=== PATIENT | male | born 1960 | race Caucasian/White ===

== ENCOUNTER 2020-06-11 14:37 | Outpatient (CLI) | payer OTHER, SELFPAY ==
--- NOTE | ~2020-06-11 | XR_ITS ---
EXAMINATION: XR chest 2V 06/11/2020 15:06 INDICATION: Chest pain PROCEDURE: 2 view chest COMPARISON: No prior studies for comparison. FINDINGS: The lungs are clear. The cardiomediastinal silhouette is within normal limits. There are no pleural effusions. There is no pneumothorax suspected. The lungs are hyperinflated which is cons istent with, but not diagnostic of chronic obstructive pulmonary disease. IMPRESSION: 1: NO ACUTE CARDIOPULMONARY DISEASE. Reviewed, dictated and finalized at location B.
[2020-06-11 14:59] LABS: Basophils Absolute Auto 0.06 K/mm3 (0.00-0.10); Basophils Percent Auto 0.9 % (0.0-1.0); Eosinophils Absolute Auto 0.42 K/mm3 (0.02-0.50); Eosinophils Percent Auto 6.2 % (1.0-6.0); Hematocrit 50.4 % (40.0-54.0); Hemoglobin 16.5 g/dL (14.0-18.0); Immature Granulocyte Absolute 0.01 K/mm3 (0.00-0.00); Immature Granulocyte Percent A 0.1 % (0.0-0.0); Lymphocytes Absolute Auto 1.76 K/mm3 (1.10-4.50); Lymphocytes Percent Auto 25.9 % (18.0-42.0); Mean Corpuscular HGB Conc 32.7 g/dL (32.0-36.0); Mean Corpuscular Hemoglobin 31.5 pg (27.0-31.0); Mean Corpuscular Volume 96.2 fL (78.0-102.0); Mean Platelet Volume 10.6 fl (8.7-11.0); Monocytes Absolute Auto 0.59 K/mm3 (0.10-0.90); Monocytes Percent Auto 8.7 % (2.0-11.0); Neutrophils Percent Auto 58.2 % (50.0-70.0); Platelet Count Result 200 K/mm3 (150-420); Red Blood Count 5.24 M/mm3 (4.70-6.10); Red Cell Distribution Width 13.7 % (11.6-14.4); White Blood Count 6.8 K/mm3 (4.8-10.8)
[2020-06-11 15:42] LABS: Alanine Aminotransferase 33 U/L (16-63); Albumin Level 4.4 g/dL (3.4-5.0); Alkaline Phosphatase 83 U/L (46-116); Anion Gap 8.6 mmol/L (7-16); Aspartate Amino Transferase 22 U/L (15-37); Bilirubin,Total 0.8 mg/dL (0.00-1.00); Blood Urea Nitrogen 20 mg/dL (7-18); Carbon Dioxide 33 mmol/L (21-32); Chloride 104 mmol/L (98-108); Estimated Glomerular Filt Rate 60; Glucose 108 mg/dL (70-99); Osmolality Calculated 295 mOsm/kg (285-295); Phosphorus 3.8 mg/dL (2.6-4.7); Potassium 4.6 mmol/L (3.5-5.1); Sodium 141 mmol/L (136-145); Total Protein 7.6 g/dL (6.4-8.2)
[2020-06-15 19:40] LABS: Amphetamines NEGATIVE ng/mL (<500); Barbiturates NEGATIVE ng/mL (<300); Benzodiazepines NEGATIVE ng/mL (<100); Cocaine Metabolite NEGATIVE ng/mL (<150); Marijuana Metabolite NEGATIVE ng/mL (<20); Methadone Metabolite NEGATIVE ng/mL (<100); Opiates NEGATIVE ng/mL (<100); Oxidant NEGATIVE mcg/mL (<200); pH 6.9 (4.5-9.0)
[2020-06-15 21:01] LABS: LH 2.5 mIU/mL (1.6-15.2)
[2020-06-18 14:47] LABS: Parathyroid Intact 55 pg/mL (14-64); Testosterone Free 38.4 pg/mL (35.0-155.0); Testosterone Total 310 ng/dL (250-1100)
== END 2020-06-11 14:38 | disposition home or self-care (01) ==
LOC: CHSLAB 14:47
PROVIDERS: PCP Internal Medicine; Visit Provider Internal Medicine
DX: E29.1 Testicular hypofunction (principal); G89.29 Other chronic pain
CPT/HCPCS: 36415; 71046; 80053; 80299; 83002; 83970; 84100; 84402; 84403; 85025

== ENCOUNTER 2020-07-18 03:06 | Emergency (ER) | payer OTHER, SELFPAY ==
--- NOTE | ~2020-07-18 | CT_ITS ---
EXAMINATION: CT brain wo con INDICATION: Headache COMPARISON: None TECHNIQUE: Standard unenhanced head CT. The dose-length product (DLP) was 908.00 mGy-cm. The mA was a djusted according to patient size. Iterative reconstruction technique was employed. FINDINGS: There is no intracranial hemorrhage, acute infarction, or abnormal mass lesion. 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 Parasellar embolization coils are noted. The ventricles are n ormal. There is no abnormal mass effect or midline shift. The coe-white matter differentiation is no rmal. The basal cisterns are patent. The orbits are normal. There is a left mastoid effusion. IMPRESSION: 1. No acute intracranial abnormality. 2. Left mastoiditis. Reviewed, dictated and finalized at location A.
--- NOTE | ~2020-07-18 | CT_ITS ---
EXAMINATION: CT cervical spine wo con DATE: 07/18/2020 04:11 INDICATION: Neck pain TECHNIQUE: Computed tomography (CT) of the cervical spine was performed without intravenous contrast. The dose-length product (DLP) was 136.08 mGy-cm. Automated exposure control and iterative reconstruc tion technique were employed. COMPARISON: None FINDINGS: There are 3 mm of retrolisthesis of C5 on C6. Vertebral body alignment is otherwise maintai sukhdev. There is severe loss of intervertebral disc space height at C5-6. Moderate loss of intervertebra l disc space height is present at C2-3, C3-4, and C6-7. Vertebral body heights are maintained. The od ontoid is intact. Small degenerative osteophytes project from the anterior endplates of multiple vert ebral bodies. The prevertebral soft tissues are normal. There is severe uncovertebral joint osteoarth ritis at C5-6. Moderate uncovertebral joint osteoarthritis and facet osteoarthritis are present there is a left mastoid effusion. There is severe central canal stenosis at C5-6. IMPRESSION: 1. Severe cervical spondylosis without acute findings. Reviewed, dictated and finalized at location A.
--- NOTE | ~2020-07-18 | XR_ITS ---
EXAMINATION: XR chest 1V portable INDICATION: Altered mental status TECHNIQUE: Portable AP chest at 0351 hours COMPARISON: 06/11/2020 FINDINGS: The lungs are hyperinflated but free of acute opacities. There is no pleural effusion or pn eumothorax. The heart size is normal. Calcified atherosclerosis is noted. IMPRESSION: 1. No acute cardiopulmonary abnormality. Reviewed, dictated and finalized at location A.
[2020-07-18 03:06] VITALS: BP 149/86; PULSE 82; RESP 20; TEMP 37.8; O2SAT 98
--- NOTE | 2020-07-18 03:17 | ECG_ITS ---
Measurements Intervals [place] Rate: 77 P: 81 RI: 132 QRS: 95 QRSD: 110 T: 89 QT: 369 QTc: 418 Interpretive Statements SINUS RHYTHM LEFT ATRIAL ENLARGEMENTRIGHT AXIS DEVIATION INTRAVENTRICULAR CONDUCTION DELAY POSSIBLE LEFT VENTRICULAR HYPERTROPHY CANNOT RULE OUT SEPTAL INFARCT, AGE INDETERMINATE PEAKED T WAVES- CONSIDER HYPERKALEMIA OR ISCHEMIA ST ABNORMALITY IN INFERIOR LEADS- CONSIDER ISCHEMIA BASELINE ARTIFACT- I, II, V6 ABNORMAL ECG Electronically Signed On 07-19-2020 7:12:12 CDT by José Kerr D.O.
--- NOTE | 2020-07-18 03:25 | ED.AMS ---
HPI - Altered Mental Status General Chief Complaint: Altered Mental Status Stated Complaint: CONFUSED Source: EMS Mode of arrival: EMS Limitations: altered mental status History of Present Illness HPI narrative: Alex is a 60M that was brought in by EMS for altered mental status. He was found at a house in [facility] with clutter everywhere, urine jugs laying around, bed bugs etc. A bystander called EMS and said he was not responding correctly. She could not provide any other information. He did not make any intelligible comments to EMS. He was thought to of said his head hurts or his whole body hurts. Then he reportedly asked EMS to hurt him, then help him. He tried to refuse EMS transport but was to altered to do so. Will not answer any questions regarding what happened or medical history. If even touch with the slightest touch he screams out in pain. complaint: altered mental status Related Data Home Medications Medication Instructions Recorded Confirmed Unable to Obtain Home Medications 07/18/20 07/18/20 Allergies Allergy/AdvReac Type Severity Reaction Status Date / Time Unable to Assess Allergy Verified 07/18/20 03:14 Review of Systems Review of Systems: ROS unobtainable: Yes unobtainable due to mental status Exam Const: Other: He was lying in bed curled up in the position. He occasionally moaned but spoke mostly in gibberish. Cachectic appearing. HENMT: Other: normocepalic, atraumatic Eyes: General: appearance normal, both eyes and all related structures Neck: Other: Normal to inspection Chest: Chest palpation & inspection: normal inspection of the chest Resp: Effort & Inspection: normal respiratory effort Auscultation: clear to auscultation bilaterally Other: No cough noted Cardio: Rate: regular rate Rhythm: regular rhythm Heart sounds: no murmurs GI: Inspection: normal to inspection Auscultation: normal bowel sounds Other: Reports TTP everywhere including the abdomen. Old vertical midline abdominal scar. Back/Spine/Pelvis: Other: TTP everywhere Skin: General skin exam: normal color and no rashes or lesions noted Neuro: Other: Not alert or oriented to person, place or time. Does not answer any questions. Occasionally will voice non-specific pain Extrem: General: normal to inspection Psych: Appearance: disheveled Speech and movement: Restless speech present Affect: Irritable affect present Attitude: Refuses to answer (attititude/behavior) Insight: Poor insight present (Psych) Judgement: Poor judgement present (Psych) Course Course Emergency Course: Alex was seen and evaluated. Ordered labs as below, CT head and cervical spine, EKG, UDS and UA. During collection of the urine by catheter placment he kept calling the nurse Hector his mother and was screaming. Repeat temp was 98.9. Repeat temp was 98.9, CXR was read as no acute cardiopulmonary process. 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 CT cervical spine showed no acute fracture or subluxation. Severe C5-6 degenerative changes with severe spinal canal stensosis. No prevertebral soft tissue swelling. Mild COPD. He was given 2gm of ceftriaxone, 1 gram of vanc and 1L of NS. [facility] was contacted at 0455. they called back at 0500 and I spoke with Dr. Owen who recommended we culture the ear fluid and accepted the transfer. Per their records he has a history of a AAA. Care transferred to Dr. Buchanan at 0700 Vital Signs Vital signs: Vital Signs Temperature 100.0 F H 07/18/20 03:06 Pulse Rate 82 07/18/20 03:06 Respiratory Rate 20 07/18/20 03:06 Blood Pressure 149/86 H 07/18/20 03:06 Pulse Oximetry 98 07/18/20 03:06 Temperature 98.9 F 07/18/20 07:00 Pulse Rate 86 07/18/20 07:00 Respiratory Rate 18 07/18/20 07:00 Blood Pressure 163/92 H
[2020-07-18 03:42] LABS: Basophils Absolute Auto 0.01 K/mm3 (0.00-0.10); Basophils Percent Auto 0.1 % (0.0-1.0); Hematocrit 44.5 % (40.0-54.0); Hemoglobin 14.3 g/dL (14.0-18.0); Immature Granulocyte Absolute 0.05 K/mm3 (0.00-0.00); Immature Granulocyte Percent A 0.4 % (0.0-0.0); Lymphocytes Absolute Auto 0.55 K/mm3 (1.10-4.50); Lymphocytes Percent Auto 4.1 % (18.0-42.0); Mean Corpuscular HGB Conc 32.1 g/dL (32.0-36.0); Mean Corpuscular Hemoglobin 30.6 pg (27.0-31.0); Mean Corpuscular Volume 95.1 fL (78.0-102.0); Mean Platelet Volume 10.9 fl (8.7-11.0); Monocytes Absolute Auto 0.84 K/mm3 (0.10-0.90); Monocytes Percent Auto 6.3 % (2.0-11.0); Neutrophils Percent Auto 89.1 % (50.0-70.0); Platelet Count Result 193 K/mm3 (150-420); Red Blood Count 4.68 M/mm3 (4.70-6.10); Red Cell Distribution Width 13.1 % (11.6-14.4); White Blood Count 13.4 K/mm3 (4.8-10.8)
[2020-07-18 03:58] LABS: INR 1.1; Prothrombin Time 11.5 Seconds (9.64-11.0)
--- NOTE | 2020-07-18 03:59 | PC.NURSE ---
0306 per ems, house infested with bed bugs. pt was disrobed at home prior to coming to er. surgical hair cover and surgical slippers applied upon arrival to er. 1 bug noted in pt hair. 0330 attempted to bath patient as needed, pt uncooperative with care . swinging at this ad writer. thrashing around in the cot. siderails up x2 for patient safety. 0345 pt to xray for head ct with xray staff and security staff. 0415 pt returned to room
[2020-07-18 04:02] LABS: Lactic Acid Reflex 1.9 mmol/L (0.4-2.0)
[2020-07-18 04:07] LABS: Alanine Aminotransferase 11 U/L (16-63); Albumin Level 3.4 g/dL (3.4-5.0); Alkaline Phosphatase 87 U/L (46-116); Anion Gap 10 mmol/L (8-16); Aspartate Amino Transferase 16 U/L (15-37); Bilirubin,Total 0.6 mg/dL (0.00-1.00); Blood Urea Nitrogen 18 mg/dL (7-18); Calcium 9.5 mg/dL (8.5-10.1); Carbon Dioxide 27 mmol/L (21-32); Chloride 96 mmol/L (98-108); Creatine Kinase 173 U/L (39-308); Estimated Glomerular Filt Rate > 60; Glucose 164 mg/dL (70-99); Osmolality Calculated 281 mOsm/kg (285-295); Potassium 4.3 mmol/L (3.5-5.1); Salicylate 3.4 mg/dL (2.8-20.0); Sodium 133 mmol/L (136-145); Thyroid Stimulating Hormone 0.06 uIU/mL (0.36-3.74); Total Protein 8.3 g/dL (6.4-8.2)
[2020-07-18 04:08] LABS: Acetaminophen 0 ug/mL (10-30); Ammonia < 10 umol/L (11-32); Ethanol < 3 mg/dL (0-6); Troponin I < 0.02 ng/mL (0.00-0.056)
[2020-07-18 04:23] LABS: Add Urine Microscopic? YES; Appearance Urine Clear (Clear); Bilirubin Urine Negative (Negative); Blood Urine 2+ (Negative); Color Urine Yellow (Yellow); Glucose Urine UA Negative (Negative); Ketones Urine Trace (Negative); Leukocyte Esterase Ur Negative LEU/UL (Negative); Nitrate Urine Negative (Negative); Protein Urine Negative (Negative); Specific Grav Ur 1.025 (1.010-1.020)
[2020-07-18 04:28] LABS: Bacteria Urine None seen /hpf; Squamous Epithelial Cell Urine None seen /hpf (Few); WBC Urine None seen /hpf (0-3)
[2020-07-18 04:29] LABS: Amphetamine Screen Urine Negative (Negative); Barbiturate Screen Urine Negative (Negative); Benzodiazepines Screen Urine Negative (Negative); Cannabinoid Screen Urine Positive (Negative); Cocaine Screen Urine Negative (Negative); Methadone Screen Urine Negative (Negative); Mucus Urine None seen /lpf; Opiate Screen Urine Positive (Negative); Phencyclidine Screen Urine Negative (Negative)
[2020-07-18 04:34] VITALS: BP 145/90; PULSE 108; RESP 18; TEMP 37.2; O2SAT 98
[2020-07-18] MEDS: SODIUM CHLORIDE 0.9% IV 1,000 ML 999 ML IV CONT (04:55)
--- NOTE | 2020-07-18 05:06 | PC.NURSE ---
pt sleeping. erp talking with hospitalist at [facility]
--- NOTE | 2020-07-18 05:07 | PC.NURSE ---
noted cloth in left ear. removed per dr padilla, green drainage noted. no foul odor. unknown how long had been in ear. pt keeps repeating. help me mom when nurse giving care.
[2020-07-18 05:21] VITALS: BP 137/79; PULSE 79; RESP 20; TEMP 37.2; O2SAT 98
--- NOTE | 2020-07-18 05:55 | PC.NURSE ---
call to [facility] arranging transfer per eric.
--- NOTE | 2020-07-18 06:06 | PC.NURSE ---
pt awake, continues to call this specifications writer, mom . unable to orient pt. continues with confusion. awaiting call for placement with [facility].
[2020-07-18 06:35] VITALS: BP 128/64; PULSE 75; RESP 18; TEMP 37.2; O2SAT 98
[2020-07-18 07:00] VITALS: BP 163/92; PULSE 86; RESP 18; TEMP 37.2; O2SAT 98
--- NOTE | 2020-07-18 07:10 | PC.NURSE ---
call for [facility] for transfer. awaiting arrival
--- NOTE | 2020-07-18 07:48 | PC.NURSE ---
[facility] here, report to leslie blancas loaded to cot. remains with altered mental status
[2020-07-19 11:46] LABS: Glucose Point of Care 159 (65-105)
== END 2020-07-18 07:49 | disposition short-term general hospital (02) ==
PROVIDERS: Emergency Provider Family Medicine
DX: H70.009 Acute mastoiditis without complications, unspecified ear (principal); G93.40 Encephalopathy, unspecified; E05.90 Thyrotoxicosis, unspecified without thyrotoxic crisis or storm
CPT/HCPCS: 36415; 70450; 71045; 72125; 80053; 80307; 81001; 82140; 82550; 82948; 83605; 84443; 84484; 85025; 85610; 87040; 87070; 87075; 87077; 87186; 87205; 93005; 96361; 96365; 96367; 99283; 99285; J0696; J3370; J7030

== ENCOUNTER 2021-09-30 13:30 | Outpatient (CLI) | payer OTHER, SELFPAY ==
--- NOTE | ~2021-09-30 | US_ITS ---
EXAMINATION: US aorta DATE: 09/30/2021 15:00 INDICATION: Abdominal aortic aneurysm TECHNIQUE: Grayscale, color Doppler, and pulsed Doppler images of the aorta and common iliac arteries were obtained. COMPARISON: 11/01/2018 FINDINGS: The proximal aorta measures 2.7 cm maximal AP dimension. There is a stent in the mid to distal aorta with intraluminal diameter of 1.7 cm. This spans fusiform infrarenal abdominal aortic aneurysm better appreciated on CT dated 01/22/2019. The aneurysm sac in the mid aorta measures 2.5 cm AP. The aneurys m sac at the distal aorta measures up to 3.0 cm tapering to 2.2 cm in the distalmost aorta. The right common iliac artery measures 7 mm. The left common iliac artery measures 7 mm. IMPRESSION: 1. Stented infrarenal abdominal aortic aneurysm measuring up to 3.0 cm. Reviewed, dictated and finalized at location A.
== END 2021-09-30 13:31 | disposition home or self-care (01) ==
LOC: CHSIMG 13:32
PROVIDERS: PCP Internal Medicine; Visit Provider Internal Medicine
DX: I71.4 Abdominal aortic aneurysm, without rupture (principal)
CPT/HCPCS: 76775

== ENCOUNTER 2023-03-27 16:36 | Outpatient (CLI) | payer OTHER, SELFPAY ==
[2023-03-27 17:00] LABS: Basophils Absolute Auto 0.05 K/mm3 (0.00-0.10); Basophils Percent Auto 0.7 % (0.0-1.0); Eosinophils Absolute Auto 0.16 K/mm3 (0.02-0.50); Eosinophils Percent Auto 2.3 % (1.0-6.0); Hematocrit 45.7 % (40.0-54.0); Hemoglobin 15.3 g/dL (14.0-18.0); Immature Granulocyte Absolute 0.02 K/mm3 (0.00-0.00); Immature Granulocyte Percent A 0.3 % (0.0-0.0); Lymphocytes Absolute Auto 2.05 K/mm3 (1.10-4.50); Lymphocytes Percent Auto 29.9 % (18.0-42.0); Mean Corpuscular HGB Conc 33.5 g/dL (32.0-36.0); Mean Corpuscular Hemoglobin 32.3 pg (27.0-31.0); Mean Corpuscular Volume 96.6 fL (78.0-102.0); Mean Platelet Volume 11.7 fl (8.7-11.0); Monocytes Absolute Auto 0.55 K/mm3 (0.10-0.90); Neutrophils Percent Auto 58.8 % (50.0-70.0); Platelet Count Result 150 K/mm3 (150-420); Red Blood Count 4.73 M/mm3 (4.70-6.10); Red Cell Distribution Width 12.5 % (11.6-14.4); White Blood Count 6.9 K/mm3 (4.8-10.8)
[2023-03-27 17:24] LABS: Alanine Aminotransferase 12 U/L (16-63); Albumin Level 4.1 g/dL (3.4-5.0); Alkaline Phosphatase 65 U/L (46-116); Anion Gap 6 mmol/L (8-16); Aspartate Amino Transferase 18 U/L (15-37); Bilirubin,Total 0.5 mg/dL (0.00-1.00); Blood Urea Nitrogen 14 mg/dL (7-18); Calcium 9.8 mg/dL (8.5-10.1); Carbon Dioxide 31 mmol/L (21-32); Chloride 105 mmol/L (98-108); Cholesterol 122 mg/dL (0-200); Estimated Glomerular Filt Rate > 60; Glucose 110 mg/dL (70-99); HDL Direct 43 mg/dL (40-60); LDL Cholesterol Calculated 55 mg/dL (<130); Osmolality Calculated 295 mOsm/kg (285-295); Phosphorus 3.9 mg/dL (2.6-4.7); Potassium 3.6 mmol/L (3.5-5.1); Sodium 142 mmol/L (136-145); Total Protein 7.3 g/dL (6.4-8.2); Triglycerides 119 mg/dL (0-150)
[2023-04-03 06:55] LABS: Amphetamines NEGATIVE ng/mL (<500); Barbiturates NEGATIVE ng/mL (<300); Benzodiazepines NEGATIVE ng/mL (<100); Cocaine Metabolite NEGATIVE ng/mL (<100); Marijuana Metabolite 2100 ng/mL (<5); Methadone Metabolite NEGATIVE ng/mL (<100); Opiates NEGATIVE ng/mL (<100); Oxidant NEGATIVE mcg/mL (<200); pH 5.4 (4.5-9.0)
== END 2023-03-27 16:37 | disposition home or self-care (01) ==
LOC: CHSLAB 16:39
PROVIDERS: PCP Internal Medicine; Visit Provider Internal Medicine
DX: I73.9 Peripheral vascular disease, unspecified (principal); D69.6 Thrombocytopenia, unspecified; G89.29 Other chronic pain
CPT/HCPCS: 36415; 80053; 80061; 80299; 80349; 83735; 84100; 85025; 85362; G0480

== ENCOUNTER 2025-06-29 10:15 | Emergency (ER) | payer SELFPAY ==
[2025-06-29] VITALS (8 sets, daily range): BP systolic 121–145; BP diastolic 96–115; PULSE 99–104; RESP 12–22; TEMP 36.2; O2SAT 97–99
--- NOTE | ~2025-06-29 | CT_ITS ---
EXAMINATION: CT brain wo con DATE: 06/29/2025 11:23 INDICATION: Altered mental status TECHNIQUE: Computed tomography (CT) of the head was performed without intravenous contrast. Sagittal and coronal reconstructions were performed. The mA was adjusted according to patient size. Iterative reconstruction technique was employed. The dose-length product was 605.33 mGy-cm. COMPARISON: head CT dated 07/18/2020 FINDINGS: Metallic streak artifact corresponding to embolization coils at the anterior suprasellar region in th e region of the anterior cerebral and anterior communicating arteries. Unchanged small region of ence phalomalacia in the anterior right frontal lobe which could represent an old infarct but could also b e related to placement of a prior ventricular drainage catheter with suggestion of a possible small o ld alexis hole in the overlying calvarium. Small old lacunar infarct involving the head of the left cau date nucleus and anterior limb of the internal capsule. No acute intracranial hemorrhage, acute infar ction or abnormal extra axial fluid collection. There is moderate scattered white matter hypoattenuation consistent with chronic small vessel ischemi c disease. Ventricles are normal and symmetric. No mass/mass effect. Small left mastoid effusion wit h change of interval left mastoidectomy. The orbits, paranasal sinuses and right mastoid air cells ar e normal. IMPRESSION: 1. No acute intracranial process. 2. 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 3. Unchanged tract of encephalomalacia in the anterior right frontal lobe extending between what appe ars to be a small old right frontal alexis hole and the anterior horn of the lateral ventricle which co uld be related to prior ventricular drainage catheter placement or sequela of old infarct. Correlate with surgical history. 4. Anterior suprasellar embolization coils. Again correlate with surgical history. 5. Moderate scattered white matter hypoattenuation consistent with chronic small vessel ischemic dise ase. Reviewed, dictated and finalized at location A. IMPRESSION: 1. No acute intracranial process. 2. 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 3. Unchanged tract of encephalomalacia in the anterior right frontal lobe exten ding between what appears to be a small old right frontal alexis hole and the ant erior horn of the lateral ventricle which could be related to prior ventricular drainage catheter placement or sequela of old infarct. Correlate with surgical history. 4. Anterior suprasellar embolization coils. Again correlate with surgical histo ry. 5. Moderate scattered white matter hypoattenuation consistent with chronic smal l vessel ischemic disease.
--- NOTE | ~2025-06-29 | XR_ITS ---
EXAMINATION: XR chest 1V portable 06/29/2025 11:24 INDICATION: Altered mental status PROCEDURE: AP portable chest COMPARISON: 07/18/2020 FINDINGS: The lungs are clear. The lungs are hyperinflated which is consistent with, but not diagnost ic of chronic obstructive pulmonary disease. The cardiomediastinal silhouette is within normal limits . There are no pleural effusions. There is no pneumothorax suspected. There is atherosclerosis of the aorta. IMPRESSION: 1: NO ACUTE CARDIOPULMONARY DISEASE. Reviewed, dictated and finalized at location A.
--- NOTE | 2025-06-29 10:30 | ECG_ITS ---
Test Date: 2025-06-29 10:45:01 Measurements Intervals [place] Rate: 101 P: 78 NE: 129 QRS: 94 QRSD: 102 T: 91 QT: 353 QTc: 459 Interpretive Statements SINUS TACHYCARDIA RIGHT AXIS DEVIATION RIGHT ATRIAL ENLARGEMENT LEFT ATRIAL ENLARGEMENT INCOMPLETE RIGHT BUNDLE BRANCH BLOCK ANTEROSEPTAL INFARCT, AGE INDETERMINATE ST-T WAVE ABNORMALITY IN INFERIOR LEADS- CONSIDER ISCHEMIA ABNORMAL ECG No previous ECG available for comparison Electronically Signed On 06-29-2025 10:59:15 CDT by José Kerr D.O.
--- NOTE | 2025-06-29 10:34 | ED_ITS ---
HPI - Altered Mental Status General Chief Complaint: Altered Mental Status Stated Complaint: possible seizure Time Seen by Provider: 06/29/25 10:30 History of Present Illness HPI narrative: Pt presents with altered mental status and confusion. niece called 911 because patient was confused and not acting right. Pt denies HARRIS or fever. Pt denies CP. Pt answers some questions but most not appropriately and rambles on about unrelated topics. Pt admits to not seeing doctor in awhile and not taking any meds. Pt does admit to smoking tobacco and using meth and cannabis. Related Data Home Medications ?Medication ?Instructions ?Recorded ?Confirmed ?Last Taken ?Type No Home Medications 06/29/25 06/29/25 Unknown History Allergies Allergy/AdvReac Type Severity Reaction Status Date / Time diphenhydramine (From Allergy Rash Verified 06/29/25 11:01 Benadryl) milk] Allergy Mild vomiting Uncoded 06/29/25 11:01 Review of Systems 2 Review of Systems: ROS unobtainable: Yes unobtainable due to mental status Exam 2 Const: General: no acute distress Nutritional Appearance: thin L imitations: altered mental status HENMT: Head: normal to inspection Ears: external ears normal F alonso/Nose/Sinus: Normal external nose present Mouth: Yes dry mucous membranes Throat: posterior oropharynx normal Eyes: EOM: EOMs intact bilaterally Neck: Neck: no lymphadenopathy and no meningeal signs Chest: Chest palpation & inspection: normal inspection of the chest Resp: Effort & Inspection: normal respiratory effort Auscultation: clear to auscultation bilaterally Cardio: Rate: tachycardic Rhythm: regular rhythm GI: GI Palp: Yes Soft to palpation and No Tenderness to palpation present (GI) Auscultation: normal bowel sounds Skin: General skin exam: normal color Rashes: no rashes Wounds: no wounds Neuro: General: moves all extremities, no meningeal signs and no focal motor deficits Speech: normal speech Extrem: General: normal to inspection and no clubbing, cyanosis or edema Psych: Mental Status: mental status grossly normal Affect: normal affect Attitude: cooperative Course Vital Signs Vital signs: Vital Signs Temperature 97.2 F L 06/29/25 10:15 Pulse Rate 102 H 06/29/25 10:15 Respiratory Rate 18 06/29/25 10:15 Blood Pressure 145/115 H 06/29/25 10:15 Pulse Oximetry 97 06/29/25 10:15 Oxygen Delivery Room Air 06/29/25 10:15 Temperature 97.2 F L 06/29/25 10:15 Pulse Rate 103 H 06/29/25 11:01 Respiratory Rate 20 06/29/25 11:01 Blood Pressure 121/96 H 06/29/25 11:01 Pulse Oximetry 98 06/29/25 11:01 Oxygen Delivery Room Air 06/29/25 10:45 MDM - Altered Mental Status MDM Narrative Medical decision making narrative: Pt presents from home with altered mental status. Pt is confused and rambling. Pt has only one visit here in 2019 and had mastoiditis. Pt does admit to drug usage including meth and cannabis. Pt incontinent of stool and urine per EMS. Niece contacted and says he has history of paranoid schizophrenia but does not take any meds. confusion started last week including having hallucinations and pacing about and being very paranoid and thinking hit is out on him. EKG appears like anteroseptal stemi. Pt denies CP but is confused. will contact [facility]. contacted but not cardiology and no call back. contacted [place] [facility] discussed with [facility] charge who said to follow the STEMI protocol and transfer. discussed with Dr Sarabia, cardiology who asked to send EKG and will accept. will give asa but will hold on heparin until i get a look at CT given pt's altered mental status. Pt departed to [place] before Ct read. Pt got asa only no heparin or brelinta. Lab Data 06/29/25 10:45 06/29/25 10:45 Labs: Lab Results 06/29/25 Range/Units 10:45 WBC 6.3 (4.8-10.8) K/mm3 RBC 4.91 (4.70-6.10) M/mm3 Hgb 15.2 (12.4-15.3) g/dL Hct 46.7 H (37.0-46.0) % MCV 95.1 (78.0-102.0) fL MCH 31.0 (27.0-31.0) pg MCHC 32.5 (32-36) g/dL RDW 13.1 (11.6-14.4) % Plt Count 165 (150-420) K/mm3 MPV 11.1 H (8.7-11.0) fl Immature Gran % (Auto) 0.3 H (0.0-0.0) % Neut % (Auto) 77.0 H (50.0-70.0) % Lymph % (Auto) 15.9 L (18.0-42.0) % Garrett % (Auto) 5.7 (2.0-11.0) % Eos % (Auto) 0.5 L (1.0-6.0) % Baso % (Auto) 0.6 (0.0-1.0) % Lymph # (Auto) 1.00 L (1.10-4.50) K/mm3 Garrett # (Auto) 0.36 (0.10-0.90) K/mm3 Eos # (Auto) 0.03 (0.02-0.50) K/mm3 Baso # (Auto) 0.04 (0.00-0.10) K/mm3 Abs Immat Gran (auto) 0.02 H (0.00-0.00) K/mm3 Absolute Neuts (auto) 4.85 (1.70-7.20) K/mm3 Absolute Nucleated RBC 0.00 (0.00-0.00) K/mm3 Nucleated RBC % 0.0 (0-0.0) % PT 11.7 (9.50-12.1) Seconds INR 1.1 APTT 26.7 (23.9-30.70) Sec Sodium Pending Potassium Pending Chloride Pending Carbon Dioxide 25 (22-30) mmol/L Anion Gap Pending BUN 15 (9-20) mg/dL Creatinine 1.10 (0.7-1.3) mg/dL Estim Creat Clear Calc 41 ml/min Estimated GFR > 60 (59 - ) Glucose 157 H (65-110) mg/dL Calculated Osmolality Pending Lactic Acid 4.2 H (0.4-2.0) mmol/L Calcium 10.1 (8.4-10.2) mg/dL Total Bilirubin 0.7 (0.2-1.3) mg/dL AST 33 (17-59) U/L ALT 21 (6-50) U/L Alkaline Phosphatase 68 (38-126) U/L Ammonia < 9 L (9-30) umol/L Total Creatine Kinase 83 (55-170) U/L Troponin I 0.016 (0.000-0.034) ng/mL Total Protein 7.0 (6.3-8.2) g/dL Albumin 4.6 (3.5-5.1) g/dL TSH 0.774 (0.465-4.680) uIU/mL Salicylates < 1.0 L (2-20) mg/dL Acetaminophen < 10 L (10-30) ug/mL Ethyl Alcohol < 10 (<10) mg/dL ECG Data EKG #1: Interpretation: sinus tach rate 101lae incomplete rbbb st elevation in avr avl v1-v3 with receprocal changes in 2,3 avf and v5, v6 looks like a stemi no prior ekg available for compariosn Critical Care Time Critical Care Time Critical Care Time: Yes Total Critical Care Time: 40 Discharge Plan Discharge Clinical Impression: ST elevation (STEMI) myocardial infarction, Altered mental status Patient Disposition: Acute Care Hospital Condition: Serious Patient Language: Setswana Prescriptions: No Action No Home Medications Follow-up/Referrals: Nolan Woodard MD [Primary Care Provider] -
[2025-06-29 10:51] LABS: Hematocrit 46.7 % (37.0-46.0); Hemoglobin 15.2 g/dL (12.4-15.3); Immature Granulocyte Percent A 0.3 % (0.0-0.0); Lymphocytes Absolute Auto 1.00 K/mm3 (1.10-4.50); Mean Corpuscular HGB Conc 32.5 g/dL (32-36); Mean Corpuscular Hemoglobin 31.0 pg (27.0-31.0); Mean Corpuscular Volume 95.1 fL (78.0-102.0); Nucleated Red Blood Cells Absolute Auto 0.00 K/mm3 (0.00-0.00); Nucleated Red Blood Cells Perc 0.0 % (0-0.0); Platelet Count Result 165 K/mm3 (150-420); Red Blood Count 4.91 M/mm3 (4.70-6.10); White Blood Count 6.3 K/mm3 (4.8-10.8)
--- NOTE | 2025-06-29 10:54 | PC.NURSE ---
COMPLEX MEDICAL HISTORY, PER DR OSORIO , [facility] CALLED FOR CARDIOLOGY. PT HAS SEEN DR AWAD IN THE PAST.
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
[2025-06-29] MEDS: SODIUM CHLORIDE 0.9% IV 1,000 ML 999 ML IV CONT (11:00)
--- NOTE | 2025-06-29 11:04 | PC.NURSE ---
no response from [facility], per ian landrum .
[2025-06-29 11:06] LABS: Acetaminophen < 10 ug/mL (10-30); Ammonia < 9 umol/L (9-30); INR 1.1; Partial Thromboplastin Time 26.7 Sec (23.9-30.70); Prothrombin Time 11.7 Seconds (9.50-12.1); Salicylate < 1.0 mg/dL (2-20)
--- OUTSIDE RECORDS SUMMARY | 2025-06-29 11:20 | XMS_ITS | Clinical Summary ---
Author Organization [facility] Address [address] [place] [address] Care Team Providers Care Systems Programmer Analyst Name Role Phone Nolan Woodard MD Primary Care Provider [phone] Js Salazar MD Unavailable [phone] Allergies Active Allergy Reactions Criticality Noted Date Comments Diphenhydramine Other (see comment) 12/09/2018 Muscle cramps/lock jaw Medications simvastatin 10 MG tablet Take 10 mg by mouth nightly at bedtime. 11/21/2018 Active metoprolol tartrate 100 MG tablet Take 100 mg by mouth 2 (two) times daily. Active HYDROcodone-alonso taminophen 7.5-325 MG tablet Take 1 tablet by mouth every 12 (twelve) hours as needed for Pain. Active Active Problems Problem Noted Date Diagnosed Date Mastoiditis 07/26/2020 Acute encephalopathy 07/18/2020 Aneurysm of infrarenal abdominal aorta Resolved Problems Problem Noted Date Diagnosed Date Resolved Date Dissection of abdominal aort a ([facility]) 02/14/2019 03/08/2021 Social History Tobacco Use Types Packs/Day Years Used Date Smoking Tobacco: Every Day Cigarettes Smokeless Tobacco: Never Alcohol Use Standard Drinks/Week Comments No 0 (1 standard drink = 0.6 oz pur e alcohol) AUDIT-C Answer Date Recorded Frequency of Alcohol Consumption Never 12/09/2018 Average Number of Drinks Not on file 019 Frequency of Binge Drinking Not on file 11/26 Sex and Gender Information Value Date Recorded Sex Assigned at Not on file 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 Gender Identity Not on file Sexual Orientation Not on file Last Filed Vital Signs Vital Sign Reading Time Taken Comments Blood Pressure 128/74 03/14/2021 1:34 PM CDT Pulse 64 03/14/2021 1:34 PM CDT Temperature 36.7 C (98.1 F) 08/02/2020 9:12 AM CDT Respiratory Rate 16 03/14/2021 1:34 PM CDT Oxygen Saturation 98% 03/14/2021 1:34 PM CDT Inhaled Oxygen Concentration - - Weight 61.1 kg (134 lb 12.8 oz) 03/14/2021 1:34 PM CDT Height 174.8 cm (5' 8.8) 03/14/2021 1:34 PM CDT Body Mass Index 20.02 03/14/2021 1:34 PM CDT Plan of Treatment Health Maintenance Due Date Last Done Comments Colorectal Cancer Screening Colonoscopy (10 Years) 1959 Hepatitis C 1977 DTaP, Tdap and Td Vaccines ( 1 - Tdap) 1978 Pneumococcal Vaccine: 50+ Ye ars (1 of 2 - PCV) 1978 Zoster Vaccines (1 of 2) 2009 COVID-19 Vaccine ( - 2023-2 5 season) 2024 RSV Immunization or 60+ Years (1 - 1-dose 75+ series) 2034 Meningococcal B Vaccine Aged Out No l onger eligible based on patient's age to complete this topic Meningococcal Vaccine Aged Out No harika myranda eligible based on patient's age to complete this topic RSV Immunizations Under 20 Months Aged Out No longer eligible based on patient's age to complete this topic Medical Devices Implanted Type Area Child Care Supervisor Device Identifier Shelf Expiration Date Model / Serial / Lot Graft Intergard Knitted Bifurcated 16 X 8mm X 50cm - [id number] Implanted:Qty: 1 on 01/22/2019 by Bertin Alvarez MD at [facility] N/A: Abdomen Dabble CARDIOVASCULAR [employer] 08/25/2023 [id number] / [id number] Description:Don from invento ry notified to Reorder Paulino Beveled Grommet Type Vent Tube With Tab 1.14mm Id Silicone Implanted:Qty: 1 on 07/27/2020 by Dougie Marshall MD at [facility] Left: Ear 10/09/2029 [id number] / / [id number] Insurance [employer] Advance Directives * Full Code (Latest Code Status on File) Date Activated Date Inactivated Comments 07/26/2020 5:22 PM 08/02/2020 6:55 PM * Full Code Date Activated Date Inactivated Comments 07/19/2020 6:29 AM 07/24/2020 7:36 AM * Full Code Date Activated Date Inactivated Comments 01/22/2019 1:37 PM 01/28/2019 3:53 PM Care Teams Systems Programmer Analyst Relationship Specialty Start Date End Date Nolan Woodard MD [address] [place] [id number] PCP - General INTERNAL MEDICINE 11/20/18 Js Salazar MD [address] [place] [address] INTERVENTIONAL CARDIOLOGY 11/20/18
[2025-06-29] MEDS: ASPIRIN 81 MG CHEWABLE TABLET 324 MG PO (11:22)
[2025-06-29 11:24] LABS: Alanine Aminotransferase 21 U/L (6-50); Aspartate Amino Transferase 33 U/L (17-59); Bilirubin,Total 0.7 mg/dL (0.2-1.3); Blood Urea Nitrogen 15 mg/dL (9-20); Calcium 10.1 mg/dL (8.4-10.2); Carbon Dioxide 25 mmol/L (22-30); Estimated CRCL calculation 41 ml/min; Estimated Glomerular Filt Rate > 60; Glucose 157 mg/dL (65-110)
[2025-06-29 11:25] LABS: Albumin Level 4.6 g/dL (3.5-5.1); Alkaline Phosphatase 68 U/L (38-126); Creatine Kinase 83 U/L (55-170); Total Protein 7.0 g/dL (6.3-8.2); Troponin I 0.016 ng/mL (0.000-0.034)
[2025-06-29 11:37] LABS: Thyroid Stimulating Hormone 0.774 uIU/mL (0.465-4.680)
[2025-06-29 12:03] LABS: Anion Gap 12 mmol/L (4-12); Chloride 103 mmol/L (98-107); Osmolality Calculated 293 mOsm/kg (285-295); Potassium 3.5 mmol/L (3.4-5.0); Sodium 140 mmol/L (137-145)
--- NOTE | 2025-07-02 12:40 | PC.NURSE ---
PRELIMINARY BLOOD CULTURE REPORT; NO GROWTH IN 24 HOURS.
--- NOTE | 2025-07-03 13:21 | PC.NURSE ---
Preliminary blood culture report; no growth in 48 hours.
--- NOTE | 2025-07-06 13:54 | PC.NURSE ---
FINAL BLOOD CULTURE NO GROWTH IN 5 DAYS
== END 2025-06-29 11:37 | disposition short-term general hospital (02) ==
PROVIDERS: Emergency Provider Emergency Medicine; PCP Internal Medicine
DX: I21.3 ST elevation (STEMI) myocardial infarction of unspecified site (principal); R41.82 Altered mental status, unspecified
CPT/HCPCS: 36415; 70450; 71045; 80053; 80143; 80179; 82077; 82140; 82550; 83605; 84443; 84484; 85025; 85610; 85730; 87040; 93005; 96360; 99291; A9270; J7030

== ENCOUNTER 2025-06-29 12:09 | Inpatient (IN) | payer MEDICAID, SELFPAY ==
[2025-06-29] VITALS (37 sets, daily range): BP systolic 118–164; BP diastolic 58–108; PULSE 57–93; RESP 16–27; TEMP 36.8–38.4; O2SAT 10–100; BMI 22.1
--- NOTE | ~2025-06-29 | CT_ITS ---
EXAMINATION: CTA chest PE abdomen pel DATE: 07/01/2025 12:29 CDT INDICATION: Respiratory failure TECHNIQUE: Computed tomographic angiography (CTA) of the chest, abdomen, and pelvis was performed wit hout and with 100 mL Omnipaque-350 intravenous contrast. The dose-length product was 573.09 mGy-cm. M aximum intensity projection 3D-reconstructions of the aorta and other arteries were constructed by th e technologist on a separate workstation. COMPARISON: CT dated 01/22/2019. FINDINGS: CHEST CTA: Study is technically adequate without evidence for pulmonary embolism. There is atherosclerosis and e ctasia of the thoracic aorta. There is coronary atherosclerosis. No significant pleural or pericardia l effusion. There is an endotracheal tube present. There is bilateral lower lobe dependent consolidat ion right greater than left. ABDOMEN AND PELVIS CTA: Markedly distended gallbladder containing high density material dependently which likely represents v icarious excretion of contrast. There is hepatomegaly. The spleen, pancreas, adrenal glands are unrem arkable. There are nonobstructing bilateral renal stones. No hydronephrosis. Colonic diverticulosis w ithout evidence for diverticulitis. [place] catheter present in the bladder. No definite free intraperi toneal air. No evidence for aortic aneurysm on the current study. There is atherosclerosis of the aor ta. There is severe lumbar spondylosis with levoscoliosis. IMPRESSION: 1. No evidence for pulmonary embolism. 2: Bilateral airspace consolidation, right greater than left. Differential diagnosis includes atelec tasis and/or pneumonia. 3: Marked gallbladder distention, nonspecific. 4: Hepatomegaly. 5: Nonobstructing bilateral nephrolithiasis. Reviewed, dictated and finalized at location A. IMPRESSION: 1. No evidence for pulmonary embolism. 2: Bilateral airspace consolidation, right greater than left. Differential john gnosis includes atelectasis and/or pneumonia. 3: Marked gallbladder distention, nonspecific. 4: Hepatomegaly. 5: Nonobstructing bilateral nephrolithiasis.
--- NOTE | ~2025-06-29 | XR_ITS ---
Portable chest x-ray Comparison: 06/29/2025 Clinical History: Intubated Findings: Endotracheal tube and NG tube are in satisfactory positions. There is mild haziness at the medial right lung base. Left lung clear. Possible COPD. Cardiomediastinal silhouette is stable. Bon es and soft tissues are unremarkable. Impression: Haziness in the medial right lung base. Correlate for pneumonia versus mild asymmetric pulmonary madi a. Possible underlying COPD. Support tubes, as above. Reviewed, dictated and finalized at location M. Impression: Haziness in the medial right lung base. Correlate for pneumonia versus mild asy mmetric pulmonary edema. Possible underlying COPD. Support tubes, as above.
--- NOTE | ~2025-06-29 | XR_ITS ---
Portable chest x-ray Comparison: 06/30/2025 Clinical History: Pneumonia Findings: Endotracheal tube, NG tube, and right-sided PICC line are in place. There is hazy airspace disease in the medial right lung base. Left lung clear. Cardiomediastinal silhouette is stable. Bon es and soft tissues are unremarkable. Impression: Stable hazy airspace disease medial right lung base. Correlate for pneumonia versus pulmonary edema/a telectasis. Support tubes, as above. Reviewed, dictated and finalized at location . Impression: Stable hazy airspace disease medial right lung base. Correlate for pneumonia ve rsus pulmonary edema/atelectasis. Support tubes, as above.
--- NOTE | ~2025-06-29 | XR_ITS ---
Portable chest x-ray Comparison: 07/01/2025 Clinical History: Pneumonia Findings: Endotracheal tube, NG tube, and right-sided central venous line are in place. Significant interval improvement in hazy right basilar airspace disease as compared to prior exam. Left lung jihan ins clear. Cardiomediastinal silhouette is stable. Bones and soft tissues are unremarkable. Impression: Significant interval improvement in right basilar airspace disease. Stable support tubes. Reviewed, dictated and finalized at location . Impression: Significant interval improvement in right basilar airspace disease. Stable support tubes.
--- NOTE | ~2025-06-29 | CT_ITS ---
EXAMINATION: CT brain wo con DATE: 07/01/2025 12:18 INDICATION: Seizures TECHNIQUE: Computed tomography (CT) of the head was performed without intravenous contrast. Sagittal and coronal reconstructions were performed. The mA was adjusted according to patient size. Iterative reconstruction technique was employed. The dose-length product was 681.00 mGy-cm. COMPARISON: head CT dated 06/29/25 FINDINGS: Metallic streak artifact corresponding to embolization coils at the anterior suprasellar region in th e region of the anterior cerebral and anterior communicating arteries. Unchanged small region of ence phalomalacia in the anterior right frontal lobe which could represent an old infarct but could also b e related to placement of a prior ventricular drainage catheter with suggestion of a possible small o ld alexis hole in the overlying calvarium. Small old lacunar infarct involving the head of the left cau date nucleus and anterior limb of the internal capsule. No acute intracranial hemorrhage, acute infar ction or abnormal extra axial fluid collection. There is moderate scattered white matter hypoattenuat ion consistent with chronic small vessel ischemic disease. Ventricles are normal and symmetric. No m ass/mass effect. Small left mastoid effusion with change of interval left mastoidectomy. The orbits, paranasal sinuses and right mastoid air cells are normal. IMPRESSION: 1. No acute intracranial process. 2. 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 3. Unchanged tract of encephalomalacia in the anterior right frontal lobe extending between what appe ars to be a small old right frontal alexis hole and the anterior horn of the lateral ventricle which co uld be related to prior ventricular drainage catheter placement or sequela of old infarct. Correlate with surgical history. 4. Anterior suprasellar embolization coils. Correlate with surgical history. 5. Moderate scattered white matter hypoattenuation consistent with chronic small vessel ischemic dise ase. Reviewed, dictated and finalized at location A. IMPRESSION: 1. No acute intracranial process. 2. 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 3. Unchanged tract of encephalomalacia in the anterior right frontal lobe exten ding between what appears to be a small old right frontal alexis hole and the ant erior horn of the lateral ventricle which could be related to prior ventricular drainage catheter placement or sequela of old infarct. Correlate with surgical history. 4. Anterior suprasellar embolization coils. Correlate with surgical history. 5. Moderate scattered white matter hypoattenuation consistent with chronic smal l vessel ischemic disease.
--- NOTE | ~2025-06-29 | XR_ITS ---
XR chest ET placement 06/29/2025 14:09 Indication: Endotracheal tube placement Procedure: AP portable chest Comparison: Comparison to multiple prior studies sequentially, with oldest reviewed study dated 01/22. Findings: Endotracheal tube tip approximately 2.5 cm above the antonella. NG tube in the stomach. No foc al air space disease, pulmonary edema, pleural effusion or suspected pneumothorax. There is residual contrast in nondilated renal collecting systems bilaterally. Impression: 1: No acute cardiopulmonary disease. Reviewed, dictated and finalized at location A. Impression: 1: No acute cardiopulmonary disease.
--- NOTE | ~2025-06-29 | US_ITS ---
EXAMINATION:US venous doppler LE BI INDICATION:Fever TECHNIQUE: Multiple grayscale, color flow and Doppler images of the right and left lower extremity de ep venous systems were obtained and reviewed. COMPARISON:No prior studies for comparison. FINDINGS: The common femoral, superficial femoral and popliteal veins demonstrate normal respiratory variation, augmentation and compressibility. Color flow is also seen within the posterior tibial, pe roneal, greater saphenous and profunda veins. IMPRESSION: 1: No lower extremity deep venous thrombosis. Reviewed, dictated and finalized at location A.
--- NOTE | 2025-06-29 12:13 | ECG_ITS ---
Test Date: 2025-06-29 12:13:20 Measurements Intervals [place] Rate: 96 P: 79 NM: 132 QRS: 87 QRSD: 104 T: 118 QT: 365 QTc: 462 Interpretive Statements SINUS RHYTHM POSSIBLE LEFT ATRIAL ENLARGEMENT INCOMPLETE RIGHT BUNDLE BRANCH BLOCK ANTEROSEPTAL INFARCT, AGE INDETERMINATE ST-T WAVE ABNORMALITY IN ANTEROLAT/INF LEADS- CONSIDER ISCHEMIA BASELINE ARTIFACT- I, II, AVR, AVL, AVF, V1-V6 ABNORMAL ECG Compared to ECG 06/29/2025 10:45:01 HEART RATE HAS DECREASED Electronically Signed On 06-30-2025 09:03:44 CDT by José Kerr D.O.
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
--- OUTSIDE RECORDS SUMMARY | 2025-06-29 12:22 | XMS_ITS | Clinical Summary ---
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 Gender Identity Not on file Sexual Orientation [...] this topic Medical Devices Implanted Type Area Softball Coach Device Identifier Shelf Expiration Date Model / Serial / Lot Graft Intergard Knitted Bifurcated 16 X 8mm X 50cm - [id number] Implanted:Qty: 1 on 01/22/2019 by Bertin Alvarez MD at [facility] N/A: Abdomen [employer] CARDIOVASCULAR RFIDeas 08/25/2023 [id number] / [id number] Description:Don from invento ry notified to Reorder Paulino Beveled Grommet Type Vent Tube With Tab 1.14mm Id Silicone Implanted:Qty: 1 on 07/27/2020 by Dougie Marshall MD at [facility] Left: Ear 10/09/2029 [id number] / / [id number] Insurance [employer] Advance Directives * Full Code (Latest Code Status on File) Date Activated Date Inactivated Comments 07/26/2020 5:22 PM 08/02/2020 6:55 PM * Full Code Date Activated Date Inactivated Comments 07/19/2020 6:29 AM 07/24/2020 7:36 AM * Full Code Date Activated Date Inactivated Comments 01/22/2019 1:37 PM 01/28/2019 3:53 PM Care Teams Prosthodontist/Owner Relationship Specialty Start Date End Date Nolan Woodard MD [address] [place] [id number] PCP - General INTERNAL MEDICINE 11/20/18 Js Salazar MD [address] [place] [address] INTERVENTIONAL CARDIOLOGY 11/20/18
--- NOTE | 2025-06-29 12:41 | PM.CNCAR ---
Assessment and Plan Assessment and plan (1) ST elevation (STEMI) myocardial infarction: Code(s): I21.3 - ST elevation (STEMI) myocardial infarction of unspecified site Status: Acute (2) Seizure: Code(s): R56.9 - Unspecified convulsions Status: Acute (3) Altered mental status: Code(s): R41.82 - Altered mental status, unspecified Status: Acute Plan -regards to possible STEMI, we rushed the patient to the labor and delivery registered nurse for catheterization. On the labor and delivery registered nurse table he developed seizure. Given 2 mg of Versed and seizure broke. ICU physician intubated patient. We will proceed with a cardiac catheterization. -in regards to history of brain overlies a kurtz encephalomalacia. We need to clarify his baseline history. History of Present Illness History of Present Illness Consult date/time: Date of hpulahc49/04/25 12:41 Requesting physician: Demario Berman III, DO Consult reason: Other (Possible STEMI) Reason For Visit: STEMI Narrative: This 65-year-old patient with history of drug abuse, previous embolization coil the brain who was brought in to the ER because of confusion. EKG showed ST elevation V1 and V2 AVR elevation and significant ST depression inferolateral leads concerning for STEMI. Again patient is confused and does not know where he is and it seems his comprehension is impaired. Review of Systems Review of Systems: ROS unobtainable: Yes unobtainable due to mental status [facility] Social History Social History (Updated 06/29/25 @ 12:49 by Debi Andrade MD) Social History: marijuana abuse, history of meth abuse Meds Home Medications and Allergies Home Medications ?Medication ?Instructions ?Recorded ?Confirmed ?Type No Home Medications 06/29/25 06/29/25 History Allergies Allergy/AdvReac Type Severity Reaction Status Date / Time diphenhydramine (From Allergy Rash Verified 06/29/25 11:01 Benadryl) milk] Allergy Mild vomiting Uncoded 06/29/25 11:01 Exam Const: Orientation/consciousness: No oriented to person, No oriented to place, No oriented to time and confusion HENMT: Head: normal to inspection Eyes: Sclera: sclerae normal Neck: Thyroid: thyroid normal Chest: Chest palpation & inspection: normal inspection of the chest Resp: Auscultation: clear to auscultation bilaterally Cardio: Heart sounds: S1 normal heart sound present, S2 normal heart sound present and no murmurs GI: GI Palp: No abdominal tenderness Back/Spine/Pelvis: Back: no CVA tenderness Skin: General skin exam: normal color Neuro: General: confusion Extrem: Other: No edema Psych: Other: Confused
--- NOTE | 2025-06-29 13:01 | WPDPROCEDUR ---
Procedures Intubation Intubation Date: 06/29/25 Intubation Time: 12:45 Consent: Emergent intubation done in the blood bank laboratory technologist following his seizure, agonal breathing and unresponsiveness A pre-procedural Time-Out was completed immediately before starting the procedure and confirmed: Patient Identification, Site, Procedure, Patient Position and the Availability of Requisite Equipment: Yes Sedative: etomidate Paralytic: rocuronium Laryngoscope: fiber optic video scope Assist device used: fiber optic device ET tube size: 8 Tube secured depth (cm): 25 Tube secured location: lips Tube placement confirmation: visualized tube passing through cords, equal breath sounds bilaterally, no breath sounds over epigastrium and confirmation by capnometry Patient tolerated procedure: well Intubation complications: none Additional comments: Chest x-ray shows ET tube in appropriate position. NG/OG tube in the stomach
--- NOTE | 2025-06-29 13:02 | P.CONIN_ITS ---
Assessment and Plan Assessment and plan (1) Altered mental status: Code(s): R41.82 - Altered mental status, unspecified Status: Acute Assessment and Plan: Patient presented to [facility] in [facility] with altered mental status, confusion and not being himself along with hallucinations and paranoia according to ER notes. -patient was incontinent of stool and urine per EMS -he had a seizure activity on the cardiac catheterization table, -altered mental status could be related to seizure activity and postictal state, and/or paranoid schizophrenia which he has a history of. 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 Anterior suprasellar embolization coils. Moderate scattered white matter hypoattenuation consistent with chronic small- vessel ischemic disease. (2) Seizure: Code(s): R56.9 - Unspecified convulsions Status: Acute Assessment and Plan: 06/29: Patient had a seizure activity on the cardiac catheterization stable -according the EMS he was also incontinent of stool and urine when they got to his house -this could also be related to seizures and he may be postictal. -patient does have a history of paranoid schizophrenia, not on any medications per patient's niece, according to the records. -will load with Keppra 1 g IV x1 and then Keppra 500 mg IV q.12 hours -continue propofol infusion for now which has anti seizure activity -will consult neurology (3) ST elevation (STEMI) myocardial infarction: Code(s): I21.3 - ST elevation (STEMI) myocardial infarction of unspecified site Status: Acute Assessment and Plan: EKG at the outside hospital ER showed ST elevations in the anteroseptal leads, with significant ST depression in inferior lateral leads concerning was STEMI -patient taken to cardiac laborer tin can for coronary angiography -non-obstructive coronary artery disease, right femoral artery angiogram shows there is 80-90% right external iliac lesion. The catheter seems to be semi occlusive at that side. The right common femoral artery could not be well visualized but the catheter entrance site is adequate. -LV EF was 65%, LVEDP was 8 mmHg (4) On mechanically assisted ventilation: Code(s): Z99.11 - Dependence on respirator [ventilator] status Status: Acute Assessment and Plan: 06/29: intubated in the cardiac laborer tin can after patient had a seizure, altered mental status, agonal breathing and not protecting his airway. -continue CMV mode of ventilation -chest x-ray shows ET tube and OG tube in appropriate position -ABGs reviewed, ventilator adjusted, maintain O2 sats > 90-92% given patient seems to have COPD with hypercapnia -patient does have a history of COPD -start bronchodilators and budesonide nebs -sedated with fentanyl and Versed infusion, maintain RASS of 0 to -1, daily SAT and SBT -patient was initially started on propofol dropped his blood pressures sedation was switched to fentanyl and Versed (5) Illicit drug use: Code(s): F19.90 - Other psychoactive substance use, unspecified, uncomplicated Status: Acute Assessment and Plan: Patient has a history of illicit drug use according to the niece patient takes methamphetamine and cannabis. Patient also has a history of schizoaffective paranoia on no medications -check urine drug screen -acetaminophen, alcohol and salicylic acid levels were all within normal limit Plan DVT prophylaxis: SCDs, no chemoprophylaxis since patient has coffee-groun d/maroon drainage from his OG tube Stress ulcer prophylaxis: Protonix IV q.12 hours Nutrition: NPO for now Code Status: Full code Critical Care Time Spent: 54 minutes Due to a high probability of clinically significant, life threatening deterioration, the patient required my highest level of preparedness to intervene emergently and I personally spent this critical care time directly and personally managing the patient. This critical care time included obtaining a history; examining the patient; pulse oximetry; ordering and review of studies; arranging urgent treatment with development of a management plan; evaluation of patient's response to treatment; frequent reassessment; and discussions with other providers. It was exclusive of separately billable procedures and treating other patients and teaching time. Please see Assessment and Plan section and the rest of the note for further information on patient assessment and treatment This dictation may have been done utilizing a voice recognition system. Attempts have been made to correct errors. However, there may be uncorrected grammatical, spelling, and recognitions errors present. 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 after his niece called 911 with complains of altered mental status, confusion that started last week along with hallucinations and pacing about and being very paranoid and thinking somebody is out to hit him, not acting right.. According the records EMS noted that patient was incontinent of stool and urine. EKG appeared to show anteroseptal ST-elevation myocardial injury. Patient denies any chest pain want with altered mental status/confusion PE patient was transferred to [facility] for STEMI. Cardiology I accepted the patient is the EKG showed ST-elevation in V1 V2 and AVR. And ST depression in the inferior lateral leads. Labs at the outside hospital: WBC 6.3, hemoglobin 15.2, platelets 165, INR 1.1. Sodium 140, potassium 3.5, CO2 25, BUN 15, creatinine 1.10, glucose 157, lactic acid 4.2, ammonia <9, LFTs within normal limits, troponin 0.016, TSH 0.774. Salicylate, alcohol, acetaminophen levels within normal limits. 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 Anterior suprasellar embolization coils. Moderate scattered white matter hypoattenuation consistent with chronic small- vessel ischemic disease. 06/29: Chest x-ray showed no acute cardiopulmonary disease Patient was taken the laborer tin can by cardiology, on the table patient he had a seizure, was given Versed 2 mg IV x1, patient with altered mental status, not protecting his airway, I was called to evaluate the patient. Given his seizure activity, inability to protect airway I decided to intubate the patient in the laborer tin can. Intubation was uneventful, patient placed on mechanical ventilation cough, placed on propofol infusion for sedation since systolic blood pressures were in the 190s. Review of Systems Review of Systems: ROS unobtainable: Yes unobtainable due to endotracheal tube, unobtainable due to medical condition and unobtainable due to mental status PMF Social History Social History Social History: marijuana abuse, history of meth abuse Meds Home Medications and Allergies Home Medications ?Medication ?Instructions ?Recorded ?Confirmed ?Type No Home Medications 06/29/25 06/29/25 History Allergies Allergy/AdvReac Type Severity Reaction Status Date / Time diphenhydramine (From Allergy Rash Verified 06/29/25 11:01 Benadryl) milk] Allergy Mild vomiting Uncoded 06/29/25 11:01 Exam Narrative: General: Intubated and sedated HEENT:? Pupils equal and reactive, sclera is clear, ETT in place Neck:? Supple Respiratory:? Decreased air entry diffusely, distant breath sounds, no wheezing, no rales Cardiac:? S1-S2 is normal, regular rate and rhythm, no murmur Abdomen:? Soft, nontender, nondistended, hypoactive bowel sound Extremities:? No edema, palpable pedal pulses Neuro:? Patient is intubated, sedated, does not open his eyes or follow simple commands Skin:? Warm and dry Psych:? Unable to assess Quality VTE Prophylaxis VTE prophylaxis: mechanical ordered Hospitalist [facility] Advance Care Plan I have confirmed that the patient's Advanced Care Plan is present, code status is documented, or surrogate decision maker is listed in patient medical record.: Yes Medication Reconciliation I have utilized all available resources to obtain, update and review the patients current medications (includes all prescriptions, OTC, herbals, canna bis, and nutritional supplements).: Yes
--- NOTE | 2025-06-29 13:29 | WPDCARDPROC ---
Cardiac Cath Procedure Note Date of procedure:: 06/29/25 Performing physician:: Debi Andrade MD Date of service 06/29/2025 Indication:: Possible STEMI Brief clinical history:: This 65-year-old patient with history of drug abuse, previous embolization coil the brain who was brought in to the ER because of confusion. EKG showed ST elevation V1 and V2 AVR elevation and significant ST depression inferolateral leads concerning for STEMI. Again patient is confused and does not know where he is and it seems his comprehension is impaired. He developed seizure prior to cardiac catheterization and we administered 2 mg of Versed to help terminate the seizure. ICU physician dr nagy intubated the patient. Procedure Procedure performed:: 1-Moderate sedation that started at 12:58 9.m. and ended at 1:24 p.m. using 4mg of Versed . The registered nurse was bailey de jesus 2-Selective left and right coronary angiogram. 3-Left heart catheterization with measurement of LVEDP and measurement of gradient across aortic valve. 4-Right common femoral arterial angiogram. Sedation/Medication given:: Moderate sedation. Access site:: Right common femoral artery. Estimated blood loss:: 10cc Procedure note:: After informed consent patient was brought in to cardiac cath rn with the was draped and prepped in usual manner. Moderate sedation was given and the right groin was infiltrated using 1% lidocaine. six [place] sheath was obtained using micropuncture needle and the modified Seldinger technique. Selective left coronary angiogram was done using JL4 catheter with the tip of the catheter placed in the left main coronary artery. Selective right coronary angiogram was done using JR4 catheter with the tip of the catheter placed to the right coronary artery. After that 5 [place] pigtail catheter was advanced across the aortic valve into the left ventricle with measurement of LVEDP and measurement of gradient across aortic valve. VV angiogram was done. The Right common femoral arterial angiogram was done. Findings:: 1- left coronary artery is a large artery that divides into large LAD, large circumflex artery. Left main has minimal irregularities. 2- left anterior descending artery is a large artery that runs and wraps around the apex. Has calcification and 20 30% disease. The 3- leftcircumflex artery is a large artery and dominant. Minimal irregularities. Large OM1. There is the branch of medium OM1 that has ostial 60%. 4-ramus intermedius is moderate in size with diffuse calcification and diffuse 40-50%. 4- right coronary artery is non dominant without significant obstruction. The 5- LVEDP was 8 mm Hg and no gradient across aortic valve. 6-LV angiogram shows normal LV ejection fraction 65%. 6- opening arterial pressure was 167/101 and closing pressure was 150/118 7- right femoral artery angiogram shows there is 80-90% right external iliac lesion. The catheter seems to be semi occlusive at that side. The right common femoral artery could not be well visualized but the catheter entrance site is adequate. Conclusion:: -nonobstructive CAD Assessment and Plan Assessment and plan (1) ST elevation (STEMI) myocardial infarction: Code(s): I21.3 - ST elevation (STEMI) myocardial infarction of unspecified site Status: Acute Assessment and Plan: Minimal irregularities. -workup for confusion and seizures. - (2) Seizure: Code(s): R56.9 - Unspecified convulsions Status: Acute
--- NOTE | 2025-06-29 13:37 | WPDMODSED ---
Moderate Sedation Note-Pt Data Patient Data Diagnosis: Possible STEMI Present Complaint: Confusion Procedure to be performed/Plan: Coronary angiogram Allergies Allergy/AdvReac Type Severity Reaction Status Date / Time diphenhydramine (From Allergy Rash Verified 06/29/25 11:01 Benadryl) milk] Allergy Mild vomiting Uncoded 06/29/25 11:01 Home Medications ?Medication ?Instructions ?Recorded ?Confirmed ?Type No Home Medications 06/29/25 06/29/25 History Sedation/Anesthesia: No previous sedation/anesthesia problems (including family history). [facility] Social History Social History Social History: marijuana abuse, history of meth abuse Mod Sed Physical Exam Physical Exam Pre Procedural Exam: Normal: Appearance, Eyes, Ears, Nose, Neck, Throat, Airway, Lungs, Heart Size, Heart Rate, Heart Rhythm, Neuro Exam, Abdomen, Liver, Kidneys, Spleen, Breasts, Genitalia, Extremities and Skin Hours since solid foods: 8 Hours since liquid intake: 8 Mallampati Classification: class 1 Internal Medicine - PN: Obj Da Vital Signs Vital Signs: Vital Signs - 24 hr 06/29/25 12:50 Pulse Oximetry 100 Oxygen Delivery Mechanical Ventilation Fraction of Inspired Oxygen 100 ASA Classification/Sedation ASA Classification/Sedation ASA Class: I Emergent: No Risks: Risks, benefits and alternatives explained and patient/family accepted plan for sedation. Patient re-evaluated immediately prior to sedation.
--- NOTE | 2025-06-29 13:40 | ECG_ITS ---
Test Date: 2025-06-29 14:04:52 Measurements Intervals [place] Rate: 76 P: 95 NC: 135 QRS: 97 QRSD: 101 T: 92 QT: 396 QTc: 447 Interpretive Statements SINUS RHYTHM RIGHT ATRIAL ENLARGEMENT CANNOT R/O SEPTAL INFARCT, AGE INDETERMINATE HIGH LATERAL INFARCT, AGE INDETERMINATE ST-T WAVE ABNORMALITY IN ANTEROLAT/INF LEADS- CONSIDER ISCHEMIA BASELINE WANDER- V3-V4 ABNORMAL ECG Compared to ECG 06/29/2025 10:45:01 HEART RATE HAS DECREASED Electronically Signed On 06-29-2025 14:13:14 CDT by José Kerr D.O.
[2025-06-29] MEDS: MIDAZOLAM HCL (*CRX) 2 MG/2 ML VIAL IV PUSH (13:58)
[2025-06-29] MEDS: LACTATED RINGERS 1,000 ML 999 ML IV CONT (14:13)
[2025-06-29] MEDS: IPRATROPIUM 0.5 MG/ALBUTEROL SULFATE 2.5 MG AMPUL.NEB 3 ML INHALATION ×2 (14:13→20:05)
[2025-06-29 14:17] LABS: Alveolar/Arterial O2 Gradient 227.5 mmHg; Carboxyhemoglobin 2.0 % THb (0-2.0); Fractional Inspired Oxygen 100 %; HCO3 ABG 25.7 mEq/l (22.0-26.0); Methemoglobin ABG 0.3 %THb (0-1.5); Oxygen Content ABG 21.3 %vol (16.0-22.0); Oxygen Saturation ABG 99.8 % (95.0-100.0); PCO2 ABG 55.5 mmHg (35.0-45.0); PO2 ABG 430.0 mmHg (80.0-100.0); PO2 FiO2 Ratio Arterial Blood 4.30 %; Reduced Hemoglobin 0.3 %THb (0-5.0)
[2025-06-29 14:21] LABS: Modified Allen's Test Pass; Site Drawn LEFT RADIAL
[2025-06-29 14:23] LABS: Arterial Blood Gas Tidal Volume 450 ml; Arterial Blood Gas Ventilator rate 20 /MIN
[2025-06-29] MEDS: MIDAZOLAM 100MG/NS 100ML(*CRX) 100 MG/100 ML BAG IV CONT (14:24)
[2025-06-29] MEDS: FENTANYL 2,500MCG/NS250ML(*CRX 2,500 MCG/250 ML BAG IV CONT (14:25)
[2025-06-29] MEDS: fentaNYL CITRATE INJ (*CRX) 100 MCG/2 ML VIAL IV PUSH (14:30)
[2025-06-29] MEDS: levETIRAcetam 1000MG/NACL100ML 1,000 MG/100 ML BAG 400 MG IVPB ×2 (14:37→21:12)
[2025-06-29 14:51] LABS: Triglycerides 133 mg/dL (<150)
[2025-06-29] MEDS: LORazepam INJ (*CRX) 2 MG/ML VIAL IV PUSH (14:58)
--- NOTE | 2025-06-29 16:05 | ADMGEN ---
This patient, Alex Shane, was admitted to Intensive Care Unit-3 at approximately 1353. Patient/family oriented to hospital policies and general routines including ID bracelet, bed and alarms, visiting hours, pain management, procedures, bathroom and other care routines, personal items, smoking policy, room service/diet, and visiting hours. Information on how to activate the Rapid Response Team has been discussed. Patient/Family are encouraged to report perceived risks to care and to ask questions if they do not understand what they are told or what they should do.
[2025-06-29 16:58] LABS: Cannabinoid Screen Urine Positive (Negative)
[2025-06-29 17:05] LABS: MRSA (PCR) NOT DETECTED (NOT DETECTE)
[2025-06-29] MEDS: SODIUM CHLORIDE 0.9% IV 1,000 ML 125 ML IV CONT (17:17)
[2025-06-29] MEDS: PANTOPRAZOLE SODIUM IV 40 MG VIAL IV PUSH ×2 (17:18→21:12)
--- NOTE | 2025-06-29 17:41 | WPDNEURCNPN ---
Assessment and Plan Assessment and plan (1) Seizure disorder: Code(s): G40.909 - Epilepsy, unspecified, not intractable, without status epilepticus Status: Acute (2) History of recent neurosurgical procedure: Code(s): Z98.890 - Other specified postprocedural states Status: Acute Plan CT scan of brain shows area of encephalomalacia in the right frontal lobe and possible alexis hole and embolization call. 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 It is not clear that he has been prescribed and taking any anticonvulsant at home. Apparently he was found in somewhat of a Uriel condition. There is also history of drug abuse. Once again since the history is not available I would suggest to keep him on Keppra he was given 1000 mg earlier today and then placed on Keppra and I would suggest 1000 mg twice a day. If he can not find any family member to give any further history that certainly would be helpful. Urine toxicology was positive for cannabis and benzodiazepine. Consult date: 06/29/25 HPI: Alex Shane is a 65 year old male presented to the hospital with the episode of confusion thought to have had a seizure. Thereafter there are some findings suggestive of possible cardiac problem and he went for cardiac catheterization and before that he had a seizure. He is now intubated in ICU. No family members were available. Apparently there is a niece who has been a contact but she is also hard to reach. It is not clear the he has been taking any medications for seizures in the past. The CT scan of the brain does indicate that he had a cyst surgery and a while then intracranially in the past. It was noted that a CT scan of brain performed 2019 did not show any of the findings that have been noted in the current CT scan. Review of Systems Review of Systems: ROS unobtainable: Yes unobtainable due to medical condition [facility] Past Medical History Medical History (Updated 06/29/25 @ 17:47 by George Cisneros MD) Seizure disorder History of recent neurosurgical procedure Family History Family History Mother Migraine Father Ischemic heart disease Sibling Intracranial aneurysm Social History Social History Social History: marijuana abuse, history of meth abuse Smoking packs per day: 1 Smoking cigarettes per day: 20.0 Smoking status: Current every day smoker Alcohol intake: unknown Substance use type: amphetamines Other substance usage details: PT intubated, unable to answer admission questions Spiritual care concerns: No Meds Home Medications and Allergies Home Medications ?Medication ?Instructions ?Recorded ?Confirmed ?Type No Home Medications 06/29/25 06/29/25 History Allergies Allergy/AdvReac Type Severity Reaction Status Date / Time diphenhydramine (From Allergy Rash Verified 06/29/25 15:33 Benadryl) milk] Allergy Mild vomiting Uncoded 06/29/25 15:33 Vital Signs Vital Signs - 24 hr 06/29/25 12:50 06/29/25 14:02 06/29/25 14:15 Temperature Pulse Rate 88 66 Respiratory Rate 22 H 24 H Blood Pressure Pulse Oximetry 100 Oxygen Delivery Mechanical Ventilation Fraction of Inspired Oxygen 100 06/29/25 14:24 06/29/25 14:25 06/29/25 14:32 Temperature Pulse Rate 71 71 74 Respiratory Rate 25 H 27 H Blood Pressure Pulse Oximetry 100 Oxygen Delivery Mechanical Ventilation Fraction of Inspired Oxygen 50 06/29/25 14:41 06/29/25 14:42 06/29/25 14:48 Temperature Pulse Rate 93 93 74 Respiratory Rate 21 H 21 H 21 H Blood Pressure 163/95 H Pulse Oximetry 100 Oxygen Delivery Fraction of Inspired Oxygen 06/29/25 14:50 06/29/25 14:55 06/29/25 14:58 Temperature Pulse Rate 75 66 64 Respiratory Rate 24 H 21 H 24 H Blood Pressure 146/106 H 144/95 H Pulse Oximetry 100 100 Oxygen Delivery Fraction of Inspired Oxygen 06/29/25 14:58 06/29/25 15:00 06/29/25 15:05 Temperature Pulse Rate 64 65 68 Respiratory Rate 24 H 21 H 24 H Blood Pressure 140/101 H 145/100 H Pulse Oximetry 100 100 Oxygen Delivery Fraction of Inspired Oxygen 06/29/25 15:10 06/29/25 15:15 06/29/25 15:20 Temperature Pulse Rate 67 66 66 Respiratory Rate 19 25 H 25 H Blood Pressure 154/101 H 164/108 H 150/98 H Pulse Oximetry 100 100 100 Oxygen Delivery Fraction of Inspired Oxygen 06/29/25 15:35 06/29/25 15:50 06/29/25 16:00 Temperature 98.5 F Pulse Rate 72 57 L Respiratory Rate 19 24 H Blood Pressure 145/95 H 123/93 H Pulse Oximetry 100 100 100 Oxygen Delivery Mechanical Ventilation Fraction of Inspired Oxygen 50 06/29/25 16:00 06/29/25 16:00 06/29/25 16:05 Temperature 98.6 F Pulse Rate 68 70 70 Respiratory Rate 24 H 24 H Blood Pressure 129/98 H 129/98 H Pulse Oximetry 100 100 Oxygen Delivery Fraction of Inspired Oxygen 06/29/25 16:35 06/29/25 17:00 06/29/25 17:25 Temperature 98.3 F Pulse Rate 73 71 62 Respiratory Rate 16 Blood Pressure 124/99 H 145/105 H Pulse Oximetry 100 100 100 Oxygen Delivery Mechanical Ventilation Fraction of Inspired Oxygen 50 06/29/25 17:30 Temperature Pulse Rate 69 Respiratory Rate 24 H Blood Pressure 142/101 H Pulse Oximetry 100 Oxygen Delivery Fraction of Inspired Oxygen Exam Narrative: Patient intubated and On ventilator. He remains unresponsive to verbal or painful stimuli pupils were midsize and a sluggish to light. No posturing was noted. Tone on both sides in upper lower limbs did not show any significant difference.
--- NOTE | 2025-06-29 18:46 | PC.NURSE ---
PT intubated prior to arrival to ICU, pt unable to answer questions regarding any medical history or personal information. This RN called the number on file for the patients niece and left VM. No call back at this time.
[2025-06-29] MEDS: BUDESONIDE RESPULE NEB 0.5 MG/2 ML AMP INHALATION (20:05)
--- NOTE | 2025-06-29 20:45 | PC.NURSE ---
Received report from ALOZNO Smallwood. Assumed care of patient at this time.
[2025-06-29] MEDS: MINERAL OIL/WHITE PETROLATUM OINTMENT 1 APPLIC EACH EYE (21:13)
--- NOTE | 2025-06-29 22:35 | PC.NURSE ---
Ice packs to groin and axilla area.
[2025-06-30] VITALS (48 sets, daily range): BP systolic 65–142; BP diastolic 51–85; PULSE 64–777; RESP 24–25; TEMP 37.7–39.1; O2SAT 92–100; BMI 23.3
--- NOTE | 2025-06-30 | ECHO_ITS ---
Patient Info Name: Alex Shane Age: 65 years : 1960 Gender: Male Ht: 69 in Wt: 157 lbs BSA: 1.87 m2 HR: 86 bpm BP: 110 / 78 mmHg Technical Quality: Good Exam Date: 06/30/2025 2:10 PM Patient Status: I Admit Date: 06/29/2025 Exam Type: CA echo doppler color flow Complete two-dimensional, color flow and Doppler transthoracic echocardiogram is performed. Staff Referring Physician: Yao Betancourt MD Squirt Machine Operator: Sade Obrien Attending Provider: Robert Armendariz Summary 1. Complete two-dimensional, color flow and Doppler transthoracic echocardiogram is performed. 2. Left ventricular systolic function is normal, estimated at 50-55. 3. The left ventricular diastolic function is indeterminate. 4. No pulmonary hypertension, estimated pulmonary arterial systolic pressure is 32 mmHg. Left Ventricle Left ventricular chamber dimension is normal. Left ventricular systolic function is normal, estimated at 50-55. There is mildly increased left ventricular wall thickness. Left ventricular septal wall motion is normal. The left ventricular diastolic function is indeterminate. Right Ventricle Right ventricular chamber dimension is normal. Right ventricular systolic function is normal. Left Atria Left atrial chamber dimension is normal. Right Atria Right atrial chamber dimension is normal. Aortic Valve The aortic valve is probable trileaflet. There is mild aortic valve sclerosis. There is no aortic valve stenosis. There is no aortic valve regurgitation. Pulmonic Valve The pulmonic valve is normal. There is no pulmonic valve stenosis. There is mild pulmonic regurgitation. Mitral Valve The mitral valve has normal leaflets. There is no mitral valve stenosis. There is no mitral valve regurgitation. Tricuspid Valve The tricuspid valve leaflets are normal. There is no significant tricuspid valve stenosis. There is mild tricuspid valve regurgitation. No pulmonary hypertension, estimated pulmonary arterial systolic pressure is 32 mmHg. Pericardium/Pleural The pericardium appears normal. There is no pericardial effusion. Inferior Vena Cava Dilated inferior vena cava with <50% collapse upon inspiration consistent with elevated right atrial pressure, 15 mmHg. Aorta The aortic root size at the sinus of Valsalva is normal. The prox ascending aorta size is normal. Left Ventricular Outflow Tract Name Value Normal LVOT 2D LVOT Diameter 2.0 cm LVOT Doppler LVOT Peak Velocity 104 cm/s LVOT Peak Gradient 4 mmHg LVOT Mean Gradient 2 mmHg LVOT VTI 19 cm LVOT Stroke Volume 59 ml LVOT CO 4.2 l/min LVOT CI 2.2 l/min/m2 Pulmonic Valve Name Value Normal RVOT Doppler RVOT Peak Velocity 139 cm/s RVOT Peak Gradient 8 mmHg PV Doppler PV Peak Velocity 164 cm/s PV Peak Gradient 11 mmHg Mitral Valve Name Value Normal MV Diastolic Function MV E Peak Velocity 58 cm/s MV A Peak Velocity 42 cm/s MV E/A 1.4 MV Decel Time (PW) 191 ms MV Annular TDI MV E/e' (Septal) 9.2 MV E/e' (Lateral) 5.5 MV E/e' (Average) 7.4 Tricuspid Valve Name Value Normal TV Regurgitation Doppler TR Peak Velocity 204 cm/s TR Peak Gradient 17 mmHg Estimated PAP/RSVP RA Pressure 15 mmHg <=5 PA Systolic Pressure 32 mmHg <36 RV Systolic Pressure 32 mmHg <36 Aortic Valve Name Value Normal AV Doppler AV Peak Velocity 151 cm/s AV Peak Gradient 9 mmHg AV Area (Cont Eq Luis) 2.2 cm2 AV DI (Luis) 0.69 AV Regurgitation 2D LVOT Area 3.1 cm2 Ventricles Name Value Normal LV Dimensions 2D/MM IVS Diastolic Thickness (2D) 1.0 cm 0.6-1.0 LVID Diastole (2D) 4.5 cm 4.2-5.8 LVIW Diastolic Thickness (2D) 1.0 cm 0.6-1.0 LVID Systole (2D) 2.9 cm 2.5-4.0 LVOT Diameter 2.0 cm LV Mass (2D Cubed) 152.45 g 88.00-224.00 LV Mass Index (2D Cubed) 82 g/m2 49-115 Relative Wall Thickness (2D) 0.44 <=0.42 LV Fractional Shortening/Ejection Fraction 2D/MM LV Fractional Shortening (2D) 36 % 25-43 LV EF (2D Teichholz) 66 % LV Diastolic Volume (4C MOD) 89 ml LV EF (4C MOD) 46 % LV Diastolic Volume (2C MOD) 80 ml LV EF (2C MOD) 54 % LV Diastolic Volume (BP MOD) 87 ml 62-150 LV Diastolic Volume Index (BP MOD) 46 ml/m2 34-74 LV Systolic Volume (BP MOD) 43 ml 21-61 LV Systolic Volume Index (BP MOD) 23 ml/m2 11-31 LV EF (BP MOD) 51 % 52-72 LV Diastolic Length (4C) 7.0 cm LV Systolic Length (4C) 6.3 cm LV Stroke Volume (4C MOD) 41 ml Atria Name Value Normal LA Dimensions LA Volume (4C A-L) 54 ml LA Volume (BP A-L) 40 ml RA Dimensions RA Systolic Major [place] Length (4C) 5.4 cm 2.1-2.7 RA Area (4C) 16.8 cm2 <=18.0 Report Signatures
[2025-06-30] MEDS: ACETAMINOPHEN ELIXIR 325 MG/10.15 ML UDC 650 MG FEED TUBE ×3 (00:12→16:39)
[2025-06-30] MEDS: IPRATROPIUM 0.5 MG/ALBUTEROL SULFATE 2.5 MG AMPUL.NEB 3 ML INHALATION ×4 (02:15→19:56)
--- NOTE | 2025-06-30 04:41 | PCRCNOTE ---
RCS unable to obtain ABG. RN notified and AM RCS shift to attempt.
[2025-06-30] MEDS: MIDAZOLAM 100MG/NS 100ML(*CRX) 100 MG/100 ML BAG 6 MG IV CONT (05:13)
[2025-06-30 05:49] LABS: Alveolar/Arterial O2 Gradient 147.4 mmHg; Fractional Inspired Oxygen 40 %; HCO3 ABG 25.3 mEq/l (22.0-26.0); Oxygen Content ABG 20.1 %vol (16.0-22.0); Oxygen Saturation ABG 97.2 % (95.0-100.0); PCO2 ABG 39.8 mmHg (35.0-45.0); PO2 ABG 92.0 mmHg (80.0-100.0); PO2 FiO2 Ratio Arterial Blood 2.30 %
[2025-06-30 05:52] LABS: Arterial Blood Gas Ventilator rate 24 /MIN; Modified Allen's Test Pass; Site Drawn RIGHT RADIAL
[2025-06-30 05:53] LABS: Arterial Blood Gas Tidal Volume 450 ml
[2025-06-30 07:34] LABS: Alanine Aminotransferase 14 U/L (6-50); Albumin Level 3.7 g/dL (3.5-5.1); Alkaline Phosphatase 61 U/L (38-126); Anion Gap 7 mmol/L (4-12); Aspartate Amino Transferase 31 U/L (17-59); Bilirubin,Total 1.3 mg/dL (0.2-1.3); Blood Urea Nitrogen 14 mg/dL (9-20); Calcium 9.2 mg/dL (8.4-10.2); Carbon Dioxide 26 mmol/L (22-30); Chloride 104 mmol/L (98-107); Estimated CRCL calculation 73 ml/min; Estimated Glomerular Filt Rate > 60; Glucose 69 mg/dL (65-110); Magnesium 1.6 mg/dL (1.6-2.3); Potassium 3.2 mmol/L (3.4-5.0); Sodium 137 mmol/L (137-145); Total Protein 6.3 g/dL (6.3-8.2)
[2025-06-30] MEDS: AMPICILLIN SODIUM/SULBACTAM 3 GM in SODIUM CHLORIDE 0.9% IV 100 ML 200 ML IVPB ×3 (07:45→17:07)
[2025-06-30] MEDS: LACTATED RINGERS 1,000 ML 100 ML IV CONT (07:53)
[2025-06-30] MEDS: MINERAL OIL/WHITE PETROLATUM OINTMENT 1 APPLIC EACH EYE ×2 (08:00→20:25)
[2025-06-30] MEDS: PANTOPRAZOLE SODIUM IV 40 MG VIAL IV PUSH ×2 (08:00→20:25)
[2025-06-30] MEDS: BUDESONIDE RESPULE NEB 0.5 MG/2 ML AMP INHALATION ×2 (08:01→19:56)
--- NOTE | 2025-06-30 08:03 | WPDINTPN ---
Progress Note: A&P Assessment and Plan (1) Fever: Code(s): R50.9 - Fever, unspecified Status: Acute Assessment and Plan: 06/30: Patient spiked fevers with a T-max of 102.1? F -06/30: Blood cultures obtained and pending -06/30: Urine cultures obtained and pending -06/30: Sputum cultures obtained and pending 06/30: Chest x-ray shows increased haziness in the medial right lung base, could be related to aspiration pneumonia/pneumonitis secondary to aspiration during seizure activity on 06/29/2025 -started patient on Unasyn and doxycycline (06/30) (2) Altered mental status: Code(s): R41.82 - Altered mental status, unspecified Status: Inactive Assessment and Plan: Patient [facility] in [facility] with altered mental status, confusion and not being himself along with hallucinations and paranoia according to ER notes. -patient was incontinent of stool and urine per EMS -he had a seizure activity on the cardiac catheterization table, -altered mental status could be related to seizure activity and postictal state, and/or paranoid schizophrenia which he has a history of. 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 Anterior suprasellar embolization coils. Moderate scattered white matter hypoattenuation consistent with chronic small-vessel ischemic disease. (3) Seizure: Code(s): R56.9 - Unspecified convulsions Status: Acute Assessment and Plan: 06/29: Patient had a seizure activity on the cardiac catheterization stable -according the EMS he was also incontinent of stool and urine when they got to his house -this could also be related to seizures and he may be postictal. -patient does have a history of paranoid schizophrenia, not on any medications per patient's niece, according to the records. -06/29: Loaded with Keppra 1 g IV x1 a Appreciate Neurology evaluation recommendation, Keppra was increased to 1 g q.12 hours -no further seizure activities noted (4) ST elevation (STEMI) myocardial infarction: Code(s): I21.3 - ST elevation (STEMI) myocardial infarction of unspecified site Status: Inactive Assessment and Plan: EKG at the outside hospital ER showed ST elevations in the anteroseptal leads, with significant ST depression in inferior lateral leads concerning was STEMI -patient taken to cardiac veterinary laboratory technician for coronary angiography -non-obstructive coronary artery disease, right femoral artery angiogram shows there is 80-90% right external iliac lesion. The catheter seems to be semi occlusive at that side. The right common femoral artery could not be well visualized but the catheter entrance site is adequate. -LV EF was 65%, LVEDP was 8 mmHg (5) On mechanically assisted ventilation: Code(s): Z99.11 - Dependence on respirator [ventilator] status Status: Acute Assessment and Plan: 06/29: intubated in the cardiac veterinary laboratory technician after patient had a seizure, altered mental status, agonal breathing and not protecting his airway. -continue CMV mode of ventilation on 40% FiO2 and peep of 5 -chest x-ray and ABGs reviewed, continue -maintain O2 sats > 90-92% given patient seems to have COPD with hypercapnia -patient does have a history of COPD -continue bronchodilators and budesonide nebs -sedated with fentanyl and Versed infusion, maintain RASS of 0 to -1, daily SAT and SBT -patient was initially started on propofol dropped his blood pressures sedation was switched to fentanyl and Versed (6) Illicit drug use: Code(s): F19.90 - Other psychoactive substance use, unspecified, uncomplicated Status: Acute Assessment and Plan: Patient has a history of illicit drug use according to the niece patient takes methamphetamine and cannabis. Patient also has a history of schizoaffective paranoia on no medications -acetaminophen, alcohol and salicylic acid levels were all within normal limit -urine drug screen performed in the ICU was positive for cannabis and benzodiazepines Plan DVT prophylaxis: SCDs, no chemoprophylaxis since patient has coffee-ground/maroon drainage from his OG tube Stress ulcer prophylaxis: Protonix IV q.12 hours Nutrition: Will start tube feeds Code Status: Full code Critical Care Time Spent: 33 minutes Due to a high probability of clinically significant, life threatening deterioration, the patient required my highest level of preparedness to intervene emergently and I personally spent this critical care time directly and personally managing the patient. This critical care time included obtaining a history; examining the patient; pulse oximetry; ordering and review of studies; arranging urgent treatment with development of a management plan; evaluation of patient's response to treatment; frequent reassessment; and discussions with other providers. It was exclusive of separately billable procedures and treating other patients and teaching time. Please see Assessment and Plan section and the rest of the note for further information on patient assessment and treatment This dictation may have been done utilizing a voice recognition system. Attempts have been made to correct errors. However, there may be uncorrected grammatical, spelling, and recognitions errors present. Subjective Date/time seen: 06/30/25 08:03 Interval history: Reason for consult: Altered mental status, STEMI, seizure, intubated for airway protection 06/30/2025: Patient seen and examined the ICU, remains intubated, CMV mode of ventilation, peep of 5, 40% FiO2. Sedated with fentanyl and Versed infusion, does not open his eyes or follow simple commands. Withdraws to pain. Urine output has been adequate, patient has been febrile with a T-max of 102.1?. Hemodynamically stable. No further seizure activities noted since admission to the ICU Review of Systems Review of Systems: ROS unobtainable: Yes unobtainable due to endotracheal tube, unobtainable due to medical condition and unobtainable due to mental status Exam Narrative: General: Intubated and sedated HEENT:? Pupils equal and reactive, sclera is clear, ETT in place Neck:? Supple Respiratory:? Decreased air entry diffusely, distant breath sounds, no wheezing, no rales Cardiac:? S1-S2 is normal, regular rate and rhythm, no murmur Abdomen:? Soft, nontender, nondistended, hypoactive bowel sound Extremities:? No edema, both feet are cold, dopplerable pedal pulses Neuro:? Patient is intubated, sedated, does not open his eyes or follow simple commands Skin:? Warm and dry Psych:? Unable to assess Objective Data Vital Signs Vital Signs: Vital Signs - 24 hr 06/29/25 12:50 06/29/25 14:02 06/29/25 14:15 Temperature Pulse Rate 88 66 Pulse Rate [Bilateral Radial Palpation] Pulse Rate [Left Pedal (Dorsalis Pedis) Palpation] Pulse Rate [Right Pedal (Dorsalis Pedis) Palpation] Respiratory Rate 22 H 24 H Blood Pressure Pulse Oximetry 100 Oxygen Delivery Mechanical Ventilation Fraction of Inspired Oxygen 100 06/29/25 14:24 06/29/25 14:25 06/29/25 14:32 Temperature Pulse Rate 71 71 74 Pulse Rate [Bilateral Radial Palpation] Pulse Rate [Left Pedal (Dorsalis Pedis) Palpation] Pulse Rate [Right Pedal (Dorsalis Pedis) Palpation] Respiratory Rate 25 H 27 H Blood Pressure Pulse Oximetry 100 Oxygen Delivery Mechanical Ventilation Fraction of Inspired Oxygen 50 06/29/25 14:41 06/29/25 14:42 06/29/25 14:48 Temperature Pulse Rate 93 93 74 Pulse Rate [Bilateral Radial Palpation] Pulse Rate [Left Pedal (Dorsalis Pedis) Palpation] Pulse Rate [Right Pedal (Dorsalis Pedis) Palpation] Respiratory Rate 21 H 21 H 21 H Blood Pressure 163/95 H Pulse Oximetry 100 Oxygen Delivery Fraction of Inspired Oxygen 06/29/25 14:50 06/29/25 14:55 06/29/25 14:58 Temperature Pulse Rate 75 66 64 Pulse Rate [Bilateral Radial Palpation] Pulse Rate [Left Pedal (Dorsalis Pedis) Palpation] Pulse Rate [Right Pedal (Dorsalis Pedis) Palpation] Respiratory Rate 24 H 21 H 24 H Blood Pressure 146/106 H 144/95 H Pulse Oximetry 100 100 Oxygen Delivery Fraction of Inspired Oxygen 06/29/25 14:58 06/29/25 15:00 06/29/25 15:05 Temperature Pulse Rate 64 65 68 Pulse Rate [Bilateral Radial Palpation] Pulse Rate [Left Pedal (Dorsalis Pedis) Palpation] Pulse Rate [Right Pedal (Dorsalis Pedis) Palpation] Respiratory Rate 24 H 21 H 24 H Blood Pressure 140/101 H 145/100 H Pulse Oximetry 100 100 Oxygen Delivery Fraction of Inspired Oxygen 06/29/25 15:10 06/29/25 15:15 06/29/25 15:20 Temperature Pulse Rate 67 66 66 Pulse Rate [Bilateral Radial Palpation] Pulse Rate [Left Pedal (Dorsalis Pedis) Palpation] Pulse Rate [Right Pedal (Dorsalis Pedis) Palpation] Respiratory Rate 19 25 H 25 H Blood Pressure 154/101 H 164/108 H 150/98 H Pulse Oximetry 100 100 100 Oxygen Delivery Fraction of Inspired Oxygen 06/29/25 15:35 06/29/25 15:50 06/29/25 16:00 Temperature 98.5 F Pulse Rate 72 57 L Pulse Rate [Bilateral Radial Palpation] Pulse Rate [Left Pedal (Dorsalis Pedis) Palpation] Pulse Rate [Right Pedal (Dorsalis Pedis) Palpation] Respiratory Rate 19 24 H Blood Pressure 145/95 H 123/93 H Pulse Oximetry 100 100 100 Oxygen Delivery Mechanical Ventilation Fraction of Inspired Oxygen 50 06/29/25 16:00 06/29/25 16:00 06/29/25 16:00 Temperature 98.6 F Pulse Rate 68 70 63 Pulse Rate [Bilateral Radial Palpation] Pulse Rate [Left Pedal (Dorsalis Pedis) Palpation] Pulse Rate [Right Pedal (Dorsalis Pedis) Palpation] Respiratory Rate 24 H 24 H Blood Pressure 129/98 H Pulse Oximetry 100 Oxygen Delivery Fraction of Inspired Oxygen 06/29/25 16:00 06/29/25 16:05 06/29/25 16:35 Temperature Pulse Rate 64 70 73 Pulse Rate [Bilateral Radial Palpation] Pulse Rate [Left Pedal (Dorsalis Pedis) Palpation] Pulse Rate [Right Pedal (Dorsalis Pedis) Palpation] Respiratory Rate 23 H 24 H 16 Blood Pressure 129/98 H 124/99 H Pulse Oximetry 100 100 Oxygen Delivery Fraction of Inspired Oxygen 06/29/25 17:00 06/29/25 17:25 06/29/25 17:30 Temperature 98.3 F Pulse Rate 71 62 69 Pulse Rate [Bilateral Radial Palpation] Pulse Rate [Left Pedal (Dorsalis Pedis) Palpation] Pulse Rate [Right Pedal (Dorsalis Pedis) Palpation] Respiratory Rate 24 H Blood Pressure 145/105 H 142/101 H Pulse Oximetry 100 100 100 Oxygen Delivery Mechanical Ventilation Fraction of Inspired Oxygen 50 06/29/25 18:00 06/29/25 18:00 06/29/25 18:00 Temperature Pulse Rate 63 62 61 Pulse Rate [Bilateral Radial Palpation] Pulse Rate [Left Pedal (Dorsalis Pedis) Palpation] Pulse Rate [Right Pedal (Dorsalis Pedis) Palpation] Respiratory Rate 24 H 24 H Blood Pressure 149/105 H Pulse Oximetry 100 Oxygen Delivery Fraction of Inspired Oxygen 06/29/25 18:01 06/29/25 18:25 06/29/25 19:25 Temperature Pulse Rate 64 61 64 Pulse Rate [Bilateral Radial Palpation] Pulse Rate [Left Pedal (Dorsalis Pedis) Palpation] Pulse Rate [Right Pedal (Dorsalis Pedis) Palpation] Respiratory Rate 23 H 24 H 16 Blood Pressure 144/100 H Pulse Oximetry 100 10 L Oxygen Delivery Fraction of Inspired Oxygen 06/29/25 19:27 06/29/25 19:29 06/29/25 19:30 Temperature Pulse Rate 64 64 Pulse Rate [Bilateral Radial Palpation] Pulse Rate [Left Pedal (Dorsalis Pedis) Palpation] Pulse Rate [Right Pedal (Dorsalis Pedis) Palpation] Respiratory Rate 16 Blood Pressure Pulse Oximetry 100 Oxygen Delivery Mechanical Ventilation Fraction of Inspired Oxygen 40 40 06/29/25 20:00 06/29/25 20:00 06/29/25 20:00 Temperature 99 F Pulse Rate 66 68 67 Pulse Rate [Bilateral Radial Palpation] Pulse Rate [Left Pedal (Dorsalis Pedis) Palpation] Pulse Rate [Right Pedal (Dorsalis Pedis) Palpation] Respiratory Rate 24 H 24 H 24 H Blood Pressure 133/58 L Pulse Oximetry 100 Oxygen Delivery Fraction of Inspired Oxygen 06/29/25 20:06 06/29/25 20:13 06/29/25 20:16 Temperature Pulse Rate 70 64 70 Pulse Rate [Bilateral Radial Palpation] Pulse Rate [Left Pedal (Dorsalis Pedis) Palpation] Pulse Rate [Right Pedal (Dorsalis Pedis) Palpation] Respiratory Rate 25 H 25 H Blood Pressure Pulse Oximetry 100 Oxygen Delivery Mechanical Ventilation Fraction of Inspired Oxygen 40 06/29/25 22:00 06/29/25 22:00 06/29/25 22:00 Temperature 101.1 F H Pulse Rate 77 77 77 Pulse Rate [Bilateral Radial Palpation] Pulse Rate [Left Pedal (Dorsalis Pedis) Palpation] Pulse Rate [Right Pedal (Dorsalis Pedis) Palpation] Respiratory Rate 24 H 24 H Blood Pressure 118/86 Pulse Oximetry 100 Oxygen Delivery Fraction of Inspired Oxygen 06/29/25 22:00 06/29/25 23:06 06/30/25 00:00 Temperature 102.1 F H Pulse Rate 77 81 77 Pulse Rate [Bilateral Radial Palpation] Pulse Rate [Left Pedal (Dorsalis Pedis) Palpation] Pulse Rate [Right Pedal (Dorsalis Pedis) Palpation] Respiratory Rate 24 H 24 H Blood Pressure 113/78 Pulse Oximetry 98 100 Oxygen Delivery Mechanical Ventilation Fraction of Inspired Oxygen 40 06/30/25 00:00 06/30/25 00:00 06/30/25 00:00 Temperature Pulse Rate 77 Pulse Rate [Bilateral Radial Palpation] 75 Pulse Rate [Left Pedal (Dorsalis Pedis) Palpation] 75 Pulse Rate [Right Pedal (Dorsalis Pedis) Palpation] 75 Respiratory Rate 24 H Blood Pressure Pulse Oximetry Oxygen Delivery Fraction of Inspired Oxygen 40 06/30/25 00:00 06/30/25 00:00 06/30/25 00:00 Temperature Pulse Rate 77 77 76 Pulse Rate [Bilateral Radial Palpation] Pulse Rate [Left Pedal (Dorsalis Pedis) Palpation] Pulse Rate [Right Pedal (Dorsalis Pedis) Palpation] Respiratory Rate 24 H 24 H Blood Pressure Pulse Oximetry 100 Oxygen Delivery Mechanical Ventilation Fraction of Inspired Oxygen 40 06/30/25 00:12 06/30/25 01:12 06/30/25 02:00 Temperature 102.1 F H 101.5 F H Pulse Rate 71 Pulse Rate [Bilateral Radial Palpation] Pulse Rate [Left Pedal (Dorsalis Pedis) Palpation] Pulse Rate [Right Pedal (Dorsalis Pedis) Palpation] Respiratory Rate Blood Pressure Pulse Oximetry Oxygen Delivery Fraction of Inspired Oxygen 06/30/25 02:00 06/30/25 02:00 06/30/25 02:00 Temperature 100.9 F H Pulse Rate 71 71 71 Pulse Rate [Bilateral Radial Palpation] Pulse Rate [Left Pedal (Dorsalis Pedis) Palpation] Pulse Rate [Right Pedal (Dorsalis Pedis) Palpation] Respiratory Rate 24 H 24 H 24 H Blood Pressure 102/71 Pulse Oximetry 100 Oxygen Delivery Fraction of Inspired Oxygen 06/30/25 02:15 06/30/25 02:20 06/30/25 02:25 Temperature Pulse Rate 67 71 67 Pulse Rate [Bilateral Radial Palpation] Pulse Rate [Left Pedal (Dorsalis Pedis) Palpation] Pulse Rate [Right Pedal (Dorsalis Pedis) Palpation] Respiratory Rate 25 H 25 H Blood Pressure Pulse Oximetry 100 Oxygen Delivery Mechanical Ventilation Fraction of Inspired Oxygen 40 06/30/25 04:00 06/30/25 04:00 06/30/25 04:00 Temperature 100.1 F H Pulse Rate 75 75 75 Pulse Rate [Bilateral Radial Palpation] Pulse Rate [Left Pedal (Dorsalis Pedis) Palpation] Pulse Rate [Right Pedal (Dorsalis Pedis) Palpation] Respiratory Rate 24 H 24 H 24 H Blood Pressure 104/71 Pulse Oximetry 99 Oxygen Delivery Fraction of Inspired Oxygen 06/30/25 04:00 06/30/25 04:00 06/30/25 04:00 Temperature Pulse Rate 75 Pulse Rate [Bilateral Radial Palpation] 75 Pulse Rate [Left Pedal (Dorsalis Pedis) Palpation] 75 Pulse Rate [Right Pedal (Dorsalis Pedis) Palpation] 75 Respiratory Rate 24 H Blood Pressure Pulse Oximetry 100 Oxygen Delivery Mechanical Ventilation Fraction of Inspired Oxygen 40 40 06/30/25 04:00 06/30/25 04:26 06/30/25 05:13 Temperature Pulse Rate 74 71 84 Pulse Rate [Bilateral Radial Palpation] Pulse Rate [Left Pedal (Dorsalis Pedis) Palpation] Pulse Rate [Right Pedal (Dorsalis Pedis) Palpation] Respiratory Rate 25 H Blood Pressure Pulse Oximetry 100 Oxygen Delivery Mechanical Ventilation Fraction of Inspired Oxygen 40 06/30/25 05:13 06/30/25 06:00 06/30/25 06:00 Temperature 101.3 F H Pulse Rate 84 87 87 Pulse Rate [Bilateral Radial Palpation] Pulse Rate [Left Pedal (Dorsalis Pedis) Palpation] Pulse Rate [Right Pedal (Dorsalis Pedis) Palpation] Respiratory Rate 25 H 24 H 24 H Blood Pressure 103/70 Pulse Oximetry 99 Oxygen Delivery Fraction of Inspired Oxygen 06/30/25 06:00 06/30/25 06:00 06/30/25 07:44 Temperature 102.2 F H Pulse Rate 87 87 Pulse Rate [Bilateral Radial Palpation] Pulse Rate [Left Pedal (Dorsalis Pedis) Palpation] Pulse Rate [Right Pedal (Dorsalis Pedis) Palpation] Respiratory Rate 24 H Blood Pressure Pulse Oximetry Oxygen Delivery Fraction of Inspired Oxygen Intake/Output Intake/Output: Intake & Output 06/27/25 06/28/25 06/29/25 06/30/25 23:59 23:59 23:59 23:59 Intake Total 217.7 1328.0 Output Total 500 850 Balance -282.3 478.0 Meds/Results Medications: Active Medications Generic Name Dose Route Start Last Admin Trade Name Freq PRN Reason Stop Dose Admin Acetaminophen 650 mg 06/30/25 00:04 06/30/25 07:44 Acetaminophen Elixir 325 Mg/10.15 Ml Udc FEED TUBE 650 mg Q6H PRN Administration Mild Pain (1-3) or Fever Albuterol/Ipratropium 3 ml 06/29/25 14:00 06/30/25 08:01 Ipratropium 0.5 Mg/Albuterol Sulfate 2.5 Mg Ampul.Neb 3 Ml INHALATION 3 ml Q6HRT NILESH Administration Budesonide 0.5 mg 06/29/25 20:00 06/30/25 08:01 Budesonide Respule Neb 0.5 Mg/2 Ml Amp INHALATION 0.5 mg Q12HRT NILESH Administration Hydralazine HCl 10 mg 06/29/25 17:58 Hydralazine Hcl 20 Mg/Ml Vial IV PUSH Q4H PRN Blood Pressure - High Fentanyl Citrate 2,500 mcg in 250 mls @ 12.5 mls/hr 06/29/25 14:20 06/30/25 06:00 Fentanyl 2,500 Mcg/Ns 250 Ml IV CONT 125 mcg/hr .Q20H NILESH 12.5 mls/hr Titration Protocol 125 MCG/HR Midazolam HCl 100 mg in 100 mls @ 6 mls/hr 06/29/25 14:20 06/30/25 06:00 Versed 100 Mg/Ns 100 Ml IV CONT 6 mg/hr .[id number] NILESH 6 mls/hr Titration Protocol 6 MG/HR Levetiracetam 1,000 mg in 100 mls @ 400 mls/hr 06/29/25 21:00 06/29/25 21:30 Keppra Iv IVPB Infused Q12HR NILESH Infusion Lactated Ringer's 1,000 mls @ 100 mls/hr 06/30/25 07:10 06/30/25 07:53 Lr - Lactated Ringers Iv IV CONT 06/30/25 17:09 100 mls/hr .Q10H NILESH Administration Doxycycline Hyclate 100 mg/ 100 mls @ 100 mls/hr 06/30/25 09:00 Sodium Chloride IVPB Q12H NILESH Ampicillin Sodium/Sulbactam 100 mls @ 200 mls/hr 06/30/25 07:15 06/30/25 07:45 Sodium 3 gm/ Sodium Chloride IVPB 200 mls/hr Q6HR NILESH Administration Multi-Ingred Cream/Lotion/Oil/Oint 1 applic 06/29/25 21:00 06/30/25 08:00 Mineral Oil/White Petrolatum Ointment EACH EYE 1 applic Q12HR NILESH Administration Pantoprazole Sodium 40 mg 06/29/25 21:00 06/30/25 08:00 Pantoprazole Sodium Iv 40 Mg Vial IV PUSH 40 mg Q12H NILESH Administration Radiology Results: ITS Impressions Chest X-Ray 06/30/25 05:57 Impression: Haziness in the medial right lung base. Correlate for pneumonia versus mild asymmetric pulmonary edema. Possible underlying COPD. Support tubes, as above. Labs Labs: Laboratory Results - last 24 hr 06/29/25 06/29/25 06/29/25 14:11 14:33 15:26 Puncture Site Left radial ABG pH 7.284 L* ABG pCO2 55.5 H ABG pO2 430.0 H ABG PO2/FiO2 Ratio 4.30 ABG HCO3 25.7 ABG O2 Saturation 99.8 ABG O2 Content 21.3 ABG Base Excess -1.9 A-a Gradient 227.5 Oxyhemoglobin 97.4 Carboxyhemoglobin 2.0 Methemoglobin 0.3 Reduced Hemoglobin 0.3 Total Hemoglobin 14.7 O2 Delivery Device Ventilator O2 Liters/Min Not Reportable Minute Volume Not Reportable Vent Rate 20 Vent Mode Cmv FiO2 100 Tidal Volume 450 PEEP 5 Peak Inspir Pressure Not Reportable Pressure Support Not Reportable Sodium Potassium Chloride Carbon Dioxide Anion Gap BUN Creatinine Estim Creat Clear Calc Estimated GFR Glucose Lactic Acid Calcium Phosphorus Magnesium Total Bilirubin AST ALT Alkaline Phosphatase Total Protein Albumin Triglycerides 133 Nasal MRSA (PCR) Not detected Urine Opiates Screen Negative Urine Methadone Screen Negative Ur Barbiturates Screen Negative Ur Phencyclidine Scrn Negative Ur Amphetamine Screen Negative U Benzodiazepines Scrn Positive A Urine Cocaine Screen Negative U Cannabinoids Screen Positive A 06/30/25 06/30/25 04:24 06:54 Puncture Site Right radial ABG pH 7.421 ABG pCO2 39.8 ABG pO2 92.0 ABG PO2/FiO2 Ratio 2.30 ABG HCO3 25.3 ABG O2 Saturation 97.2 ABG O2 Content 20.1 ABG Base Excess 0.9 A-a Gradient 147.4 Oxyhemoglobin 95.8 Carboxyhemoglobin Methemoglobin Reduced Hemoglobin Total Hemoglobin 14.9 O2 Delivery Device Ventilator O2 Liters/Min Not Reportable Minute Volume Not Reportable Vent Rate 24 Vent Mode Cmv FiO2 40 Tidal Volume 450 PEEP 5 Peak Inspir Pressure Not Reportable Pressure Support Not Reportable Sodium 137 Potassium 3.2 L Chloride 104 Carbon Dioxide 26 Anion Gap 7 BUN 14 Creatinine 0.87 Estim Creat Clear Calc 73 Estimated GFR > 60 Glucose 69 Lactic Acid 2.2 H Calcium 9.2 Phosphorus 2.5 Magnesium 1.6 Total Bilirubin 1.3 AST 31 ALT 14 Alkaline Phosphatase 61 Total Protein 6.3 Albumin 3.7 Triglycerides Nasal MRSA (PCR) Urine Opiates Screen Urine Methadone Screen Ur Barbiturates Screen Ur Phencyclidine Scrn Ur Amphetamine Screen U Benzodiazepines Scrn Urine Cocaine Screen U Cannabinoids Screen Quality VTE Prophylaxis VTE prophylaxis: mechanical ordered
[2025-06-30] MEDS: levETIRAcetam 1000MG/NACL100ML 1,000 MG/100 ML BAG 400 MG IVPB ×2 (08:18→20:24)
[2025-06-30 08:23] LABS: INR 1.1; Prothrombin Time 14.2 Seconds (11.1-14.7)
[2025-06-30 08:24] LABS: Partial Thromboplastin Time 37.3 Seconds (22.3-36.8)
[2025-06-30] MEDS: FENTANYL 2,500MCG/NS250ML(*CRX 2,500 MCG/250 ML BAG 10 MCG IV CONT (08:56)
[2025-06-30 09:00] LABS: Hematocrit 45.2 % (42.0-52.0); Hemoglobin 14.6 g/dL (14.0-18.0); Immature Granulocyte Percent A 0.6 % (0-0.5); Immature Platelet Fraction Pct 8.5 % (0.9-11.2); Lymphocytes Absolute Auto 0.67 K/mm3 (0.9-3.2); Mean Corpuscular HGB Conc 32.3 g/dl (32-36); Mean Corpuscular Hemoglobin 31.4 pg (26-34); Mean Corpuscular Volume 97.2 fl (80-100); Nucleated Red Blood Cells Absolute Auto 0.000 K/mm3 (0.0-0.012); Nucleated Red Blood Cells Perc 0.0 % (0.0-0.2); Platelet Count Result 101 k/mm3 (150-375); Red Blood Count 4.65 M/mm3 (4.6-6.20); White Blood Count 6.6 K/mm3 (4.5-10.0)
[2025-06-30 09:22] LABS: Anisocytosis 1+; Burr Cells 1+; Schistocytes None Seen
[2025-06-30] MEDS: DOXYCYCLINE IV 100 MG in SODIUM CHLORIDE 0.9% IV 100 ML IVPB ×2 (09:50→20:24)
[2025-06-30] MEDS: POTASSIUM CHLORIDE 20 MEQ PACKET (FOR LIQUID) FEED TUBE (09:50)
[2025-06-30] MEDS: POTASSIUM CHLORIDE 20 MEQ PACKET (FOR LIQUID) 40 MEQ FEED TUBE (09:51)
[2025-06-30] MEDS: LIDOCAINE 1% PF INJ 5 ML VIAL INFILTRATE (10:18)
[2025-06-30] MEDS: MAGNESIUM SULF 2 GM/WATER 50ML 2 GM/50 ML BAG IVPB (11:12)
--- NOTE | 2025-06-30 11:26 | P.PNCA_ITS ---
Progress Note: A&P Assessment and Plan (1) ST elevation (STEMI) myocardial infarction: Code(s): I21.3 - ST elevation (STEMI) myocardial infarction of unspecified site Status: Inactive Assessment and Plan: Cardiac catheterization revealed Minimal irregularities. Troponin negative -obtain echocardiogram. - (2) Seizure: Code(s): R56.9 - Unspecified convulsions Status: Acute Assessment and Plan: Neurology consulted. The continue seizure medicine (3) Illicit drug use: Code(s): F19.90 - Other psychoactive substance use, unspecified, uncomplicated Status: Acute Assessment and Plan: Urine drug screen positive for marijuana. 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 Broad-spectrum antibiotics started. Continue antibiotics Subjective Date/time seen: 06/30/25 11:26 Interval history: Date of service 06/30/2025-he remains intubated. Running fevers. Blood pressure trending down. No significant arrhythmia on telemetry. Plan for PICC line today. Review of Systems Review of Systems: ROS unobtainable: Yes unobtainable due to mental status Neurologic: Reports confusion Psychiatric: Psychiatric: Reports confusion Exam Const: General: confusion Orientation/consciousness: No oriented to person, No oriented to place, No oriented to time and confusion HENMT: Head: normal to inspection Eyes: Sclera: sclerae normal Neck: Thyroid: thyroid normal Chest: Chest palpation & inspection: normal inspection of the chest Resp: Auscultation: clear to auscultation bilaterally Cardio: Heart sounds: S1 normal heart sound present, S2 normal heart sound present and no murmurs : General: Yes no CVA tenderness Back/Spine/Pelvis: Back: no CVA tenderness Skin: General skin exam: normal color Neuro: General: No oriented to person, No oriented to place, No oriented to time and confusion Extrem: Other: No edema Psych: Other: Confused Objective Data Vital Signs Vital Signs: Vital Signs - 24 hr 06/29/25 12:50 06/29/25 14:02 06/29/25 14:15 Temperature Pulse Rate 88 66 Pulse Rate [Bilateral Pedal (Dorsalis Pedis) Doppler] Pulse Rate [Bilateral Radial Palpation] Pulse Rate [Left Pedal (Dorsalis Pedis) Palpation] Pulse Rate [Right Pedal (Dorsalis Pedis) Palpation] Respiratory Rate 22 H 24 H Blood Pressure Pulse Oximetry 100 Oxygen Delivery Mechanical Ventilation Fraction of Inspired Oxygen 100 06/29/25 14:24 06/29/25 14:25 06/29/25 14:32 Temperature Pulse Rate 71 71 74 Pulse Rate [Bilateral Pedal (Dorsalis Pedis) Doppler] Pulse Rate [Bilateral Radial Palpation] Pulse Rate [Left Pedal (Dorsalis Pedis) Palpation] Pulse Rate [Right Pedal (Dorsalis Pedis) Palpation] Respiratory Rate 25 H 27 H Blood Pressure Pulse Oximetry 100 Oxygen Delivery Mechanical Ventilation Fraction of Inspired Oxygen 50 06/29/25 14:41 06/29/25 14:42 06/29/25 14:48 Temperature Pulse Rate 93 93 74 Pulse Rate [Bilateral Pedal (Dorsalis Pedis) Doppler] Pulse Rate [Bilateral Radial Palpation] Pulse Rate [Left Pedal (Dorsalis Pedis) Palpation] Pulse Rate [Right Pedal (Dorsalis Pedis) Palpation] Respiratory Rate 21 H 21 H 21 H Blood Pressure 163/95 H Pulse Oximetry 100 Oxygen Delivery Fraction of Inspired Oxygen 06/29/25 14:50 06/29/25 14:55 06/29/25 14:58 Temperature Pulse Rate 75 66 64 Pulse Rate [Bilateral Pedal (Dorsalis Pedis) Doppler] Pulse Rate [Bilateral Radial Palpation] Pulse Rate [Left Pedal (Dorsalis Pedis) Palpation] Pulse Rate [Right Pedal (Dorsalis Pedis) Palpation] Respiratory Rate 24 H 21 H 24 H Blood Pressure 146/106 H 144/95 H Pulse Oximetry 100 100 Oxygen Delivery Fraction of Inspired Oxygen 06/29/25 14:58 06/29/25 15:00 06/29/25 15:05 Temperature Pulse Rate 64 65 68 Pulse Rate [Bilateral Pedal (Dorsalis Pedis) Doppler] Pulse Rate [Bilateral Radial Palpation] Pulse Rate [Left Pedal (Dorsalis Pedis) Palpation] Pulse Rate [Right Pedal (Dorsalis Pedis) Palpation] Respiratory Rate 24 H 21 H 24 H Blood Pressure 140/101 H 145/100 H Pulse Oximetry 100 100 Oxygen Delivery Fraction of Inspired Oxygen 06/29/25 15:10 06/29/25 15:15 06/29/25 15:20 Temperature Pulse Rate 67 66 66 Pulse Rate [Bilateral Pedal (Dorsalis Pedis) Doppler] Pulse Rate [Bilateral Radial Palpation] Pulse Rate [Left Pedal (Dorsalis Pedis) Palpation] Pulse Rate [Right Pedal (Dorsalis Pedis) Palpation] Respiratory Rate 19 25 H 25 H Blood Pressure 154/101 H 164/108 H 150/98 H Pulse Oximetry 100 100 100 Oxygen Delivery Fraction of Inspired Oxygen 06/29/25 15:35 06/29/25 15:50 06/29/25 16:00 Temperature 36.9 C Pulse Rate 72 57 L Pulse Rate [Bilateral Pedal (Dorsalis Pedis) Doppler] Pulse Rate [Bilateral Radial Palpation] Pulse Rate [Left Pedal (Dorsalis Pedis) Palpation] Pulse Rate [Right Pedal (Dorsalis Pedis) Palpation] Respiratory Rate 19 24 H Blood Pressure 145/95 H 123/93 H Pulse Oximetry 100 100 100 Oxygen Delivery Mechanical Ventilation Fraction of Inspired Oxygen 50 06/29/25 16:00 06/29/25 16:00 06/29/25 16:00 Temperature 37.0 C Pulse Rate 68 70 63 Pulse Rate [Bilateral Pedal (Dorsalis Pedis) Doppler] Pulse Rate [Bilateral Radial Palpation] Pulse Rate [Left Pedal (Dorsalis Pedis) Palpation] Pulse Rate [Right Pedal (Dorsalis Pedis) Palpation] Respiratory Rate 24 H 24 H Blood Pressure 129/98 H Pulse Oximetry 100 Oxygen Delivery Fraction of Inspired Oxygen 06/29/25 16:00 06/29/25 16:05 06/29/25 16:35 Temperature Pulse Rate 64 70 73 Pulse Rate [Bilateral Pedal (Dorsalis Pedis) Doppler] Pulse Rate [Bilateral Radial Palpation] Pulse Rate [Left Pedal (Dorsalis Pedis) Palpation] Pulse Rate [Right Pedal (Dorsalis Pedis) Palpation] Respiratory Rate 23 H 24 H 16 Blood Pressure 129/98 H 124/99 H Pulse Oximetry 100 100 Oxygen Delivery Fraction of Inspired Oxygen 06/29/25 17:00 06/29/25 17:25 06/29/25 17:30 Temperature 36.8 C Pulse Rate 71 62 69 Pulse Rate [Bilateral Pedal (Dorsalis Pedis) Doppler] Pulse Rate [Bilateral Radial Palpation] Pulse Rate [Left Pedal (Dorsalis Pedis) Palpation] Pulse Rate [Right Pedal (Dorsalis Pedis) Palpation] Respiratory Rate 24 H Blood Pressure 145/105 H 142/101 H Pulse Oximetry 100 100 100 Oxygen Delivery Mechanical Ventilation Fraction of Inspired Oxygen 50 06/29/25 18:00 06/29/25 18:00 06/29/25 18:00 Temperature Pulse Rate 63 62 61 Pulse Rate [Bilateral Pedal (Dorsalis Pedis) Doppler] Pulse Rate [Bilateral Radial Palpation] Pulse Rate [Left Pedal (Dorsalis Pedis) Palpation] Pulse Rate [Right Pedal (Dorsalis Pedis) Palpation] Respiratory Rate 24 H 24 H Blood Pressure 149/105 H Pulse Oximetry 100 Oxygen Delivery Fraction of Inspired Oxygen 06/29/25 18:01 06/29/25 18:25 06/29/25 19:25 Temperature Pulse Rate 64 61 64 Pulse Rate [Bilateral Pedal (Dorsalis Pedis) Doppler] Pulse Rate [Bilateral Radial Palpation] Pulse Rate [Left Pedal (Dorsalis Pedis) Palpation] Pulse Rate [Right Pedal (Dorsalis Pedis) Palpation] Respiratory Rate 23 H 24 H 16 Blood Pressure 144/100 H Pulse Oximetry 100 10 L Oxygen Delivery Fraction of Inspired Oxygen 06/29/25 19:27 06/29/25 19:29 06/29/25 19:30 Temperature Pulse Rate 64 64 Pulse Rate [Bilateral Pedal (Dorsalis Pedis) Doppler] Pulse Rate [Bilateral Radial Palpation] Pulse Rate [Left Pedal (Dorsalis Pedis) Palpation] Pulse Rate [Right Pedal (Dorsalis Pedis) Palpation] Respiratory Rate 16 Blood Pressure Pulse Oximetry 100 Oxygen Delivery Mechanical Ventilation Fraction of Inspired Oxygen 40 40 06/29/25 20:00 06/29/25 20:00 06/29/25 20:00 Temperature 37.2 C Pulse Rate 66 68 67 Pulse Rate [Bilateral Pedal (Dorsalis Pedis) Doppler] Pulse Rate [Bilateral Radial Palpation] Pulse Rate [Left Pedal (Dorsalis Pedis) Palpation] Pulse Rate [Right Pedal (Dorsalis Pedis) Palpation] Respiratory Rate 24 H 24 H 24 H Blood Pressure 133/58 L Pulse Oximetry 100 Oxygen Delivery Fraction of Inspired Oxygen 06/29/25 20:06 06/29/25 20:13 06/29/25 20:16 Temperature Pulse Rate 70 64 70 Pulse Rate [Bilateral Pedal (Dorsalis Pedis) Doppler] Pulse Rate [Bilateral Radial Palpation] Pulse Rate [Left Pedal (Dorsalis Pedis) Palpation] Pulse Rate [Right Pedal (Dorsalis Pedis) Palpation] Respiratory Rate 25 H 25 H Blood Pressure Pulse Oximetry 100 Oxygen Delivery Mechanical Ventilation Fraction of Inspired Oxygen 40 06/29/25 22:00 06/29/25 22:00 06/29/25 22:00 Temperature 38.4 C H Pulse Rate 77 77 77 Pulse Rate [Bilateral Pedal (Dorsalis Pedis) Doppler] Pulse Rate [Bilateral Radial Palpation] Pulse Rate [Left Pedal (Dorsalis Pedis) Palpation] Pulse Rate [Right Pedal (Dorsalis Pedis) Palpation] Respiratory Rate 24 H 24 H Blood Pressure 118/86 Pulse Oximetry 100 Oxygen Delivery Fraction of Inspired Oxygen 06/29/25 22:00 06/29/25 23:06 06/30/25 00:00 Temperature 38.9 C H Pulse Rate 77 81 77 Pulse Rate [Bilateral Pedal (Dorsalis Pedis) Doppler] Pulse Rate [Bilateral Radial Palpation] Pulse Rate [Left Pedal (Dorsalis Pedis) Palpation] Pulse Rate [Right Pedal (Dorsalis Pedis) Palpation] Respiratory Rate 24 H 24 H Blood Pressure 113/78 Pulse Oximetry 98 100 Oxygen Delivery Mechanical Ventilation Fraction of Inspired Oxygen 40 06/30/25 00:00 06/30/25 00:00 06/30/25 00:00 Temperature Pulse Rate 77 Pulse Rate [Bilateral Pedal (Dorsalis Pedis) Doppler] Pulse Rate [Bilateral Radial Palpation] 75 Pulse Rate [Left Pedal (Dorsalis Pedis) Palpation] 75 Pulse Rate [Right Pedal (Dorsalis Pedis) Palpation] 75 Respiratory Rate 24 H Blood Pressure Pulse Oximetry Oxygen Delivery Fraction of Inspired Oxygen 40 06/30/25 00:00 06/30/25 00:00 06/30/25 00:00 Temperature Pulse Rate 77 77 76 Pulse Rate [Bilateral Pedal (Dorsalis Pedis) Doppler] Pulse Rate [Bilateral Radial Palpation] Pulse Rate [Left Pedal (Dorsalis Pedis) Palpation] Pulse Rate [Right Pedal (Dorsalis Pedis) Palpation] Respiratory Rate 24 H 24 H Blood Pressure Pulse Oximetry 100 Oxygen Delivery Mechanical Ventilation Fraction of Inspired Oxygen 40 06/30/25 00:12 06/30/25 01:12 06/30/25 02:00 Temperature 38.9 C H 38.6 C H Pulse Rate 71 Pulse Rate [Bilateral Pedal (Dorsalis Pedis) Doppler] Pulse Rate [Bilateral Radial Palpation] Pulse Rate [Left Pedal (Dorsalis Pedis) Palpation] Pulse Rate [Right Pedal (Dorsalis Pedis) Palpation] Respiratory Rate Blood Pressure Pulse Oximetry Oxygen Delivery Fraction of Inspired Oxygen 06/30/25 02:00 06/30/25 02:00 06/30/25 02:00 Temperature 38.3 C H Pulse Rate 71 71 71 Pulse Rate [Bilateral Pedal (Dorsalis Pedis) Doppler] Pulse Rate [Bilateral Radial Palpation] Pulse Rate [Left Pedal (Dorsalis Pedis) Palpation] Pulse Rate [Right Pedal (Dorsalis Pedis) Palpation] Respiratory Rate 24 H 24 H 24 H Blood Pressure 102/71 Pulse Oximetry 100 Oxygen Delivery Fraction of Inspired Oxygen 06/30/25 02:15 06/30/25 02:20 06/30/25 02:25 Temperature Pulse Rate 67 71 67 Pulse Rate [Bilateral Pedal (Dorsalis Pedis) Doppler] Pulse Rate [Bilateral Radial Palpation] Pulse Rate [Left Pedal (Dorsalis Pedis) Palpation] Pulse Rate [Right Pedal (Dorsalis Pedis) Palpation] Respiratory Rate 25 H 25 H Blood Pressure Pulse Oximetry 100 Oxygen Delivery Mechanical Ventilation Fraction of Inspired Oxygen 40 06/30/25 04:00 06/30/25 04:00 06/30/25 04:00 Temperature 37.8 C H Pulse Rate 75 75 75 Pulse Rate [Bilateral Pedal (Dorsalis Pedis) Doppler] Pulse Rate [Bilateral Radial Palpation] Pulse Rate [Left Pedal (Dorsalis Pedis) Palpation] Pulse Rate [Right Pedal (Dorsalis Pedis) Palpation] Respiratory Rate 24 H 24 H 24 H Blood Pressure 104/71 Pulse Oximetry 99 Oxygen Delivery Fraction of Inspired Oxygen 06/30/25 04:00 06/30/25 04:00 06/30/25 04:00 Temperature Pulse Rate 75 Pulse Rate [Bilateral Pedal (Dorsalis Pedis) Doppler] Pulse Rate [Bilateral Radial Palpation] 75 Pulse Rate [Left Pedal (Dorsalis Pedis) Palpation] 75 Pulse Rate [Right Pedal (Dorsalis Pedis) Palpation] 75 Respiratory Rate 24 H Blood Pressure Pulse Oximetry 100 Oxygen Delivery Mechanical Ventilation Fraction of Inspired Oxygen 40 40 06/30/25 04:00 06/30/25 04:26 06/30/25 05:13 Temperature Pulse Rate 74 71 84 Pulse Rate [Bilateral Pedal (Dorsalis Pedis) Doppler] Pulse Rate [Bilateral Radial Palpation] Pulse Rate [Left Pedal (Dorsalis Pedis) Palpation] Pulse Rate [Right Pedal (Dorsalis Pedis) Palpation] Respiratory Rate 25 H Blood Pressure Pulse Oximetry 100 Oxygen Delivery Mechanical Ventilation Fraction of Inspired Oxygen 40 06/30/25 05:13 06/30/25 06:00 06/30/25 06:00 Temperature 38.5 C H Pulse Rate 84 87 87 Pulse Rate [Bilateral Pedal (Dorsalis Pedis) Doppler] Pulse Rate [Bilateral Radial Palpation] Pulse Rate [Left Pedal (Dorsalis Pedis) Palpation] Pulse Rate [Right Pedal (Dorsalis Pedis) Palpation] Respiratory Rate 25 H 24 H 24 H Blood Pressure 103/70 Pulse Oximetry 99 Oxygen Delivery Fraction of Inspired Oxygen 06/30/25 06:00 06/30/25 06:00 06/30/25 07:44 Temperature 39.0 C H Pulse Rate 87 87 Pulse Rate [Bilateral Pedal (Dorsalis Pedis) Doppler] Pulse Rate [Bilateral Radial Palpation] Pulse Rate [Left Pedal (Dorsalis Pedis) Palpation] Pulse Rate [Right Pedal (Dorsalis Pedis) Palpation] Respiratory Rate 24 H Blood Pressure Pulse Oximetry Oxygen Delivery Fraction of Inspired Oxygen 06/30/25 08:00 06/30/25 08:00 06/30/25 08:00 Temperature 39.1 C H Pulse Rate 92 91 91 Pulse Rate [Bilateral Pedal (Dorsalis Pedis) Doppler] 93 Pulse Rate [Bilateral Radial Palpation] 93 Pulse Rate [Left Pedal (Dorsalis Pedis) Palpation] Pulse Rate [Right Pedal (Dorsalis Pedis) Palpation] Respiratory Rate 24 H 24 H 24 H Blood Pressure 100/74 Pulse Oximetry 98 Oxygen Delivery Fraction of Inspired Oxygen 06/30/25 08:00 06/30/25 08:00 06/30/25 08:00 Temperature 39.0 C H Pulse Rate 92 91 Pulse Rate [Bilateral Pedal (Dorsalis Pedis) Doppler] Pulse Rate [Bilateral Radial Palpation] Pulse Rate [Left Pedal (Dorsalis Pedis) Palpation] Pulse Rate [Right Pedal (Dorsalis Pedis) Palpation] Respiratory Rate 24 H Blood Pressure 100/74 Pulse Oximetry 98 Oxygen Delivery Fraction of Inspired Oxygen 40 06/30/25 08:00 06/30/25 08:01 06/30/25 08:05 Temperature Pulse Rate 97 97 Pulse Rate [Bilateral Pedal (Dorsalis Pedis) Doppler] Pulse Rate [Bilateral Radial Palpation] Pulse Rate [Left Pedal (Dorsalis Pedis) Palpation] Pulse Rate [Right Pedal (Dorsalis Pedis) Palpation] Respiratory Rate 24 H Blood Pressure Pulse Oximetry 98 92 Oxygen Delivery Mechanical Ventilation Mechanical Ventilation Fraction of Inspired Oxygen 40 40 06/30/25 08:10 06/30/25 08:56 06/30/25 08:56 Temperature Pulse Rate 96 95 95 Pulse Rate [Bilateral Pedal (Dorsalis Pedis) Doppler] Pulse Rate [Bilateral Radial Palpation] Pulse Rate [Left Pedal (Dorsalis Pedis) Palpation] Pulse Rate [Right Pedal (Dorsalis Pedis) Palpation] Respiratory Rate 24 H 24 H 24 H Blood Pressure Pulse Oximetry Oxygen Delivery Fraction of Inspired Oxygen 06/30/25 09:54 06/30/25 10:00 06/30/25 10:00 Temperature 38.8 C H Pulse Rate 89 89 Pulse Rate [Bilateral Pedal (Dorsalis Pedis) Doppler] Pulse Rate [Bilateral Radial Palpation] Pulse Rate [Left Pedal (Dorsalis Pedis) Palpation] Pulse Rate [Right Pedal (Dorsalis Pedis) Palpation] Respiratory Rate 24 H 24 H Blood Pressure Pulse Oximetry Oxygen Delivery Fraction of Inspired Oxygen 06/30/25 10:00 06/30/25 10:00 06/30/25 10:59 Temperature 38.3 C H Pulse Rate 88 85 86 Pulse Rate [Bilateral Pedal (Dorsalis Pedis) Doppler] Pulse Rate [Bilateral Radial Palpation] Pulse Rate [Left Pedal (Dorsalis Pedis) Palpation] Pulse Rate [Right Pedal (Dorsalis Pedis) Palpation] Respiratory Rate 24 H Blood Pressure 110/78 Pulse Oximetry 99 99 Oxygen Delivery Mechanical Ventilation Fraction of Inspired Oxygen 40 Intake/Output Intake/Output: Intake & Output 06/27/25 06/28/25 06/29/25 06/30/25 23:59 23:59 23:59 23:59 Intake Total 217.7 1595.0 Output Total 500 850 Balance -282.3 745.0 Meds/Results Medications: Active Medications Generic Name Dose Route Start Last Admin Trade Name Freq PRN Reason Stop Dose Admin Acetaminophen 650 mg 06/30/25 00:04 06/30/25 07:44 Acetaminophen Elixir 325 Mg/10.15 Ml Udc FEED TUBE 650 mg Q6H PRN Administration Mild Pain (1-3) or Fever Albuterol/Ipratropium 3 ml 06/29/25 14:00 06/30/25 08:01 Ipratropium 0.5 Mg/Albuterol Sulfate 2.5 Mg Ampul.Neb 3 Ml INHALATION 3 ml Q6HRT NILESH Administration Budesonide 0.5 mg 06/29/25 20:00 06/30/25 08:01 Budesonide Respule Neb 0.5 Mg/2 Ml Amp INHALATION 0.5 mg Q12HRT NILESH Administration Heparin Sodium (Porcine) 5,000 units 06/30/25 10:10 06/30/25 11:12 Heparin Sodium 5,000 Units/Ml Vial SUB-Q 5,000 units Q12HR NILESH Administration Hydralazine HCl 10 mg 06/29/25 17:58 Hydralazine Hcl 20 Mg/Ml Vial IV PUSH Q4H PRN Blood Pressure - High Fentanyl Citrate 2,500 mcg in 250 mls @ 10 mls/hr 06/29/25 14:20 06/30/25 10:00 Fentanyl 2,500 Mcg/Ns 250 Ml IV CONT 100 mcg/hr .Q25H NILESH 10 mls/hr Titration Protocol 100 MCG/HR Midazolam HCl 100 mg in 100 mls @ 5 mls/hr 06/29/25 14:20 06/30/25 10:00 Versed 100 Mg/Ns 100 Ml IV CONT 5 mg/hr .Q20H NILESH 5 mls/hr Titration Protocol 5 MG/HR Levetiracetam 1,000 mg in 100 mls @ 400 mls/hr 06/29/25 21:00 06/30/25 08:41 Keppra Iv IVPB Infused Q12HR NILESH Infusion Lactated Ringer's 1,000 mls @ 100 mls/hr 06/30/25 07:10 06/30/25 07:53 Lr - Lactated Ringers Iv IV CONT 06/30/25 17:09 100 mls/hr .Q10H NILESH Administration Doxycycline Hyclate 100 mg/ 100 mls @ 100 mls/hr 06/30/25 09:00 06/30/25 09:50 Sodium Chloride IVPB 100 mls/hr Q12H NILESH Administration Ampicillin Sodium/Sulbactam 100 mls @ 200 mls/hr 06/30/25 07:15 06/30/25 08:18 Sodium 3 gm/ Sodium Chloride IVPB Infused Q6HR NILESH Infusion Magnesium Sulfate 2 gm in 50 mls @ 50 mls/hr 06/30/25 11:02 06/30/25 11:12 Magnesium Sulf 2 Gm/Water 50ml IVPB 06/30/25 12:01 50 mls/hr ONCE ONE Administration Multi-Ingred Cream/Lotion/Oil/Oint 1 applic 06/29/25 21:00 06/30/25 08:00 Mineral Oil/White Petrolatum Ointment EACH EYE 1 applic Q12HR NILESH Administration Pantoprazole Sodium 40 mg 06/29/25 21:00 06/30/25 08:00 Pantoprazole Sodium Iv 40 Mg Vial IV PUSH 40 mg Q12H NILESH Administration Perflutren Lipid Microsphere 0 ml 06/30/25 09:14 Perflutren Lipid Microspheres 1.5 Ml Vial Diluted To 10 Ml Total Volume IV PUSH 07/03/25 09:14 ONCE PRN adequate visualization Protocol Sodium Chloride 10 ml 06/30/25 14:00 Central Line Flush IV PUSH Q8HR NILESH Sodium Chloride 10 ml 06/30/25 10:17 Central Line Flush IV PUSH PRN PRN with TPN bag changes Sodium Chloride 20 ml 06/30/25 10:17 Central Line Flush IV PUSH PRN PRN after blood draws Radiology Results: ITS Impressions Chest X-Ray 06/30/25 05:57 Impression: Haziness in the medial right lung base. Correlate for pneumonia versus mild asymmetric pulmonary edema. Possible underlying COPD. Support tubes, as above. Labs Labs: Laboratory Results - last 24 hr 06/29/25 06/29/25 06/29/25 14:11 14:33 15:26 WBC RBC Hgb Hct MCV MCH MCHC RDW Plt Count MPV Immature Gran % (Auto) Neut % (Auto) Lymph % (Auto) [place] % (Auto) Eos % (Auto) Baso % (Auto) Lymph # (Auto) [place] # (Auto) Eos # (Auto) Baso # (Auto) Abs Immat Gran (auto) Absolute Neuts (auto) Absolute Nucleated RBC Band Neutrophils % Nucleated RBC % Platelet Estimate Clumped Platelets % Immature Plt Fraction Anisocytosis Isabel Cells Schistocytes PT INR APTT Puncture Site Left radial ABG pH 7.284 L* ABG pCO2 55.5 H ABG pO2 430.0 H ABG PO2/FiO2 Ratio 4.30 ABG HCO3 25.7 ABG O2 Saturation 99.8 ABG O2 Content 21.3 ABG Base Excess -1.9 A-a Gradient 227.5 Oxyhemoglobin 97.4 Carboxyhemoglobin 2.0 Methemoglobin 0.3 Reduced Hemoglobin 0.3 Total Hemoglobin 14.7 O2 Delivery Device Ventilator O2 Liters/Min Not Reportable Minute Volume Not Reportable Vent Rate 20 Vent Mode Cmv FiO2 100 Tidal Volume 450 PEEP 5 Peak Inspir Pressure Not Reportable Pressure Support Not Reportable Sodium Potassium Chloride Carbon Dioxide Anion Gap BUN Creatinine Estim Creat Clear Calc Estimated GFR Glucose Lactic Acid Calcium Phosphorus Magnesium Total Bilirubin AST ALT Alkaline Phosphatase Total Protein Albumin Triglycerides 133 Nasal MRSA (PCR) Not detected Urine Opiates Screen Negative Urine Methadone Screen Negative Ur Barbiturates Screen Negative Ur Phencyclidine Scrn Negative Ur Amphetamine Screen Negative U Benzodiazepines Scrn Positive A Urine Cocaine Screen Negative U Cannabinoids Screen Positive A 06/30/25 06/30/25 06/30/25 04:24 06:54 08:51 WBC 6.6 RBC 4.65 Hgb 14.6 Hct 45.2 MCV 97.2 MCH 31.4 MCHC 32.3 RDW 13.6 Plt Count 101 L MPV 11.6 H Immature Gran % (Auto) 0.6 H Neut % (Auto) 82.3 H Lymph % (Auto) 10.1 L [place] % (Auto) 6.2 Eos % (Auto) 0.3 Baso % (Auto) 0.5 Lymph # (Auto) 0.67 L [place] # (Auto) 0.4 Eos # (Auto) 0.0 Baso # (Auto) 0.0 Abs Immat Gran (auto) 0.04 H Absolute Neuts (auto) 5.5 Absolute Nucleated RBC 0.000 Band Neutrophils % Not Reportable Nucleated RBC % 0.0 Platelet Estimate Decreased Clumped Platelets Present % Immature Plt Fraction 8.5 Anisocytosis 1+ Isabel Cells 1+ Schistocytes None seen PT 14.2 INR 1.1 APTT 37.3 H Puncture Site Right radial ABG pH 7.421 ABG pCO2 39.8 ABG pO2 92.0 ABG PO2/FiO2 Ratio 2.30 ABG HCO3 25.3 ABG O2 Saturation 97.2 ABG O2 Content 20.1 ABG Base Excess 0.9 A-a Gradient 147.4 Oxyhemoglobin 95.8 Carboxyhemoglobin Methemoglobin Reduced Hemoglobin Total Hemoglobin 14.9 O2 Delivery Device Ventilator O2 Liters/Min Not Reportable Minute Volume Not Reportable Vent Rate 24 Vent Mode Cmv FiO2 40 Tidal Volume 450 PEEP 5 Peak Inspir Pressure Not Reportable Pressure Support Not Reportable Sodium 137 Potassium 3.2 L Chloride 104 Carbon Dioxide 26 Anion Gap 7 BUN 14 Creatinine 0.87 Estim Creat Clear Calc 73 Estimated GFR > 60 Glucose 69 Lactic Acid 2.2 H Calcium 9.2 Phosphorus 2.5 Magnesium 1.6 Total Bilirubin 1.3 AST 31 ALT 14 Alkaline Phosphatase 61 Total Protein 6.3 Albumin 3.7 Triglycerides Nasal MRSA (PCR) Urine Opiates Screen Urine Methadone Screen Ur Barbiturates Screen Ur Phencyclidine Scrn Ur Amphetamine Screen U Benzodiazepines Scrn Urine Cocaine Screen U Cannabinoids Screen 06/30/25 09:59 WBC RBC Hgb Hct MCV MCH MCHC RDW Plt Count MPV Immature Gran % (Auto) Neut % (Auto) Lymph % (Auto) [place] % (Auto) Eos % (Auto) Baso % (Auto) Lymph # (Auto) [place] # (Auto) Eos # (Auto) Baso # (Auto) Abs Immat Gran (auto) Absolute Neuts (auto) Absolute Nucleated RBC Band Neutrophils % Nucleated RBC % Platelet Estimate Clumped Platelets % Immature Plt Fraction Anisocytosis Isabel Cells Schistocytes PT INR APTT Puncture Site ABG pH ABG pCO2 ABG pO2 ABG PO2/FiO2 Ratio ABG HCO3 ABG O2 Saturation ABG O2 Content ABG Base Excess A-a Gradient Oxyhemoglobin Carboxyhemoglobin Methemoglobin Reduced Hemoglobin Total Hemoglobin O2 Delivery Device O2 Liters/Min Minute Volume Vent Rate Vent Mode FiO2 Tidal Volume PEEP Peak Inspir Pressure Pressure Support Sodium Potassium Chloride Carbon Dioxide Anion Gap BUN Creatinine Estim Creat Clear Calc Estimated GFR Glucose Lactic Acid 1.1 Calcium Phosphorus Magnesium Total Bilirubin AST ALT Alkaline Phosphatase Total Protein Albumin Triglycerides Nasal MRSA (PCR) Urine Opiates Screen Urine Methadone Screen Ur Barbiturates Screen Ur Phencyclidine Scrn Ur Amphetamine Screen U Benzodiazepines Scrn Urine Cocaine Screen U Cannabinoids Screen
[2025-06-30] MEDS: LACTATED RINGERS 1,000 ML 999 ML IV CONT (11:46)
[2025-06-30] MEDS: DEXTROSE 50% 25 GM/50 ML SYRINGE IV PUSH ×3 (12:40→17:00)
--- NOTE | 2025-06-30 13:37 | P.CDI_ITS ---
CDI Query Clarification Request BMI: 23.3 Nutritional Diagnostic Statement: Please refer to the comprehensive nutrition assessment for further information. If you agree with diagnosis of Severe Protein Calorie Malnutrition as related to inadequate protein-energy intake with increased energy needs in setting of chronic disease or condition as evidenced by minimal oral intake for > 1-2 months; severe subcutaneous fat loss (orbital fat pads, ribs) and severe muscle wasting (temporalis, clavicle). Please specify severity if known: * Mild * Moderate * Severe * Other/Unknown <Lorena Dial RN - Last Filed: 06/30/25 13:38> Clarified Diagnosis Clarified Diagnosis: Not my patient <Arcadio Sarabia MD - Last Filed: 07/03/25 15:15>
[2025-06-30] MEDS: CENTRAL LINE FLUSH 10 ML IV PUSH ×2 (15:16→20:25)
[2025-06-30] MEDS: METOCLOPRAMIDE HCL INJ 10 MG/2 ML VIAL IV PUSH (17:05)
[2025-06-30] MEDS: NOREPINEPHRINE 8 MG/D5W 250 ML 8 MG/250 ML BAG 9.38 MG IV CONT (17:54)
[2025-07-01] VITALS (56 sets, daily range): BP systolic 79–127; BP diastolic 56–86; PULSE 71–101; RESP 22–26; TEMP 37.5–38.6; O2SAT 97–100
[2025-07-01] MEDS: METOCLOPRAMIDE HCL INJ 10 MG/2 ML VIAL IV PUSH ×5 (00:32→23:43)
[2025-07-01] MEDS: AMPICILLIN SODIUM/SULBACTAM 3 GM in SODIUM CHLORIDE 0.9% IV 100 ML 200 ML IVPB ×2 (00:32→06:11)
[2025-07-01] MEDS: IPRATROPIUM 0.5 MG/ALBUTEROL SULFATE 2.5 MG AMPUL.NEB 3 ML INHALATION ×4 (02:06→20:15)
[2025-07-01 04:44] LABS: Alveolar/Arterial O2 Gradient 105.8 mmHg; Carboxyhemoglobin 1.2 % THb (0-2.0); Fractional Inspired Oxygen 35 %; HCO3 ABG 25.5 mEq/l (22.0-26.0); Methemoglobin ABG 0.3 %THb (0-1.5); Oxygen Content ABG 18.3 %vol (16.0-22.0); Oxygen Saturation ABG 97.8 % (95.0-100.0); PCO2 ABG 38.0 mmHg (35.0-45.0); PO2 ABG 99.6 mmHg (80.0-100.0); PO2 FiO2 Ratio Arterial Blood 2.85 %; Reduced Hemoglobin 1.9 %THb (0-5.0)
[2025-07-01 04:45] LABS: Modified Allen's Test Pass; Site Drawn RIGHT RADIAL
[2025-07-01 04:46] LABS: Arterial Blood Gas Tidal Volume 450 ml; Arterial Blood Gas Ventilator rate 24 /MIN
[2025-07-01 05:00] LABS: Hematocrit 38.6 % (42.0-52.0); Hemoglobin 12.6 g/dL (14.0-18.0); Immature Platelet Fraction Pct 7.1 % (0.9-11.2); Mean Corpuscular HGB Conc 32.6 g/dl (32-36); Mean Corpuscular Hemoglobin 31.3 pg (26-34); Mean Corpuscular Volume 95.8 fl (80-100); Platelet Count Result 122 k/mm3 (150-375); Red Blood Count 4.03 M/mm3 (4.6-6.20); White Blood Count 11.9 K/mm3 (4.5-10.0)
[2025-07-01 05:27] LABS: Band Neutrophils Percent 14 % (0-6); Lymphocytes Absolute Manual 0.59 K/mm3 (1.1-4.5); Lymphocytes Percent Manual 5.0 % (18-44); Monocytes Absolute Manual 0.11 K/mm3 (0.1-0.90); Monocytes Percent Manual 1 % (3-9); Neutrophils Absolute Manual 11.18 K/mm3 (1.3-6.7); Neutrophils Percent Manual 80 % (46-73); Schistocytes None Seen; Total Cells Counted 100
[2025-07-01 05:43] LABS: Alanine Aminotransferase 13 U/L (6-50); Albumin Level 2.9 g/dL (3.5-5.1); Alkaline Phosphatase 66 U/L (38-126); Anion Gap 6 mmol/L (4-12); Aspartate Amino Transferase 27 U/L (17-59); Bilirubin,Total 0.6 mg/dL (0.2-1.3); Blood Urea Nitrogen 19 mg/dL (9-20); Calcium 8.9 mg/dL (8.4-10.2); Carbon Dioxide 24 mmol/L (22-30); Chloride 105 mmol/L (98-107); Estimated CRCL calculation 74 ml/min; Estimated Glomerular Filt Rate > 60; Glucose 94 mg/dL (65-110); Magnesium 1.9 mg/dL (1.6-2.3); Potassium 3.7 mmol/L (3.4-5.0); Sodium 135 mmol/L (137-145); Total Protein 5.4 g/dL (6.3-8.2)
[2025-07-01 05:48] LABS: INR 1.4; Prothrombin Time 16.9 Seconds (11.1-14.7)
[2025-07-01 05:49] LABS: Partial Thromboplastin Time 55.0 Seconds (22.3-36.8)
[2025-07-01 06:02] LABS: CRP 24.6 mg/dL (<1.0)
[2025-07-01] MEDS: BUDESONIDE RESPULE NEB 0.5 MG/2 ML AMP INHALATION ×2 (08:05→20:15)
[2025-07-01] MEDS: DOXYCYCLINE IV 100 MG in SODIUM CHLORIDE 0.9% IV 100 ML IVPB ×2 (09:58→21:03)
[2025-07-01] MEDS: levETIRAcetam 1000MG/NACL100ML 1,000 MG/100 ML BAG 400 MG IVPB ×2 (09:59→20:40)
[2025-07-01] MEDS: PANTOPRAZOLE SODIUM IV 40 MG VIAL IV PUSH ×2 (09:59→20:43)
[2025-07-01] MEDS: VANCOMYCIN 1,750 MG/NS 500 ML 1,750 MG/500 ML BAG 250 MG IVPB (10:43)
[2025-07-01] MEDS: CENTRAL LINE FLUSH 10 ML IV PUSH ×3 (10:44→22:00)
[2025-07-01] MEDS: MINERAL OIL/WHITE PETROLATUM OINTMENT 1 APPLIC EACH EYE ×2 (10:44→21:03)
--- NOTE | 2025-07-01 11:02 | PCNFU ---
Nutrition Follow-Up Complete: Severe Protein Calorie Malnutrition as related to inadequate protein-energy intake with increased energy needs in setting of chronic disease or condition as evidenced by minimal oral intake for > 1-2 months; severe subcutaneous fat loss (orbital fat pads, ribs) and severe muscle wasting (temporalis, clavicle). goal: Meet estimated nutritional needs. Patient is progressing towards goal. No new goal. Pt current nutrition is Vital AF 1.2. at 40 ml/hr. . Nutrition recommendation: goal rate at 65 ml/hr. Last recorded weight is 71.6 kg, stable Bowel Motility: No BM reported. Labs Reviewed: Na 135, Alb 2.9 Meds Noted:Protonix, Keppra, Versed, Heparin, Reglan, Protonix, Versed, Fentanyl. Skin: WNL Additional Notes: Vital AF 1.2 at 40ml/hr. Patient had high residuals, Reglan started. Spoke with [employer] Specialist during rounds, plans to leave tube feedings at 40 ml/hr today. If tolerates plans to advance to 65 ml/hr. Flush 30 ml q 4 hours. Total Nutrition at 65 ml/hr providing 1716 kcal/107 gm protein/1160 ml water. Agree with diet orders. Will monitor weight, labs, skin, diet orders, meds every Sunday and Sunday.
[2025-07-01] MEDS: NOREPINEPHRINE 8 MG/D5W 250 ML 8 MG/250 ML BAG 7.5 MG IV CONT (11:40)
[2025-07-01] MEDS: MIDAZOLAM 100MG/NS 100ML(*CRX) 100 MG/100 ML BAG IV CONT (11:42)
--- NOTE | 2025-07-01 12:35 | WPDINTPN ---
Progress Note: A&P Assessment and Plan (1) Fever: Code(s): R50.9 - Fever, unspecified Status: Acute Assessment and Plan: 06/30: Patient spiked fevers with a T-max of 102.1? F -06/30: Blood cultures obtained and pending -06/30: Urine cultures obtained and pending -06/30: Sputum cultures obtained and pending -06/29: Blood cultures negative x2 06/30: Chest x-ray shows increased haziness in the medial right lung base, could be related to aspiration pneumonia/pneumonitis secondary to aspiration during seizure activity on 06/29/2025 -On Unasyn and doxycycline (06/30) -07/01: Continues to spike fevers, T-max of 101.1?, will switch antibiotic to cefepime and vancomycin 07/01) continue doxycycline. Discontinue Unasyn -07/01: Will obtain bilateral lower extremity venous Doppler 07/01: CT chest abdomen and pelvis IMPRESSION: 1. No evidence for pulmonary embolism. 2: Bilateral airspace consolidation, right greater than left. Differential diagnosis includes atelectasis and/or pneumonia. 3: Marked gallbladder distention, nonspecific. 4: Hepatomegaly. 5: Nonobstructing bilateral nephrolithiasis. (2) Altered mental status: Code(s): R41.82 - Altered mental status, unspecified Status: Inactive Assessment and Plan: Patient presented to [facility] in [facility] with altered mental status, confusion and not being himself along with hallucinations and paranoia according to ER notes. -patient was incontinent of stool and urine per EMS -he had a seizure activity on the cardiac catheterization table, -altered mental status could be related to seizure activity and postictal state, and/or paranoid schizophrenia which he has a history of. 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 Anterior suprasellar embolization coils. Moderate scattered white matter hypoattenuation consistent with chronic small-vessel ischemic disease. (3) Seizure: Code(s): R56.9 - Unspecified convulsions Status: Acute Assessment and Plan: 06/29: Patient had a seizure activity on the cardiac catheterization stable -according the EMS he was also incontinent of stool and urine when they got to his house -this could also be related to seizures and he may be postictal. -patient does have a history of paranoid schizophrenia, not on any medications per patient's niece, according to the records. -06/29: Loaded with Keppra 1 g IV x1 a Appreciate Neurology evaluation recommendation, Keppra was increased to 1 g q.12 hours -no further seizure activities noted (4) ST elevation (STEMI) myocardial infarction: Code(s): I21.3 - ST elevation (STEMI) myocardial infarction of unspecified site Status: Inactive Assessment and Plan: EKG at the outside hospital ER showed ST elevations in the anteroseptal leads, with significant ST depression in inferior lateral leads concerning was STEMI -patient taken to cardiac laboratory technology teacher for coronary angiography -non-obstructive coronary artery disease, right femoral artery angiogram shows there is 80-90% right external iliac lesion. The catheter seems to be semi occlusive at that side. The right common femoral artery could not be well visualized but the catheter entrance site is adequate. -LV EF was 65%, LVEDP was 8 mmHg 06/30/2025: Echocardiogram Summary 1. Complete two-dimensional, color flow and Doppler transthoracic echocardiogram is performed. 2. Left ventricular systolic function is normal, estimated at 50-55. 3. The left ventricular diastolic function is indeterminate. 4. No pulmonary hypertension, estimated pulmonary arterial systolic pressure is 32 mmHg. (5) On mechanically assisted ventilation: Code(s): Z99.11 - Dependence on respirator [ventilator] status Status: Acute Assessment and Plan: 06/29: intubated in the cardiac laboratory technology teacher after patient had a seizure, altered mental status, agonal breathing and not protecting his airway. -continue CMV mode of ventilation on 35 % FiO2 and peep of 5 -chest x-ray and ABGs reviewed, maintain O2 sat > 92% -maintain O2 sats > 90-92% given patient seems to have COPD with hypercapnia -patient does have a history of COPD -continue bronchodilators and budesonide nebs -sedated with fentanyl and Versed infusion, maintain RASS of 0 to -1, daily SAT and SBT -patient was initially started on propofol dropped his blood pressures sedation was switched to fentanyl and Versed (6) Illicit drug use: Code(s): F19.90 - Other psychoactive substance use, unspecified, uncomplicated Status: Acute Assessment and Plan: Patient has a history of illicit drug use according to the niece patient takes methamphetamine and cannabis. Patient also has a history of schizoaffective paranoia on no medications -acetaminophen, alcohol and salicylic acid levels were all within normal limit -urine drug screen performed in the ICU was positive for cannabis and benzodiazepines Plan DVT prophylaxis: SCDs, heparin subQ Stress ulcer prophylaxis: Protonix IV q.12 hours Nutrition: Tolerating tube feed Code Status: Full code Critical Care Time Spent: 32 minutes Due to a high probability of clinically significant, life threatening deterioration, the patient required my highest level of preparedness to intervene emergently and I personally spent this critical care time directly and personally managing the patient. This critical care time included obtaining a history; examining the patient; pulse oximetry; ordering and review of studies; arranging urgent treatment with development of a management plan; evaluation of patient's response to treatment; frequent reassessment; and discussions with other providers. It was exclusive of separately billable procedures and treating other patients and teaching time. Please see Assessment and Plan section and the rest of the note for further information on patient assessment and treatment This dictation may have been done utilizing a voice recognition system. Attempts have been made to correct errors. However, there may be uncorrected grammatical, spelling, and recognitions errors present. Subjective Date/time seen: 07/01/25 12:35 Interval history: Reason for consult: Altered mental status, STEMI, seizure, intubated for airway protection 07/01/2025: Patient seen and examined the ICU, remains intubated, CMV mode of ventilation, peep of 5, 35 % FiO2. Sedated with fentanyl and Versed infusion, patient is awake, alert, follows simple commands and nods to questions. Urine output has been adequate, patient has been febrile with a T-max of 101.1?. Patient on Levophed at 4 mcg/min. No further seizure activities noted since admission to the ICU Review of Systems Review of Systems: ROS unobtainable: Yes unobtainable due to endotracheal tube, unobtainable due to medical condition and unobtainable due to mental status Exam Narrative: General: Intubated and sedated HEENT:? Pupils equal and reactive, sclera is clear, ETT in place Neck:? Supple Respiratory:? Improved air entry, decreased breath sounds bilateral base R > L, no wheezing, Cardiac:? S1-S2 is normal, regular rate and rhythm, no murmur Abdomen:? Soft, nontender, nondistended, hypoactive bowel sound Extremities:? No edema, both feet are warm, dopplerable pedal pulses Neuro:? Patient is intubated, sedated, awake, nods to questions and follows simple command Skin:? Warm and dry Psych:? Unable to assess Objective Data Vital Signs Vital Signs: Vital Signs - 24 hr 06/30/25 13:45 06/30/25 13:45 06/30/25 14:00 Temperature Pulse Rate 76 76 75 Pulse Rate [Bilateral Pedal (Dorsalis Pedis) Doppler] Respiratory Rate 24 H Blood Pressure Pulse Oximetry 99 Oxygen Delivery Mechanical Ventilation Fraction of Inspired Oxygen 40 06/30/25 14:00 06/30/25 14:00 06/30/25 14:00 Temperature Pulse Rate 77 76 76 Pulse Rate [Bilateral Pedal (Dorsalis Pedis) Doppler] Respiratory Rate 24 H 24 H 24 H Blood Pressure 89/67 L Pulse Oximetry 98 Oxygen Delivery Fraction of Inspired Oxygen 06/30/25 16:00 06/30/25 16:00 06/30/25 16:00 Temperature 100.1 F H Pulse Rate 76 76 Pulse Rate [Bilateral Pedal (Dorsalis Pedis) Doppler] Respiratory Rate 24 H 24 H Blood Pressure 91/64 L 91/64 L Pulse Oximetry 98 98 Oxygen Delivery Fraction of Inspired Oxygen 40 06/30/25 16:00 06/30/25 16:00 06/30/25 16:01 Temperature Pulse Rate 777 H 77 Pulse Rate [Bilateral Pedal (Dorsalis Pedis) Doppler] Respiratory Rate 24 H Blood Pressure Pulse Oximetry 98 Oxygen Delivery Mechanical Ventilation Fraction of Inspired Oxygen 40 06/30/25 16:02 06/30/25 16:39 06/30/25 17:15 Temperature 100.1 F H Pulse Rate 75 Pulse Rate [Bilateral Pedal (Dorsalis Pedis) Doppler] Respiratory Rate 24 H Blood Pressure 98/81 L Pulse Oximetry Oxygen Delivery Fraction of Inspired Oxygen 06/30/25 17:30 06/30/25 17:36 06/30/25 17:45 Temperature Pulse Rate 82 Pulse Rate [Bilateral Pedal (Dorsalis Pedis) Doppler] Respiratory Rate Blood Pressure 95/72 L 65/51 L Pulse Oximetry 99 Oxygen Delivery Mechanical Ventilation Fraction of Inspired Oxygen 40 06/30/25 17:50 06/30/25 17:54 06/30/25 17:57 Temperature Pulse Rate 88 87 Pulse Rate [Bilateral Pedal (Dorsalis Pedis) Doppler] Respiratory Rate Blood Pressure 67/55 L 67/55 L Pulse Oximetry Oxygen Delivery Fraction of Inspired Oxygen 06/30/25 18:00 06/30/25 18:00 06/30/25 18:00 Temperature 100.8 F H Pulse Rate 85 87 84 Pulse Rate [Bilateral Pedal (Dorsalis Pedis) Doppler] Respiratory Rate 24 H 24 H 24 H Blood Pressure 84/59 L Pulse Oximetry 98 Oxygen Delivery Fraction of Inspired Oxygen 06/30/25 18:04 06/30/25 18:15 06/30/25 18:37 Temperature Pulse Rate 85 84 79 Pulse Rate [Bilateral Pedal (Dorsalis Pedis) Doppler] Respiratory Rate Blood Pressure 84/59 L 78/57 L 87/64 L Pulse Oximetry Oxygen Delivery Fraction of Inspired Oxygen 06/30/25 18:49 06/30/25 19:51 06/30/25 19:56 Temperature Pulse Rate 64 Pulse Rate [Bilateral Pedal (Dorsalis Pedis) Doppler] 93 Respiratory Rate 24 H Blood Pressure 97/69 L Pulse Oximetry 98 Oxygen Delivery Mechanical Ventilation Fraction of Inspired Oxygen 40 06/30/25 19:56 06/30/25 19:56 06/30/25 19:59 Temperature Pulse Rate 68 68 64 Pulse Rate [Bilateral Pedal (Dorsalis Pedis) Doppler] Respiratory Rate 24 H Blood Pressure Pulse Oximetry 100 Oxygen Delivery Mechanical Ventilation Fraction of Inspired Oxygen 35 06/30/25 20:00 06/30/25 20:00 06/30/25 20:00 Temperature 99.8 F H Pulse Rate 67 66 Pulse Rate [Bilateral Pedal (Dorsalis Pedis) Doppler] Respiratory Rate 24 H 24 H Blood Pressure 142/85 H Pulse Oximetry 99 Oxygen Delivery Fraction of Inspired Oxygen 40 06/30/25 20:00 06/30/25 20:00 06/30/25 20:08 Temperature Pulse Rate 66 66 70 Pulse Rate [Bilateral Pedal (Dorsalis Pedis) Doppler] Respiratory Rate 24 H 24 H Blood Pressure 142/85 H Pulse Oximetry Oxygen Delivery Fraction of Inspired Oxygen 06/30/25 22:00 06/30/25 22:00 06/30/25 22:00 Temperature 100.2 F H Pulse Rate 77 79 78 Pulse Rate [Bilateral Pedal (Dorsalis Pedis) Doppler] Respiratory Rate 24 H Blood Pressure 108/71 108/71 Pulse Oximetry 98 Oxygen Delivery Fraction of Inspired Oxygen 06/30/25 22:00 06/30/25 22:00 06/30/25 23:00 Temperature Pulse Rate 78 77 83 Pulse Rate [Bilateral Pedal (Dorsalis Pedis) Doppler] Respiratory Rate 24 H 24 H Blood Pressure Pulse Oximetry 98 Oxygen Delivery Mechanical Ventilation Fraction of Inspired Oxygen 35 07/01/25 00:00 07/01/25 00:00 07/01/25 00:00 Temperature Pulse Rate 83 88 Pulse Rate [Bilateral Pedal (Dorsalis Pedis) Doppler] Respiratory Rate 24 H Blood Pressure Pulse Oximetry 98 Oxygen Delivery Mechanical Ventilation Fraction of Inspired Oxygen 35 35 07/01/25 00:00 07/01/25 00:00 07/01/25 00:00 Temperature 99.8 F H Pulse Rate 87 88 88 Pulse Rate [Bilateral Pedal (Dorsalis Pedis) Doppler] Respiratory Rate 24 H 24 H Blood Pressure 105/75 105/68 Pulse Oximetry 98 Oxygen Delivery Fraction of Inspired Oxygen 07/01/25 00:00 07/01/25 00:30 07/01/25 02:00 Temperature Pulse Rate 88 88 80 Pulse Rate [Bilateral Pedal (Dorsalis Pedis) Doppler] Respiratory Rate 24 H Blood Pressure 85/62 L Pulse Oximetry Oxygen Delivery Fraction of Inspired Oxygen 07/01/25 02:00 07/01/25 02:00 07/01/25 02:00 Temperature 100.2 F H Pulse Rate 81 80 80 Pulse Rate [Bilateral Pedal (Dorsalis Pedis) Doppler] Respiratory Rate 24 H 24 H Blood Pressure 126/78 126/76 Pulse Oximetry 100 Oxygen Delivery Fraction of Inspired Oxygen 07/01/25 02:00 07/01/25 02:06 07/01/25 02:06 Temperature Pulse Rate 80 76 76 Pulse Rate [Bilateral Pedal (Dorsalis Pedis) Doppler] Respiratory Rate 24 H 24 H Blood Pressure Pulse Oximetry 98 Oxygen Delivery Mechanical Ventilation Fraction of Inspired Oxygen 35 07/01/25 02:16 07/01/25 04:00 07/01/25 04:00 Temperature Pulse Rate 77 78 78 Pulse Rate [Bilateral Pedal (Dorsalis Pedis) Doppler] Respiratory Rate 24 H 24 H Blood Pressure Pulse Oximetry 99 Oxygen Delivery Mechanical Ventilation Fraction of Inspired Oxygen 35 07/01/25 04:00 07/01/25 04:00 07/01/25 04:00 Temperature 100.5 F H Pulse Rate 78 78 Pulse Rate [Bilateral Pedal (Dorsalis Pedis) Doppler] Respiratory Rate 24 H Blood Pressure 124/73 124/73 Pulse Oximetry 99 Oxygen Delivery Fraction of Inspired Oxygen 35 07/01/25 04:00 07/01/25 04:00 07/01/25 04:31 Temperature Pulse Rate 78 78 79 Pulse Rate [Bilateral Pedal (Dorsalis Pedis) Doppler] Respiratory Rate 24 H 24 H Blood Pressure Pulse Oximetry 99 Oxygen Delivery Mechanical Ventilation Fraction of Inspired Oxygen 35 07/01/25 06:00 07/01/25 06:00 07/01/25 06:00 Temperature 101.1 F H Pulse Rate 81 81 82 Pulse Rate [Bilateral Pedal (Dorsalis Pedis) Doppler] Respiratory Rate 24 H 24 H Blood Pressure 117/81 Pulse Oximetry 98 Oxygen Delivery Fraction of Inspired Oxygen 07/01/25 06:00 07/01/25 06:00 07/01/25 08:00 Temperature 100.9 F H Pulse Rate 81 82 83 Pulse Rate [Bilateral Pedal (Dorsalis Pedis) Doppler] Respiratory Rate 24 H 24 H Blood Pressure 117/81 92/62 L Pulse Oximetry 99 Oxygen Delivery Fraction of Inspired Oxygen 07/01/25 08:07 07/01/25 08:07 07/01/25 08:18 Temperature Pulse Rate 90 90 87 Pulse Rate [Bilateral Pedal (Dorsalis Pedis) Doppler] Respiratory Rate 24 H 24 H Blood Pressure Pulse Oximetry 98 Oxygen Delivery Mechanical Ventilation Fraction of Inspired Oxygen 35 07/01/25 10:00 07/01/25 11:00 07/01/25 11:40 Temperature 101.1 F H Pulse Rate 81 83 81 Pulse Rate [Bilateral Pedal (Dorsalis Pedis) Doppler] Respiratory Rate 24 H Blood Pressure 100/66 117/76 Pulse Oximetry 98 100 Oxygen Delivery Mechanical Ventilation Fraction of Inspired Oxygen 35 07/01/25 11:40 07/01/25 11:42 07/01/25 11:42 Temperature Pulse Rate 81 81 81 Pulse Rate [Bilateral Pedal (Dorsalis Pedis) Doppler] Respiratory Rate 24 H 24 H Blood Pressure 117/76 Pulse Oximetry Oxygen Delivery Fraction of Inspired Oxygen 07/01/25 12:00 07/01/25 12:25 Temperature Pulse Rate 101 H 81 Pulse Rate [Bilateral Pedal (Dorsalis Pedis) Doppler] Respiratory Rate 26 H Blood Pressure 120/80 Pulse Oximetry 100 99 Oxygen Delivery Mechanical Ventilation Fraction of Inspired Oxygen 35 Intake/Output Intake/Output: Intake & Output 06/28/25 06/29/25 06/30/25 07/01/25 23:59 23:59 23:59 23:59 Intake Total 217.7 2448.6 837.6 Output Total 500 1250 650 Balance -282.3 1198.6 187.6 Meds/Results Medications: Active Medications Generic Name Dose Route Start Last Admin Trade Name Freq PRN Reason Stop Dose Admin Acetaminophen 650 mg 06/30/25 00:04 06/30/25 16:39 Acetaminophen Elixir 325 Mg/10.15 Ml Udc FEED TUBE 650 mg Q6H PRN Administration Mild Pain (1-3) or Fever Albuterol/Ipratropium 3 ml 06/29/25 14:00 07/01/25 08:05 Ipratropium 0.5 Mg/Albuterol Sulfate 2.5 Mg Ampul.Neb 3 Ml INHALATION 3 ml Q6HRT NILESH Administration Budesonide 0.5 mg 06/29/25 20:00 07/01/25 08:05 Budesonide Respule Neb 0.5 Mg/2 Ml Amp INHALATION 0.5 mg Q12HRT NILESH Administration Dextrose 12.5 gm 06/30/25 12:37 06/30/25 17:00 Dextrose 50% 25 Gm/50 Ml Syringe IV PUSH 12.5 gm PRN PRN Administration Hypoglycemia Protocol Glucagon 1 mg 06/30/25 12:37 Glucagon For Inj 1 Mg Vial IM PRN PRN Hypoglycemia Protocol Glucose 15 gm 06/30/25 12:37 Glucose Oral Gel 15 Gm Of Glucse In 37.5 Gm Tube PO PRN PRN Hypoglycemia Protocol Heparin Sodium (Porcine) 5,000 units 06/30/25 10:10 07/01/25 09:59 Heparin Sodium 5,000 Units/Ml Vial SUB-Q 5,000 units Q12HR NILESH Administration Hydralazine HCl 10 mg 06/29/25 17:58 Hydralazine Hcl 20 Mg/Ml Vial IV PUSH Q4H PRN Blood Pressure - High Fentanyl Citrate 2,500 mcg in 250 mls @ 7.5 mls/hr 06/29/25 14:20 07/01/25 06:00 Fentanyl 2,500 Mcg/Ns 250 Ml IV CONT 75 mcg/hr .[id number] NILESH 7.5 mls/hr Titration Protocol 75 MCG/HR Midazolam HCl 100 mg in 100 mls @ 2 mls/hr 06/29/25 14:20 07/01/25 11:42 Versed 100 Mg/Ns 100 Ml IV CONT 2 mg/hr .Q50H NILESH 2 mls/hr Administration Protocol 2 MG/HR Levetiracetam 1,000 mg in 100 mls @ 400 mls/hr 06/29/25 21:00 07/01/25 09:59 Keppra Iv IVPB 400 mls/hr Q12HR NILESH Administration Doxycycline Hyclate 100 mg/ 100 mls @ 100 mls/hr 06/30/25 09:00 07/01/25 09:58 Sodium Chloride IVPB 100 mls/hr Q12H NILESH Administration Dextrose 1,000 mls @ 100 mls/hr 06/30/25 12:37 Dextrose 5% 1,000 Ml IVPB PRN PRN Hypoglycemia Protocol Norepinephrine Bitartrate 8 mg in 250 mls @ 7.5 mls/hr 06/30/25 15:00 07/01/25 11:40 Levophed 8 Mg/D5w 250 Ml IV CONT 4 mcg/min .Q24H NILESH 7.5 mls/hr Administration Protocol 4 MCG/MIN Cefepime HCl 2 gm/ Sodium 50 mls @ 100 mls/hr 07/01/25 12:00 Chloride IVPB Q8H NILESH Vancomycin HCl 1,500 mg in 500 mls @ 250 mls/hr 07/02/25 05:00 Vancomycin 1,500 Mg/Ns 500 Ml IVPB Q18H NILESH Vancomycin HCl 1,750 mg in 500 mls @ 250 mls/hr 07/01/25 11:00 07/01/25 10:43 Vancomycin 1,750 Mg/Ns 500 Ml IVPB 07/01/25 12:59 250 mls/hr ONCE ONE Administration Insulin Aspart 2 - 5 units 06/30/25 17:00 07/01/25 09:58 Insulin Aspart (*Bkc) 100 Units/Ml SUB-Q Not Given TIDWM NILESH Protocol Multi-Ingred Cream/Lotion/Oil/Oint 1 applic 06/29/25 21:00 07/01/25 10:44 Mineral Oil/White Petrolatum Ointment EACH EYE 1 applic Q12HR NILESH Administration Pantoprazole Sodium 40 mg 06/29/25 21:00 07/01/25 09:59 Pantoprazole Sodium Iv 40 Mg Vial IV PUSH 40 mg Q12H NILESH Administration Perflutren Lipid Microsphere 0 ml 06/30/25 09:14 Perflutren Lipid Microspheres 1.5 Ml Vial Diluted To 10 Ml Total Volume IV PUSH 07/03/25 09:14 ONCE PRN adequate visualization Protocol Sodium Chloride 10 ml 06/30/25 14:00 07/01/25 10:44 Central Line Flush IV PUSH 10 ml Q8HR NILESH Administration Sodium Chloride 10 ml 06/30/25 10:17 Central Line Flush IV PUSH PRN PRN with TPN bag changes Sodium Chloride 20 ml 06/30/25 10:17 Central Line Flush IV PUSH PRN PRN after blood draws Radiology Results: ITS Impressions Chest X-Ray 07/01/25 05:58 Impression: Stable hazy airspace disease medial right lung base. Correlate for pneumonia versus pulmonary edema/atelectasis. Support tubes, as above. Head CT 07/01/25 12:20 IMPRESSION: 1. No acute intracranial process. 2. 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 3. Unchanged tract of encephalomalacia in the anterior right frontal lobe extending between what appears to be a small old right frontal alexis hole and the anterior horn of the lateral ventricle which could be related to prior ventricular drainage catheter placement or sequela of old infarct. Correlate with surgical history. 4. Anterior suprasellar embolization coils. Correlate with surgical history. 5. Moderate scattered white matter hypoattenuation consistent with chronic small vessel ischemic disease. Labs Labs: Laboratory Results - last 24 hr 06/30/25 06/30/25 06/30/25 12:32 12:34 13:07 WBC RBC Hgb Hct MCV MCH MCHC RDW Plt Count MPV Immature Gran % (Auto) Neut % (Auto) Lymph % (Auto) [place] % (Auto) Eos % (Auto) Baso % (Auto) Lymph # (Auto) [place] # (Auto) Eos # (Auto) Baso # (Auto) Abs Immat Gran (auto) Absolute Neuts (auto) Absolute Nucleated RBC Total Counted Neutrophils % (Manual) Band Neutrophils % Lymphocytes % (Manual) Monocytes % (Manual) Nucleated RBC % Abs Neuts (Manual) Abs Lymphs (Manual) Abs Monocytes (Manual) Platelet Estimate % Immature Plt Fraction Schistocytes PT INR APTT Puncture Site ABG pH ABG pCO2 ABG pO2 ABG PO2/FiO2 Ratio ABG HCO3 ABG O2 Saturation ABG O2 Content ABG Base Excess A-a Gradient Oxyhemoglobin Carboxyhemoglobin Methemoglobin Reduced Hemoglobin Total Hemoglobin O2 Delivery Device O2 Liters/Min Minute Volume Vent Rate Vent Mode FiO2 Tidal Volume PEEP Peak Inspir Pressure Pressure Support Sodium Potassium Chloride Carbon Dioxide Anion Gap BUN Creatinine Estim Creat Clear Calc Estimated GFR Glucose POC Capillary Glucose 49 L* 46 L* 66 Lactic Acid Calcium Phosphorus Magnesium Total Bilirubin AST ALT Alkaline Phosphatase C-Reactive Protein Total Protein Albumin 06/30/25 06/30/25 06/30/25 13:43 16:51 17:37 WBC RBC Hgb Hct MCV MCH MCHC RDW Plt Count MPV Immature Gran % (Auto) Neut % (Auto) Lymph % (Auto) [place] % (Auto) Eos % (Auto) Baso % (Auto) Lymph # (Auto) [place] # (Auto) Eos # (Auto) Baso # (Auto) Abs Immat Gran (auto) Absolute Neuts (auto) Absolute Nucleated RBC Total Counted Neutrophils % (Manual) Band Neutrophils % Lymphocytes % (Manual) Monocytes % (Manual) Nucleated RBC % Abs Neuts (Manual) Abs Lymphs (Manual) Abs Monocytes (Manual) Platelet Estimate % Immature Plt Fraction Schistocytes PT INR APTT Puncture Site ABG pH ABG pCO2 ABG pO2 ABG PO2/FiO2 Ratio ABG HCO3 ABG O2 Saturation ABG O2 Content ABG Base Excess A-a Gradient Oxyhemoglobin Carboxyhemoglobin Methemoglobin Reduced Hemoglobin Total Hemoglobin O2 Delivery Device O2 Liters/Min Minute Volume Vent Rate Vent Mode FiO2 Tidal Volume PEEP Peak Inspir Pressure Pressure Support Sodium Potassium Chloride Carbon Dioxide Anion Gap BUN Creatinine Estim Creat Clear Calc Estimated GFR Glucose POC Capillary Glucose 109 H 68 81 Lactic Acid Calcium Phosphorus Magnesium Total Bilirubin AST ALT Alkaline Phosphatase C-Reactive Protein Total Protein Albumin 06/30/25 06/30/25 07/01/25 19:32 23:58 04:32 WBC RBC Hgb Hct MCV MCH MCHC RDW Plt Count MPV Immature Gran % (Auto) Neut % (Auto) Lymph % (Auto) [place] % (Auto) Eos % (Auto) Baso % (Auto) Lymph # (Auto) [place] # (Auto) Eos # (Auto) Baso # (Auto) Abs Immat Gran (auto) Absolute Neuts (auto) Absolute Nucleated RBC Total Counted Neutrophils % (Manual) Band Neutrophils % Lymphocytes % (Manual) Monocytes % (Manual) Nucleated RBC % Abs Neuts (Manual) Abs Lymphs (Manual) Abs Monocytes (Manual) Platelet Estimate % Immature Plt Fraction Schistocytes PT INR APTT Puncture Site Right radial ABG pH 7.445 ABG pCO2 38.0 ABG pO2 99.6 ABG PO2/FiO2 Ratio 2.85 ABG HCO3 25.5 ABG O2 Saturation 97.8 ABG O2 Content 18.3 ABG Base Excess 1.6 A-a Gradient 105.8 Oxyhemoglobin 96.6 Carboxyhemoglobin 1.2 Methemoglobin 0.3 Reduced Hemoglobin 1.9 Total Hemoglobin 13.4 O2 Delivery Device Ventilator O2 Liters/Min Not Reportable Minute Volume Not Reportable Vent Rate 24 Vent Mode Cmv FiO2 35 Tidal Volume 450 PEEP 5 Peak Inspir Pressure Not Reportable Pressure Support Not Reportable Sodium Potassium Chloride Carbon Dioxide Anion Gap BUN Creatinine Estim Creat Clear Calc Estimated GFR Glucose POC Capillary Glucose 91 82 Lactic Acid Calcium Phosphorus Magnesium Total Bilirubin AST ALT Alkaline Phosphatase C-Reactive Protein Total Protein Albumin 07/01/25 07/01/25 04:45 11:07 WBC 11.9 H RBC 4.03 L Hgb 12.6 L Hct 38.6 L MCV 95.8 MCH 31.3 MCHC 32.6 RDW 14.0 Plt Count 122 L MPV 11.3 H Immature Gran % (Auto) Not Reportable Neut % (Auto) Not Reportable Lymph % (Auto) Not Reportable [place] % (Auto) Not Reportable Eos % (Auto) Not Reportable Baso % (Auto) Not Reportable Lymph # (Auto) Not Reportable [place] # (Auto) Not Reportable Eos # (Auto) Not Reportable Baso # (Auto) Not Reportable Abs Immat Gran (auto) Not Reportable Absolute Neuts (auto) Not Reportable Absolute Nucleated RBC Not Reportable Total Counted 100 Neutrophils % (Manual) 80 H Band Neutrophils % 14 H Lymphocytes % (Manual) 5.0 L Monocytes % (Manual) 1 L Nucleated RBC % Not Reportable Abs Neuts (Manual) 11.18 H Abs Lymphs (Manual) 0.59 L Abs Monocytes (Manual) 0.11 Platelet Estimate Decreased % Immature Plt Fraction 7.1 Schistocytes None seen PT 16.9 H INR 1.4 APTT 55.0 H Puncture Site ABG pH ABG pCO2 ABG pO2 ABG PO2/FiO2 Ratio ABG HCO3 ABG O2 Saturation ABG O2 Content ABG Base Excess A-a Gradient Oxyhemoglobin Carboxyhemoglobin Methemoglobin Reduced Hemoglobin Total Hemoglobin O2 Delivery Device O2 Liters/Min Minute Volume Vent Rate Vent Mode FiO2 Tidal Volume PEEP Peak Inspir Pressure Pressure Support Sodium 135 L Potassium 3.7 Chloride 105 Carbon Dioxide 24 Anion Gap 6 BUN 19 Creatinine 0.86 Estim Creat Clear Calc 74 Estimated GFR > 60 Glucose 94 POC Capillary Glucose 87 Lactic Acid 1.4 Calcium 8.9 Phosphorus 2.7 Magnesium 1.9 Total Bilirubin 0.6 AST 27 ALT 13 Alkaline Phosphatase 66 C-Reactive Protein 24.6 H Total Protein 5.4 L Albumin 2.9 L Quality VTE Prophylaxis VTE prophylaxis: mechanical ordered
[2025-07-01 12:51] LABS: MRSA (PCR) NOT DETECTED (NOT DETECTE)
[2025-07-01] MEDS: CEFEPIME 2 GM in SODIUM CHLORIDE 0.9% IV 50 ML 100 ML IVPB ×2 (14:28→20:42)
--- NOTE | 2025-07-01 15:45 | P.CONGS_ITS ---
Assessment and Plan Assessment and plan (1) Gallbladder dilatation: Code(s): K82.8 - Other specified diseases of gallbladder Status: Acute Assessment and Plan: Patient presented to [facility] 2 days ago with altered mental status. EKG demonstrated what appeared to be a STEMI. Patient was transferred to [facility]ophysical laboratory director and had a seizure on the table. He was intubated and sedated. Catheterization did not demonstrate any acute process. CTA of the abdomen was performed due to respiratory failure. Markedly distended gallbladder containing high density material dependently which likely represents vicarious excretion of contrast demonstrated. Exam limited, but it does not appear that patient is having right upper quadrant pain acutely. Likely not the cause of leukocytosis. Liver enzymes have remained normal. We will plan to manage this conservatively, as patient is not a good surgical candidate. If more issues arise or if patient complains of abdominal pain we will consider ultrasound imaging or percutaneous drain placement. We will continue to follow with labs and serial abdominal exams. (2) Illicit drug use: Code(s): F19.90 - Other psychoactive substance use, unspecified, uncomplicated Status: Acute (3) Seizure: Code(s): R56.9 - Unspecified convulsions Status: Acute Plan Discussed patient's case and plan of care with Dr. Flores. History of Present Illness Consult details Consult date: 07/01/25 Reason for consult: other (marked gallbladder distention) Requesting physician: Yao Betancourt MD Narrative: Patient is a 65-year-old male with history of paranoid schizophrenia and drug abuse including methamphetamine and cannabis who had been asked to see in surgical consultation for gallbladder distention. Patient presented to [facility] 2 days ago with complaints of altered mental status and confusion. His niece called 911 because he was not acting right. EKG at [facility] demonstrated anteroseptal STEMI and patient was transferred to cardiology service at [facility]. He was immediately rushed to the geophysical laboratory director for catheterization. On the geophysical laboratory director table he developed a seizure and was given 2 mg of Versed. Patient was intubated and catheterization was performed and demonstrated nonobstructive CAD. Under AMS is due to postictal state after seizure or paranoid schizophrenia. Neurology following, as well as Cardiology. A chest x-ray was performed today and demonstrated increased haziness in the medial right lung base possibly related to aspiration pneumonia/pneumonitis secondary to aspiration during seizure. He has continued to spike fevers with a T-max of 101.1?. Unasyn discontinued, well doxycycline continued. Cefepime and vancomycin added. CT of the chest abdomen and pelvis was performed and demonstrated marked gallbladder distention, nonspecific. Patient is still intubated and sedation medications, but awake. Can follow some commands, but slightly agitated upon exam today. Does not complain specifically of abdominal pain. WBC 11.9, up from counts in the 6's the past few days. Liver enzymes normal. [facility] Past Medical History Medical History (Updated 07/01/25 @ 16:08 by Peggy Mullins PA-C) Seizure disorder History of recent neurosurgical procedure Family History Family History Mother Migraine Father Ischemic heart disease Sibling Intracranial aneurysm Social History Social History (System 06/30/25 @ 07:39 by Ángel Arechiga) Social History: marijuana abuse, history of meth abuse Smoking packs per day: 1 Smoking cigarettes per day: 20.0 Smoking status: Current every day smoker Alcohol intake: unknown Substance use type: amphetamines Other substance usage details: PT intubated, unable to answer admission questions Spiritual care concerns: No Meds Home Medications and Allergies Home Medications ?Medication ?Instructions ?Recorded ?Confirmed ?Type No Home Medications 06/29/25 06/29/25 History Allergies Allergy/AdvReac Type Severity Reaction Status Date / Time diphenhydramine (From Allergy Rash Verified 06/30/25 07:39 Benadryl) milk] Allergy Mild vomiting Uncoded 06/30/25 07:39 Vital Signs Vital Signs - 24 hr 06/30/25 16:00 06/30/25 16:00 06/30/25 16:00 Temperature 100.1 F H Pulse Rate 76 76 Pulse Rate [Bilateral Pedal (Dorsalis Pedis) Doppler] Respiratory Rate 24 H 24 H Blood Pressure 91/64 L 91/64 L Pulse Oximetry 98 98 Oxygen Delivery Fraction of Inspired Oxygen 40 06/30/25 16:00 06/30/25 16:00 06/30/25 16:01 Temperature Pulse Rate 777 H 77 Pulse Rate [Bilateral Pedal (Dorsalis Pedis) Doppler] Respiratory Rate 24 H Blood Pressure Pulse Oximetry 98 Oxygen Delivery Mechanical Ventilation Fraction of Inspired Oxygen 40 06/30/25 16:02 06/30/25 16:39 06/30/25 17:15 Temperature 100.1 F H Pulse Rate 75 Pulse Rate [Bilateral Pedal (Dorsalis Pedis) Doppler] Respiratory Rate 24 H Blood Pressure 98/81 L Pulse Oximetry Oxygen Delivery Fraction of Inspired Oxygen 06/30/25 17:30 06/30/25 17:36 06/30/25 17:45 Temperature Pulse Rate 82 Pulse Rate [Bilateral Pedal (Dorsalis Pedis) Doppler] Respiratory Rate Blood Pressure 95/72 L 65/51 L Pulse Oximetry 99 Oxygen Delivery Mechanical Ventilation Fraction of Inspired Oxygen 40 06/30/25 17:50 06/30/25 17:54 06/30/25 17:57 Temperature Pulse Rate 88 87 Pulse Rate [Bilateral Pedal (Dorsalis Pedis) Doppler] Respiratory Rate Blood Pressure 67/55 L 67/55 L Pulse Oximetry Oxygen Delivery Fraction of Inspired Oxygen 06/30/25 18:00 06/30/25 18:00 06/30/25 18:00 Temperature 100.8 F H Pulse Rate 85 87 84 Pulse Rate [Bilateral Pedal (Dorsalis Pedis) Doppler] Respiratory Rate 24 H 24 H 24 H Blood Pressure 84/59 L Pulse Oximetry 98 Oxygen Delivery Fraction of Inspired Oxygen 06/30/25 18:04 06/30/25 18:15 06/30/25 18:37 Temperature Pulse Rate 85 84 79 Pulse Rate [Bilateral Pedal (Dorsalis Pedis) Doppler] Respiratory Rate Blood Pressure 84/59 L 78/57 L 87/64 L Pulse Oximetry Oxygen Delivery Fraction of Inspired Oxygen 06/30/25 18:49 06/30/25 19:51 06/30/25 19:56 Temperature Pulse Rate 64 Pulse Rate [Bilateral Pedal (Dorsalis Pedis) Doppler] 93 Respiratory Rate 24 H Blood Pressure 97/69 L Pulse Oximetry 98 Oxygen Delivery Mechanical Ventilation Fraction of Inspired Oxygen 40 06/30/25 19:56 06/30/25 19:56 06/30/25 19:59 Temperature Pulse Rate 68 68 64 Pulse Rate [Bilateral Pedal (Dorsalis Pedis) Doppler] Respiratory Rate 24 H Blood Pressure Pulse Oximetry 100 Oxygen Delivery Mechanical Ventilation Fraction of Inspired Oxygen 35 06/30/25 20:00 06/30/25 20:00 06/30/25 20:00 Temperature 99.8 F H Pulse Rate 67 66 Pulse Rate [Bilateral Pedal (Dorsalis Pedis) Doppler] Respiratory Rate 24 H 24 H Blood Pressure 142/85 H Pulse Oximetry 99 Oxygen Delivery Fraction of Inspired Oxygen 40 06/30/25 20:00 06/30/25 20:00 06/30/25 20:08 Temperature Pulse Rate 66 66 70 Pulse Rate [Bilateral Pedal (Dorsalis Pedis) Doppler] Respiratory Rate 24 H 24 H Blood Pressure 142/85 H Pulse Oximetry Oxygen Delivery Fraction of Inspired Oxygen 06/30/25 22:00 06/30/25 22:00 06/30/25 22:00 Temperature 100.2 F H Pulse Rate 77 79 78 Pulse Rate [Bilateral Pedal (Dorsalis Pedis) Doppler] Respiratory Rate 24 H Blood Pressure 108/71 108/71 Pulse Oximetry 98 Oxygen Delivery Fraction of Inspired Oxygen 06/30/25 22:00 06/30/25 22:00 06/30/25 23:00 Temperature Pulse Rate 78 77 83 Pulse Rate [Bilateral Pedal (Dorsalis Pedis) Doppler] Respiratory Rate 24 H 24 H Blood Pressure Pulse Oximetry 98 Oxygen Delivery Mechanical Ventilation Fraction of Inspired Oxygen 35 07/01/25 00:00 07/01/25 00:00 07/01/25 00:00 Temperature Pulse Rate 83 88 Pulse Rate [Bilateral Pedal (Dorsalis Pedis) Doppler] Respiratory Rate 24 H Blood Pressure Pulse Oximetry 98 Oxygen Delivery Mechanical Ventilation Fraction of Inspired Oxygen 35 35 07/01/25 00:00 07/01/25 00:00 07/01/25 00:00 Temperature 99.8 F H Pulse Rate 87 88 88 Pulse Rate [Bilateral Pedal (Dorsalis Pedis) Doppler] Respiratory Rate 24 H 24 H Blood Pressure 105/75 105/68 Pulse Oximetry 98 Oxygen Delivery Fraction of Inspired Oxygen 07/01/25 00:00 07/01/25 00:30 07/01/25 02:00 Temperature Pulse Rate 88 88 80 Pulse Rate [Bilateral Pedal (Dorsalis Pedis) Doppler] Respiratory Rate 24 H Blood Pressure 85/62 L Pulse Oximetry Oxygen Delivery Fraction of Inspired Oxygen 07/01/25 02:00 07/01/25 02:00 07/01/25 02:00 Temperature 100.2 F H Pulse Rate 81 80 80 Pulse Rate [Bilateral Pedal (Dorsalis Pedis) Doppler] Respiratory Rate 24 H 24 H Blood Pressure 126/78 126/76 Pulse Oximetry 100 Oxygen Delivery Fraction of Inspired Oxygen 07/01/25 02:00 07/01/25 02:06 07/01/25 02:06 Temperature Pulse Rate 80 76 76 Pulse Rate [Bilateral Pedal (Dorsalis Pedis) Doppler] Respiratory Rate 24 H 24 H Blood Pressure Pulse Oximetry 98 Oxygen Delivery Mechanical Ventilation Fraction of Inspired Oxygen 35 07/01/25 02:16 07/01/25 04:00 07/01/25 04:00 Temperature Pulse Rate 77 78 78 Pulse Rate [Bilateral Pedal (Dorsalis Pedis) Doppler] Respiratory Rate 24 H 24 H Blood Pressure Pulse Oximetry 99 Oxygen Delivery Mechanical Ventilation Fraction of Inspired Oxygen 35 07/01/25 04:00 07/01/25 04:00 07/01/25 04:00 Temperature 100.5 F H Pulse Rate 78 78 Pulse Rate [Bilateral Pedal (Dorsalis Pedis) Doppler] Respiratory Rate 24 H Blood Pressure 124/73 124/73 Pulse Oximetry 99 Oxygen Delivery Fraction of Inspired Oxygen 35 07/01/25 04:00 07/01/25 04:00 07/01/25 04:31 Temperature Pulse Rate 78 78 79 Pulse Rate [Bilateral Pedal (Dorsalis Pedis) Doppler] Respiratory Rate 24 H 24 H Blood Pressure Pulse Oximetry 99 Oxygen Delivery Mechanical Ventilation Fraction of Inspired Oxygen 35 07/01/25 06:00 07/01/25 06:00 07/01/25 06:00 Temperature 101.1 F H Pulse Rate 81 81 82 Pulse Rate [Bilateral Pedal (Dorsalis Pedis) Doppler] Respiratory Rate 24 H 24 H Blood Pressure 117/81 Pulse Oximetry 98 Oxygen Delivery Fraction of Inspired Oxygen 07/01/25 06:00 07/01/25 06:00 07/01/25 08:00 Temperature 100.9 F H Pulse Rate 81 82 83 Pulse Rate [Bilateral Pedal (Dorsalis Pedis) Doppler] Respiratory Rate 24 H 24 H Blood Pressure 117/81 92/62 L Pulse Oximetry 99 Oxygen Delivery Fraction of Inspired Oxygen 07/01/25 08:00 07/01/25 08:00 07/01/25 08:00 Temperature 100.9 F H Pulse Rate 86 84 86 Pulse Rate [Bilateral Pedal (Dorsalis Pedis) Doppler] 86 Respiratory Rate 24 H 24 H Blood Pressure 92/62 L Pulse Oximetry 99 99 Oxygen Delivery Mechanical Ventilation Fraction of Inspired Oxygen 35 07/01/25 08:00 07/01/25 08:07 07/01/25 08:07 Temperature Pulse Rate 90 90 Pulse Rate [Bilateral Pedal (Dorsalis Pedis) Doppler] Respiratory Rate 24 H Blood Pressure Pulse Oximetry 98 Oxygen Delivery Mechanical Ventilation Fraction of Inspired Oxygen 35 35 07/01/25 08:18 07/01/25 10:00 07/01/25 11:00 Temperature 101.1 F H Pulse Rate 87 81 83 Pulse Rate [Bilateral Pedal (Dorsalis Pedis) Doppler] Respiratory Rate 24 H 24 H Blood Pressure 100/66 Pulse Oximetry 98 100 Oxygen Delivery Mechanical Ventilation Fraction of Inspired Oxygen 35 07/01/25 11:40 07/01/25 11:40 07/01/25 11:42 Temperature Pulse Rate 81 81 81 Pulse Rate [Bilateral Pedal (Dorsalis Pedis) Doppler] Respiratory Rate 24 H Blood Pressure 117/76 117/76 Pulse Oximetry Oxygen Delivery Fraction of Inspired Oxygen 07/01/25 11:42 07/01/25 12:00 07/01/25 12:25 Temperature Pulse Rate 81 101 H 81 Pulse Rate [Bilateral Pedal (Dorsalis Pedis) Doppler] Respiratory Rate 24 H 26 H Blood Pressure 120/80 Pulse Oximetry 100 99 Oxygen Delivery Mechanical Ventilation Fraction of Inspired Oxygen 35 07/01/25 14:39 07/01/25 14:40 Temperature Pulse Rate 87 84 Pulse Rate [Bilateral Pedal (Dorsalis Pedis) Doppler] Respiratory Rate 24 H Blood Pressure Pulse Oximetry 99 Oxygen Delivery Mechanical Ventilation Fraction of Inspired Oxygen 35 Exam 2 Const: Other: Patient is intubated and mildly sedated but awake making exam difficult. He does not admit to having any abdominal pain specifically, but again this was difficult to assess. Eyes: General: appearance normal, both eyes and all related structures Neck: Neck: supple Resp: Other: Intubated Cardio: Rate: regular rate GI: Inspection: non-distended GI Palp: Yes Firmness to palpation present (GI) and Yes Tenderness to palpation present (GI) Auscultation: abnormal bowel sounds (hypoactive) Other: Difficult to assess with patient's AMS Skin: General skin exam: normal color and no rashes or lesions noted Extrem: General: normal to inspection Psych: Affect: Anxious affect present Other: Seemed agitated with exam Results Labs 07/01/25 04:45 07/01/25 04:45 Labs: Abnormal lab results 07/01/25 Range/Units 04:45 WBC 11.9 H (4.5-10.0) K/mm3 RBC 4.03 L (4.6-6.20) M/mm3 Hgb 12.6 L (14.0-18.0) g/dL Hct 38.6 L (42.0-52.0) % Plt Count 122 L (150-375) k/mm3 MPV 11.3 H (7.4-10.4) fl Neutrophils % (Manual) 80 H (46-73) % Band Neutrophils % 14 H (0-6) % Lymphocytes % (Manual) 5.0 L (18-44) % Monocytes % (Manual) 1 L (3-9) % Abs Neuts (Manual) 11.18 H (1.3-6.7) K/mm3 Abs Lymphs (Manual) 0.59 L (1.1-4.5) K/mm3 PT 16.9 H (11.1-14.7) Seconds APTT 55.0 H (22.3-36.8) Seconds Sodium 135 L (137-145) mmol/L C-Reactive Protein 24.6 H (<1.0) mg/dL Total Protein 5.4 L (6.3-8.2) g/dL Albumin 2.9 L (3.5-5.1) g/dL Diabetes panel 07/01/25 Range/Units 04:45 Sodium 135 L (137-145) mmol/L Potassium 3.7 (3.4-5.0) mmol/L Chloride 105 (98-107) mmol/L Carbon Dioxide 24 (22-30) mmol/L BUN 19 (9-20) mg/dL Creatinine 0.86 (0.7-1.3) mg/dL Glucose 94 (65-110) mg/dL Calcium 8.9 (8.4-10.2) mg/dL AST 27 (17-59) U/L ALT 13 (6-50) U/L Alkaline Phosphatase 66 (38-126) U/L Total Protein 5.4 L (6.3-8.2) g/dL Albumin 2.9 L (3.5-5.1) g/dL Calcium panel 07/01/25 Range/Units 04:45 Calcium 8.9 (8.4-10.2) mg/dL Phosphorus 2.7 (2.5-4.5) mg/dL Albumin 2.9 L (3.5-5.1) g/dL Pituitary panel 07/01/25 Range/Units 04:45 Sodium 135 L (137-145) mmol/L Potassium 3.7 (3.4-5.0) mmol/L Chloride 105 (98-107) mmol/L Carbon Dioxide 24 (22-30) mmol/L BUN 19 (9-20) mg/dL Creatinine 0.86 (0.7-1.3) mg/dL Glucose 94 (65-110) mg/dL Calcium 8.9 (8.4-10.2) mg/dL Adrenal panel 07/01/25 Range/Units 04:45 Sodium 135 L (137-145) mmol/L Potassium 3.7 (3.4-5.0) mmol/L Chloride 105 (98-107) mmol/L Carbon Dioxide 24 (22-30) mmol/L BUN 19 (9-20) mg/dL Creatinine 0.86 (0.7-1.3) mg/dL Glucose 94 (65-110) mg/dL Calcium 8.9 (8.4-10.2) mg/dL Total Bilirubin 0.6 (0.2-1.3) mg/dL AST 27 (17-59) U/L ALT 13 (6-50) U/L Alkaline Phosphatase 66 (38-126) U/L Total Protein 5.4 L (6.3-8.2) g/dL Albumin 2.9 L (3.5-5.1) g/dL All other labs normal.
[2025-07-01] MEDS: FENTANYL 2,500MCG/NS250ML(*CRX 2,500 MCG/250 ML BAG 7.5 MCG IV CONT (17:25)
[2025-07-01] MEDS: ACETAMINOPHEN ELIXIR 325 MG/10.15 ML UDC 650 MG FEED TUBE (20:57)
[2025-07-02] VITALS (73 sets, daily range): BP systolic 77–135; BP diastolic 53–104; PULSE 68–108; RESP 13–38; TEMP 36.9–38.2; O2SAT 94–100
[2025-07-02] MEDS: IPRATROPIUM 0.5 MG/ALBUTEROL SULFATE 2.5 MG AMPUL.NEB 3 ML INHALATION ×4 (02:01→19:53)
[2025-07-02] MEDS: CEFEPIME 2 GM in SODIUM CHLORIDE 0.9% IV 50 ML 100 ML IVPB ×3 (04:50→20:04)
[2025-07-02 05:14] LABS: Hematocrit 35.3 % (42.0-52.0); Hemoglobin 11.1 g/dL (14.0-18.0); Immature Granulocyte Percent A 1.1 % (0-0.5); Immature Platelet Fraction Pct 7.3 % (0.9-11.2); Lymphocytes Absolute Auto 0.92 K/mm3 (0.9-3.2); Mean Corpuscular HGB Conc 31.4 g/dl (32-36); Mean Corpuscular Hemoglobin 30.8 pg (26-34); Mean Corpuscular Volume 98.1 fl (80-100); Nucleated Red Blood Cells Absolute Auto 0.000 K/mm3 (0.0-0.012); Nucleated Red Blood Cells Perc 0.0 % (0.0-0.2); Platelet Count Result 94 k/mm3 (150-375); Red Blood Count 3.60 M/mm3 (4.6-6.20); White Blood Count 7.6 K/mm3 (4.5-10.0)
[2025-07-02 05:15] LABS: Alveolar/Arterial O2 Gradient 115.3 mmHg; Carboxyhemoglobin 0.8 % THb (0-2.0); Fractional Inspired Oxygen 35 %; HCO3 ABG 21.9 mEq/l (22.0-26.0); Methemoglobin ABG 0.3 %THb (0-1.5); Oxygen Content ABG 16.4 %vol (16.0-22.0); Oxygen Saturation ABG 96.9 % (95.0-100.0); PCO2 ABG 37.4 mmHg (35.0-45.0); PO2 ABG 90.8 mmHg (80.0-100.0); PO2 FiO2 Ratio Arterial Blood 2.59 %; Reduced Hemoglobin 3.0 %THb (0-5.0)
[2025-07-02] MEDS: METOCLOPRAMIDE HCL INJ 10 MG/2 ML VIAL IV PUSH ×3 (05:33→18:14)
[2025-07-02] MEDS: VANCOMYCIN 1,500 MG/NS 500 ML 1,500 MG/500 ML BAG 250 MG IVPB (05:33)
[2025-07-02] MEDS: CENTRAL LINE FLUSH 10 ML IV PUSH ×3 (05:33→20:52)
[2025-07-02 06:22] LABS: Alanine Aminotransferase 12 U/L (6-50); Albumin Level 2.9 g/dL (3.5-5.1); Alkaline Phosphatase 64 U/L (38-126); Anion Gap 6 mmol/L (4-12); Aspartate Amino Transferase 26 U/L (17-59); Bilirubin,Total 0.4 mg/dL (0.2-1.3); Blood Urea Nitrogen 17 mg/dL (9-20); Calcium 8.7 mg/dL (8.4-10.2); Carbon Dioxide 24 mmol/L (22-30); Chloride 106 mmol/L (98-107); Estimated CRCL calculation 81 ml/min; Estimated Glomerular Filt Rate > 60; Glucose 86 mg/dL (65-110); Magnesium 1.9 mg/dL (1.6-2.3); Potassium 3.3 mmol/L (3.4-5.0); Sodium 136 mmol/L (137-145); Total Protein 5.5 g/dL (6.3-8.2)
[2025-07-02] MEDS: BUDESONIDE RESPULE NEB 0.5 MG/2 ML AMP INHALATION ×2 (08:14→19:53)
--- NOTE | 2025-07-02 08:28 | P.CONGI_ITS ---
Assessment and Plan Assessment and plan (1) Gallbladder dilatation: Code(s): K82.8 - Other specified diseases of gallbladder Status: Acute (2) Thrombocytopenia: Code(s): D69.6 - Thrombocytopenia, unspecified Status: Acute (3) Seizure: Code(s): R56.9 - Unspecified convulsions Status: Acute (4) On mechanically assisted ventilation: Code(s): Z99.11 - Dependence on respirator [ventilator] status Status: Acute (5) ST elevation (STEMI) myocardial infarction: Qualifiers: Involved coronary artery: unspecified coronary artery Qualified Code(s): I21.3 - ST elevation (STEMI) myocardial infarction of unspecified site Code(s): I21.3 - ST elevation (STEMI) myocardial infarction of unspecified site Status: Inactive (6) Normocytic anemia: Code(s): D64.9 - Anemia, unspecified Status: Acute (7) Low serum albumin: Code(s): R77.0 - Abnormality of albumin Status: Acute Plan 1. Gallbladder distention: CTA 07/01/2025 showed marked gallbladder distension. LFTs are normal. Surgery is also on case who recommended conservative management as the patient is a poor surgical candidate as patient this admission with respiratory failure on vent, hypotension and STEMI s/p cardiac catheterization. * No need for additional work up at this time * this can be further worked up outpatient if patient becomes symptomatic 2. Anemia: On admission H/H was normal with Hgb 15 and Hct 45. Todays labs show Hgb 11, Hct 35, MCV 98, platelets 94, INR 1.4. S/P cardiac cath. Patient was previously on heparin which is currently on hold. No signs of active GI bleeding. * Primary care team to continue monitoring H&H and transfuse as needed to keep HGB > 7 3. Thrombocytopenia/low albumin: Imaging showed hepatomegaly but no signs of cirrhosis. INR 1.4 and LFT's normal. Albumin 2.9. * No findings from a GI/hepatology standpoint to explain low platelets * Low albumin likely related to malnutrition and less likely hepatic etiology * primary care team to continue monitoring 4. STEMI/Respiratory failure/seizure: Transferred from [facility] to [place] for STEMI. Patient underwent cardiac catheterization. Patient currently on ventilator for respiratory failure. CT scan of brain shows area of encephalomalacia in the right frontal lobe and possible alexis hole and embolization call. 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 Cardiology and Neurology on case. Thank you very much for allowing me to share in the care of this very complex patient. This report may have been done utilizing a voice recognition system. Attempts have been made to correct errors. However, there may be uncorrected grammatical, spelling, and recognition errors present. GI Consult Note Consult date/time: 07/02/25 08:28 Reason for consult: gallbladder distention HPI: Alex Shane is a 65 year old male with history of paranoid schizophrenia and had not been taking his medications, aortic aneurysm stent, tobacco use, marijuana and methamphetamine use. He presented to [place] ER 06/29/2025 for altered mental status and seizure. Patient was transferred to [place] after STEMI was noted and he underwent a cardiac catheterization. GI has been consulted for gallbladder distension. Patient is sedated on mechanical ventilation is unable to provide any subjective information or past medical surgical history. ENDOSCOPY HISTORY: EGD and colonoscopy history unknown LABS AND STOOL STUDIES: Labs 07/02/2025: Sodium 136, potassium 3.3, BUN 17, creatinine 0.78, GFR >60, calcium 8.7, phosphorus 3.2 WBC 8, Hgb 11, Hct 35, MCV 98, platelets 94, INR 1.4 (8/6) Total bilirubin 0.4, AST 26, ALT 12, Alkaline Phos 64, albumin 2.9 Labs 06/29/2025: Sodium 137, potassium 3.2, BUN 14, creatinine 0.87, GFR >60, calcium 9.2, lactic acid 2.2 WBC 7, Hgb 15, Hct 45, MCV 97, platelets 101 Total bilirubin 1.3, AST 31, ALT 14, Alkaline Phos 61, albumin 3.7 IMAGING: CTA chest/abd/pelvis w/contrast 07/01/2025: IMPRESSION: 1. No evidence for pulmonary embolism. 2: Bilateral airspace consolidation, right greater than left. Differential diagnosis includes atelectasis and/or pneumonia. 3: Marked gallbladder distention, nonspecific. 4: Hepatomegaly. 5: Nonobstructing bilateral nephrolithiasis. Venous doppler 07/01/2025: IMPRESSION: 1: No lower extremity deep venous thrombosis. Echocardiogram 06/30/2025: Summary 1. Complete two-dimensional, color flow and Doppler transthoracic echocardiogram is performed. 2. Left ventricular systolic function is normal, estimated at 50-55. 3. The left ventricular diastolic function is indeterminate. 4. No pulmonary hypertension, estimated pulmonary arterial systolic pressure is 32 mmHg. Review of Systems 2 Review of Systems: ROS unobtainable: Yes unobtainable due to medical condition and unobtainable due to mental status [facility] Past Medical History Medical History (Updated 07/02/25 @ 10:52 by Emerald Love APRN) Seizure disorder History of recent neurosurgical procedure Family History Family History Mother Migraine Father Ischemic heart disease Sibling Intracranial aneurysm Social History Social History (System 06/30/25 @ 07:39 by Ángel Arechiga) Social History: marijuana abuse, history of meth abuse Smoking packs per day: 1 Smoking cigarettes per day: 20.0 Smoking status: Current every day smoker Alcohol intake: unknown Substance use type: amphetamines Other substance usage details: PT intubated, unable to answer admission questions Spiritual care concerns: No Meds Home Medications and Allergies Home Medications ?Medication ?Instructions ?Recorded ?Confirmed ?Type No Home Medications 06/29/25 06/29/25 History Allergies Allergy/AdvReac Type Severity Reaction Status Date / Time diphenhydramine (From Allergy Rash Verified 06/30/25 07:39 Benadryl) milk] Allergy Mild vomiting Uncoded 06/30/25 07:39 Vital Signs Vital Signs - 24 hr 07/01/25 09:00 07/01/25 09:00 07/01/25 10:00 Temperature 101.1 F H Pulse Rate 85 85 81 Pulse Rate [Bilateral Pedal (Dorsalis Pedis) Doppler] Respiratory Rate 24 H 24 H Blood Pressure 100/64 100/66 Pulse Oximetry 98 Oxygen Delivery Fraction of Inspired Oxygen 07/01/25 10:00 07/01/25 11:00 07/01/25 11:00 Temperature Pulse Rate 82 83 81 Pulse Rate [Bilateral Pedal (Dorsalis Pedis) Doppler] Respiratory Rate 24 H Blood Pressure Pulse Oximetry 100 Oxygen Delivery Mechanical Ventilation Fraction of Inspired Oxygen 35 07/01/25 11:00 07/01/25 11:40 07/01/25 11:40 Temperature Pulse Rate 81 81 81 Pulse Rate [Bilateral Pedal (Dorsalis Pedis) Doppler] Respiratory Rate Blood Pressure 123/80 117/76 117/76 Pulse Oximetry Oxygen Delivery Fraction of Inspired Oxygen 07/01/25 11:42 07/01/25 11:42 07/01/25 12:00 Temperature Pulse Rate 81 81 101 H Pulse Rate [Bilateral Pedal (Dorsalis Pedis) Doppler] Respiratory Rate 24 H 24 H 26 H Blood Pressure 120/80 Pulse Oximetry 100 Oxygen Delivery Fraction of Inspired Oxygen 07/01/25 12:00 07/01/25 12:00 07/01/25 12:00 Temperature 100.8 F H Pulse Rate 87 85 87 Pulse Rate [Bilateral Pedal (Dorsalis Pedis) Doppler] 86 Respiratory Rate 24 H 24 H Blood Pressure 120/80 Pulse Oximetry 100 99 Oxygen Delivery Mechanical Ventilation Fraction of Inspired Oxygen 35 07/01/25 12:00 07/01/25 12:00 07/01/25 12:25 Temperature Pulse Rate 85 81 Pulse Rate [Bilateral Pedal (Dorsalis Pedis) Doppler] Respiratory Rate Blood Pressure 120/80 Pulse Oximetry 99 Oxygen Delivery Mechanical Ventilation Fraction of Inspired Oxygen 35 35 07/01/25 13:00 07/01/25 14:00 07/01/25 14:00 Temperature 101.2 F H Pulse Rate 80 77 77 Pulse Rate [Bilateral Pedal (Dorsalis Pedis) Doppler] Respiratory Rate 24 H 24 H Blood Pressure 106/73 Pulse Oximetry 99 Oxygen Delivery Fraction of Inspired Oxygen 07/01/25 14:00 07/01/25 14:39 07/01/25 14:40 Temperature Pulse Rate 77 87 84 Pulse Rate [Bilateral Pedal (Dorsalis Pedis) Doppler] Respiratory Rate 24 H Blood Pressure 106/73 Pulse Oximetry 99 Oxygen Delivery Mechanical Ventilation Fraction of Inspired Oxygen 35 07/01/25 15:00 07/01/25 15:05 07/01/25 16:00 Temperature 101.4 F H Pulse Rate 88 88 88 Pulse Rate [Bilateral Pedal (Dorsalis Pedis) Doppler] Respiratory Rate 24 H 24 H Blood Pressure 124/84 106/76 Pulse Oximetry 100 Oxygen Delivery Fraction of Inspired Oxygen 07/01/25 16:00 07/01/25 16:00 07/01/25 16:00 Temperature Pulse Rate 88 88 Pulse Rate [Bilateral Pedal (Dorsalis Pedis) Doppler] Respiratory Rate 24 H Blood Pressure Pulse Oximetry 99 Oxygen Delivery Mechanical Ventilation Fraction of Inspired Oxygen 35 35 07/01/25 16:27 07/01/25 17:00 07/01/25 17:23 Temperature Pulse Rate 81 80 84 Pulse Rate [Bilateral Pedal (Dorsalis Pedis) Doppler] Respiratory Rate 24 H 24 H Blood Pressure 106/76 Pulse Oximetry Oxygen Delivery Fraction of Inspired Oxygen 07/01/25 17:25 07/01/25 18:00 07/01/25 18:00 Temperature 101.1 F H Pulse Rate 84 88 84 Pulse Rate [Bilateral Pedal (Dorsalis Pedis) Doppler] Respiratory Rate 24 H 24 H Blood Pressure 93/62 L Pulse Oximetry 99 Oxygen Delivery Fraction of Inspired Oxygen 07/01/25 18:02 07/01/25 20:00 07/01/25 20:00 Temperature 101 F H Pulse Rate 89 76 76 Pulse Rate [Bilateral Pedal (Dorsalis Pedis) Doppler] Respiratory Rate 24 H Blood Pressure 112/77 112/77 Pulse Oximetry 99 100 Oxygen Delivery Mechanical Ventilation Fraction of Inspired Oxygen 35 07/01/25 20:00 07/01/25 20:00 07/01/25 20:00 Temperature Pulse Rate 76 76 76 Pulse Rate [Bilateral Pedal (Dorsalis Pedis) Doppler] Respiratory Rate 24 H 24 H 24 H Blood Pressure Pulse Oximetry 100 Oxygen Delivery Mechanical Ventilation Fraction of Inspired Oxygen 35 07/01/25 20:00 07/01/25 20:00 07/01/25 20:00 Temperature 101 F H 101.1 F H Pulse Rate 76 77 Pulse Rate [Bilateral Pedal (Dorsalis Pedis) Doppler] Respiratory Rate 24 H 24 H Blood Pressure 112/77 112/77 Pulse Oximetry 100 100 Oxygen Delivery Fraction of Inspired Oxygen 35 07/01/25 20:00 07/01/25 20:15 07/01/25 20:18 Temperature Pulse Rate 76 76 76 Pulse Rate [Bilateral Pedal (Dorsalis Pedis) Doppler] Respiratory Rate 24 H Blood Pressure Pulse Oximetry 100 Oxygen Delivery Mechanical Ventilation Fraction of Inspired Oxygen 35 07/01/25 20:25 07/01/25 20:30 07/01/25 20:35 Temperature 101.0 F H Pulse Rate 78 82 71 Pulse Rate [Bilateral Pedal (Dorsalis Pedis) Doppler] Respiratory Rate 22 H 24 H Blood Pressure 112/77 105/76 Pulse Oximetry 99 Oxygen Delivery Fraction of Inspired Oxygen 07/01/25 20:45 07/01/25 20:57 07/01/25 21:00 Temperature 101.0 F H 101 F H 100.9 F H Pulse Rate 88 88 Pulse Rate [Bilateral Pedal (Dorsalis Pedis) Doppler] Respiratory Rate 23 H 25 H Blood Pressure 127/86 104/83 Pulse Oximetry 100 100 Oxygen Delivery Fraction of Inspired Oxygen 07/01/25 21:15 07/01/25 21:30 07/01/25 21:31 Temperature 100.9 F H 101.0 F H 101.0 F H Pulse Rate 85 84 84 Pulse Rate [Bilateral Pedal (Dorsalis Pedis) Doppler] Respiratory Rate 24 H 24 H 24 H Blood Pressure 98/66 L 86/58 L 85/60 L Pulse Oximetry 98 99 99 Oxygen Delivery Fraction of Inspired Oxygen 07/01/25 21:45 07/01/25 21:57 07/01/25 22:00 Temperature 100.9 F H 101 F H Pulse Rate 82 83 Pulse Rate [Bilateral Pedal (Dorsalis Pedis) Doppler] Respiratory Rate 24 H Blood Pressure 84/59 L 79/56 L Pulse Oximetry 98 Oxygen Delivery Fraction of Inspired Oxygen 07/01/25 22:00 07/01/25 22:00 07/01/25 22:00 Temperature 100.8 F H Pulse Rate 83 83 83 Pulse Rate [Bilateral Pedal (Dorsalis Pedis) Doppler] Respiratory Rate 24 H 24 H 24 H Blood Pressure 79/56 L Pulse Oximetry 98 Oxygen Delivery Fraction of Inspired Oxygen 07/01/25 22:00 07/01/25 22:00 07/01/25 22:13 Temperature 100.8 F H Pulse Rate 85 83 84 Pulse Rate [Bilateral Pedal (Dorsalis Pedis) Doppler] Respiratory Rate 24 H Blood Pressure 79/56 L Pulse Oximetry 98 97 Oxygen Delivery Mechanical Ventilation Fraction of Inspired Oxygen 35 07/01/25 22:15 07/01/25 22:30 07/01/25 22:31 Temperature 100.5 F H 100.2 F H 100.2 F H Pulse Rate 80 77 78 Pulse Rate [Bilateral Pedal (Dorsalis Pedis) Doppler] Respiratory Rate 24 H 24 H 24 H Blood Pressure 88/65 L 89/62 L Pulse Oximetry 99 99 99 Oxygen Delivery Fraction of Inspired Oxygen 07/01/25 22:45 07/01/25 23:00 07/01/25 23:15 Temperature 100.0 F H 99.9 F H 99.7 F H Pulse Rate 79 76 77 Pulse Rate [Bilateral Pedal (Dorsalis Pedis) Doppler] Respiratory Rate 24 H 24 H 24 H Blood Pressure 82/57 L 91/62 L 83/58 L Pulse Oximetry 99 99 99 Oxygen Delivery Fraction of Inspired Oxygen 07/01/25 23:30 07/01/25 23:46 07/02/25 00:00 Temperature 99.6 F 99.5 F Pulse Rate 73 79 81 Pulse Rate [Bilateral Pedal (Dorsalis Pedis) Doppler] Respiratory Rate 24 H 25 H Blood Pressure 91/61 L 91/64 L 101/69 Pulse Oximetry 99 99 Oxygen Delivery Fraction of Inspired Oxygen 07/02/25 00:00 07/02/25 00:00 07/02/25 00:00 Temperature 99.3 F Pulse Rate 81 81 77 Pulse Rate [Bilateral Pedal (Dorsalis Pedis) Doppler] Respiratory Rate 24 H 24 H 24 H Blood Pressure 101/69 Pulse Oximetry 97 Oxygen Delivery Fraction of Inspired Oxygen 07/02/25 00:00 07/02/25 00:00 07/02/25 00:00 Temperature 99.3 F Pulse Rate 77 77 Pulse Rate [Bilateral Pedal (Dorsalis Pedis) Doppler] Respiratory Rate 24 H 24 H Blood Pressure 101/69 Pulse Oximetry 97 97 Oxygen Delivery Mechanical Ventilation Fraction of Inspired Oxygen 35 35 07/02/25 00:00 07/02/25 00:00 07/02/25 00:15 Temperature 99.4 F 99.3 F Pulse Rate 77 76 75 Pulse Rate [Bilateral Pedal (Dorsalis Pedis) Doppler] Respiratory Rate 24 H 25 H Blood Pressure 101/69 85/66 L Pulse Oximetry 100 97 Oxygen Delivery Fraction of Inspired Oxygen 07/02/25 00:30 07/02/25 00:45 07/02/25 00:45 Temperature 99.3 F 99.2 F Pulse Rate 75 76 76 Pulse Rate [Bilateral Pedal (Dorsalis Pedis) Doppler] Respiratory Rate 24 H 24 H Blood Pressure 84/59 L 81/54 L 81/54 L Pulse Oximetry 97 96 Oxygen Delivery Fraction of Inspired Oxygen 07/02/25 01:00 07/02/25 01:15 07/02/25 01:15 Temperature 99.0 F 98.9 F Pulse Rate 74 72 72 Pulse Rate [Bilateral Pedal (Dorsalis Pedis) Doppler] Respiratory Rate 24 H 24 H Blood Pressure 82/57 L 77/53 L 77/53 L Pulse Oximetry 97 96 Oxygen Delivery Fraction of Inspired Oxygen 07/02/25 01:30 07/02/25 01:45 07/02/25 01:56 Temperature 98.8 F 98.7 F Pulse Rate 81 70 69 Pulse Rate [Bilateral Pedal (Dorsalis Pedis) Doppler] Respiratory Rate 24 H 24 H Blood Pressure 91/62 L 98/68 L Pulse Oximetry 97 98 98 Oxygen Delivery Mechanical Ventilation Fraction of Inspired Oxygen 35 07/02/25 02:00 07/02/25 02:00 07/02/25 02:00 Temperature Pulse Rate 69 69 69 Pulse Rate [Bilateral Pedal (Dorsalis Pedis) Doppler] Respiratory Rate 24 H 24 H Blood Pressure 99/69 L Pulse Oximetry Oxygen Delivery Fraction of Inspired Oxygen 07/02/25 02:00 07/02/25 02:00 07/02/25 02:01 Temperature 98.5 F Pulse Rate 69 68 69 Pulse Rate [Bilateral Pedal (Dorsalis Pedis) Doppler] Respiratory Rate 24 H 24 H Blood Pressure 99/69 L Pulse Oximetry 99 Oxygen Delivery Fraction of Inspired Oxygen 07/02/25 02:13 07/02/25 02:15 07/02/25 02:15 Temperature 98.5 F Pulse Rate 75 70 73 Pulse Rate [Bilateral Pedal (Dorsalis Pedis) Doppler] Respiratory Rate 24 H 24 H Blood Pressure 116/79 116/79 Pulse Oximetry 100 Oxygen Delivery Fraction of Inspired Oxygen 07/02/25 02:30 07/02/25 02:45 07/02/25 02:45 Temperature 98.4 F 98.4 F Pulse Rate 75 77 75 Pulse Rate [Bilateral Pedal (Dorsalis Pedis) Doppler] Respiratory Rate 24 H 24 H Blood Pressure 100/68 115/78 115/78 Pulse Oximetry 99 100 Oxygen Delivery Fraction of Inspired Oxygen 07/02/25 03:00 07/02/25 03:15 07/02/25 03:15 Temperature 98.4 F 98.4 F Pulse Rate 75 72 74 Pulse Rate [Bilateral Pedal (Dorsalis Pedis) Doppler] Respiratory Rate 24 H 24 H Blood Pressure 97/67 L 110/75 110/75 Pulse Oximetry 100 100 Oxygen Delivery Fraction of Inspired Oxygen 07/02/25 03:30 07/02/25 03:45 07/02/25 03:45 Temperature 98.4 F 98.4 F Pulse Rate 74 71 76 Pulse Rate [Bilateral Pedal (Dorsalis Pedis) Doppler] Respiratory Rate 24 H 24 H Blood Pressure 100/72 124/81 124/81 Pulse Oximetry 100 100 Oxygen Delivery Fraction of Inspired Oxygen 07/02/25 04:00 07/02/25 04:00 07/02/25 04:00 Temperature Pulse Rate 95 95 95 Pulse Rate [Bilateral Pedal (Dorsalis Pedis) Doppler] Respiratory Rate 24 H 24 H Blood Pressure 129/91 H Pulse Oximetry Oxygen Delivery Fraction of Inspired Oxygen 07/02/25 04:00 07/02/25 04:00 07/02/25 04:00 Temperature 98.5 F Pulse Rate 98 98 Pulse Rate [Bilateral Pedal (Dorsalis Pedis) Doppler] Respiratory Rate 25 H 25 H Blood Pressure 129/91 H Pulse Oximetry 100 100 Oxygen Delivery Mechanical Ventilation Fraction of Inspired Oxygen 35 35 07/02/25 04:00 07/02/25 04:01 07/02/25 04:15 Temperature 98.5 F Pulse Rate 98 94 95 Pulse Rate [Bilateral Pedal (Dorsalis Pedis) Doppler] Respiratory Rate 26 H Blood Pressure 129/91 H Pulse Oximetry 100 Oxygen Delivery Fraction of Inspired Oxygen 07/02/25 04:15 07/02/25 04:29 07/02/25 04:30 Temperature 99.0 F 99.0 F Pulse Rate 108 H 96 99 Pulse Rate [Bilateral Pedal (Dorsalis Pedis) Doppler] Respiratory Rate 22 H 26 H 26 H Blood Pressure 120/104 H 119/83 114/96 H Pulse Oximetry 100 96 97 Oxygen Delivery Fraction of Inspired Oxygen 07/02/25 04:45 07/02/25 05:00 07/02/25 05:09 Temperature 99.4 F 99.4 F Pulse Rate 85 83 82 Pulse Rate [Bilateral Pedal (Dorsalis Pedis) Doppler] Respiratory Rate 24 H 24 H Blood Pressure 98/66 L 86/66 L Pulse Oximetry 95 95 97 Oxygen Delivery Mechanical Ventilation Fraction of Inspired Oxygen 35 07/02/25 05:15 07/02/25 05:30 07/02/25 05:45 Temperature 99.5 F 99.4 F 99.4 F Pulse Rate 83 80 79 Pulse Rate [Bilateral Pedal (Dorsalis Pedis) Doppler] Respiratory Rate 24 H 24 H 24 H Blood Pressure 86/61 L 83/59 L 83/61 L Pulse Oximetry 98 98 99 Oxygen Delivery Fraction of Inspired Oxygen 07/02/25 06:00 07/02/25 06:00 07/02/25 06:00 Temperature Pulse Rate 76 76 76 Pulse Rate [Bilateral Pedal (Dorsalis Pedis) Doppler] Respiratory Rate 24 H 24 H Blood Pressure 79/65 L Pulse Oximetry Oxygen Delivery Fraction of Inspired Oxygen 07/02/25 06:00 07/02/25 06:00 07/02/25 06:15 Temperature 99.2 F 99.1 F Pulse Rate 76 76 73 Pulse Rate [Bilateral Pedal (Dorsalis Pedis) Doppler] Respiratory Rate 24 H 25 H Blood Pressure 79/65 L 96/64 L Pulse Oximetry 100 100 Oxygen Delivery Fraction of Inspired Oxygen 07/02/25 06:30 07/02/25 06:30 07/02/25 07:07 Temperature 99.0 F Pulse Rate 75 75 72 Pulse Rate [Bilateral Pedal (Dorsalis Pedis) Doppler] Respiratory Rate 22 H 24 H Blood Pressure 115/80 115/80 Pulse Oximetry 100 Oxygen Delivery Fraction of Inspired Oxygen 07/02/25 07:08 07/02/25 07:27 07/02/25 08:15 Temperature 99.1 F Pulse Rate 72 72 70 Pulse Rate [Bilateral Pedal (Dorsalis Pedis) Doppler] Respiratory Rate 24 H 27 H 24 H Blood Pressure 93/63 L Pulse Oximetry 100 Oxygen Delivery Fraction of Inspired Oxygen 07/02/25 08:17 07/02/25 08:25 Temperature Pulse Rate 73 69 Pulse Rate [Bilateral Pedal (Dorsalis Pedis) Doppler] Respiratory Rate 24 H Blood Pressure Pulse Oximetry 98 Oxygen Delivery Mechanical Ventilation Fraction of Inspired Oxygen 35 Exam 2 Const: General: comfortable and no acute distress HENMT: Face/Nose/Sinus: Normal nares present Mouth: Yes dry mucous membranes Eyes: General: appearance normal, both eyes and all related structures S clera: sclerae normal Pupils: Equal, round and reactive pupils present Neck: Neck: supple Resp: Other: on vent Cardio: Rate: regular rate Rhythm: regular rhythm GI: Inspection: non-distended GI Palp: Yes Soft to palpation, No Tenderness to palpation present (GI) and No Guarding due to palpation present (GI) A uscultation: normal bowel sounds Other: tube feedings with Vital 1.2 Urinary Catheter: Urinary Catheter: patent and draining Skin: General skin exam: normal color Lesions: lesion noted Extrem: General: normal to inspection Psych: Mental Status: mental status grossly abnormal (sedated) Results Labs 07/02/25 05:07 07/02/25 05:07 Labs: Short CBC 07/02/25 Range/Units 05:07 WBC 7.6 (4.5-10.0) K/mm3 Hgb 11.1 L (14.0-18.0) g/dL Hct 35.3 L (42.0-52.0) % Plt Count 94 L (150-375) k/mm3 BMP 07/02/25 05:07 Sodium 136 L Potassium 3.3 L Chloride 106 Carbon Dioxide 24 BUN 17 Creatinine 0.78 Glucose 86 Calcium 8.7 Liver Function 07/02/25 Range/Units 05:07 Total Bilirubin 0.4 (0.2-1.3) mg/dL AST 26 (17-59) U/L ALT 12 (6-50) U/L Alkaline Phosphatase 64 (38-126) U/L Albumin 2.9 L (3.5-5.1) g/dL
--- NOTE | 2025-07-02 08:33 | P.PNINT_ITS ---
Progress Note: A&P Assessment and Plan (1) Fever: Code(s): R50.9 - Fever, unspecified Status: Acute Assessment and Plan: 06/30: Patient spiked fevers with a T-max of 102.1? F -06/30: Blood cultures: Preliminary report with no growth x2 -06/30: Urine cultures : No growth -06/30: Sputum cultures : Few Gram-positive cocci and few g positive rods -06/29: Blood cultures negative x2 06/30: Chest x-ray shows increased haziness in the medial right lung base, could be related to aspiration pneumonia/pneumonitis secondary to aspiration during seizure activity on 06/29/2025 -On Unasyn and doxycycline (06/30) -07/01: Continues to spike fevers, T-max of 101.1?, will switch antibiotic to cefepime and vancomycin (07/01) continue doxycycline x 5 days (start date - 06/30) . Discontinue Unasyn -07/01: Bilateral lower extremity venous Dopplers were negative for DVT -07/02: Patient afebrile through the night, continue cefepime, vancomycin and doxycycline 07/01: CT chest abdomen and pelvis IMPRESSION: 1. No evidence for pulmonary embolism. 2: Bilateral airspace consolidation, right greater than left. Differential diagnosis includes atelectasis and/or pneumonia. 3: Marked gallbladder distention, nonspecific. 4: Hepatomegaly. 5: Nonobstructing bilateral nephrolithiasis. (2) Altered mental status: Code(s): R41.82 - Altered mental status, unspecified Status: Inactive Assessment and Plan: Patient presented to [facility] with altered mental status, confusion and not being himself along with hallucinations and paranoia according to ER notes. -patient was incontinent of stool and urine per EMS -he had a seizure activity on the cardiac catheterization table, -altered mental status could be related to seizure activity and postictal state, and/or paranoid schizophrenia which he has a history of. 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 Anterior suprasellar embolization coils. Moderate scattered white matter hypoattenuation consistent with chronic small- vessel ischemic disease. (3) Seizure: Code(s): R56.9 - Unspecified convulsions Status: Acute Assessment and Plan: 06/29: Patient had a seizure activity on the cardiac catheterization stable -according the EMS he was also incontinent of stool and urine when they got to his house -this could also be related to seizures and he may be postictal. -patient does have a history of paranoid schizophrenia, not on any medications per patient's niece, according to the records. -06/29: Loaded with Keppra 1 g IV x1 a Appreciate Neurology evaluation recommendation. Continue Keppra 1 g q.12 hours -no further seizure activities noted (4) ST elevation (STEMI) myocardial infarction: Code(s): I21.3 - ST elevation (STEMI) myocardial infarction of unspecified site Status: Inactive Assessment and Plan: EKG at the outside hospital ER showed ST elevations in the anteroseptal leads, with significant ST depression in inferior lateral leads concerning was STEMI -patient taken to cardiac [employer] for coronary angiography -non-obstructive coronary artery disease, right femoral artery angiogram shows there is 80-90% right external iliac lesion. The catheter seems to be semi occlusive at that side. The right common femoral artery could not be well visualized but the catheter entrance site is adequate. -LV EF was 65%, LVEDP was 8 mmHg 06/30/2025: Echocardiogram Summary 1. Complete two-dimensional, color flow and Doppler transthoracic echocardiogram is performed. 2. Left ventricular systolic function is normal, estimated at 50-55. 3. The left ventricular diastolic function is indeterminate. 4. No pulmonary hypertension, estimated pulmonary arterial systolic pressure is 32 mmHg. (5) On mechanically assisted ventilation: Code(s): Z99.11 - Dependence on respirator [ventilator] status Status: Acute Assessment and Plan: 06/29: intubated in the cardiac [employer] after patient had a seizure, altered mental status, agonal breathing and not protecting his airway, aspiration pneumonia -continue CMV mode of ventilation on 35 % FiO2 and peep of 5 -chest x-ray and ABGs reviewed, maintain O2 sat > 92% -maintain O2 sats > 90-92% given patient seems to have COPD with hypercapnia -patient does have a history of COPD -continue bronchodilators and budesonide nebs -will switch start Precedex infusion, will discontinue fentanyl and Versed infusion, once patient is more awake, will place patient on SBT and evaluate for extubation (6) Illicit drug use: Code(s): F19.90 - Other psychoactive substance use, unspecified, uncomplicated Status: Acute Assessment and Plan: Patient has a history of illicit drug use according to the niece patient takes methamphetamine and cannabis. Patient also has a history of schizoaffective paranoia on no medications -acetaminophen, alcohol and salicylic acid levels were all within normal limit -urine drug screen performed in the ICU was positive for cannabis and benzodiazepines -may require psychiatry evaluation once he is extubated (7) Gallbladder dilatation: Code(s): K82.8 - Other specified diseases of gallbladder Status: Acute Assessment and Plan: Marked distention of gallbladder as seen on CT scan of the abdomen pelvis as on -appreciate surgery evaluation and recommendations, patient is a poor surgical candidate, will continue to manage conservatively. If any issues arise in patient complains of abdominal pain will consider ultrasound imaging upper continues to drain placement per surgery -have also consulted GI and await their recommendations 07/01: CT chest abdomen and pelvis IMPRESSION: 1. No evidence for pulmonary embolism. 2: Bilateral airspace consolidation, right greater than left. Differential diagnosis includes atelectasis and/or pneumonia. 3: Marked gallbladder distention, nonspecific. 4: Hepatomegaly. 5: Nonobstructing bilateral nephrolithiasis. Plan DVT prophylaxis: SCDs, will hold heparin subQ due to decrease in platelets Stress ulcer prophylaxis: Protonix IV q.12 hours Nutrition: Hold tube feeds Code Status: Full code Critical Care Time Spent: 32 minutes Due to a high probability of clinically significant, life threatening deterioration, the patient required my highest level of preparedness to intervene emergently and I personally spent this critical care time directly and personally managing the patient. This critical care time included obtaining a history; examining the patient; pulse oximetry; ordering and review of studies; arranging urgent treatment with development of a management plan; evaluation of patient's response to treatment; frequent reassessment; and discussions with other providers. It was exclusive of separately billable procedures and treating other patients and teaching time. Please see Assessment and Plan section and the rest of the note for further information on patient assessment and treatment This dictation may have been done utilizing a voice recognition system. Attempts have been made to correct errors. However, there may be uncorrected grammatical, spelling, and recognitions errors present. Subjective Date/time seen: 07/02/25 08:33 Interval history: Reason for consult: Altered mental status, STEMI, seizure, intubated for airway protection 07/02/2025: Patient seen and examined in the ICU, remains intubated on CMV mode of ventilation, peep of 5, 35% FiO2. Sedated with fentanyl and Versed infusion, patient opens his eyes but does not follow simple commands. Urine output has been adequate, afebrile. Early this morning tube feed residuals were high, tube feeds and held. Patient was off Levophed briefly but had to be restarted, currently on 3 mcg/min. Review of Systems Review of Systems: ROS unobtainable: Yes unobtainable due to endotracheal tube, unobtainable due to medical condition and unobtainable due to mental status Exam Narrative: General: Intubated and sedated HEENT:? Pupils equal and reactive, sclera is clear, ETT in place Neck:? Supple Respiratory:? Improved air entry, decreased breath sounds bilateral base R > L, no wheezing, Cardiac:? S1-S2 is normal, regular rate and rhythm, no murmur Abdomen:? Soft, nontender, nondistended, hypoactive bowel sound Extremities:? No edema, both feet are warm, dopplerable pedal pulses Neuro:? Patient is intubated, sedated, opens his eyes but does not follow simple commands Skin:? Warm and dry Psych:? Unable to assess Objective Data Vital Signs Vital Signs: Vital Signs - 24 hr 07/01/25 09:00 07/01/25 09:00 07/01/25 10:00 Temperature 101.1 F H Pulse Rate 85 85 81 Pulse Rate [Bilateral Pedal (Dorsalis Pedis) Doppler] Respiratory Rate 24 H 24 H Blood Pressure 100/64 100/66 Pulse Oximetry 98 Oxygen Delivery Fraction of Inspired Oxygen 07/01/25 10:00 07/01/25 11:00 07/01/25 11:00 Temperature Pulse Rate 82 83 81 Pulse Rate [Bilateral Pedal (Dorsalis Pedis) Doppler] Respiratory Rate 24 H Blood Pressure Pulse Oximetry 100 Oxygen Delivery Mechanical Ventilation Fraction of Inspired Oxygen 35 07/01/25 11:00 07/01/25 11:40 07/01/25 11:40 Temperature Pulse Rate 81 81 81 Pulse Rate [Bilateral Pedal (Dorsalis Pedis) Doppler] Respiratory Rate Blood Pressure 123/80 117/76 117/76 Pulse Oximetry Oxygen Delivery Fraction of Inspired Oxygen 07/01/25 11:42 07/01/25 11:42 07/01/25 12:00 Temperature Pulse Rate 81 81 101 H Pulse Rate [Bilateral Pedal (Dorsalis Pedis) Doppler] Respiratory Rate 24 H 24 H 26 H Blood Pressure 120/80 Pulse Oximetry 100 Oxygen Delivery Fraction of Inspired Oxygen 07/01/25 12:00 07/01/25 12:00 07/01/25 12:00 Temperature 100.8 F H Pulse Rate 87 85 87 Pulse Rate [Bilateral Pedal (Dorsalis Pedis) Doppler] 86 Respiratory Rate 24 H 24 H Blood Pressure 120/80 Pulse Oximetry 100 99 Oxygen Delivery Mechanical Ventilation Fraction of Inspired Oxygen 35 07/01/25 12:00 07/01/25 12:00 07/01/25 12:25 Temperature Pulse Rate 85 81 Pulse Rate [Bilateral Pedal (Dorsalis Pedis) Doppler] Respiratory Rate Blood Pressure 120/80 Pulse Oximetry 99 Oxygen Delivery Mechanical Ventilation Fraction of Inspired Oxygen 35 35 07/01/25 13:00 07/01/25 14:00 07/01/25 14:00 Temperature 101.2 F H Pulse Rate 80 77 77 Pulse Rate [Bilateral Pedal (Dorsalis Pedis) Doppler] Respiratory Rate 24 H 24 H Blood Pressure 106/73 Pulse Oximetry 99 Oxygen Delivery Fraction of Inspired Oxygen 07/01/25 14:00 07/01/25 14:39 07/01/25 14:40 Temperature Pulse Rate 77 87 84 Pulse Rate [Bilateral Pedal (Dorsalis Pedis) Doppler] Respiratory Rate 24 H Blood Pressure 106/73 Pulse Oximetry 99 Oxygen Delivery Mechanical Ventilation Fraction of Inspired Oxygen 35 07/01/25 15:00 07/01/25 15:05 07/01/25 16:00 Temperature 101.4 F H Pulse Rate 88 88 88 Pulse Rate [Bilateral Pedal (Dorsalis Pedis) Doppler] Respiratory Rate 24 H 24 H Blood Pressure 124/84 106/76 Pulse Oximetry 100 Oxygen Delivery Fraction of Inspired Oxygen 07/01/25 16:00 07/01/25 16:00 07/01/25 16:00 Temperature Pulse Rate 88 88 Pulse Rate [Bilateral Pedal (Dorsalis Pedis) Doppler] Respiratory Rate 24 H Blood Pressure Pulse Oximetry 99 Oxygen Delivery Mechanical Ventilation Fraction of Inspired Oxygen 35 35 07/01/25 16:27 07/01/25 17:00 07/01/25 17:23 Temperature Pulse Rate 81 80 84 Pulse Rate [Bilateral Pedal (Dorsalis Pedis) Doppler] Respiratory Rate 24 H 24 H Blood Pressure 106/76 Pulse Oximetry Oxygen Delivery Fraction of Inspired Oxygen 07/01/25 17:25 07/01/25 18:00 07/01/25 18:00 Temperature 101.1 F H Pulse Rate 84 88 84 Pulse Rate [Bilateral Pedal (Dorsalis Pedis) Doppler] Respiratory Rate 24 H 24 H Blood Pressure 93/62 L Pulse Oximetry 99 Oxygen Delivery Fraction of Inspired Oxygen 07/01/25 18:02 07/01/25 20:00 07/01/25 20:00 Temperature 101 F H Pulse Rate 89 76 76 Pulse Rate [Bilateral Pedal (Dorsalis Pedis) Doppler] Respiratory Rate 24 H Blood Pressure 112/77 112/77 Pulse Oximetry 99 100 Oxygen Delivery Mechanical Ventilation Fraction of Inspired Oxygen 35 07/01/25 20:00 07/01/25 20:00 07/01/25 20:00 Temperature Pulse Rate 76 76 76 Pulse Rate [Bilateral Pedal (Dorsalis Pedis) Doppler] Respiratory Rate 24 H 24 H 24 H Blood Pressure Pulse Oximetry 100 Oxygen Delivery Mechanical Ventilation Fraction of Inspired Oxygen 35 07/01/25 20:00 07/01/25 20:00 07/01/25 20:00 Temperature 101 F H 101.1 F H Pulse Rate 76 77 Pulse Rate [Bilateral Pedal (Dorsalis Pedis) Doppler] Respiratory Rate 24 H 24 H Blood Pressure 112/77 112/77 Pulse Oximetry 100 100 Oxygen Delivery Fraction of Inspired Oxygen 35 07/01/25 20:00 07/01/25 20:15 07/01/25 20:18 Temperature Pulse Rate 76 76 76 Pulse Rate [Bilateral Pedal (Dorsalis Pedis) Doppler] Respiratory Rate 24 H Blood Pressure Pulse Oximetry 100 Oxygen Delivery Mechanical Ventilation Fraction of Inspired Oxygen 35 07/01/25 20:25 07/01/25 20:30 07/01/25 20:35 Temperature 101.0 F H Pulse Rate 78 82 71 Pulse Rate [Bilateral Pedal (Dorsalis Pedis) Doppler] Respiratory Rate 22 H 24 H Blood Pressure 112/77 105/76 Pulse Oximetry 99 Oxygen Delivery Fraction of Inspired Oxygen 07/01/25 20:45 07/01/25 20:57 07/01/25 21:00 Temperature 101.0 F H 101 F H 100.9 F H Pulse Rate 88 88 Pulse Rate [Bilateral Pedal (Dorsalis Pedis) Doppler] Respiratory Rate 23 H 25 H Blood Pressure 127/86 104/83 Pulse Oximetry 100 100 Oxygen Delivery Fraction of Inspired Oxygen 07/01/25 21:15 07/01/25 21:30 07/01/25 21:31 Temperature 100.9 F H 101.0 F H 101.0 F H Pulse Rate 85 84 84 Pulse Rate [Bilateral Pedal (Dorsalis Pedis) Doppler] Respiratory Rate 24 H 24 H 24 H Blood Pressure 98/66 L 86/58 L 85/60 L Pulse Oximetry 98 99 99 Oxygen Delivery Fraction of Inspired Oxygen 07/01/25 21:45 07/01/25 21:57 07/01/25 22:00 Temperature 100.9 F H 101 F H Pulse Rate 82 83 Pulse Rate [Bilateral Pedal (Dorsalis Pedis) Doppler] Respiratory Rate 24 H Blood Pressure 84/59 L 79/56 L Pulse Oximetry 98 Oxygen Delivery Fraction of Inspired Oxygen 07/01/25 22:00 07/01/25 22:00 07/01/25 22:00 Temperature 100.8 F H Pulse Rate 83 83 83 Pulse Rate [Bilateral Pedal (Dorsalis Pedis) Doppler] Respiratory Rate 24 H 24 H 24 H Blood Pressure 79/56 L Pulse Oximetry 98 Oxygen Delivery Fraction of Inspired Oxygen 07/01/25 22:00 07/01/25 22:00 07/01/25 22:13 Temperature 100.8 F H Pulse Rate 85 83 84 Pulse Rate [Bilateral Pedal (Dorsalis Pedis) Doppler] Respiratory Rate 24 H Blood Pressure 79/56 L Pulse Oximetry 98 97 Oxygen Delivery Mechanical Ventilation Fraction of Inspired Oxygen 35 07/01/25 22:15 07/01/25 22:30 07/01/25 22:31 Temperature 100.5 F H 100.2 F H 100.2 F H Pulse Rate 80 77 78 Pulse Rate [Bilateral Pedal (Dorsalis Pedis) Doppler] Respiratory Rate 24 H 24 H 24 H Blood Pressure 88/65 L 89/62 L Pulse Oximetry 99 99 99 Oxygen Delivery Fraction of Inspired Oxygen 07/01/25 22:45 07/01/25 23:00 07/01/25 23:15 Temperature 100.0 F H 99.9 F H 99.7 F H Pulse Rate 79 76 77 Pulse Rate [Bilateral Pedal (Dorsalis Pedis) Doppler] Respiratory Rate 24 H 24 H 24 H Blood Pressure 82/57 L 91/62 L 83/58 L Pulse Oximetry 99 99 99 Oxygen Delivery Fraction of Inspired Oxygen 07/01/25 23:30 07/01/25 23:46 07/02/25 00:00 Temperature 99.6 F 99.5 F Pulse Rate 73 79 81 Pulse Rate [Bilateral Pedal (Dorsalis Pedis) Doppler] Respiratory Rate 24 H 25 H Blood Pressure 91/61 L 91/64 L 101/69 Pulse Oximetry 99 99 Oxygen Delivery Fraction of Inspired Oxygen 07/02/25 00:00 07/02/25 00:00 07/02/25 00:00 Temperature 99.3 F Pulse Rate 81 81 77 Pulse Rate [Bilateral Pedal (Dorsalis Pedis) Doppler] Respiratory Rate 24 H 24 H 24 H Blood Pressure 101/69 Pulse Oximetry 97 Oxygen Delivery Fraction of Inspired Oxygen 07/02/25 00:00 07/02/25 00:00 07/02/25 00:00 Temperature 99.3 F Pulse Rate 77 77 Pulse Rate [Bilateral Pedal (Dorsalis Pedis) Doppler] Respiratory Rate 24 H 24 H Blood Pressure 101/69 Pulse Oximetry 97 97 Oxygen Delivery Mechanical Ventilation Fraction of Inspired Oxygen 35 35 07/02/25 00:00 07/02/25 00:00 07/02/25 00:15 Temperature 99.4 F 99.3 F Pulse Rate 77 76 75 Pulse Rate [Bilateral Pedal (Dorsalis Pedis) Doppler] Respiratory Rate 24 H 25 H Blood Pressure 101/69 85/66 L Pulse Oximetry 100 97 Oxygen Delivery Fraction of Inspired Oxygen 07/02/25 00:30 07/02/25 00:45 07/02/25 00:45 Temperature 99.3 F 99.2 F Pulse Rate 75 76 76 Pulse Rate [Bilateral Pedal (Dorsalis Pedis) Doppler] Respiratory Rate 24 H 24 H Blood Pressure 84/59 L 81/54 L 81/54 L Pulse Oximetry 97 96 Oxygen Delivery Fraction of Inspired Oxygen 07/02/25 01:00 07/02/25 01:15 07/02/25 01:15 Temperature 99.0 F 98.9 F Pulse Rate 74 72 72 Pulse Rate [Bilateral Pedal (Dorsalis Pedis) Doppler] Respiratory Rate 24 H 24 H Blood Pressure 82/57 L 77/53 L 77/53 L Pulse Oximetry 97 96 Oxygen Delivery Fraction of Inspired Oxygen 07/02/25 01:30 07/02/25 01:45 07/02/25 01:56 Temperature 98.8 F 98.7 F Pulse Rate 81 70 69 Pulse Rate [Bilateral Pedal (Dorsalis Pedis) Doppler] Respiratory Rate 24 H 24 H Blood Pressure 91/62 L 98/68 L Pulse Oximetry 97 98 98 Oxygen Delivery Mechanical Ventilation Fraction of Inspired Oxygen 35 07/02/25 02:00 07/02/25 02:00 07/02/25 02:00 Temperature Pulse Rate 69 69 69 Pulse Rate [Bilateral Pedal (Dorsalis Pedis) Doppler] Respiratory Rate 24 H 24 H Blood Pressure 99/69 L Pulse Oximetry Oxygen Delivery Fraction of Inspired Oxygen 07/02/25 02:00 07/02/25 02:00 07/02/25 02:01 Temperature 98.5 F Pulse Rate 69 68 69 Pulse Rate [Bilateral Pedal (Dorsalis Pedis) Doppler] Respiratory Rate 24 H 24 H Blood Pressure 99/69 L Pulse Oximetry 99 Oxygen Delivery Fraction of Inspired Oxygen 07/02/25 02:13 07/02/25 02:15 07/02/25 02:15 Temperature 98.5 F Pulse Rate 75 70 73 Pulse Rate [Bilateral Pedal (Dorsalis Pedis) Doppler] Respiratory Rate 24 H 24 H Blood Pressure 116/79 116/79 Pulse Oximetry 100 Oxygen Delivery Fraction of Inspired Oxygen 07/02/25 02:30 07/02/25 02:45 07/02/25 02:45 Temperature 98.4 F 98.4 F Pulse Rate 75 77 75 Pulse Rate [Bilateral Pedal (Dorsalis Pedis) Doppler] Respiratory Rate 24 H 24 H Blood Pressure 100/68 115/78 115/78 Pulse Oximetry 99 100 Oxygen Delivery Fraction of Inspired Oxygen 07/02/25 03:00 07/02/25 03:15 07/02/25 03:15 Temperature 98.4 F 98.4 F Pulse Rate 75 72 74 Pulse Rate [Bilateral Pedal (Dorsalis Pedis) Doppler] Respiratory Rate 24 H 24 H Blood Pressure 97/67 L 110/75 110/75 Pulse Oximetry 100 100 Oxygen Delivery Fraction of Inspired Oxygen 07/02/25 03:30 07/02/25 03:45 07/02/25 03:45 Temperature 98.4 F 98.4 F Pulse Rate 74 71 76 Pulse Rate [Bilateral Pedal (Dorsalis Pedis) Doppler] Respiratory Rate 24 H 24 H Blood Pressure 100/72 124/81 124/81 Pulse Oximetry 100 100 Oxygen Delivery Fraction of Inspired Oxygen 07/02/25 04:00 07/02/25 04:00 07/02/25 04:00 Temperature Pulse Rate 95 95 95 Pulse Rate [Bilateral Pedal (Dorsalis Pedis) Doppler] Respiratory Rate 24 H 24 H Blood Pressure 129/91 H Pulse Oximetry Oxygen Delivery Fraction of Inspired Oxygen 07/02/25 04:00 07/02/25 04:00 07/02/25 04:00 Temperature 98.5 F Pulse Rate 98 98 Pulse Rate [Bilateral Pedal (Dorsalis Pedis) Doppler] Respiratory Rate 25 H 25 H Blood Pressure 129/91 H Pulse Oximetry 100 100 Oxygen Delivery Mechanical Ventilation Fraction of Inspired Oxygen 35 35 07/02/25 04:00 07/02/25 04:01 07/02/25 04:15 Temperature 98.5 F Pulse Rate 98 94 95 Pulse Rate [Bilateral Pedal (Dorsalis Pedis) Doppler] Respiratory Rate 26 H Blood Pressure 129/91 H Pulse Oximetry 100 Oxygen Delivery Fraction of Inspired Oxygen 07/02/25 04:15 07/02/25 04:29 07/02/25 04:30 Temperature 99.0 F 99.0 F Pulse Rate 108 H 96 99 Pulse Rate [Bilateral Pedal (Dorsalis Pedis) Doppler] Respiratory Rate 22 H 26 H 26 H Blood Pressure 120/104 H 119/83 114/96 H Pulse Oximetry 100 96 97 Oxygen Delivery Fraction of Inspired Oxygen 07/02/25 04:45 07/02/25 05:00 07/02/25 05:09 Temperature 99.4 F 99.4 F Pulse Rate 85 83 82 Pulse Rate [Bilateral Pedal (Dorsalis Pedis) Doppler] Respiratory Rate 24 H 24 H Blood Pressure 98/66 L 86/66 L Pulse Oximetry 95 95 97 Oxygen Delivery Mechanical Ventilation Fraction of Inspired Oxygen 35 07/02/25 05:15 07/02/25 05:30 07/02/25 05:45 Temperature 99.5 F 99.4 F 99.4 F Pulse Rate 83 80 79 Pulse Rate [Bilateral Pedal (Dorsalis Pedis) Doppler] Respiratory Rate 24 H 24 H 24 H Blood Pressure 86/61 L 83/59 L 83/61 L Pulse Oximetry 98 98 99 Oxygen Delivery Fraction of Inspired Oxygen 07/02/25 06:00 07/02/25 06:00 07/02/25 06:00 Temperature Pulse Rate 76 76 76 Pulse Rate [Bilateral Pedal (Dorsalis Pedis) Doppler] Respiratory Rate 24 H 24 H Blood Pressure 79/65 L Pulse Oximetry Oxygen Delivery Fraction of Inspired Oxygen 07/02/25 06:00 07/02/25 06:00 07/02/25 06:15 Temperature 99.2 F 99.1 F Pulse Rate 76 76 73 Pulse Rate [Bilateral Pedal (Dorsalis Pedis) Doppler] Respiratory Rate 24 H 25 H Blood Pressure 79/65 L 96/64 L Pulse Oximetry 100 100 Oxygen Delivery Fraction of Inspired Oxygen 07/02/25 06:30 07/02/25 06:30 07/02/25 07:07 Temperature 99.0 F Pulse Rate 75 75 72 Pulse Rate [Bilateral Pedal (Dorsalis Pedis) Doppler] Respiratory Rate 22 H 24 H Blood Pressure 115/80 115/80 Pulse Oximetry 100 Oxygen Delivery Fraction of Inspired Oxygen 07/02/25 07:08 07/02/25 07:27 07/02/25 08:15 Temperature 99.1 F Pulse Rate 72 72 70 Pulse Rate [Bilateral Pedal (Dorsalis Pedis) Doppler] Respiratory Rate 24 H 27 H 24 H Blood Pressure 93/63 L Pulse Oximetry 100 Oxygen Delivery Fraction of Inspired Oxygen 07/02/25 08:17 07/02/25 08:25 Temperature Pulse Rate 73 69 Pulse Rate [Bilateral Pedal (Dorsalis Pedis) Doppler] Respiratory Rate 24 H Blood Pressure Pulse Oximetry 98 Oxygen Delivery Mechanical Ventilation Fraction of Inspired Oxygen 35 Intake/Output Intake/Output: Intake & Output 06/29/25 06/30/25 07/01/25 07/02/25 23:59 23:59 23:59 23:59 Intake Total 217.7 2448.6 2128.5 1145.9 Output Total 500 1250 1250 400 Balance -282.3 1198.6 878.5 745.9 Meds/Results Medications: Active Medications Generic Name Dose Route Start Last Admin Trade Name Frelexie PRN Reason Stop Dose Admin Acetaminophen 650 mg 06/30/25 00:04 07/01/25 20:57 Acetaminophen Elixir 325 Mg/10.15 Ml Udc FEED TUBE 650 mg Q6H PRN Administration Mild Pain (1-3) or Fever Albuterol/Ipratropium 3 ml 06/29/25 14:00 07/02/25 08:14 Ipratropium 0.5 Mg/Albuterol Sulfate 2.5 Mg Ampul.Neb 3 Ml INHALATION 3 ml Q6HRT NILESH Administration Budesonide 0.5 mg 06/29/25 20:00 07/02/25 08:14 Budesonide Respule Neb 0.5 Mg/2 Ml Amp INHALATION 0.5 mg Q12HRT NILESH Administration Dextrose 12.5 gm 06/30/25 12:37 06/30/25 17:00 Dextrose 50% 25 Gm/50 Ml Syringe IV PUSH 12.5 gm PRN PRN Administration Hypoglycemia Protocol Glucagon 1 mg 06/30/25 12:37 Glucagon For Inj 1 Mg Vial IM PRN PRN Hypoglycemia Protocol Glucose 15 gm 06/30/25 12:37 Glucose Oral Gel 15 Gm Of Glucse In 37.5 Gm Tube PO PRN PRN Hypoglycemia Protocol Heparin Sodium (Porcine) 5,000 units 06/30/25 10:10 07/01/25 20:43 Heparin Sodium 5,000 Units/Ml Vial SUB-Q 5,000 units Q12HR NILESH Administration Hydralazine HCl 10 mg 06/29/25 17:58 Hydralazine Hcl 20 Mg/Ml Vial IV PUSH Q4H PRN Blood Pressure - High Fentanyl Citrate 2,500 mcg in 250 mls @ 0.75 mls/hr 06/29/25 14:20 07/02/25 07:07 Fentanyl 2,500 Mcg/Ns 250 Ml IV CONT 75 mcg/hr .Q72H NILESH 7.5 mls/hr Titration Protocol 7.5 MCG/HR Midazolam HCl 100 mg in 100 mls @ 2 mls/hr 06/29/25 14:20 07/02/25 07:08 Versed 100 Mg/Ns 100 Ml IV CONT 2 mg/hr .Q50H NILESH 2 mls/hr Titration Protocol 2 MG/HR Levetiracetam 1,000 mg in 100 mls @ 400 mls/hr 06/29/25 21:00 07/01/25 20:55 Keppra Iv IVPB Infused Q12HR NILESH Infusion Doxycycline Hyclate 100 mg/ 100 mls @ 100 mls/hr 06/30/25 09:00 07/01/25 22:03 Sodium Chloride IVPB Infused Q12H NILESH Infusion Dextrose 1,000 mls @ 100 mls/hr 06/30/25 12:37 Dextrose 5% 1,000 Ml IVPB PRN PRN Hypoglycemia Protocol Norepinephrine Bitartrate 8 mg in 250 mls @ 5.625 mls/hr 06/30/25 15:00 07/02/25 06:30 Levophed 8 Mg/D5w 250 Ml IV CONT 3 mcg/min .Q24H NILESH 5.63 mls/hr Titration Protocol 3 MCG/MIN Cefepime HCl 2 gm/ Sodium 50 mls @ 100 mls/hr 07/01/25 12:00 07/02/25 05:20 Chloride IVPB Infused Q8H NILESH Infusion Vancomycin HCl 1,500 mg in 500 mls @ 250 mls/hr 07/02/25 05:00 07/02/25 05:33 Vancomycin 1,500 Mg/Ns 500 Ml IVPB 250 mls/hr Q18H NILESH Administration Dexmedetomidine HCl 400 mcg in 100 mls @ 3.845 mls/hr 07/02/25 07:30 Precedex 400 Mcg/100 Ml IV CONT .Q26H1M NILESH Protocol 0.2 MCG/KG/HR Insulin Aspart 2 - 5 units 06/30/25 17:00 07/01/25 17:25 Insulin Aspart (*Bkc) 100 Units/Ml SUB-Q Not Given TIDWM NILESH Protocol Metoclopramide HCl 10 mg 07/01/25 18:00 07/02/25 05:33 Metoclopramide Hcl Inj 10 Mg/2 Ml Vial IV PUSH 07/03/25 17:59 10 mg Q6HR NILESH Administration Multi-Ingred Cream/Lotion/Oil/Oint 1 applic 06/29/25 21:00 07/01/25 21:03 Mineral Oil/White Petrolatum Ointment EACH EYE 1 applic Q12HR NILESH Administration Multi-Ingred Cream/Lotion/Oil/Oint 1 applic 07/02/25 09:00 Mineral Oil/White Petrolatum Ointment EACH EYE Q12HR NILESH Pantoprazole Sodium 40 mg 06/29/25 21:00 07/01/25 20:43 Pantoprazole Sodium Iv 40 Mg Vial IV PUSH 40 mg Q12H NILESH Administration Perflutren Lipid Microsphere 0 ml 06/30/25 09:14 Perflutren Lipid Microspheres 1.5 Ml Vial Diluted To 10 Ml Total Volume IV PUSH 07/03/25 09:14 ONCE PRN adequate visualization Protocol Sodium Chloride 10 ml 06/30/25 14:00 07/02/25 05:33 Central Line Flush IV PUSH 10 ml Q8HR NILESH Administration Sodium Chloride 10 ml 06/30/25 10:17 Central Line Flush IV PUSH PRN PRN with TPN bag changes Sodium Chloride 20 ml 06/30/25 10:17 Central Line Flush IV PUSH PRN PRN after blood draws Radiology Results: ITS Impressions Head CT 07/01/25 12:20 IMPRESSION: 1. No acute intracranial process. 2. 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 3. Unchanged tract of encephalomalacia in the anterior right frontal lobe extending between what appears to be a small old right frontal alexis hole and the anterior horn of the lateral ventricle which could be related to prior ventricular drainage catheter placement or sequela of old infarct. Correlate with surgical history. 4. Anterior suprasellar embolization coils. Correlate with surgical history. 5. Moderate scattered white matter hypoattenuation consistent with chronic small vessel ischemic disease. Chest/Abdomen/Pelvis CTA 07/01/25 12:29 IMPRESSION: 1. No evidence for pulmonary embolism. 2: Bilateral airspace consolidation, right greater than left. Differential diagnosis includes atelectasis and/or pneumonia. 3: Marked gallbladder distention, nonspecific. 4: Hepatomegaly. 5: Nonobstructing bilateral nephrolithiasis. Venous Doppler Study 07/01/25 14:49 IMPRESSION: 1: No lower extremity deep venous thrombosis. Chest X-Ray 07/02/25 05:49 Impression: Significant interval improvement in right basilar airspace disease. Stable support tubes. Labs Labs: Laboratory Results - last 24 hr 07/01/25 07/01/25 07/01/25 11:07 11:21 17:16 WBC RBC Hgb Hct MCV MCH MCHC RDW Plt Count MPV Immature Gran % (Auto) Neut % (Auto) Lymph % (Auto) [place] % (Auto) Eos % (Auto) Baso % (Auto) Lymph # (Auto) [place] # (Auto) Eos # (Auto) Baso # (Auto) Abs Immat Gran (auto) Absolute Neuts (auto) Absolute Nucleated RBC Nucleated RBC % % Immature Plt Fraction Sodium Potassium Chloride Carbon Dioxide Anion Gap BUN Creatinine Estim Creat Clear Calc Estimated GFR Glucose POC Capillary Glucose 87 105 Calcium Phosphorus Magnesium Total Bilirubin AST ALT Alkaline Phosphatase Total Protein Albumin Nasal MRSA (PCR) Not detected 07/01/25 07/02/25 23:42 05:07 WBC 7.6 RBC 3.60 L Hgb 11.1 L Hct 35.3 L MCV 98.1 MCH 30.8 MCHC 31.4 L RDW 14.3 Plt Count 94 L MPV 11.6 H Immature Gran % (Auto) 1.1 H Neut % (Auto) 78.8 H Lymph % (Auto) 12.1 L [place] % (Auto) 5.5 Eos % (Auto) 2.2 Baso % (Auto) 0.3 Lymph # (Auto) 0.92 [place] # (Auto) 0.4 Eos # (Auto) 0.2 Baso # (Auto) 0.0 Abs Immat Gran (auto) 0.08 H Absolute Neuts (auto) 6.0 Absolute Nucleated RBC 0.000 Nucleated RBC % 0.0 % Immature Plt Fraction 7.3 Sodium 136 L Potassium 3.3 L Chloride 106 Carbon Dioxide 24 Anion Gap 6 BUN 17 Creatinine 0.78 Estim Creat Clear Calc 81 Estimated GFR > 60 Glucose 86 POC Capillary Glucose 106 H Calcium 8.7 Phosphorus 3.2 Magnesium 1.9 Total Bilirubin 0.4 AST 26 ALT 12 Alkaline Phosphatase 64 Total Protein 5.5 L Albumin 2.9 L Nasal MRSA (PCR) Quality VTE Prophylaxis VTE prophylaxis: mechanical ordered
[2025-07-02 09:22] LABS: Arterial Blood Gas Tidal Volume 450 ml; Arterial Blood Gas Ventilator rate 24 /MIN
[2025-07-02] MEDS: dexmedeTOMIDine 400 MCG/100 ML 400 MCG/100 ML BAG IV CONT (09:39)
[2025-07-02] MEDS: DOXYCYCLINE IV 100 MG in SODIUM CHLORIDE 0.9% IV 100 ML IVPB ×2 (09:54→20:52)
[2025-07-02] MEDS: levETIRAcetam 1000MG/NACL100ML 1,000 MG/100 ML BAG 400 MG IVPB ×2 (09:56→20:46)
[2025-07-02] MEDS: MINERAL OIL/WHITE PETROLATUM OINTMENT 1 APPLIC EACH EYE ×2 (09:56→10:36)
[2025-07-02] MEDS: PANTOPRAZOLE SODIUM IV 40 MG VIAL IV PUSH ×2 (09:57→20:04)
--- NOTE | 2025-07-02 10:08 | PM.PNGS ---
Progress Note: A&P Assessment and Plan (1) Gallbladder dilatation: Code(s): K82.8 - Other specified diseases of gallbladder Status: Acute Assessment and Plan: Likely an incidental finding. WBC count and LFTs normal today. Continue conservative management. Pt is a poor surgical candidate. If intervention were to be required, then would likely proceed with percutaneous cholecystostomy tube placement. (2) Illicit drug use: Code(s): F19.90 - Other psychoactive substance use, unspecified, uncomplicated Status: Acute (3) Seizure: Code(s): R56.9 - Unspecified convulsions Status: Acute Assessment and Plan: Still intubated and sedated in the ICU Plan Discussed patient's case and plan of care with Dr. Flores. Subjective Subjective Date/Time Seen: 07/02/25 10:08 Interval history: Patient intubated and sedated in the ICU. He does open eyes to verbal stimuli. He follows simple commands. Unable to nod when asked if having any pain. WBC normal. LFT still normal. Exam Const: General: ill appearing Orientation/consciousness: patient obtunded (Sedated and intubated) GI: Inspection: non-distended GI Palp: Yes Soft to palpation, No Tenderness to palpation present (GI) (Exam limited as patient is sedated) and No Guarding due to palpation present (GI) Auscultation: normal bowel sounds Objective Data Vital Signs Vital Signs: Vital Signs - 24 hr 07/01/25 11:00 07/01/25 11:00 07/01/25 11:00 Temperature Pulse Rate 83 81 81 Pulse Rate [Bilateral Pedal (Dorsalis Pedis) Doppler] Respiratory Rate 24 H Blood Pressure 123/80 Pulse Oximetry 100 Oxygen Delivery Mechanical Ventilation Fraction of Inspired Oxygen 35 07/01/25 11:40 07/01/25 11:40 07/01/25 11:42 Temperature Pulse Rate 81 81 81 Pulse Rate [Bilateral Pedal (Dorsalis Pedis) Doppler] Respiratory Rate 24 H Blood Pressure 117/76 117/76 Pulse Oximetry Oxygen Delivery Fraction of Inspired Oxygen 07/01/25 11:42 07/01/25 12:00 07/01/25 12:00 Temperature Pulse Rate 81 101 H 87 Pulse Rate [Bilateral Pedal (Dorsalis Pedis) Doppler] Respiratory Rate 24 H 26 H Blood Pressure 120/80 Pulse Oximetry 100 Oxygen Delivery Fraction of Inspired Oxygen 07/01/25 12:00 07/01/25 12:00 07/01/25 12:00 Temperature 100.8 F H Pulse Rate 85 87 Pulse Rate [Bilateral Pedal (Dorsalis Pedis) Doppler] 86 Respiratory Rate 24 H 24 H Blood Pressure 120/80 Pulse Oximetry 100 99 Oxygen Delivery Mechanical Ventilation Fraction of Inspired Oxygen 35 35 07/01/25 12:00 07/01/25 12:25 07/01/25 13:00 Temperature Pulse Rate 85 81 80 Pulse Rate [Bilateral Pedal (Dorsalis Pedis) Doppler] Respiratory Rate 24 H Blood Pressure 120/80 Pulse Oximetry 99 Oxygen Delivery Mechanical Ventilation Fraction of Inspired Oxygen 35 07/01/25 14:00 07/01/25 14:00 07/01/25 14:00 Temperature 101.2 F H Pulse Rate 77 77 77 Pulse Rate [Bilateral Pedal (Dorsalis Pedis) Doppler] Respiratory Rate 24 H Blood Pressure 106/73 106/73 Pulse Oximetry 99 Oxygen Delivery Fraction of Inspired Oxygen 07/01/25 14:39 07/01/25 14:40 07/01/25 15:00 Temperature Pulse Rate 87 84 88 Pulse Rate [Bilateral Pedal (Dorsalis Pedis) Doppler] Respiratory Rate 24 H 24 H Blood Pressure Pulse Oximetry 99 Oxygen Delivery Mechanical Ventilation Fraction of Inspired Oxygen 35 07/01/25 15:05 07/01/25 16:00 07/01/25 16:00 Temperature 101.4 F H Pulse Rate 88 88 88 Pulse Rate [Bilateral Pedal (Dorsalis Pedis) Doppler] Respiratory Rate 24 H 24 H Blood Pressure 124/84 106/76 Pulse Oximetry 100 99 Oxygen Delivery Mechanical Ventilation Fraction of Inspired Oxygen 35 07/01/25 16:00 07/01/25 16:00 07/01/25 16:27 Temperature Pulse Rate 88 81 Pulse Rate [Bilateral Pedal (Dorsalis Pedis) Doppler] Respiratory Rate Blood Pressure 106/76 Pulse Oximetry Oxygen Delivery Fraction of Inspired Oxygen 35 07/01/25 17:00 07/01/25 17:23 07/01/25 17:25 Temperature Pulse Rate 80 84 84 Pulse Rate [Bilateral Pedal (Dorsalis Pedis) Doppler] Respiratory Rate 24 H 24 H 24 H Blood Pressure Pulse Oximetry Oxygen Delivery Fraction of Inspired Oxygen 07/01/25 18:00 07/01/25 18:00 07/01/25 18:02 Temperature 101.1 F H Pulse Rate 88 84 89 Pulse Rate [Bilateral Pedal (Dorsalis Pedis) Doppler] Respiratory Rate 24 H Blood Pressure 93/62 L Pulse Oximetry 99 99 Oxygen Delivery Mechanical Ventilation Fraction of Inspired Oxygen 35 07/01/25 20:00 07/01/25 20:00 07/01/25 20:00 Temperature 101 F H Pulse Rate 76 76 76 Pulse Rate [Bilateral Pedal (Dorsalis Pedis) Doppler] Respiratory Rate 24 H 24 H Blood Pressure 112/77 112/77 Pulse Oximetry 100 100 Oxygen Delivery Mechanical Ventilation Fraction of Inspired Oxygen 35 07/01/25 20:00 07/01/25 20:00 07/01/25 20:00 Temperature Pulse Rate 76 76 Pulse Rate [Bilateral Pedal (Dorsalis Pedis) Doppler] Respiratory Rate 24 H 24 H Blood Pressure Pulse Oximetry Oxygen Delivery Fraction of Inspired Oxygen 35 07/01/25 20:00 07/01/25 20:00 07/01/25 20:00 Temperature 101 F H 101.1 F H Pulse Rate 76 77 76 Pulse Rate [Bilateral Pedal (Dorsalis Pedis) Doppler] Respiratory Rate 24 H 24 H Blood Pressure 112/77 112/77 Pulse Oximetry 100 100 Oxygen Delivery Fraction of Inspired Oxygen 07/01/25 20:15 07/01/25 20:18 07/01/25 20:25 Temperature Pulse Rate 76 76 78 Pulse Rate [Bilateral Pedal (Dorsalis Pedis) Doppler] Respiratory Rate 24 H Blood Pressure 112/77 Pulse Oximetry 100 Oxygen Delivery Mechanical Ventilation Fraction of Inspired Oxygen 35 07/01/25 20:30 07/01/25 20:35 07/01/25 20:45 Temperature 101.0 F H 101.0 F H Pulse Rate 82 71 88 Pulse Rate [Bilateral Pedal (Dorsalis Pedis) Doppler] Respiratory Rate 22 H 24 H 23 H Blood Pressure 105/76 127/86 Pulse Oximetry 99 100 Oxygen Delivery Fraction of Inspired Oxygen 07/01/25 20:57 07/01/25 21:00 07/01/25 21:15 Temperature 101 F H 100.9 F H 100.9 F H Pulse Rate 88 85 Pulse Rate [Bilateral Pedal (Dorsalis Pedis) Doppler] Respiratory Rate 25 H 24 H Blood Pressure 104/83 98/66 L Pulse Oximetry 100 98 Oxygen Delivery Fraction of Inspired Oxygen 07/01/25 21:30 07/01/25 21:31 07/01/25 21:45 Temperature 101.0 F H 101.0 F H 100.9 F H Pulse Rate 84 84 82 Pulse Rate [Bilateral Pedal (Dorsalis Pedis) Doppler] Respiratory Rate 24 H 24 H 24 H Blood Pressure 86/58 L 85/60 L 84/59 L Pulse Oximetry 99 99 98 Oxygen Delivery Fraction of Inspired Oxygen 07/01/25 21:57 07/01/25 22:00 07/01/25 22:00 Temperature 101 F H 100.8 F H Pulse Rate 83 83 Pulse Rate [Bilateral Pedal (Dorsalis Pedis) Doppler] Respiratory Rate 24 H Blood Pressure 79/56 L 79/56 L Pulse Oximetry 98 Oxygen Delivery Fraction of Inspired Oxygen 07/01/25 22:00 07/01/25 22:00 07/01/25 22:00 Temperature 100.8 F H Pulse Rate 83 83 85 Pulse Rate [Bilateral Pedal (Dorsalis Pedis) Doppler] Respiratory Rate 24 H 24 H 24 H Blood Pressure 79/56 L Pulse Oximetry 98 Oxygen Delivery Fraction of Inspired Oxygen 07/01/25 22:00 07/01/25 22:13 07/01/25 22:15 Temperature 100.5 F H Pulse Rate 83 84 80 Pulse Rate [Bilateral Pedal (Dorsalis Pedis) Doppler] Respiratory Rate 24 H Blood Pressure 88/65 L Pulse Oximetry 97 99 Oxygen Delivery Mechanical Ventilation Fraction of Inspired Oxygen 35 07/01/25 22:30 07/01/25 22:31 07/01/25 22:45 Temperature 100.2 F H 100.2 F H 100.0 F H Pulse Rate 77 78 79 Pulse Rate [Bilateral Pedal (Dorsalis Pedis) Doppler] Respiratory Rate 24 H 24 H 24 H Blood Pressure 89/62 L 82/57 L Pulse Oximetry 99 99 99 Oxygen Delivery Fraction of Inspired Oxygen 07/01/25 23:00 07/01/25 23:15 07/01/25 23:30 Temperature 99.9 F H 99.7 F H 99.6 F Pulse Rate 76 77 73 Pulse Rate [Bilateral Pedal (Dorsalis Pedis) Doppler] Respiratory Rate 24 H 24 H 24 H Blood Pressure 91/62 L 83/58 L 91/61 L Pulse Oximetry 99 99 99 Oxygen Delivery Fraction of Inspired Oxygen 07/01/25 23:46 07/02/25 00:00 07/02/25 00:00 Temperature 99.5 F Pulse Rate 79 81 81 Pulse Rate [Bilateral Pedal (Dorsalis Pedis) Doppler] Respiratory Rate 25 H 24 H Blood Pressure 91/64 L 101/69 Pulse Oximetry 99 Oxygen Delivery Fraction of Inspired Oxygen 07/02/25 00:00 07/02/25 00:00 07/02/25 00:00 Temperature 99.3 F Pulse Rate 81 77 77 Pulse Rate [Bilateral Pedal (Dorsalis Pedis) Doppler] Respiratory Rate 24 H 24 H 24 H Blood Pressure 101/69 Pulse Oximetry 97 97 Oxygen Delivery Mechanical Ventilation Fraction of Inspired Oxygen 35 07/02/25 00:00 07/02/25 00:00 07/02/25 00:00 Temperature 99.3 F Pulse Rate 77 77 Pulse Rate [Bilateral Pedal (Dorsalis Pedis) Doppler] Respiratory Rate 24 H Blood Pressure 101/69 Pulse Oximetry 97 Oxygen Delivery Fraction of Inspired Oxygen 35 07/02/25 00:00 07/02/25 00:15 07/02/25 00:30 Temperature 99.4 F 99.3 F 99.3 F Pulse Rate 76 75 75 Pulse Rate [Bilateral Pedal (Dorsalis Pedis) Doppler] Respiratory Rate 24 H 25 H 24 H Blood Pressure 101/69 85/66 L 84/59 L Pulse Oximetry 100 97 97 Oxygen Delivery Fraction of Inspired Oxygen 07/02/25 00:45 07/02/25 00:45 07/02/25 01:00 Temperature 99.2 F 99.0 F Pulse Rate 76 76 74 Pulse Rate [Bilateral Pedal (Dorsalis Pedis) Doppler] Respiratory Rate 24 H 24 H Blood Pressure 81/54 L 81/54 L 82/57 L Pulse Oximetry 96 97 Oxygen Delivery Fraction of Inspired Oxygen 07/02/25 01:15 07/02/25 01:15 07/02/25 01:30 Temperature 98.9 F 98.8 F Pulse Rate 72 72 81 Pulse Rate [Bilateral Pedal (Dorsalis Pedis) Doppler] Respiratory Rate 24 H 24 H Blood Pressure 77/53 L 77/53 L 91/62 L Pulse Oximetry 96 97 Oxygen Delivery Fraction of Inspired Oxygen 07/02/25 01:45 07/02/25 01:56 07/02/25 02:00 Temperature 98.7 F Pulse Rate 70 69 69 Pulse Rate [Bilateral Pedal (Dorsalis Pedis) Doppler] Respiratory Rate 24 H Blood Pressure 98/68 L 99/69 L Pulse Oximetry 98 98 Oxygen Delivery Mechanical Ventilation Fraction of Inspired Oxygen 35 07/02/25 02:00 07/02/25 02:00 07/02/25 02:00 Temperature Pulse Rate 69 69 69 Pulse Rate [Bilateral Pedal (Dorsalis Pedis) Doppler] Respiratory Rate 24 H 24 H Blood Pressure Pulse Oximetry Oxygen Delivery Fraction of Inspired Oxygen 07/02/25 02:00 07/02/25 02:01 07/02/25 02:13 Temperature 98.5 F Pulse Rate 68 69 75 Pulse Rate [Bilateral Pedal (Dorsalis Pedis) Doppler] Respiratory Rate 24 H 24 H 24 H Blood Pressure 99/69 L Pulse Oximetry 99 Oxygen Delivery Fraction of Inspired Oxygen 07/02/25 02:15 07/02/25 02:15 07/02/25 02:30 Temperature 98.5 F 98.4 F Pulse Rate 70 73 75 Pulse Rate [Bilateral Pedal (Dorsalis Pedis) Doppler] Respiratory Rate 24 H 24 H Blood Pressure 116/79 116/79 100/68 Pulse Oximetry 100 99 Oxygen Delivery Fraction of Inspired Oxygen 07/02/25 02:45 07/02/25 02:45 07/02/25 03:00 Temperature 98.4 F 98.4 F Pulse Rate 77 75 75 Pulse Rate [Bilateral Pedal (Dorsalis Pedis) Doppler] Respiratory Rate 24 H 24 H Blood Pressure 115/78 115/78 97/67 L Pulse Oximetry 100 100 Oxygen Delivery Fraction of Inspired Oxygen 07/02/25 03:15 07/02/25 03:15 07/02/25 03:30 Temperature 98.4 F 98.4 F Pulse Rate 72 74 74 Pulse Rate [Bilateral Pedal (Dorsalis Pedis) Doppler] Respiratory Rate 24 H 24 H Blood Pressure 110/75 110/75 100/72 Pulse Oximetry 100 100 Oxygen Delivery Fraction of Inspired Oxygen 07/02/25 03:45 07/02/25 03:45 07/02/25 04:00 Temperature 98.4 F Pulse Rate 71 76 95 Pulse Rate [Bilateral Pedal (Dorsalis Pedis) Doppler] Respiratory Rate 24 H Blood Pressure 124/81 124/81 129/91 H Pulse Oximetry 100 Oxygen Delivery Fraction of Inspired Oxygen 07/02/25 04:00 07/02/25 04:00 07/02/25 04:00 Temperature 98.5 F Pulse Rate 95 95 98 Pulse Rate [Bilateral Pedal (Dorsalis Pedis) Doppler] Respiratory Rate 24 H 24 H 25 H Blood Pressure 129/91 H Pulse Oximetry 100 Oxygen Delivery Fraction of Inspired Oxygen 07/02/25 04:00 07/02/25 04:00 07/02/25 04:00 Temperature Pulse Rate 98 98 Pulse Rate [Bilateral Pedal (Dorsalis Pedis) Doppler] Respiratory Rate 25 H Blood Pressure Pulse Oximetry 100 Oxygen Delivery Mechanical Ventilation Fraction of Inspired Oxygen 35 35 07/02/25 04:01 07/02/25 04:15 07/02/25 04:15 Temperature 98.5 F Pulse Rate 94 95 108 H Pulse Rate [Bilateral Pedal (Dorsalis Pedis) Doppler] Respiratory Rate 26 H 22 H Blood Pressure 129/91 H 120/104 H Pulse Oximetry 100 100 Oxygen Delivery Fraction of Inspired Oxygen 07/02/25 04:29 07/02/25 04:30 07/02/25 04:45 Temperature 99.0 F 99.0 F 99.4 F Pulse Rate 96 99 85 Pulse Rate [Bilateral Pedal (Dorsalis Pedis) Doppler] Respiratory Rate 26 H 26 H 24 H Blood Pressure 119/83 114/96 H 98/66 L Pulse Oximetry 96 97 95 Oxygen Delivery Fraction of Inspired Oxygen 07/02/25 05:00 07/02/25 05:09 07/02/25 05:15 Temperature 99.4 F 99.5 F Pulse Rate 83 82 83 Pulse Rate [Bilateral Pedal (Dorsalis Pedis) Doppler] Respiratory Rate 24 H 24 H Blood Pressure 86/66 L 86/61 L Pulse Oximetry 95 97 98 Oxygen Delivery Mechanical Ventilation Fraction of Inspired Oxygen 35 07/02/25 05:30 07/02/25 05:45 07/02/25 06:00 Temperature 99.4 F 99.4 F Pulse Rate 80 79 76 Pulse Rate [Bilateral Pedal (Dorsalis Pedis) Doppler] Respiratory Rate 24 H 24 H Blood Pressure 83/59 L 83/61 L 79/65 L Pulse Oximetry 98 99 Oxygen Delivery Fraction of Inspired Oxygen 07/02/25 06:00 07/02/25 06:00 07/02/25 06:00 Temperature 99.2 F Pulse Rate 76 76 76 Pulse Rate [Bilateral Pedal (Dorsalis Pedis) Doppler] Respiratory Rate 24 H 24 H 24 H Blood Pressure 79/65 L Pulse Oximetry 100 Oxygen Delivery Fraction of Inspired Oxygen 07/02/25 06:00 07/02/25 06:15 07/02/25 06:30 Temperature 99.1 F Pulse Rate 76 73 75 Pulse Rate [Bilateral Pedal (Dorsalis Pedis) Doppler] Respiratory Rate 25 H Blood Pressure 96/64 L 115/80 Pulse Oximetry 100 Oxygen Delivery Fraction of Inspired Oxygen 07/02/25 06:30 07/02/25 07:07 07/02/25 07:08 Temperature 99.0 F Pulse Rate 75 72 72 Pulse Rate [Bilateral Pedal (Dorsalis Pedis) Doppler] Respiratory Rate 22 H 24 H 24 H Blood Pressure 115/80 Pulse Oximetry 100 Oxygen Delivery Fraction of Inspired Oxygen 07/02/25 07:27 07/02/25 08:00 07/02/25 08:00 Temperature 99.1 F Pulse Rate 72 71 71 Pulse Rate [Bilateral Pedal (Dorsalis Pedis) Doppler] Respiratory Rate 27 H 24 H 24 H Blood Pressure 93/63 L Pulse Oximetry 100 Oxygen Delivery Fraction of Inspired Oxygen 07/02/25 08:00 07/02/25 08:15 07/02/25 08:17 Temperature Pulse Rate 71 70 73 Pulse Rate [Bilateral Pedal (Dorsalis Pedis) Doppler] Respiratory Rate 24 H Blood Pressure 97/64 L Pulse Oximetry 98 Oxygen Delivery Mechanical Ventilation Fraction of Inspired Oxygen 35 07/02/25 08:25 07/02/25 09:39 07/02/25 09:47 Temperature Pulse Rate 69 76 74 Pulse Rate [Bilateral Pedal (Dorsalis Pedis) Doppler] Respiratory Rate 24 H 24 H 24 H Blood Pressure Pulse Oximetry Oxygen Delivery Fraction of Inspired Oxygen 07/02/25 09:49 07/02/25 10:07 Temperature Pulse Rate 74 78 Pulse Rate [Bilateral Pedal (Dorsalis Pedis) Doppler] Respiratory Rate 24 H 24 H Blood Pressure Pulse Oximetry Oxygen Delivery Fraction of Inspired Oxygen Intake/Output Intake/Output: Intake & Output 06/29/25 06/30/25 07/01/25 07/02/25 23:59 23:59 23:59 23:59 Intake Total 217.7 2448.6 2128.5 1181.3 Output Total 500 1250 1250 400 Balance -282.3 1198.6 878.5 781.3 Meds/Results Medications: Active Medications Generic Name Dose Route Start Last Admin Trade Name Freq PRN Reason Stop Dose Admin Acetaminophen 650 mg 06/30/25 00:04 07/01/25 20:57 Acetaminophen Elixir 325 Mg/10.15 Ml Udc FEED TUBE 650 mg Q6H PRN Administration Mild Pain (1-3) or Fever Albuterol/Ipratropium 3 ml 06/29/25 14:00 07/02/25 08:14 Ipratropium 0.5 Mg/Albuterol Sulfate 2.5 Mg Ampul.Neb 3 Ml INHALATION 3 ml Q6HRT NILESH Administration Budesonide 0.5 mg 06/29/25 20:00 07/02/25 08:14 Budesonide Respule Neb 0.5 Mg/2 Ml Amp INHALATION 0.5 mg Q12HRT NILESH Administration Dextrose 12.5 gm 06/30/25 12:37 06/30/25 17:00 Dextrose 50% 25 Gm/50 Ml Syringe IV PUSH 12.5 gm PRN PRN Administration Hypoglycemia Protocol Glucagon 1 mg 06/30/25 12:37 Glucagon For Inj 1 Mg Vial IM PRN PRN Hypoglycemia Protocol Glucose 15 gm 06/30/25 12:37 Glucose Oral Gel 15 Gm Of Glucse In 37.5 Gm Tube PO PRN PRN Hypoglycemia Protocol Heparin Sodium (Porcine) 5,000 units 06/30/25 10:10 07/01/25 20:43 Heparin Sodium 5,000 Units/Ml Vial SUB-Q 5,000 units Q12HR NILESH Administration Hydralazine HCl 10 mg 06/29/25 17:58 Hydralazine Hcl 20 Mg/Ml Vial IV PUSH Q4H PRN Blood Pressure - High Fentanyl Citrate 2,500 mcg in 250 mls @ 5 mls/hr 06/29/25 14:20 07/02/25 10:07 Fentanyl 2,500 Mcg/Ns 250 Ml IV CONT 0 mcg/hr .Q50H NILESH 0 mls/hr Titration Protocol 50 MCG/HR Midazolam HCl 100 mg in 100 mls @ 0 mls/hr 06/29/25 14:20 07/02/25 09:47 Versed 100 Mg/Ns 100 Ml IV CONT 0 mg/hr .Q0M NILESH 0 mls/hr Titration Protocol Levetiracetam 1,000 mg in 100 mls @ 400 mls/hr 06/29/25 21:00 07/02/25 09:56 Keppra Iv IVPB 400 mls/hr Q12HR NILESH Administration Doxycycline Hyclate 100 mg/ 100 mls @ 100 mls/hr 06/30/25 09:00 07/02/25 09:54 Sodium Chloride IVPB 07/05/25 08:59 100 mls/hr Q12H NILESH Administration Dextrose 1,000 mls @ 100 mls/hr 06/30/25 12:37 Dextrose 5% 1,000 Ml IVPB PRN PRN Hypoglycemia Protocol Norepinephrine Bitartrate 8 mg in 250 mls @ 5.625 mls/hr 06/30/25 15:00 07/02/25 08:00 Levophed 8 Mg/D5w 250 Ml IV CONT 3 mcg/min .Q24H NILESH 5.63 mls/hr Titration Protocol 3 MCG/MIN Cefepime HCl 2 gm/ Sodium 50 mls @ 100 mls/hr 07/01/25 12:00 07/02/25 05:20 Chloride IVPB Infused Q8H NILESH Infusion Vancomycin HCl 1,500 mg in 500 mls @ 250 mls/hr 07/02/25 05:00 07/02/25 05:33 Vancomycin 1,500 Mg/Ns 500 Ml IVPB 250 mls/hr Q18H NILESH Administration Dexmedetomidine HCl 400 mcg in 100 mls @ 3.845 mls/hr 07/02/25 07:30 07/02/25 09:39 Precedex 400 Mcg/100 Ml IV CONT 0.2 mcg/kg/hr .Q26H1M NILESH 3.85 mls/hr Administration Protocol 0.2 MCG/KG/HR Insulin Aspart 2 - 5 units 06/30/25 17:00 07/01/25 17:25 Insulin Aspart (*Bkc) 100 Units/Ml SUB-Q Not Given TIDWM NILESH Protocol Metoclopramide HCl 10 mg 07/01/25 18:00 07/02/25 05:33 Metoclopramide Hcl Inj 10 Mg/2 Ml Vial IV PUSH 07/03/25 17:59 10 mg Q6HR NILESH Administration Multi-Ingred Cream/Lotion/Oil/Oint 1 applic 06/29/25 21:00 07/01/25 21:03 Mineral Oil/White Petrolatum Ointment EACH EYE 1 applic Q12HR NILESH Administration Multi-Ingred Cream/Lotion/Oil/Oint 1 applic 07/02/25 09:00 07/02/25 09:56 Mineral Oil/White Petrolatum Ointment EACH EYE 1 applic Q12HR NILESH Administration Pantoprazole Sodium 40 mg 06/29/25 21:00 07/02/25 09:57 Pantoprazole Sodium Iv 40 Mg Vial IV PUSH 40 mg Q12H NILESH Administration Perflutren Lipid Microsphere 0 ml 06/30/25 09:14 Perflutren Lipid Microspheres 1.5 Ml Vial Diluted To 10 Ml Total Volume IV PUSH 07/03/25 09:14 ONCE PRN adequate visualization Protocol Sodium Chloride 10 ml 06/30/25 14:00 07/02/25 05:33 Central Line Flush IV PUSH 10 ml Q8HR NILESH Administration Sodium Chloride 10 ml 06/30/25 10:17 Central Line Flush IV PUSH PRN PRN with TPN bag changes Sodium Chloride 20 ml 06/30/25 10:17 Central Line Flush IV PUSH PRN PRN after blood draws Radiology Results: ITS Impressions Head CT 07/01/25 12:20 IMPRESSION: 1. No acute intracranial process. 2. 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 3. Unchanged tract of encephalomalacia in the anterior right frontal lobe extending between what appears to be a small old right frontal alexis hole and the anterior horn of the lateral ventricle which could be related to prior ventricular drainage catheter placement or sequela of old infarct. Correlate with surgical history. 4. Anterior suprasellar embolization coils. Correlate with surgical history. 5. Moderate scattered white matter hypoattenuation consistent with chronic small vessel ischemic disease. Chest/Abdomen/Pelvis CTA 07/01/25 12:29 IMPRESSION: 1. No evidence for pulmonary embolism. 2: Bilateral airspace consolidation, right greater than left. Differential diagnosis includes atelectasis and/or pneumonia. 3: Marked gallbladder distention, nonspecific. 4: Hepatomegaly. 5: Nonobstructing bilateral nephrolithiasis. Venous Doppler Study 07/01/25 14:49 IMPRESSION: 1: No lower extremity deep venous thrombosis. Chest X-Ray 07/02/25 05:49 Impression: Significant interval improvement in right basilar airspace disease. Stable support tubes. Labs Labs: Laboratory Results - last 24 hr 08/05/2007/01/25 07/01/25 11:07 11:21 17:16 WBC RBC Hgb Hct MCV MCH MCHC RDW Plt Count MPV Immature Gran % (Auto) Neut % (Auto) Lymph % (Auto) Williams % (Auto) Eos % (Auto) Baso % (Auto) Lymph # (Auto) Williams # (Auto) Eos # (Auto) Baso # (Auto) Abs Immat Gran (auto) Absolute Neuts (auto) Absolute Nucleated RBC Nucleated RBC % % Immature Plt Fraction Puncture Site ABG pH ABG pCO2 ABG pO2 ABG PO2/FiO2 Ratio ABG HCO3 ABG O2 Saturation ABG O2 Content ABG Base Excess A-a Gradient Oxyhemoglobin Carboxyhemoglobin Methemoglobin Reduced Hemoglobin Total Hemoglobin O2 Delivery Device O2 Liters/Min Minute Volume Vent Rate Vent Mode FiO2 Tidal Volume PEEP Peak Inspir Pressure Pressure Support Sodium Potassium Chloride Carbon Dioxide Anion Gap BUN Creatinine Estim Creat Clear Calc Estimated GFR Glucose POC Capillary Glucose 87 105 Calcium Phosphorus Magnesium Total Bilirubin AST ALT Alkaline Phosphatase Total Protein Albumin Nasal MRSA (PCR) Not detected 07/01/25 07/02/25 23:42 05:07 WBC 7.6 RBC 3.60 L Hgb 11.1 L Hct 35.3 L MCV 98.1 MCH 30.8 MCHC 31.4 L RDW 14.3 Plt Count 94 L MPV 11.6 H Immature Gran % (Auto) 1.1 H Neut % (Auto) 78.8 H Lymph % (Auto) 12.1 L Williams % (Auto) 5.5 Eos % (Auto) 2.2 Baso % (Auto) 0.3 Lymph # (Auto) 0.92 Williams # (Auto) 0.4 Eos # (Auto) 0.2 Baso # (Auto) 0.0 Abs Immat Gran (auto) 0.08 H Absolute Neuts (auto) 6.0 Absolute Nucleated RBC 0.000 Nucleated RBC % 0.0 % Immature Plt Fraction 7.3 Puncture Site Not Reportable ABG pH 7.386 ABG pCO2 37.4 ABG pO2 90.8 ABG PO2/FiO2 Ratio 2.59 ABG HCO3 21.9 L ABG O2 Saturation 96.9 ABG O2 Content 16.4 ABG Base Excess -2.7 A-a Gradient 115.3 Oxyhemoglobin 95.9 Carboxyhemoglobin 0.8 Methemoglobin 0.3 Reduced Hemoglobin 3.0 Total Hemoglobin 12.1 O2 Delivery Device Ventilator O2 Liters/Min Not Reportable Minute Volume Not Reportable Vent Rate 24 Vent Mode Cmv FiO2 35 Tidal Volume 450 PEEP 5 Peak Inspir Pressure Not Reportable Pressure Support Not Reportable Sodium 136 L Potassium 3.3 L Chloride 106 Carbon Dioxide 24 Anion Gap 6 BUN 17 Creatinine 0.78 Estim Creat Clear Calc 81 Estimated GFR > 60 Glucose 86 POC Capillary Glucose 106 H Calcium 8.7 Phosphorus 3.2 Magnesium 1.9 Total Bilirubin 0.4 AST 26 ALT 12 Alkaline Phosphatase 64 Total Protein 5.5 L Albumin 2.9 L Nasal MRSA (PCR)
[2025-07-02] MEDS: POTASSIUM CHLORIDE 20 MEQ PACKET (FOR LIQUID) 40 MEQ FEED TUBE (10:55)
[2025-07-02] MEDS: POTASSIUM CHLORIDE 20 MEQ PACKET (FOR LIQUID) FEED TUBE (10:55)
--- NOTE | 2025-07-02 11:13 | PCFNICU ---
ICU Rounding Note: Pt current nutrition is Vital AF 1.2 at 50 ml/hr. Nutrition recommendation:Goal rate at 65 ml/hr. Last recorded weight is 76.9 kg,up from 71.6 kg on admit. Bowel Motility: No BM reported. Labs Reviewed:K 3.3, NA 136, Hct 35.3, Hgb 11.1, Alb 2.9 Meds Noted: Reglan, Keppra, Precedex, Heparin Skin: Deep Tissue-Sacrum Additional Notes: Patient remains on mechanical vent. Tube feedings are currently on hold for possible extubation. Residuals also elevated again last night. Reglan continues. If patient remains on a tube feedings recommend goal rate of Vital AF 1.2 at 65 ml/hr and addition of diet supplement Carlos BID with flush for wound healing. Following daily in ICU rounds. Will monitor weight, labs, skin, diet orders, meds every Sunday and Sunday.
[2025-07-02] MEDS: ACETAMINOPHEN ELIXIR 325 MG/10.15 ML UDC 650 MG FEED TUBE (12:24)
[2025-07-02 13:36] LABS: Alveolar/Arterial O2 Gradient 81.2 mmHg; Fractional Inspired Oxygen 30 %; HCO3 ABG 23.4 mEq/l (22.0-26.0); Oxygen Content ABG 15.9 %vol (16.0-22.0); Oxygen Saturation ABG 96.4 % (95.0-100.0); PCO2 ABG 39.8 mmHg (35.0-45.0); PO2 ABG 85.9 mmHg (80.0-100.0); PO2 FiO2 Ratio Arterial Blood 2.86 %
[2025-07-02 13:38] LABS: Liters per Minute 0.0 LPM; Modified Allen's Test Pass; Site Drawn RIGHT RADIAL
[2025-07-02 13:39] LABS: Arterial Blood Gas Pressure Support 8 cmH2O
--- NOTE | 2025-07-02 17:12 | PM.IMPN ---
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 as his niece called 911 with complaint of altered mental status. He had confusion which started a week prior to admission accompanied by hallucinations and pacing and being paranoid thinking that somebody is out to get him. According to EMS records the patient was incontinent of stool and urine. EKG appeared to show an anterior septal ST elevation. Patient had denied chest pain although he was altered. WBC 6.3, hemoglobin 15.2, platelets 165, INR 1.1, sodium 140, potassium 3.5, bicarb 25, BUN 15, serum creatinine 1.10, glucose 157, lactic acid 4.2, ammonia less than 9, LFTs within normal limits, troponin 0.016, TSH 0.774, salicylate alcohol acetaminophen levels within normal limits. Urine drug screen positive for cannabinoids and benzodiazepines. CT head showed no acute process but small old infarct of the left caudate nucleus and anterior limb of the left internal capsule, unchanged since cephalo malacia in the anterior right frontal lobe extending between what appears to be a small old right frontal alexis hole and anterior horn of lateral ventricle, chronic small-vessel ischemic disease. Chest x-ray showed no acute disease. Patient was taken to [facility] by cardiology. On the table he had a seizure and was given Versed 2 mg IV x1. He was not protecting his airway and decision was made to intubate the patient. Cardiac catheterization 06/29/2025 findings: 1- left coronary artery is a large artery that divides into large LAD, large circumflex artery. Left main has minimal irregularities. 2- left anterior descending artery is a large artery that runs and wraps around the apex. Has calcification and 20 30% disease. The 3- leftcircumflex artery is a large artery and dominant. Minimal irregularities. Large OM1. There is the branch of medium OM1 that has ostial 60%. 4-ramus intermedius is moderate in size with diffuse calcification and diffuse 40-50%. 4- right coronary artery is non dominant without significant obstruction. The 5- LVEDP was 8 mm Hg and no gradient across aortic valve. 6-LV angiogram shows normal LV ejection fraction 65%. 6- opening arterial pressure was 167/101 and closing pressure was 150/118 7- right femoral artery angiogram shows there is 80-90% right external iliac lesion. The catheter seems to be semi occlusive at that side. The right common femoral artery could not be well visualized but the catheter entrance site is adequate. In conclusion, nonobstructive CAD. 07/02/2025: Blood cultures no growth to date. Unasyn and doxycycline increased to cefepime vancomycin and doxycycline on 07/01/2025. He was spiking fevers on 07/01/2025. Unclear etiology for altered mental status although he is improving. He has a history of paranoid schizophrenia and seizure disorder. Critical care managing, placed on Precedex and being evaluated for extubation/ventilator liberation with SVT. Loaded with Keppra 1 g IV x1 on admission. Continue with Keppra 1 g b.i.d.. Seizure precautions. Gallbladder distension, LFTs are normal. No further workup per GI. Anemia, stable. Thrombocytopenia, stable. Patient is full code. Heparin 5000 units subQ b.i.d.. Intubated on 06/29/2025. Prior to admission he is independent in usually lives with his niece daughter and other roommates. He has polysubstance abuse, care coordination on board. May require psychiatric evaluation, continuing to follow his ICU progress. Subjective Date/time seen: 07/02/25 17:12 Interval history: Intubated. Review of Systems Review of Systems: ROS unobtainable: Yes unobtainable due to endotracheal tube and unobtainable due to medical condition Exam Const: Other: Intubated Eyes: Sclera: sclerae normal Pupils: Equal, round and reactive pupils present Resp: Other: Mechanical breath sounds, no wheezing or crackles Cardio: Rate: regular rate Rhythm: regular rhythm GI: GI Palp: Yes Soft to palpation Extrem: General: no edema Other: Dopplerable pedal pulses Objective Data Vital Signs Vital Signs: Vital Signs - 24 hr 07/01/25 17:23 07/01/25 17:25 07/01/25 18:00 Temperature Pulse Rate 84 84 88 Respiratory Rate 24 H 24 H Blood Pressure Pulse Oximetry Oxygen Delivery Oxygen Flow Rate Fraction of Inspired Oxygen 07/01/25 18:00 07/01/25 18:02 07/01/25 20:00 Temperature 101.1 F H Pulse Rate 84 89 76 Respiratory Rate 24 H Blood Pressure 93/62 L 112/77 Pulse Oximetry 99 99 Oxygen Delivery Mechanical Ventilation Oxygen Flow Rate Fraction of Inspired Oxygen 35 07/01/25 20:00 07/01/25 20:00 07/01/25 20:00 Temperature 101 F H Pulse Rate 76 76 76 Respiratory Rate 24 H 24 H 24 H Blood Pressure 112/77 Pulse Oximetry 100 100 Oxygen Delivery Mechanical Ventilation Oxygen Flow Rate Fraction of Inspired Oxygen 35 07/01/25 20:00 07/01/25 20:00 07/01/25 20:00 Temperature 101 F H Pulse Rate 76 76 Respiratory Rate 24 H 24 H Blood Pressure 112/77 Pulse Oximetry 100 Oxygen Delivery Oxygen Flow Rate Fraction of Inspired Oxygen 35 07/01/25 20:00 07/01/25 20:00 07/01/25 20:15 Temperature 101.1 F H Pulse Rate 77 76 76 Respiratory Rate 24 H 24 H Blood Pressure 112/77 Pulse Oximetry 100 Oxygen Delivery Oxygen Flow Rate Fraction of Inspired Oxygen 07/01/25 20:18 07/01/25 20:25 07/01/25 20:30 Temperature 101.0 F H Pulse Rate 76 78 82 Respiratory Rate 22 H Blood Pressure 112/77 105/76 Pulse Oximetry 100 99 Oxygen Delivery Mechanical Ventilation Oxygen Flow Rate Fraction of Inspired Oxygen 35 07/01/25 20:35 07/01/25 20:45 07/01/25 20:57 Temperature 101.0 F H 101 F H Pulse Rate 71 88 Respiratory Rate 24 H 23 H Blood Pressure 127/86 Pulse Oximetry 100 Oxygen Delivery Oxygen Flow Rate Fraction of Inspired Oxygen 07/01/25 21:00 07/01/25 21:15 07/01/25 21:30 Temperature 100.9 F H 100.9 F H 101.0 F H Pulse Rate 88 85 84 Respiratory Rate 25 H 24 H 24 H Blood Pressure 104/83 98/66 L 86/58 L Pulse Oximetry 100 98 99 Oxygen Delivery Oxygen Flow Rate Fraction of Inspired Oxygen 07/01/25 21:31 07/01/25 21:45 07/01/25 21:57 Temperature 101.0 F H 100.9 F H 101 F H Pulse Rate 84 82 Respiratory Rate 24 H 24 H Blood Pressure 85/60 L 84/59 L Pulse Oximetry 99 98 Oxygen Delivery Oxygen Flow Rate Fraction of Inspired Oxygen 07/01/25 22:00 07/01/25 22:00 07/01/25 22:00 Temperature 100.8 F H Pulse Rate 83 83 83 Respiratory Rate 24 H 24 H Blood Pressure 79/56 L 79/56 L Pulse Oximetry 98 Oxygen Delivery Oxygen Flow Rate Fraction of Inspired Oxygen 07/01/25 22:00 07/01/25 22:00 07/01/25 22:00 Temperature 100.8 F H Pulse Rate 83 85 83 Respiratory Rate 24 H 24 H Blood Pressure 79/56 L Pulse Oximetry 98 Oxygen Delivery Oxygen Flow Rate Fraction of Inspired Oxygen 07/01/25 22:13 07/01/25 22:15 07/01/25 22:30 Temperature 100.5 F H 100.2 F H Pulse Rate 84 80 77 Respiratory Rate 24 H 24 H Blood Pressure 88/65 L 89/62 L Pulse Oximetry 97 99 99 Oxygen Delivery Mechanical Ventilation Oxygen Flow Rate Fraction of Inspired Oxygen 35 07/01/25 22:31 07/01/25 22:45 07/01/25 23:00 Temperature 100.2 F H 100.0 F H 99.9 F H Pulse Rate 78 79 76 Respiratory Rate 24 H 24 H 24 H Blood Pressure 82/57 L 91/62 L Pulse Oximetry 99 99 99 Oxygen Delivery Oxygen Flow Rate Fraction of Inspired Oxygen 07/01/25 23:15 07/01/25 23:30 07/01/25 23:46 Temperature 99.7 F H 99.6 F 99.5 F Pulse Rate 77 73 79 Respiratory Rate 24 H 24 H 25 H Blood Pressure 83/58 L 91/61 L 91/64 L Pulse Oximetry 99 99 99 Oxygen Delivery Oxygen Flow Rate Fraction of Inspired Oxygen 07/02/25 00:00 07/02/25 00:00 07/02/25 00:00 Temperature Pulse Rate 81 81 81 Respiratory Rate 24 H 24 H Blood Pressure 101/69 Pulse Oximetry Oxygen Delivery Oxygen Flow Rate Fraction of Inspired Oxygen 07/02/25 00:00 07/02/25 00:00 07/02/25 00:00 Temperature 99.3 F Pulse Rate 77 77 Respiratory Rate 24 H 24 H Blood Pressure 101/69 Pulse Oximetry 97 97 Oxygen Delivery Mechanical Ventilation Oxygen Flow Rate Fraction of Inspired Oxygen 35 35 07/02/25 00:00 07/02/25 00:00 07/02/25 00:00 Temperature 99.3 F 99.4 F Pulse Rate 77 77 76 Respiratory Rate 24 H 24 H Blood Pressure 101/69 101/69 Pulse Oximetry 97 100 Oxygen Delivery Oxygen Flow Rate Fraction of Inspired Oxygen 07/02/25 00:15 07/02/25 00:30 07/02/25 00:45 Temperature 99.3 F 99.3 F Pulse Rate 75 75 76 Respiratory Rate 25 H 24 H Blood Pressure 85/66 L 84/59 L 81/54 L Pulse Oximetry 97 97 Oxygen Delivery Oxygen Flow Rate Fraction of Inspired Oxygen 07/02/25 00:45 07/02/25 01:00 07/02/25 01:15 Temperature 99.2 F 99.0 F Pulse Rate 76 74 72 Respiratory Rate 24 H 24 H Blood Pressure 81/54 L 82/57 L 77/53 L Pulse Oximetry 96 97 Oxygen Delivery Oxygen Flow Rate Fraction of Inspired Oxygen 07/02/25 01:15 07/02/25 01:30 07/02/25 01:45 Temperature 98.9 F 98.8 F 98.7 F Pulse Rate 72 81 70 Respiratory Rate 24 H 24 H 24 H Blood Pressure 77/53 L 91/62 L 98/68 L Pulse Oximetry 96 97 98 Oxygen Delivery Oxygen Flow Rate Fraction of Inspired Oxygen 07/02/25 01:56 07/02/25 02:00 07/02/25 02:00 Temperature Pulse Rate 69 69 69 Respiratory Rate 24 H Blood Pressure 99/69 L Pulse Oximetry 98 Oxygen Delivery Mechanical Ventilation Oxygen Flow Rate Fraction of Inspired Oxygen 35 07/02/25 02:00 07/02/25 02:00 07/02/25 02:00 Temperature 98.5 F Pulse Rate 69 69 68 Respiratory Rate 24 H 24 H Blood Pressure 99/69 L Pulse Oximetry 99 Oxygen Delivery Oxygen Flow Rate Fraction of Inspired Oxygen 07/02/25 02:01 07/02/25 02:13 07/02/25 02:15 Temperature Pulse Rate 69 75 70 Respiratory Rate 24 H 24 H Blood Pressure 116/79 Pulse Oximetry Oxygen Delivery Oxygen Flow Rate Fraction of Inspired Oxygen 07/02/25 02:15 07/02/25 02:30 07/02/25 02:45 Temperature 98.5 F 98.4 F Pulse Rate 73 75 77 Respiratory Rate 24 H 24 H Blood Pressure 116/79 100/68 115/78 Pulse Oximetry 100 99 Oxygen Delivery Oxygen Flow Rate Fraction of Inspired Oxygen 07/02/25 02:45 07/02/25 03:00 07/02/25 03:15 Temperature 98.4 F 98.4 F Pulse Rate 75 75 72 Respiratory Rate 24 H 24 H Blood Pressure 115/78 97/67 L 110/75 Pulse Oximetry 100 100 Oxygen Delivery Oxygen Flow Rate Fraction of Inspired Oxygen 07/02/25 03:15 07/02/25 03:30 07/02/25 03:45 Temperature 98.4 F 98.4 F Pulse Rate 74 74 71 Respiratory Rate 24 H 24 H Blood Pressure 110/75 100/72 124/81 Pulse Oximetry 100 100 Oxygen Delivery Oxygen Flow Rate Fraction of Inspired Oxygen 07/02/25 03:45 07/02/25 04:00 07/02/25 04:00 Temperature 98.4 F Pulse Rate 76 95 95 Respiratory Rate 24 H 24 H Blood Pressure 124/81 129/91 H Pulse Oximetry 100 Oxygen Delivery Oxygen Flow Rate Fraction of Inspired Oxygen 07/02/25 04:00 07/02/25 04:00 07/02/25 04:00 Temperature 98.5 F Pulse Rate 95 98 98 Respiratory Rate 24 H 25 H 25 H Blood Pressure 129/91 H Pulse Oximetry 100 100 Oxygen Delivery Mechanical Ventilation Oxygen Flow Rate Fraction of Inspired Oxygen 35 07/02/25 04:00 07/02/25 04:00 07/02/25 04:01 Temperature 98.5 F Pulse Rate 98 94 Respiratory Rate Blood Pressure 129/91 H Pulse Oximetry 100 Oxygen Delivery Oxygen Flow Rate Fraction of Inspired Oxygen 35 07/02/25 04:15 07/02/25 04:15 07/02/25 04:29 Temperature 99.0 F Pulse Rate 95 108 H 96 Respiratory Rate 26 H 22 H 26 H Blood Pressure 120/104 H 119/83 Pulse Oximetry 100 96 Oxygen Delivery Oxygen Flow Rate Fraction of Inspired Oxygen 07/02/25 04:30 07/02/25 04:45 07/02/25 05:00 Temperature 99.0 F 99.4 F 99.4 F Pulse Rate 99 85 83 Respiratory Rate 26 H 24 H 24 H Blood Pressure 114/96 H 98/66 L 86/66 L Pulse Oximetry 97 95 95 Oxygen Delivery Oxygen Flow Rate Fraction of Inspired Oxygen 07/02/25 05:09 07/02/25 05:15 07/02/25 05:30 Temperature 99.5 F 99.4 F Pulse Rate 82 83 80 Respiratory Rate 24 H 24 H Blood Pressure 86/61 L 83/59 L Pulse Oximetry 97 98 98 Oxygen Delivery Mechanical Ventilation Oxygen Flow Rate Fraction of Inspired Oxygen 35 07/02/25 05:45 07/02/25 06:00 07/02/25 06:00 Temperature 99.4 F Pulse Rate 79 76 76 Respiratory Rate 24 H 24 H Blood Pressure 83/61 L 79/65 L Pulse Oximetry 99 Oxygen Delivery Oxygen Flow Rate Fraction of Inspired Oxygen 07/02/25 06:00 07/02/25 06:00 07/02/25 06:00 Temperature 99.2 F Pulse Rate 76 76 76 Respiratory Rate 24 H 24 H Blood Pressure 79/65 L Pulse Oximetry 100 Oxygen Delivery Oxygen Flow Rate Fraction of Inspired Oxygen 07/02/25 06:15 07/02/25 06:30 07/02/25 06:30 Temperature 99.1 F 99.0 F Pulse Rate 73 75 75 Respiratory Rate 25 H 22 H Blood Pressure 96/64 L 115/80 115/80 Pulse Oximetry 100 100 Oxygen Delivery Oxygen Flow Rate Fraction of Inspired Oxygen 07/02/25 07:07 07/02/25 07:08 07/02/25 07:27 Temperature 99.1 F Pulse Rate 72 72 72 Respiratory Rate 24 H 24 H 27 H Blood Pressure 93/63 L Pulse Oximetry 100 Oxygen Delivery Oxygen Flow Rate Fraction of Inspired Oxygen 07/02/25 08:00 07/02/25 08:00 07/02/25 08:00 Temperature Pulse Rate 71 71 71 Respiratory Rate 24 H 24 H Blood Pressure 97/64 L Pulse Oximetry Oxygen Delivery Oxygen Flow Rate Fraction of Inspired Oxygen 07/02/25 08:00 07/02/25 08:00 07/02/25 08:00 Temperature 99.3 F Pulse Rate 71 71 Respiratory Rate 24 H 24 H Blood Pressure 97/64 L Pulse Oximetry 98 100 Oxygen Delivery Mechanical Ventilation Oxygen Flow Rate Fraction of Inspired Oxygen 35 35 07/02/25 08:00 07/02/25 08:15 07/02/25 08:17 Temperature Pulse Rate 68 70 73 Respiratory Rate 24 H Blood Pressure Pulse Oximetry 98 Oxygen Delivery Mechanical Ventilation Oxygen Flow Rate Fraction of Inspired Oxygen 35 07/02/25 08:25 07/02/25 09:39 07/02/25 09:47 Temperature Pulse Rate 69 76 74 Respiratory Rate 24 H 24 H 24 H Blood Pressure Pulse Oximetry Oxygen Delivery Oxygen Flow Rate Fraction of Inspired Oxygen 07/02/25 09:49 07/02/25 10:00 07/02/25 10:00 Temperature Pulse Rate 74 76 76 Respiratory Rate 24 H 24 H Blood Pressure 100/68 Pulse Oximetry Oxygen Delivery Oxygen Flow Rate Fraction of Inspired Oxygen 07/02/25 10:00 07/02/25 10:00 07/02/25 10:02 Temperature 99.7 F H Pulse Rate 76 76 74 Respiratory Rate 24 H 24 H Blood Pressure 100/68 Pulse Oximetry 100 Oxygen Delivery Oxygen Flow Rate Fraction of Inspired Oxygen 07/02/25 10:07 07/02/25 11:21 07/02/25 12:00 Temperature Pulse Rate 78 73 75 Respiratory Rate 24 H Blood Pressure 117/82 Pulse Oximetry 100 Oxygen Delivery Mechanical Ventilation Oxygen Flow Rate Fraction of Inspired Oxygen 30 07/02/25 12:00 07/02/25 12:00 07/02/25 12:00 Temperature Pulse Rate 75 75 75 Respiratory Rate 24 H 24 H 24 H Blood Pressure Pulse Oximetry Oxygen Delivery Oxygen Flow Rate Fraction of Inspired Oxygen 07/02/25 12:00 07/02/25 12:00 07/02/25 12:00 Temperature 100.1 F H Pulse Rate 75 72 Respiratory Rate 24 H 24 H Blood Pressure 117/82 Pulse Oximetry 99 100 Oxygen Delivery Mechanical Ventilation Oxygen Flow Rate Fraction of Inspired Oxygen 35 35 07/02/25 12:00 07/02/25 12:00 07/02/25 12:24 Temperature 100.1 F H 100.1 F H Pulse Rate 70 70 Respiratory Rate 24 H Blood Pressure 117/82 Pulse Oximetry 100 Oxygen Delivery Oxygen Flow Rate Fraction of Inspired Oxygen 07/02/25 13:09 07/02/25 13:11 07/02/25 13:18 Temperature Pulse Rate 88 86 87 Respiratory Rate 25 H 37 H Blood Pressure Pulse Oximetry 97 Oxygen Delivery Mechanical Ventilation Oxygen Flow Rate Fraction of Inspired Oxygen 30 07/02/25 13:45 07/02/25 13:58 07/02/25 14:00 Temperature Pulse Rate 93 89 Respiratory Rate 16 Blood Pressure 87/56 L Pulse Oximetry 94 Oxygen Delivery Nasal Cannula Oxygen Flow Rate 3 Fraction of Inspired Oxygen 07/02/25 14:00 07/02/25 14:00 07/02/25 14:00 Temperature Pulse Rate 97 97 95 Respiratory Rate 22 H 22 H 19 Blood Pressure Pulse Oximetry Oxygen Delivery Oxygen Flow Rate Fraction of Inspired Oxygen 07/02/25 14:00 07/02/25 14:00 Temperature 100.8 F H Pulse Rate 86 95 Respiratory Rate 23 H Blood Pressure 90/62 L Pulse Oximetry 97 Oxygen Delivery Oxygen Flow Rate Fraction of Inspired Oxygen Intake/Output Intake/Output: Intake & Output 06/29/25 06/30/25 07/01/25 07/02/25 23:59 23:59 23:59 23:59 Intake Total 217.7 2448.6 2128.5 1981.8 Output Total 500 1250 1250 400 Balance -282.3 1198.6 878.5 1581.8 Meds/Results Medications: Active Medications Generic Name Dose Route Start Last Admin Trade Name Freq PRN Reason Stop Dose Admin Acetaminophen 650 mg 06/30/25 00:04 07/02/25 12:24 Acetaminophen Elixir 325 Mg/10.15 Ml Udc FEED TUBE 650 mg Q6H PRN Administration Mild Pain (1-3) or Fever Albuterol/Ipratropium 3 ml 06/29/25 14:00 07/02/25 13:08 Ipratropium 0.5 Mg/Albuterol Sulfate 2.5 Mg Ampul.Neb 3 Ml INHALATION 3 ml Q6HRT NILESH Administration Budesonide 0.5 mg 06/29/25 20:00 07/02/25 08:14 Budesonide Respule Neb 0.5 Mg/2 Ml Amp INHALATION 0.5 mg Q12HRT NILESH Administration Dextrose 12.5 gm 06/30/25 12:37 06/30/25 17:00 Dextrose 50% 25 Gm/50 Ml Syringe IV PUSH 12.5 gm PRN PRN Administration Hypoglycemia Protocol Glucagon 1 mg 06/30/25 12:37 Glucagon For Inj 1 Mg Vial IM PRN PRN Hypoglycemia Protocol Glucose 15 gm 06/30/25 12:37 Glucose Oral Gel 15 Gm Of Glucse In 37.5 Gm Tube PO PRN PRN Hypoglycemia Protocol Heparin Sodium (Porcine) 5,000 units 06/30/25 10:10 07/01/25 20:43 Heparin Sodium 5,000 Units/Ml Vial SUB-Q 5,000 units Q12HR NILESH Administration Hydralazine HCl 10 mg 06/29/25 17:58 Hydralazine Hcl 20 Mg/Ml Vial IV PUSH Q4H PRN Blood Pressure - High Fentanyl Citrate 2,500 mcg in 250 mls @ 0 mls/hr 06/29/25 14:20 07/02/25 14:00 Fentanyl 2,500 Mcg/Ns 250 Ml IV CONT 0 mcg/hr .Q0M NILESH 0 mls/hr Titration Protocol 0 MCG/HR Midazolam HCl 100 mg in 100 mls @ 0 mls/hr 06/29/25 14:20 07/02/25 14:00 Versed 100 Mg/Ns 100 Ml IV CONT 0 mg/hr .Q0M NILESH 0 mls/hr Titration Protocol Levetiracetam 1,000 mg in 100 mls @ 400 mls/hr 06/29/25 21:00 07/02/25 10:11 Keppra Iv IVPB Infused Q12HR NILESH Infusion Doxycycline Hyclate 100 mg/ 100 mls @ 100 mls/hr 06/30/25 09:00 07/02/25 10:54 Sodium Chloride IVPB 07/05/25 08:59 Infused Q12H NILESH Infusion Dextrose 1,000 mls @ 100 mls/hr 06/30/25 12:37 Dextrose 5% 1,000 Ml IVPB PRN PRN Hypoglycemia Protocol Norepinephrine Bitartrate 8 mg in 250 mls @ 5.625 mls/hr 06/30/25 15:00 07/02/25 14:00 Levophed 8 Mg/D5w 250 Ml IV CONT 3 mcg/min .Q24H NILESH 5.63 mls/hr Titration Protocol 3 MCG/MIN Cefepime HCl 2 gm/ Sodium 50 mls @ 100 mls/hr 07/01/25 12:00 07/02/25 12:31 Chloride IVPB Infused Q8H NILESH Infusion Vancomycin HCl 1,500 mg in 500 mls @ 250 mls/hr 07/02/25 05:00 07/02/25 07:33 Vancomycin 1,500 Mg/Ns 500 Ml IVPB Infused Q18H NILESH Infusion Dexmedetomidine HCl 400 mcg in 100 mls @ 0 mls/hr 07/02/25 07:30 07/02/25 14:00 Precedex 400 Mcg/100 Ml IV CONT 0 mcg/kg/hr .Q0M NILESH 0 mls/hr Titration Protocol Insulin Aspart 2 - 5 units 06/30/25 17:00 07/02/25 13:19 Insulin Aspart (*Bkc) 100 Units/Ml SUB-Q Not Given TIDWM NILESH Protocol Metoclopramide HCl 10 mg 07/01/25 18:00 07/02/25 12:02 Metoclopramide Hcl Inj 10 Mg/2 Ml Vial IV PUSH 07/03/25 17:59 10 mg Q6HR NILESH Administration Multi-Ingred Cream/Lotion/Oil/Oint 1 applic 06/29/25 21:00 07/01/25 21:03 Mineral Oil/White Petrolatum Ointment EACH EYE 1 applic Q12HR NILESH Administration Multi-Ingred Cream/Lotion/Oil/Oint 1 applic 07/02/25 09:00 07/02/25 10:36 Mineral Oil/White Petrolatum Ointment EACH EYE 1 applic Q12HR NILESH Administration Pantoprazole Sodium 40 mg 06/29/25 21:00 07/02/25 09:57 Pantoprazole Sodium Iv 40 Mg Vial IV PUSH 40 mg Q12H NILESH Administration Perflutren Lipid Microsphere 0 ml 06/30/25 09:14 Perflutren Lipid Microspheres 1.5 Ml Vial Diluted To 10 Ml Total Volume IV PUSH 07/03/25 09:14 ONCE PRN adequate visualization Protocol Sodium Chloride 10 ml 06/30/25 14:00 07/02/25 05:33 Central Line Flush IV PUSH 10 ml Q8HR NILESH Administration Sodium Chloride 10 ml 06/30/25 10:17 Central Line Flush IV PUSH PRN PRN with TPN bag changes Sodium Chloride 20 ml 06/30/25 10:17 Central Line Flush IV PUSH PRN PRN after blood draws Radiology Results: ITS Impressions Head CT 07/01/25 12:20 IMPRESSION: 1. No acute intracranial process. 2. 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 3. Unchanged tract of encephalomalacia in the anterior right frontal lobe extending between what appears to be a small old right frontal alexis hole and the anterior horn of the lateral ventricle which could be related to prior ventricular drainage catheter placement or sequela of old infarct. Correlate with surgical history. 4. Anterior suprasellar embolization coils. Correlate with surgical history. 5. Moderate scattered white matter hypoattenuation consistent with chronic small vessel ischemic disease. Chest/Abdomen/Pelvis CTA 07/01/25 12:29 IMPRESSION: 1. No evidence for pulmonary embolism. 2: Bilateral airspace consolidation, right greater than left. Differential diagnosis includes atelectasis and/or pneumonia. 3: Marked gallbladder distention, nonspecific. 4: Hepatomegaly. 5: Nonobstructing bilateral nephrolithiasis. Venous Doppler Study 07/01/25 14:49 IMPRESSION: 1: No lower extremity deep venous thrombosis. Chest X-Ray 07/02/25 05:49 Impression: Significant interval improvement in right basilar airspace disease. Stable support tubes. Labs Labs: Laboratory Results - last 24 hr 07/01/25 07/01/25 07/02/25 17:16 23:42 05:07 WBC 7.6 RBC 3.60 L Hgb 11.1 L Hct 35.3 L MCV 98.1 MCH 30.8 MCHC 31.4 L RDW 14.3 Plt Count 94 L MPV 11.6 H Immature Gran % (Auto) 1.1 H Neut % (Auto) 78.8 H Lymph % (Auto) 12.1 L [place] % (Auto) 5.5 Eos % (Auto) 2.2 Baso % (Auto) 0.3 Lymph # (Auto) 0.92 [place] # (Auto) 0.4 Eos # (Auto) 0.2 Baso # (Auto) 0.0 Abs Immat Gran (auto) 0.08 H Absolute Neuts (auto) 6.0 Absolute Nucleated RBC 0.000 Nucleated RBC % 0.0 % Immature Plt Fraction 7.3 Puncture Site Not Reportable ABG pH 7.386 ABG pCO2 37.4 ABG pO2 90.8 ABG PO2/FiO2 Ratio 2.59 ABG HCO3 21.9 L ABG O2 Saturation 96.9 ABG O2 Content 16.4 ABG Base Excess -2.7 A-a Gradient 115.3 Oxyhemoglobin 95.9 Carboxyhemoglobin 0.8 Methemoglobin 0.3 Reduced Hemoglobin 3.0 Total Hemoglobin 12.1 O2 Delivery Device Ventilator O2 Liters/Min Not Reportable Minute Volume Not Reportable Vent Rate 24 Vent Mode Cmv FiO2 35 Tidal Volume 450 PEEP 5 Peak Inspir Pressure Not Reportable Pressure Support Not Reportable Sodium 136 L Potassium 3.3 L Chloride 106 Carbon Dioxide 24 Anion Gap 6 BUN 17 Creatinine 0.78 Estim Creat Clear Calc 81 Estimated GFR > 60 Glucose 86 POC Capillary Glucose 105 106 H Calcium 8.7 Phosphorus 3.2 Magnesium 1.9 Total Bilirubin 0.4 AST 26 ALT 12 Alkaline Phosphatase 64 Total Protein 5.5 L Albumin 2.9 L 07/02/25 07/02/25 11:18 13:30 WBC RBC Hgb Hct MCV MCH MCHC RDW Plt Count MPV Immature Gran % (Auto) Neut % (Auto) Lymph % (Auto) [place] % (Auto) Eos % (Auto) Baso % (Auto) Lymph # (Auto) [place] # (Auto) Eos # (Auto) Baso # (Auto) Abs Immat Gran (auto) Absolute Neuts (auto) Absolute Nucleated RBC Nucleated RBC % % Immature Plt Fraction Puncture Site Right radial ABG pH 7.388 ABG pCO2 39.8 ABG pO2 85.9 ABG PO2/FiO2 Ratio 2.86 ABG HCO3 23.4 ABG O2 Saturation 96.4 ABG O2 Content 15.9 L ABG Base Excess -1.4 A-a Gradient 81.2 Oxyhemoglobin 95.4 Carboxyhemoglobin Methemoglobin Reduced Hemoglobin Total Hemoglobin 11.8 L O2 Delivery Device Ventilator O2 Liters/Min 0.0 Minute Volume Not Reportable Vent Rate Not Reportable Vent Mode Spontaneous FiO2 30 Tidal Volume Not Reportable PEEP 5 Peak Inspir Pressure Not Reportable Pressure Support 8 Sodium Potassium Chloride Carbon Dioxide Anion Gap BUN Creatinine Estim Creat Clear Calc Estimated GFR Glucose POC Capillary Glucose 100 Calcium Phosphorus Magnesium Total Bilirubin AST ALT Alkaline Phosphatase Total Protein Albumin
[2025-07-02] MEDS: VANCOMYCIN 1,750 MG/NS 500 ML 1,750 MG/500 ML BAG 250 MG IVPB (23:46)
[2025-07-03] VITALS (23 sets, daily range): BP systolic 107–161; BP diastolic 66–107; PULSE 97–121; RESP 13–30; TEMP 36.7–37.8; O2SAT 94–100
[2025-07-03] MEDS: ACETAMINOPHEN 325 MG TABLET 650 MG PO ×2 (01:52→11:19)
[2025-07-03] MEDS: IPRATROPIUM 0.5 MG/ALBUTEROL SULFATE 2.5 MG AMPUL.NEB 3 ML INHALATION ×3 (02:52→20:18)
[2025-07-03] MEDS: CEFEPIME 2 GM in SODIUM CHLORIDE 0.9% IV 50 ML 100 ML IVPB ×3 (03:35→20:22)
[2025-07-03 04:38] LABS: Hematocrit 31.0 % (42.0-52.0); Hemoglobin 9.9 g/dL (14.0-18.0); Immature Granulocyte Percent A 0.4 % (0-0.5); Immature Platelet Fraction Pct 9.8 % (0.9-11.2); Lymphocytes Absolute Auto 0.70 K/mm3 (0.9-3.2); Mean Corpuscular HGB Conc 31.9 g/dl (32-36); Mean Corpuscular Hemoglobin 30.8 pg (26-34); Mean Corpuscular Volume 96.6 fl (80-100); Nucleated Red Blood Cells Absolute Auto 0.000 K/mm3 (0.0-0.012); Nucleated Red Blood Cells Perc 0.0 % (0.0-0.2); Red Blood Count 3.21 M/mm3 (4.6-6.20); White Blood Count 7.4 K/mm3 (4.5-10.0)
[2025-07-03 04:51] LABS: Alanine Aminotransferase 16 U/L (6-50); Albumin Level 2.9 g/dL (3.5-5.1); Alkaline Phosphatase 74 U/L (38-126); Anion Gap 6 mmol/L (4-12); Aspartate Amino Transferase 30 U/L (17-59); Bilirubin,Total 0.8 mg/dL (0.2-1.3); Blood Urea Nitrogen 10 mg/dL (9-20); Calcium 9.0 mg/dL (8.4-10.2); Carbon Dioxide 23 mmol/L (22-30); Chloride 108 mmol/L (98-107); Estimated CRCL calculation 87 ml/min; Estimated Glomerular Filt Rate > 60; Glucose 95 mg/dL (65-110); Magnesium 1.8 mg/dL (1.6-2.3); Potassium 3.8 mmol/L (3.4-5.0); Sodium 137 mmol/L (137-145); Total Protein 5.6 g/dL (6.3-8.2)
[2025-07-03 05:02] LABS: CRP 12.1 mg/dL (<1.0)
[2025-07-03 05:21] LABS: Platelet Count Result 97 k/mm3 (150-375)
[2025-07-03] MEDS: CENTRAL LINE FLUSH 10 ML IV PUSH ×3 (06:21→20:41)
--- NOTE | 2025-07-03 08:44 | WPDINTPN ---
Progress Note: A&P Assessment and Plan (1) Delusional disorder: Code(s): F22 - Delusional disorders Status: Acute Assessment and Plan: Post extubation patient has developed paranoia, delusion, he is hallucinating -according to the niece patient was having some delusions and paranoia at home also and behaving like a young child -will have Psychiatry evaluate the patient -will give 1 dose of Zyprexa PO (2) Fever: Code(s): R50.9 - Fever, unspecified Status: Acute Assessment and Plan: 06/30: Patient spiked fevers with a T-max of 102.1? F -06/30: Blood cultures: Preliminary report with no growth x2 -06/30: Urine cultures : No growth -06/30: Sputum cultures : Strep pneumo -06/29: Blood cultures negative x2 06/30: Chest x-ray shows increased haziness in the medial right lung base, could be related to aspiration pneumonia/pneumonitis secondary to aspiration during seizure activity on 06/29/2025 -On Unasyn and doxycycline (06/30) -07/01: Continues to spike fevers, T-max of 101.1?, will switch antibiotic to cefepime and vancomycin (07/01) continue doxycycline x 5 days (start date - 06/30) . Discontinue Unasyn -07/01: Bilateral lower extremity venous Dopplers were negative for DVT -07/02: Patient afebrile through the night, continue cefepime, vancomycin and doxycycline -07/03: DC vancomycin, sputum culture growing staph strep pneumo, continue cefepime(07/01) and doxycycline (06/30) 07/01: CT chest abdomen and pelvis IMPRESSION: 1. No evidence for pulmonary embolism. 2: Bilateral airspace consolidation, right greater than left. Differential diagnosis includes atelectasis and/or pneumonia. 3: Marked gallbladder distention, nonspecific. 4: Hepatomegaly. 5: Nonobstructing bilateral nephrolithiasis. (3) Altered mental status: Code(s): R41.82 - Altered mental status, unspecified Status: Inactive Assessment and Plan: Patient presented to [facility] [place], [place] in [facility] with altered mental status, confusion and not being himself along with hallucinations and paranoia according to ER notes. -patient was incontinent of stool and urine per EMS -he had a seizure activity on the cardiac catheterization table, -altered mental status could be related to seizure activity and postictal state, and/or paranoid schizophrenia which he has a history of. 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 Anterior suprasellar embolization coils. Moderate scattered white matter hypoattenuation consistent with chronic small-vessel ischemic disease. (4) Seizure: Code(s): R56.9 - Unspecified convulsions Status: Acute Assessment and Plan: 06/29: Patient had a seizure activity on the cardiac catheterization stable -according the EMS he was also incontinent of stool and urine when they got to his house -this could also be related to seizures and he may be postictal. -patient does have a history of paranoid schizophrenia, not on any medications per patient's niece, according to the records. -06/29: Loaded with Keppra 1 g IV x1 a Appreciate Neurology evaluation recommendation. Continue Keppra 1 g q.12 hours -no further seizure activities noted (5) ST elevation (STEMI) myocardial infarction: Qualifiers: Involved coronary artery: unspecified coronary artery Qualified Code(s): I21.3 - ST elevation (STEMI) myocardial infarction of unspecified site Code(s): I21.3 - ST elevation (STEMI) myocardial infarction of unspecified site Status: Inactive Assessment and Plan: EKG at the outside hospital ER showed ST elevations in the anteroseptal leads, with significant ST depression in inferior lateral leads concerning was STEMI -patient taken to cardiac labor utilization superintendent for coronary angiography -non-obstructive coronary artery disease, right femoral artery angiogram shows there is 80-90% right external iliac lesion. The catheter seems to be semi occlusive at that side. The right common femoral artery could not be well visualized but the catheter entrance site is adequate. -LV EF was 65%, LVEDP was 8 mmHg 06/30/2025: Echocardiogram Summary 1. Complete two-dimensional, color flow and Doppler transthoracic echocardiogram is performed. 2. Left ventricular systolic function is normal, estimated at 50-55. 3. The left ventricular diastolic function is indeterminate. 4. No pulmonary hypertension, estimated pulmonary arterial systolic pressure is 32 mmHg. (6) On mechanically assisted ventilation: Code(s): Z99.11 - Dependence on respirator [ventilator] status Status: Acute Assessment and Plan: 06/29: intubated in the cardiac labor utilization superintendent after patient had a seizure, altered mental status, agonal breathing and not protecting his airway, aspiration pneumonia -07/02: Extubated successfully -currently on room air -patient has history of COPD, continue bronchodilators and budesonide nebs -PT/OT to evaluate and treat (7) Illicit drug use: Code(s): F19.90 - Other psychoactive substance use, unspecified, uncomplicated Status: Acute Assessment and Plan: Patient has a history of illicit drug use according to the niece patient takes methamphetamine and cannabis. Patient also has a history of schizoaffective paranoia on no medications -acetaminophen, alcohol and salicylic acid levels were all within normal limit -urine drug screen performed in the ICU was positive for cannabis and benzodiazepines (8) Gallbladder dilatation: Code(s): K82.8 - Other specified diseases of gallbladder Status: Acute Assessment and Plan: Marked distention of gallbladder as seen on CT scan of the abdomen pelvis as on -appreciate surgery evaluation and recommendations, patient is a poor surgical candidate, will continue to manage conservatively. If any issues arise in patient complains of abdominal pain will consider ultrasound imaging upper continues to drain placement per surgery -appreciate GI recommendations, continue to manage conservatively for now 07/01: CT chest abdomen and pelvis IMPRESSION: 1. No evidence for pulmonary embolism. 2: Bilateral airspace consolidation, right greater than left. Differential diagnosis includes atelectasis and/or pneumonia. 3: Marked gallbladder distention, nonspecific. 4: Hepatomegaly. 5: Nonobstructing bilateral nephrolithiasis. Plan DVT prophylaxis: SCDs, will hold heparin subQ due to decrease in platelets Stress ulcer prophylaxis: Protonix IV q.12 hours Nutrition: Hold tube feeds Code Status: Full code Critical Care Time Spent: 31 minutes PT/OT will evaluate and treat Psychiatry to evaluate and treat May transfer out of the ICU Due to a high probability of clinically significant, life threatening deterioration, the patient required my highest level of preparedness to intervene emergently and I personally spent this critical care time directly and personally managing the patient. This critical care time included obtaining a history; examining the patient; pulse oximetry; ordering and review of studies; arranging urgent treatment with development of a management plan; evaluation of patient's response to treatment; frequent reassessment; and discussions with other providers. It was exclusive of separately billable procedures and treating other patients and teaching time. Please see Assessment and Plan section and the rest of the note for further information on patient assessment and treatment This dictation may have been done utilizing a voice recognition system. Attempts have been made to correct errors. However, there may be uncorrected grammatical, spelling, and recognitions errors present. Subjective Date/time seen: 07/03/25 08:44 Interval history: Reason for consult: Altered mental status, STEMI, seizure, intubated for airway protection 07/02: Extubated ED 2024: Patient seen and examined the ICU. Patient was extubated yesterday, remains on room air with adequate O2 sats. Patient is awake, alert, oriented to place and person. Patient has been paranoid, delusional and having hallucinations. Tolerating full liquid diet. Hemodynamically stable, off Levophed since yesterday, adequate urine output. Denies any chest pain, shortness of breath, abdominal pain, nausea vomiting. Review of Systems Review of Systems: All systems reviewed & are unremarkable except as noted in HPI and below Exam Narrative: General: Pleasant gentleman who is delusional and paranoid HEENT:? Pupils equal and reactive, sclera is clear, Neck:? Supple Respiratory:? Improved air entry, decreased breath sounds bilateral base R > L, no wheezing, Cardiac:? S1-S2 is normal, sinus tachycardia, no murmur Abdomen:? Soft, nontender, nondistended, normoactive bowel sounds Extremities:? No edema, both feet are warm, palpable pedal pulses Neuro:? Patient is awake, alert, oriented x2. Is delusional, hallucinating, paranoid but is easily redirectable, answers to questions appropriately when asked and follows simple commands Skin:? Warm and dry Psych:? Delusional, paranoid, having hallucinations Objective Data Vital Signs Vital Signs: Vital Signs - 24 hr 07/02/25 09:39 07/02/25 09:47 07/02/25 09:49 Temperature Pulse Rate 76 74 74 Respiratory Rate 24 H 24 H 24 H Blood Pressure Pulse Oximetry Oxygen Delivery Oxygen Flow Rate Fraction of Inspired Oxygen 07/02/25 10:00 07/02/25 10:00 07/02/25 10:00 Temperature Pulse Rate 76 76 76 Respiratory Rate 24 H 24 H Blood Pressure 100/68 Pulse Oximetry Oxygen Delivery Oxygen Flow Rate Fraction of Inspired Oxygen 07/02/25 10:00 07/02/25 10:02 07/02/25 10:07 Temperature 99.7 F H Pulse Rate 76 74 78 Respiratory Rate 24 H 24 H Blood Pressure 100/68 Pulse Oximetry 100 Oxygen Delivery Oxygen Flow Rate Fraction of Inspired Oxygen 07/02/25 11:21 07/02/25 12:00 07/02/25 12:00 Temperature Pulse Rate 73 75 75 Respiratory Rate 24 H Blood Pressure 117/82 Pulse Oximetry 100 Oxygen Delivery Mechanical Ventilation Oxygen Flow Rate Fraction of Inspired Oxygen 30 07/02/25 12:00 07/02/25 12:00 07/02/25 12:00 Temperature Pulse Rate 75 75 75 Respiratory Rate 24 H 24 H 24 H Blood Pressure Pulse Oximetry 99 Oxygen Delivery Mechanical Ventilation Oxygen Flow Rate Fraction of Inspired Oxygen 35 07/02/25 12:00 07/02/25 12:00 07/02/25 12:00 Temperature 100.1 F H 100.1 F H Pulse Rate 72 70 Respiratory Rate 24 H 24 H Blood Pressure 117/82 117/82 Pulse Oximetry 100 100 Oxygen Delivery Oxygen Flow Rate Fraction of Inspired Oxygen 35 07/02/25 12:00 07/02/25 12:24 07/02/25 13:09 Temperature 100.1 F H Pulse Rate 70 88 Respiratory Rate 25 H Blood Pressure Pulse Oximetry Oxygen Delivery Oxygen Flow Rate Fraction of Inspired Oxygen 07/02/25 13:11 07/02/25 13:18 07/02/25 13:45 Temperature Pulse Rate 86 87 Respiratory Rate 37 H Blood Pressure Pulse Oximetry 97 94 Oxygen Delivery Mechanical Ventilation Nasal Cannula Oxygen Flow Rate 3 Fraction of Inspired Oxygen 30 07/02/25 13:58 07/02/25 14:00 07/02/25 14:00 Temperature Pulse Rate 93 89 97 Respiratory Rate 16 22 H Blood Pressure 87/56 L Pulse Oximetry Oxygen Delivery Oxygen Flow Rate Fraction of Inspired Oxygen 07/02/25 14:00 07/02/25 14:00 07/02/25 14:00 Temperature 100.8 F H Pulse Rate 97 95 86 Respiratory Rate 22 H 19 23 H Blood Pressure 90/62 L Pulse Oximetry 97 Oxygen Delivery Oxygen Flow Rate Fraction of Inspired Oxygen 07/02/25 14:00 07/02/25 16:00 07/02/25 16:00 Temperature Pulse Rate 95 74 74 Respiratory Rate 25 H Blood Pressure 99/73 L Pulse Oximetry 99 Oxygen Delivery Nasal Cannula Oxygen Flow Rate 2 Fraction of Inspired Oxygen 07/02/25 16:00 07/02/25 16:00 07/02/25 16:00 Temperature 98.9 F Pulse Rate 74 74 74 Respiratory Rate 23 H 23 H 23 H Blood Pressure 99/73 L Pulse Oximetry 99 Oxygen Delivery Oxygen Flow Rate Fraction of Inspired Oxygen 07/02/25 16:00 07/02/25 16:00 07/02/25 17:15 Temperature Pulse Rate 75 74 84 Respiratory Rate 22 H Blood Pressure 126/88 Pulse Oximetry Oxygen Delivery Oxygen Flow Rate Fraction of Inspired Oxygen 07/02/25 18:00 07/02/25 18:00 07/02/25 18:00 Temperature Pulse Rate 86 86 86 Respiratory Rate 22 H 20 Blood Pressure 135/84 Pulse Oximetry Oxygen Delivery Oxygen Flow Rate Fraction of Inspired Oxygen 07/02/25 18:00 07/02/25 18:00 07/02/25 18:00 Temperature 99.3 F Pulse Rate 86 86 86 Respiratory Rate 20 20 Blood Pressure 135/84 Pulse Oximetry 99 Oxygen Delivery Oxygen Flow Rate Fraction of Inspired Oxygen 07/02/25 18:30 07/02/25 18:30 07/02/25 18:30 Temperature Pulse Rate 83 83 83 Respiratory Rate 20 20 20 Blood Pressure Pulse Oximetry Oxygen Delivery Oxygen Flow Rate Fraction of Inspired Oxygen 07/02/25 19:45 07/02/25 19:45 07/02/25 19:54 Temperature 99.7 F H Pulse Rate 82 82 Respiratory Rate 27 H Blood Pressure 113/83 113/83 Pulse Oximetry 97 Oxygen Delivery Nasal Cannula Oxygen Flow Rate 1 Fraction of Inspired Oxygen 07/02/25 19:54 07/02/25 20:00 07/02/25 20:00 Temperature 99.7 F H Pulse Rate 86 85 88 Respiratory Rate 23 H 19 Blood Pressure 101/68 101/68 Pulse Oximetry 100 Oxygen Delivery Oxygen Flow Rate Fraction of Inspired Oxygen 07/02/25 20:00 07/02/25 20:00 07/02/25 20:00 Temperature 99.7 F H Pulse Rate 88 90 Respiratory Rate 19 Blood Pressure 101/68 Pulse Oximetry 98 100 Oxygen Delivery Nasal Cannula Oxygen Flow Rate 2 Fraction of Inspired Oxygen 07/02/25 20:09 07/02/25 20:16 07/02/25 20:30 Temperature 99.7 F H 99.7 F H Pulse Rate 91 96 92 Respiratory Rate 18 38 H 27 H Blood Pressure 103/70 103/75 Pulse Oximetry 94 94 Oxygen Delivery Oxygen Flow Rate Fraction of Inspired Oxygen 07/02/25 20:45 07/02/25 21:00 07/02/25 21:15 Temperature 99.5 F 99.7 F H 99.8 F H Pulse Rate 105 H 102 H 102 H Respiratory Rate 21 H 19 30 H Blood Pressure 107/87 121/79 109/86 Pulse Oximetry 99 98 100 Oxygen Delivery Oxygen Flow Rate Fraction of Inspired Oxygen 07/02/25 21:30 07/02/25 21:45 07/02/25 22:00 Temperature 99.8 F H 99.9 F H Pulse Rate 101 H 106 H 104 H Respiratory Rate 22 H 38 H Blood Pressure 122/79 124/88 Pulse Oximetry 97 97 Oxygen Delivery Oxygen Flow Rate Fraction of Inspired Oxygen 07/02/25 22:00 07/02/25 22:00 07/02/25 22:15 Temperature 99.9 F H 100.0 F H Pulse Rate 104 H 104 H 105 H Respiratory Rate 13 28 H Blood Pressure 114/77 114/77 123/81 Pulse Oximetry 94 96 Oxygen Delivery Oxygen Flow Rate Fraction of Inspired Oxygen 07/02/25 22:30 07/03/25 00:00 07/03/25 00:00 Temperature 100.0 F H 100.1 F H Pulse Rate 108 H 97 Respiratory Rate 17 22 H Blood Pressure 130/85 141/94 H Pulse Oximetry 96 96 96 Oxygen Delivery Nasal Cannula Oxygen Flow Rate 1 Fraction of Inspired Oxygen 07/03/25 00:00 07/03/25 00:00 07/03/25 00:00 Temperature 100.1 F H Pulse Rate 97 97 97 Respiratory Rate 22 H Blood Pressure 141/94 H 141/94 H Pulse Oximetry 96 Oxygen Delivery Oxygen Flow Rate Fraction of Inspired Oxygen 07/03/25 02:00 07/03/25 02:00 07/03/25 02:02 Temperature 99.9 F H Pulse Rate 105 H 105 H 105 H Respiratory Rate 16 Blood Pressure 107/92 H 107/92 H Pulse Oximetry 97 Oxygen Delivery Oxygen Flow Rate Fraction of Inspired Oxygen 07/03/25 02:52 07/03/25 02:56 07/03/25 04:00 Temperature 99.1 F Pulse Rate 101 H 100 99 Respiratory Rate 24 H 15 14 Blood Pressure 119/66 Pulse Oximetry 98 Oxygen Delivery Oxygen Flow Rate Fraction of Inspired Oxygen 07/03/25 04:00 07/03/25 04:00 07/03/25 04:00 Temperature 99.1 F Pulse Rate 99 99 Respiratory Rate 14 Blood Pressure 119/66 Pulse Oximetry 98 98 Oxygen Delivery Room Air Oxygen Flow Rate Fraction of Inspired Oxygen 07/03/25 04:00 07/03/25 06:00 07/03/25 06:00 Temperature 99 F Pulse Rate 99 121 H 121 H Respiratory Rate 27 H Blood Pressure 119/66 137/89 Pulse Oximetry 95 Oxygen Delivery Oxygen Flow Rate Fraction of Inspired Oxygen 07/03/25 06:00 07/03/25 08:00 Temperature Pulse Rate 121 H 116 H Respiratory Rate Blood Pressure 137/89 139/88 Pulse Oximetry Oxygen Delivery Oxygen Flow Rate Fraction of Inspired Oxygen Intake/Output Intake/Output: Intake & Output 06/30/25 07/01/25 07/02/25 07/03/25 23:59 23:59 23:59 23:59 Intake Total 2448.6 2128.5 2539.5 850 Output Total 1250 1250 950 850 Balance 1198.6 878.5 1589.5 0 Meds/Results Medications: Active Medications Generic Name Dose Route Start Last Admin Trade Name Freq PRN Reason Stop Dose Admin Acetaminophen 650 mg 07/02/25 19:29 07/03/25 01:52 Acetaminophen 325 Mg Tablet PO 650 mg Q6H PRN Administration Mild Pain (1-3) or Fever Albuterol/Ipratropium 3 ml 06/29/25 14:00 07/03/25 02:52 Ipratropium 0.5 Mg/Albuterol Sulfate 2.5 Mg Ampul.Neb 3 Ml INHALATION 3 ml Q6HRT NILESH Administration Budesonide 0.5 mg 06/29/25 20:00 07/02/25 19:53 Budesonide Respule Neb 0.5 Mg/2 Ml Amp INHALATION 0.5 mg Q12HRT NILESH Administration Dextrose 12.5 gm 06/30/25 12:37 06/30/25 17:00 Dextrose 50% 25 Gm/50 Ml Syringe IV PUSH 12.5 gm PRN PRN Administration Hypoglycemia Protocol Glucagon 1 mg 06/30/25 12:37 Glucagon For Inj 1 Mg Vial IM PRN PRN Hypoglycemia Protocol Glucose 15 gm 06/30/25 12:37 Glucose Oral Gel 15 Gm Of Glucse In 37.5 Gm Tube PO PRN PRN Hypoglycemia Protocol Heparin Sodium (Porcine) 5,000 units 06/30/25 10:10 07/01/25 20:43 Heparin Sodium 5,000 Units/Ml Vial SUB-Q 5,000 units Q12HR NILESH Administration Hydralazine HCl 10 mg 06/29/25 17:58 Hydralazine Hcl 20 Mg/Ml Vial IV PUSH Q4H PRN Blood Pressure - High Levetiracetam 1,000 mg in 100 mls @ 400 mls/hr 06/29/25 21:00 07/02/25 21:01 Keppra Iv IVPB Infused Q12HR NILESH Infusion Doxycycline Hyclate 100 mg/ 100 mls @ 100 mls/hr 06/30/25 09:00 07/02/25 21:52 Sodium Chloride IVPB 07/05/25 08:59 Infused Q12H NILESH Infusion Dextrose 1,000 mls @ 100 mls/hr 06/30/25 12:37 Dextrose 5% 1,000 Ml IVPB PRN PRN Hypoglycemia Protocol Cefepime HCl 2 gm/ Sodium 50 mls @ 100 mls/hr 07/01/25 12:00 07/03/25 04:05 Chloride IVPB Infused Q8H NILESH Infusion Vancomycin HCl 1,750 mg in 500 mls @ 250 mls/hr 07/03/25 00:00 07/03/25 01:46 Vancomycin 1,750 Mg/Ns 500 Ml IVPB Infused Q12H NILESH Infusion Insulin Aspart 2 - 5 units 06/30/25 17:00 07/02/25 18:47 Insulin Aspart (*Bkc) 100 Units/Ml SUB-Q Not Given TIDWM [facility] Protocol Metoprolol Tartrate 12.5 mg 07/03/25 09:00 Metoprolol Tartrate 12.5 Mg Tablet PO Q12HR [facility] Pantoprazole Sodium 40 mg 06/29/25 21:00 07/02/25 20:04 Pantoprazole Sodium Iv 40 Mg Vial IV PUSH 40 mg Q12H NILESH Administration Perflutren Lipid Microsphere 0 ml 06/30/25 09:14 Perflutren Lipid Microspheres 1.5 Ml Vial Diluted To 10 Ml Total Volume IV PUSH 07/03/25 09:14 ONCE PRN adequate visualization Protocol Sodium Chloride 10 ml 06/30/25 14:00 07/03/25 06:21 Central Line Flush IV PUSH 10 ml Q8HR NILESH Administration Sodium Chloride 10 ml 06/30/25 10:17 Central Line Flush IV PUSH PRN PRN with TPN bag changes Sodium Chloride 20 ml 06/30/25 10:17 Central Line Flush IV PUSH PRN PRN after blood draws Radiology Results: ITS Impressions Head CT 07/01/25 12:20 IMPRESSION: 1. No acute intracranial process. 2. 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 3. Unchanged tract of encephalomalacia in the anterior right frontal lobe extending between what appears to be a small old right frontal alexis hole and the anterior horn of the lateral ventricle which could be related to prior ventricular drainage catheter placement or sequela of old infarct. Correlate with surgical history. 4. Anterior suprasellar embolization coils. Correlate with surgical history. 5. Moderate scattered white matter hypoattenuation consistent with chronic small vessel ischemic disease. Chest/Abdomen/Pelvis CTA 07/01/25 12:29 IMPRESSION: 1. No evidence for pulmonary embolism. 2: Bilateral airspace consolidation, right greater than left. Differential diagnosis includes atelectasis and/or pneumonia. 3: Marked gallbladder distention, nonspecific. 4: Hepatomegaly. 5: Nonobstructing bilateral nephrolithiasis. Venous Doppler Study 07/01/25 14:49 IMPRESSION: 1: No lower extremity deep venous thrombosis. Chest X-Ray 07/02/25 05:49 Impression: Significant interval improvement in right basilar airspace disease. Stable support tubes. Labs Labs: Laboratory Results - last 24 hr 07/02/25 07/02/25 07/02/25 05:07 11:18 13:30 WBC RBC Hgb Hct MCV MCH MCHC RDW Plt Count MPV Immature Gran % (Auto) Neut % (Auto) Lymph % (Auto) Creek % (Auto) Eos % (Auto) Baso % (Auto) Lymph # (Auto) Creek # (Auto) Eos # (Auto) Baso # (Auto) Abs Immat Gran (auto) Absolute Neuts (auto) Absolute Nucleated RBC Nucleated RBC % % Immature Plt Fraction Puncture Site Not Reportable Right radial ABG pH 7.386 7.388 ABG pCO2 37.4 39.8 ABG pO2 90.8 85.9 ABG PO2/FiO2 Ratio 2.59 2.86 ABG HCO3 21.9 L 23.4 ABG O2 Saturation 96.9 96.4 ABG O2 Content 16.4 15.9 L ABG Base Excess -2.7 -1.4 A-a Gradient 115.3 81.2 Oxyhemoglobin 95.9 95.4 Carboxyhemoglobin 0.8 Methemoglobin 0.3 Reduced Hemoglobin 3.0 Total Hemoglobin 12.1 11.8 L O2 Delivery Device Ventilator Ventilator O2 Liters/Min Not Reportable 0.0 Minute Volume Not Reportable Not Reportable Vent Rate 24 Not Reportable Vent Mode Cmv Spontaneous FiO2 35 30 Tidal Volume 450 Not Reportable PEEP 5 5 Peak Inspir Pressure Not Reportable Not Reportable Pressure Support Not Reportable 8 Sodium Potassium Chloride Carbon Dioxide Anion Gap BUN Creatinine Estim Creat Clear Calc Estimated GFR Glucose POC Capillary Glucose 100 Calcium Phosphorus Magnesium Total Bilirubin AST ALT Alkaline Phosphatase C-Reactive Protein Total Protein Albumin Vancomycin Trough 07/02/25 07/02/25 07/02/25 18:46 19:59 21:58 WBC RBC Hgb Hct MCV MCH MCHC RDW Plt Count MPV Immature Gran % (Auto) Neut % (Auto) Lymph % (Auto) Creek % (Auto) Eos % (Auto) Baso % (Auto) Lymph # (Auto) Creek # (Auto) Eos # (Auto) Baso # (Auto) Abs Immat Gran (auto) Absolute Neuts (auto) Absolute Nucleated RBC Nucleated RBC % % Immature Plt Fraction Puncture Site ABG pH ABG pCO2 ABG pO2 ABG PO2/FiO2 Ratio ABG HCO3 ABG O2 Saturation ABG O2 Content ABG Base Excess A-a Gradient Oxyhemoglobin Carboxyhemoglobin Methemoglobin Reduced Hemoglobin Total Hemoglobin O2 Delivery Device O2 Liters/Min Minute Volume Vent Rate Vent Mode FiO2 Tidal Volume PEEP Peak Inspir Pressure Pressure Support Sodium Potassium Chloride Carbon Dioxide Anion Gap BUN Creatinine Estim Creat Clear Calc Estimated GFR Glucose POC Capillary Glucose 108 H 76 Calcium Phosphorus Magnesium Total Bilirubin AST ALT Alkaline Phosphatase C-Reactive Protein Total Protein Albumin Vancomycin Trough 8.6 L 07/02/25 07/03/25 22:04 04:17 WBC 7.4 RBC 3.21 L Hgb 9.9 L Hct 31.0 L MCV 96.6 MCH 30.8 MCHC 31.9 L RDW 14.2 Plt Count 97 L MPV 12.9 H Immature Gran % (Auto) 0.4 Neut % (Auto) 80.0 H Lymph % (Auto) 9.5 L Creek % (Auto) 7.6 Eos % (Auto) 2.4 Baso % (Auto) 0.1 L Lymph # (Auto) 0.70 L Creek # (Auto) 0.6 Eos # (Auto) 0.2 Baso # (Auto) 0.0 Abs Immat Gran (auto) 0.03 Absolute Neuts (auto) 5.9 Absolute Nucleated RBC 0.000 Nucleated RBC % 0.0 % Immature Plt Fraction 9.8 Puncture Site ABG pH ABG pCO2 ABG pO2 ABG PO2/FiO2 Ratio ABG HCO3 ABG O2 Saturation ABG O2 Content ABG Base Excess A-a Gradient Oxyhemoglobin Carboxyhemoglobin Methemoglobin Reduced Hemoglobin Total Hemoglobin O2 Delivery Device O2 Liters/Min Minute Volume Vent Rate Vent Mode FiO2 Tidal Volume PEEP Peak Inspir Pressure Pressure Support Sodium 137 Potassium 3.8 Chloride 108 H Carbon Dioxide 23 Anion Gap 6 BUN 10 D Creatinine 0.72 Estim Creat Clear Calc 87 Estimated GFR > 60 Glucose 95 POC Capillary Glucose 123 H Calcium 9.0 Phosphorus 2.6 Magnesium 1.8 Total Bilirubin 0.8 AST 30 ALT 16 Alkaline Phosphatase 74 C-Reactive Protein 12.1 H Total Protein 5.6 L Albumin 2.9 L Vancomycin Trough Quality VTE Prophylaxis VTE prophylaxis: mechanical ordered
[2025-07-03] MEDS: METOPROLOL TARTRATE 12.5 MG TABLET PO ×2 (08:58→20:40)
[2025-07-03] MEDS: PANTOPRAZOLE SODIUM IV 40 MG VIAL IV PUSH (08:58)
[2025-07-03] MEDS: DOXYCYCLINE IV 100 MG in SODIUM CHLORIDE 0.9% IV 100 ML IVPB ×2 (08:59→20:35)
[2025-07-03] MEDS: levETIRAcetam 1000MG/NACL100ML 1,000 MG/100 ML BAG 400 MG IVPB ×2 (08:59→20:25)
[2025-07-03] MEDS: BUDESONIDE RESPULE NEB 0.5 MG/2 ML AMP INHALATION ×2 (09:00→20:18)
--- NOTE | 2025-07-03 10:38 | PCNFU ---
Nutrition Follow-Up Complete: Severe Protein Calorie Malnutrition as related to inadequate protein-energy intake with increased energy needs in setting of chronic disease or condition as evidenced by minimal oral intake for > 1-2 months; severe subcutaneous fat loss (orbital fat pads, ribs) and severe muscle wasting (temporalis, clavicle). Goal:Meet estimated nutritional needs. Pt progressing towards goal via PO Pt current nutrition is Regular. Nutrition recommendation: Add Ensure BID for an additional 350kcals, 20g protein per shake, RAMSES BID for wound healing Last recorded weight is 80 kg. Bowel Motility: No BM yet Labs Reviewed: Hgb:9.9, HCT:31, Alb:2.9 Meds Noted: Protonix, heparin, reglan Skin: DTPI to sacrum Additional Notes: Pt extubated, tube feedings discontinued. Regular diet started and pt intake of one meal at 75%. Will add Ensure and RAMSES For supplements. Will monitor weight, labs, skin, diet orders, meds. Follow up in 3 days.
--- NOTE | 2025-07-03 11:15 | P.CDI_ITS ---
<Statement entered by Jerica Lopez MD - 07/09/25 11:19> This documentation has been reviewed and approved. agree, severe CDI Query Clarification Request BMI: 23.3 Nutritional Diagnostic Statement: Please refer to the comprehensive nutrition assessment for further information. If you agree with diagnosis of Severe Protein Calorie Malnutrition as related to inadequate protein-energy intake with increased energy needs in setting of chronic disease or condition as evidenced by minimal oral intake for > 1-2 months; severe subcutaneous fat loss (orbital fat pads, ribs) and severe muscle wasting (temporalis, clavicle). Please specify severity if known: * Mild * Moderate * Severe * Other/Unknown
--- NOTE | 2025-07-03 12:52 | P.PNIM_ITS ---
Progress Note: A&P Assessment and Plan (1) Delusional disorder: Code(s): F22 - Delusional disorders Status: Acute Assessment and Plan: Post extubation patient has developed paranoia, delusion, he is hallucinating. Hyperactive and pressured speech. Flight of ideas. Easily distracted. -according to the niece patient was having some delusions and paranoia at home also and behaving like a young child 07/03/2025: Psychiatry consulted. Administered Zyprexa 5 mg p.o. x1. EKG on 06/29/2025 demonstrating QTC 447. Will obtain another now to assess the QTC interval. (2) Fever: Code(s): R50.9 - Fever, unspecified Status: Acute Assessment and Plan: 06/30: Patient spiked fevers with a T-max of 102.1? F 06/30: Blood cultures: Preliminary report with no growth x2 06/30: Urine cultures : No growth, final 06/30: Sputum cultures : Strep pneumo 06/29: Blood cultures negative x2 06/30: Chest x-ray shows increased haziness in the medial right lung base, could be related to aspiration pneumonia/pneumonitis secondary to aspiration during seizure activity on 06/29/2025 Unasyn and doxycycline started 06/30/2025. 07/01/2025 patient continued to spike fevers. Antibiotics switched to cefepime and vancomycin. Doxycycline continued. Unasyn discontinued. 07/02/2025: Afebrile 07/03/2025: DC vancomycin. Sputum culture growing strep pneumo. 07/01: CT chest abdomen and pelvis IMPRESSION: 1. No evidence for pulmonary embolism. 2: Bilateral airspace consolidation, right greater than left. Differential diagnosis includes atelectasis and/or pneumonia. 3: Marked gallbladder distention, nonspecific. 4: Hepatomegaly. 5: Nonobstructing bilateral nephrolithiasis. (3) Altered mental status: Code(s): R41.82 - Altered mental status, unspecified Status: Inactive Assessment and Plan: [place] [facility] [place] [facility] with altered mental status, confusion and not being himself along with hallucinations and paranoia according to ER notes. -patient was incontinent of stool and urine per EMS -he had a seizure activity on the cardiac catheterization table, -altered mental status could be related to seizure activity and postictal state in combination with underlying psychiatric disorder -07/02/2025: Patient extubated. Since then he has been awake and alert and hyperactive. 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 Anterior suprasellar embolization coils. Moderate scattered white matter hypoattenuation consistent with chronic small- vessel ischemic disease. (4) Seizure: Code(s): R56.9 - Unspecified convulsions Status: Acute Assessment and Plan: 06/29: Patient had a seizure activity on the cardiac catheterization stable -according the EMS he was also incontinent of stool and urine when they got to his house -patient does have a history of paranoid schizophrenia, not on any medications per patient's niece, according to the records. -06/29: Loaded with Keppra 1 g IV x1 a Appreciate Neurology evaluation recommendation. Continue Keppra 1 g q.12 hours -no further seizure activities noted (5) ST elevation (STEMI) myocardial infarction: Qualifiers: Involved coronary artery: unspecified coronary artery Qualified Code(s): I21.3 - ST elevation (STEMI) myocardial infarction of unspecified site Code(s): I21.3 - ST elevation (STEMI) myocardial infarction of unspecified site Status: Inactive Assessment and Plan: EKG at the outside hospital ER showed ST elevations in the anteroseptal leads, with significant ST depression in inferior lateral leads concerning was STEMI -patient taken to cardiac catheterization laboratory technician for coronary angiography -non-obstructive coronary artery disease, right femoral artery angiogram shows there is 80-90% right external iliac lesion. The catheter seems to be semi occlusive at that side. The right common femoral artery could not be well visualized but the catheter entrance site is adequate. -LV EF was 65%, LVEDP was 8 mmHg 06/30/2025: Echocardiogram Summary 1. Complete two-dimensional, color flow and Doppler transthoracic echocardiogram is performed. 2. Left ventricular systolic function is normal, estimated at 50-55. 3. The left ventricular diastolic function is indeterminate. 4. No pulmonary hypertension, estimated pulmonary arterial systolic pressure is 32 mmHg. (6) On mechanically assisted ventilation: Code(s): Z99.11 - Dependence on respirator [ventilator] status Status: Acute Assessment and Plan: 06/29: intubated in the cardiac catheterization laboratory technician after patient had a seizure, altered mental status, agonal breathing and not protecting his airway, aspiration pneumonia -07/02: Extubated successfully -currently on room air -patient has history of COPD, continue bronchodilators and budesonide nebs -PT/OT to evaluate and treat (7) Illicit drug use: Code(s): F19.90 - Other psychoactive substance use, unspecified, uncomplicated Status: Acute Assessment and Plan: Patient has a history of illicit drug use according to the niece patient takes methamphetamine and cannabis. Patient also has a history of schizoaffective paranoia on no medications -acetaminophen, alcohol and salicylic acid levels were all within normal limit -urine drug screen performed in the ICU was positive for cannabis and benzodiazepines (8) Gallbladder dilatation: Code(s): K82.8 - Other specified diseases of gallbladder Status: Acute Assessment and Plan: Marked distention of gallbladder as seen on CT scan of the abdomen pelvis as on -appreciate surgery evaluation and recommendations, patient is a poor surgical candidate, will continue to manage conservatively. If any issues arise in patient complains of abdominal pain will consider ultrasound imaging per surgery. -appreciate GI recommendations, continue to manage conservatively for now 07/01: CT chest abdomen and pelvis IMPRESSION: 1. No evidence for pulmonary embolism. 2: Bilateral airspace consolidation, right greater than left. Differential diagnosis includes atelectasis and/or pneumonia. 3: Marked gallbladder distention, nonspecific. 4: Hepatomegaly. 5: Nonobstructing bilateral nephrolithiasis. Plan Patient is full code. He lives at home with his niece and other roommates. Polysubstance abuse, care coordination consulted. Psychiatry eval for hallucinations delusions. SCDs. Heparin subQ on hold since 07/02/2025 due to decrease in platelets. Pending HIT antibody Subjective Date/time seen: 07/03/25 12:52 Interval history: Patient extubated yesterday. He has no complaints, denies pain. He does have hyperactive speech and flight of ideas. He talks nonsensically. Review of Systems Review of Systems: All systems reviewed & are unremarkable except as noted in HPI and below (Subjective) Exam Const: General: comfortable and no acute distress Other: Talking nonsensically, pressured speech. Hyperactive speech. Flight of ideas. Follows commands but is easily distracted. Eyes: Pupils: Equal, round and reactive pupils present Neck: Neck: supple Resp: Effort & Inspection: normal respiratory effort Auscultation: clear to auscultation bilaterally Cardio: Rate: regular rate Rhythm: regular rhythm GI: Inspection: non-distended GI Palp: Yes Soft to palpation Neuro: Motor exam (neuro): 5/5 motor strength present throughout Extrem: General: no edema Objective Data Vital Signs Vital Signs: Vital Signs - 24 hr 07/02/25 13:09 07/02/25 13:11 07/02/25 13:18 Temperature Pulse Rate 88 86 87 Respiratory Rate 25 H 37 H Blood Pressure Pulse Oximetry 97 Oxygen Delivery Mechanical Ventilation Oxygen Flow Rate Fraction of Inspired Oxygen 30 07/02/25 13:45 07/02/25 13:58 07/02/25 14:00 Temperature Pulse Rate 93 89 Respiratory Rate 16 Blood Pressure 87/56 L Pulse Oximetry 94 Oxygen Delivery Nasal Cannula Oxygen Flow Rate 3 Fraction of Inspired Oxygen 07/02/25 14:00 07/02/25 14:00 07/02/25 14:00 Temperature Pulse Rate 97 97 95 Respiratory Rate 22 H 22 H 19 Blood Pressure Pulse Oximetry Oxygen Delivery Oxygen Flow Rate Fraction of Inspired Oxygen 07/02/25 14:00 07/02/25 14:00 07/02/25 16:00 Temperature 100.8 F H Pulse Rate 86 95 74 Respiratory Rate 23 H 25 H Blood Pressure 90/62 L Pulse Oximetry 97 99 Oxygen Delivery Nasal Cannula Oxygen Flow Rate 2 Fraction of Inspired Oxygen 07/02/25 16:00 07/02/25 16:00 07/02/25 16:00 Temperature Pulse Rate 74 74 74 Respiratory Rate 23 H 23 H Blood Pressure 99/73 L Pulse Oximetry Oxygen Delivery Oxygen Flow Rate Fraction of Inspired Oxygen 07/02/25 16:00 07/02/25 16:00 07/02/25 16:00 Temperature 98.9 F Pulse Rate 74 75 74 Respiratory Rate 23 H 22 H Blood Pressure 99/73 L Pulse Oximetry 99 Oxygen Delivery Oxygen Flow Rate Fraction of Inspired Oxygen 07/02/25 17:15 07/02/25 18:00 07/02/25 18:00 Temperature Pulse Rate 84 86 86 Respiratory Rate 22 H Blood Pressure 126/88 135/84 Pulse Oximetry Oxygen Delivery Oxygen Flow Rate Fraction of Inspired Oxygen 07/02/25 18:00 07/02/25 18:00 07/02/25 18:00 Temperature Pulse Rate 86 86 86 Respiratory Rate 20 20 Blood Pressure Pulse Oximetry Oxygen Delivery Oxygen Flow Rate Fraction of Inspired Oxygen 07/02/25 18:00 07/02/25 18:30 07/02/25 18:30 Temperature 99.3 F Pulse Rate 86 83 83 Respiratory Rate 20 20 20 Blood Pressure 135/84 Pulse Oximetry 99 Oxygen Delivery Oxygen Flow Rate Fraction of Inspired Oxygen 07/02/25 18:30 07/02/25 19:45 07/02/25 19:45 Temperature 99.7 F H Pulse Rate 83 82 82 Respiratory Rate 20 27 H Blood Pressure 113/83 113/83 Pulse Oximetry Oxygen Delivery Oxygen Flow Rate Fraction of Inspired Oxygen 07/02/25 19:54 07/02/25 19:54 07/02/25 20:00 Temperature Pulse Rate 86 85 Respiratory Rate 23 H Blood Pressure 101/68 Pulse Oximetry 97 Oxygen Delivery Nasal Cannula Oxygen Flow Rate 1 Fraction of Inspired Oxygen 07/02/25 20:00 07/02/25 20:00 07/02/25 20:00 Temperature 99.7 F H 99.7 F H Pulse Rate 88 88 Respiratory Rate 19 19 Blood Pressure 101/68 101/68 Pulse Oximetry 100 98 100 Oxygen Delivery Nasal Cannula Oxygen Flow Rate 2 Fraction of Inspired Oxygen 07/02/25 20:00 07/02/25 20:09 07/02/25 20:16 Temperature 99.7 F H Pulse Rate 90 91 96 Respiratory Rate 18 38 H Blood Pressure 103/70 Pulse Oximetry 94 Oxygen Delivery Oxygen Flow Rate Fraction of Inspired Oxygen 07/02/25 20:30 07/02/25 20:45 07/02/25 21:00 Temperature 99.7 F H 99.5 F 99.7 F H Pulse Rate 92 105 H 102 H Respiratory Rate 27 H 21 H 19 Blood Pressure 103/75 107/87 121/79 Pulse Oximetry 94 99 98 Oxygen Delivery Oxygen Flow Rate Fraction of Inspired Oxygen 07/02/25 21:15 07/02/25 21:30 07/02/25 21:45 Temperature 99.8 F H 99.8 F H 99.9 F H Pulse Rate 102 H 101 H 106 H Respiratory Rate 30 H 22 H 38 H Blood Pressure 109/86 122/79 124/88 Pulse Oximetry 100 97 97 Oxygen Delivery Oxygen Flow Rate Fraction of Inspired Oxygen 07/02/25 22:00 07/02/25 22:00 07/02/25 22:00 Temperature 99.9 F H Pulse Rate 104 H 104 H 104 H Respiratory Rate 13 Blood Pressure 114/77 114/77 Pulse Oximetry 94 Oxygen Delivery Oxygen Flow Rate Fraction of Inspired Oxygen 07/02/25 22:15 07/02/25 22:30 07/03/25 00:00 Temperature 100.0 F H 100.0 F H 100.1 F H Pulse Rate 105 H 108 H 97 Respiratory Rate 28 H 17 22 H Blood Pressure 123/81 130/85 141/94 H Pulse Oximetry 96 96 96 Oxygen Delivery Oxygen Flow Rate Fraction of Inspired Oxygen 07/03/25 00:00 07/03/25 00:00 07/03/25 00:00 Temperature 100.1 F H Pulse Rate 97 97 Respiratory Rate 22 H Blood Pressure 141/94 H Pulse Oximetry 96 96 Oxygen Delivery Nasal Cannula Oxygen Flow Rate 1 Fraction of Inspired Oxygen 07/03/25 00:00 07/03/25 02:00 07/03/25 02:00 Temperature Pulse Rate 97 105 H 105 H Respiratory Rate Blood Pressure 141/94 H 107/92 H Pulse Oximetry Oxygen Delivery Oxygen Flow Rate Fraction of Inspired Oxygen 07/03/25 02:02 07/03/25 02:52 07/03/25 02:56 Temperature 99.9 F H Pulse Rate 105 H 101 H 100 Respiratory Rate 16 24 H 15 Blood Pressure 107/92 H Pulse Oximetry 97 Oxygen Delivery Oxygen Flow Rate Fraction of Inspired Oxygen 07/03/25 04:00 07/03/25 04:00 07/03/25 04:00 Temperature 99.1 F 99.1 F Pulse Rate 99 99 Respiratory Rate 14 14 Blood Pressure 119/66 119/66 Pulse Oximetry 98 98 98 Oxygen Delivery Room Air Oxygen Flow Rate Fraction of Inspired Oxygen 07/03/25 04:00 07/03/25 04:00 07/03/25 06:00 Temperature Pulse Rate 99 99 121 H Respiratory Rate Blood Pressure 119/66 Pulse Oximetry Oxygen Delivery Oxygen Flow Rate Fraction of Inspired Oxygen 07/03/25 06:00 07/03/25 06:00 07/03/25 08:00 Temperature 99 F Pulse Rate 121 H 121 H 116 H Respiratory Rate 27 H Blood Pressure 137/89 137/89 139/88 Pulse Oximetry 95 Oxygen Delivery Oxygen Flow Rate Fraction of Inspired Oxygen 07/03/25 08:00 07/03/25 08:00 07/03/25 08:00 Temperature 99.2 F Pulse Rate 120 H 104 H Respiratory Rate 20 Blood Pressure 139/88 Pulse Oximetry 100 Oxygen Delivery Room Air Oxygen Flow Rate Fraction of Inspired Oxygen 07/03/25 08:58 07/03/25 09:00 07/03/25 09:04 Temperature Pulse Rate 118 H 118 H Respiratory Rate 16 Blood Pressure Pulse Oximetry 94 Oxygen Delivery Room Air Oxygen Flow Rate Fraction of Inspired Oxygen 21 07/03/25 09:06 07/03/25 10:00 07/03/25 10:00 Temperature 99.6 F Pulse Rate 117 H 106 H 99 Respiratory Rate 16 18 Blood Pressure 147/106 H Pulse Oximetry 97 Oxygen Delivery Oxygen Flow Rate Fraction of Inspired Oxygen 07/03/25 12:00 07/03/25 12:00 07/03/25 12:00 Temperature 99.6 F Pulse Rate 109 H 103 H Respiratory Rate 20 Blood Pressure 148/95 H Pulse Oximetry 98 Oxygen Delivery Room Air Oxygen Flow Rate Fraction of Inspired Oxygen Intake/Output Intake/Output: Intake & Output 06/30/25 07/01/25 07/02/25 07/03/25 23:59 23:59 23:59 23:59 Intake Total 2448.6 2128.5 2539.5 850 Output Total 1250 1250 950 850 Balance 1198.6 878.5 1589.5 0 Meds/Results Medications: Active Medications Generic Name Dose Route Start Last Admin Trade Name Freq PRN Reason Stop Dose Admin Acetaminophen 650 mg 07/02/25 19:29 07/03/25 11:19 Acetaminophen 325 Mg Tablet PO 650 mg Q6H PRN Administration Mild Pain (1-3) or Fever Albuterol/Ipratropium 3 ml 06/29/25 14:00 07/03/25 09:00 Ipratropium 0.5 Mg/Albuterol Sulfate 2.5 Mg Ampul.Neb 3 Ml INHALATION 3 ml Q6HRT NILESH Administration Budesonide 0.5 mg 06/29/25 20:00 07/03/25 09:00 Budesonide Respule Neb 0.5 Mg/2 Ml Amp INHALATION 0.5 mg Q12HRT NILESH Administration Dextrose 12.5 gm 06/30/25 12:37 06/30/25 17:00 Dextrose 50% 25 Gm/50 Ml Syringe IV PUSH 12.5 gm PRN PRN Administration Hypoglycemia Protocol Glucagon 1 mg 06/30/25 12:37 Glucagon For Inj 1 Mg Vial IM PRN PRN Hypoglycemia Protocol Glucose 15 gm 06/30/25 12:37 Glucose Oral Gel 15 Gm Of Glucse In 37.5 Gm Tube PO PRN PRN Hypoglycemia Protocol Hydralazine HCl 10 mg 06/29/25 17:58 Hydralazine Hcl 20 Mg/Ml Vial IV PUSH Q4H PRN Blood Pressure - High Levetiracetam 1,000 mg in 100 mls @ 400 mls/hr 06/29/25 21:00 07/03/25 08:59 Keppra Iv IVPB 400 mls/hr Q12HR NILESH Administration Doxycycline Hyclate 100 mg/ 100 mls @ 100 mls/hr 06/30/25 09:00 07/03/25 08:59 Sodium Chloride IVPB 07/05/25 08:59 100 mls/hr Q12H NILESH Administration Dextrose 1,000 mls @ 100 mls/hr 06/30/25 12:37 Dextrose 5% 1,000 Ml IVPB PRN PRN Hypoglycemia Protocol Cefepime HCl 2 gm/ Sodium 50 mls @ 100 mls/hr 07/01/25 12:00 07/03/25 11:20 Chloride IVPB 100 mls/hr Q8H NILESH Administration Insulin Aspart 2 - 5 units 06/30/25 17:00 07/03/25 11:31 Insulin Aspart (*Bkc) 100 Units/Ml SUB-Q Not Given TIDWM NILESH Protocol Metoprolol Tartrate 12.5 mg 07/03/25 09:00 07/03/25 08:58 Metoprolol Tartrate 12.5 Mg Tablet PO 12.5 mg Q12HR NILESH Administration Sodium Chloride 10 ml 06/30/25 14:00 07/03/25 06:21 Central Line Flush IV PUSH 10 ml Q8HR NILESH Administration Sodium Chloride 10 ml 06/30/25 10:17 Central Line Flush IV PUSH PRN PRN with TPN bag changes Sodium Chloride 20 ml 06/30/25 10:17 Central Line Flush IV PUSH PRN PRN after blood draws Radiology Results: ITS Impressions Head CT 07/01/25 12:20 IMPRESSION: 1. No acute intracranial process. 2. 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 3. Unchanged tract of encephalomalacia in the anterior right frontal lobe extending between what appears to be a small old right frontal aelxis hole and the anterior horn of the lateral ventricle which could be related to prior ventricular drainage catheter placement or sequela of old infarct. Correlate with surgical history. 4. Anterior suprasellar embolization coils. Correlate with surgical history. 5. Moderate scattered white matter hypoattenuation consistent with chronic small vessel ischemic disease. Chest/Abdomen/Pelvis CTA 07/01/25 12:29 IMPRESSION: 1. No evidence for pulmonary embolism. 2: Bilateral airspace consolidation, right greater than left. Differential diagnosis includes atelectasis and/or pneumonia. 3: Marked gallbladder distention, nonspecific. 4: Hepatomegaly. 5: Nonobstructing bilateral nephrolithiasis. Venous Doppler Study 07/01/25 14:49 IMPRESSION: 1: No lower extremity deep venous thrombosis. Chest X-Ray 07/02/25 05:49 Impression: Significant interval improvement in right basilar airspace disease. Stable support tubes. Labs Labs: Laboratory Results - last 24 hr 07/02/25 07/02/25 07/02/25 13:30 18:46 19:59 WBC RBC Hgb Hct MCV MCH MCHC RDW Plt Count MPV Immature Gran % (Auto) Neut % (Auto) Lymph % (Auto) [place] % (Auto) Eos % (Auto) Baso % (Auto) Lymph # (Auto) [place] # (Auto) Eos # (Auto) Baso # (Auto) Abs Immat Gran (auto) Absolute Neuts (auto) Absolute Nucleated RBC Nucleated RBC % % Immature Plt Fraction Puncture Site Right radial ABG pH 7.388 ABG pCO2 39.8 ABG pO2 85.9 ABG PO2/FiO2 Ratio 2.86 ABG HCO3 23.4 ABG O2 Saturation 96.4 ABG O2 Content 15.9 L ABG Base Excess -1.4 A-a Gradient 81.2 Oxyhemoglobin 95.4 Total Hemoglobin 11.8 L O2 Delivery Device Ventilator O2 Liters/Min 0.0 Minute Volume Not Reportable Vent Rate Not Reportable Vent Mode Spontaneous FiO2 30 Tidal Volume Not Reportable PEEP 5 Peak Inspir Pressure Not Reportable Pressure Support 8 Sodium Potassium Chloride Carbon Dioxide Anion Gap BUN Creatinine Estim Creat Clear Calc Estimated GFR Glucose POC Capillary Glucose 108 H 76 Calcium Phosphorus Magnesium Total Bilirubin AST ALT Alkaline Phosphatase C-Reactive Protein Total Protein Albumin Vancomycin Trough 07/02/25 07/02/25 07/03/25 21:58 22:04 04:17 WBC 7.4 RBC 3.21 L Hgb 9.9 L Hct 31.0 L MCV 96.6 MCH 30.8 MCHC 31.9 L RDW 14.2 Plt Count 97 L MPV 12.9 H Immature Gran % (Auto) 0.4 Neut % (Auto) 80.0 H Lymph % (Auto) 9.5 L [place] % (Auto) 7.6 Eos % (Auto) 2.4 Baso % (Auto) 0.1 L Lymph # (Auto) 0.70 L [place] # (Auto) 0.6 Eos # (Auto) 0.2 Baso # (Auto) 0.0 Abs Immat Gran (auto) 0.03 Absolute Neuts (auto) 5.9 Absolute Nucleated RBC 0.000 Nucleated RBC % 0.0 % Immature Plt Fraction 9.8 Puncture Site ABG pH ABG pCO2 ABG pO2 ABG PO2/FiO2 Ratio ABG HCO3 ABG O2 Saturation ABG O2 Content ABG Base Excess A-a Gradient Oxyhemoglobin Total Hemoglobin O2 Delivery Device O2 Liters/Min Minute Volume Vent Rate Vent Mode FiO2 Tidal Volume PEEP Peak Inspir Pressure Pressure Support Sodium 137 Potassium 3.8 Chloride 108 H Carbon Dioxide 23 Anion Gap 6 BUN 10 D Creatinine 0.72 Estim Creat Clear Calc 87 Estimated GFR > 60 Glucose 95 POC Capillary Glucose 123 H Calcium 9.0 Phosphorus 2.6 Magnesium 1.8 Total Bilirubin 0.8 AST 30 ALT 16 Alkaline Phosphatase 74 C-Reactive Protein 12.1 H Total Protein 5.6 L Albumin 2.9 L Vancomycin Trough 8.6 L 07/03/25 07/03/25 08:50 11:30 WBC RBC Hgb Hct MCV MCH MCHC RDW Plt Count MPV Immature Gran % (Auto) Neut % (Auto) Lymph % (Auto) [place] % (Auto) Eos % (Auto) Baso % (Auto) Lymph # (Auto) [place] # (Auto) Eos # (Auto) Baso # (Auto) Abs Immat Gran (auto) Absolute Neuts (auto) Absolute Nucleated RBC Nucleated RBC % % Immature Plt Fraction Puncture Site ABG pH ABG pCO2 ABG pO2 ABG PO2/FiO2 Ratio ABG HCO3 ABG O2 Saturation ABG O2 Content ABG Base Excess A-a Gradient Oxyhemoglobin Total Hemoglobin O2 Delivery Device O2 Liters/Min Minute Volume Vent Rate Vent Mode FiO2 Tidal Volume PEEP Peak Inspir Pressure Pressure Support Sodium Potassium Chloride Carbon Dioxide Anion Gap BUN Creatinine Estim Creat Clear Calc Estimated GFR Glucose POC Capillary Glucose 107 H 108 H Calcium Phosphorus Magnesium Total Bilirubin AST ALT Alkaline Phosphatase C-Reactive Protein Total Protein Albumin Vancomycin Trough
--- NOTE | 2025-07-03 13:40 | ECG_ITS ---
Test Date: 2025-07-03 14:04:42 Measurements Intervals [place] Rate: 93 P: 75 AR: 134 QRS: 81 QRSD: 106 T: 91 QT: 368 QTc: 458 Interpretive Statements SINUS RHYTHM POSSIBLE LEFT ATRIAL ENLARGEMENT CANNOT R/O SEPTAL INFARCT, AGE INDETERMINATE BORDERLINE ST-T WAVE ABNORMALITY- INF/LAT LEADS BASELINE ARTIFACT- AVR, AVL, V5 ABNORMAL ECG Compared to ECG 06/29/2025 14:04:52 POSSIBLE ISCHEMIA NO LONGER PRESENT Electronically Signed On 07-03-2025 15:06:19 CDT by José Kerr D.O.
--- NOTE | 2025-07-03 17:15 | PC.NURSE ---
Patients bed alarms going off so this RN went to assess. Upon entering the room, this RN noted the trash can had been dumped out, and patient was standing on their knees peeing into the beside trash-can and across the floor. Urine noted to be all over the floor and at the doorway. Patient had removed their purewick,but does not recall doing such. Patient keeps stating I'm senile but I'm a genius. RN re-iterated safety including staying in bed, using the call light, and peeing into either the purewick or bedside urinal. Patient proceeded with stating he will throw up in the bed because I'm a genius and I'm on TV, look I'm on TV. Bed alarms and nod-skid socks in place, RN to continue to monitor patient.
--- NOTE | 2025-07-03 17:35 | P.PSYCH_ITS ---
Assessment and Plan Assessment and plan (1) Schizophrenia, acute: Code(s): F23 - Brief psychotic disorder Status: Acute (2) Illicit drug use: Code(s): F19.90 - Other psychoactive substance use, unspecified, uncomplicated Status: Acute Plan Reported history of schizophrenia/paranoia, no know home psychiatric medication or treatment. Attempted to contact niece without answer for additional information and history. Difficult to discern between organic thought disorder versus substance induced psychosis without extensive history, additionally likely compounded by delirium due to complex medical factors, ICU admission. Recommendations: -Increase scheduled olanzapine to 10mg qHS for pychosis; likely would benefit from ODT for compliance; watch patient take medication. -Start olanzapine ODT 2.5mg BID PRN for agitation -Delirium precautions -Likely would benefit from inpatient psychiatric admission once medically stabilized HPI Data of Consult Date/Time: 07/03/25 17:35 Requesting Physician: Robert Armendariz MD Primary Care Provider: Nolan Woodard MD Consult Narrative Narrative: Alex Shane is a 65 year old male admitted 06/29 with altered mental status and confusion. Reportedly, his niece, who he supposedly lives with, called 911 due to the patient not acting right which had worsened over the past week prior to admission. Niece reported he has a history of schizophrenia with paranoia, hallucinations, although appears to be unmedicated for such. Additionally, he has a history of cannabis and methamphetamine use in the past. Drug screen on admission was positive for THC and benzodiazepines. In the ED, he was subsequently found to have a STEMI and taken to cardiac labor relations specialist where he had a seizure and was intubated and transferred to ICU. He was extubated 07/02. Since extubation, he has been overtly delusional and expresses paranoia, however is A/O x 3. He is tangential in conversation with loose associated, difficult to re-direct at times. He is a poor historian, difficult to obtain an accurate psychiatric or social history. Review of Systems 2 Psychiatric: Psychiatric: Reports behavioral changes, Reports confusion and Reports paranoia [facility] Past Medical History Medical History (Updated 07/03/25 @ 17:45 by Anna Bacon APRN) Seizure disorder History of recent neurosurgical procedure Family History Family History Mother Migraine Father Ischemic heart disease Sibling Intracranial aneurysm Social History Social History (System 06/30/25 @ 07:39 by Ángel Arechiga) Social History: marijuana abuse, history of meth abuse Smoking packs per day: 1 Smoking cigarettes per day: 20.0 Smoking status: Current every day smoker Alcohol intake: unknown Substance use type: amphetamines Other substance usage details: PT intubated, unable to answer admission questions Spiritual care concerns: No Meds Home Medications and Allergies Home Medications ?Medication ?Instructions ?Recorded ?Confirmed ?Type No Home Medications 06/29/25 06/29/25 History Allergies Allergy/AdvReac Type Severity Reaction Status Date / Time diphenhydramine (From Allergy Rash Verified 06/30/25 07:39 Benadryl) milk] Allergy Mild vomiting Uncoded 06/30/25 07:39 Vital Signs Vital Signs - 24 hr 07/02/25 18:00 07/02/25 18:00 07/02/25 18:00 Temperature Pulse Rate 86 86 86 Respiratory Rate 22 H 20 Blood Pressure 135/84 Pulse Oximetry Oxygen Delivery Oxygen Flow Rate Fraction of Inspired Oxygen 07/02/25 18:00 07/02/25 18:00 07/02/25 18:00 Temperature 99.3 F Pulse Rate 86 86 86 Respiratory Rate 20 20 Blood Pressure 135/84 Pulse Oximetry 99 Oxygen Delivery Oxygen Flow Rate Fraction of Inspired Oxygen 07/02/25 18:30 07/02/25 18:30 07/02/25 18:30 Temperature Pulse Rate 83 83 83 Respiratory Rate 20 20 20 Blood Pressure Pulse Oximetry Oxygen Delivery Oxygen Flow Rate Fraction of Inspired Oxygen 07/02/25 19:45 07/02/25 19:45 07/02/25 19:54 Temperature 99.7 F H Pulse Rate 82 82 Respiratory Rate 27 H Blood Pressure 113/83 113/83 Pulse Oximetry 97 Oxygen Delivery Nasal Cannula Oxygen Flow Rate 1 Fraction of Inspired Oxygen 07/02/25 19:54 07/02/25 20:00 07/02/25 20:00 Temperature 99.7 F H Pulse Rate 86 85 88 Respiratory Rate 23 H 19 Blood Pressure 101/68 101/68 Pulse Oximetry 100 Oxygen Delivery Oxygen Flow Rate Fraction of Inspired Oxygen 07/02/25 20:00 07/02/25 20:00 07/02/25 20:00 Temperature 99.7 F H Pulse Rate 88 90 Respiratory Rate 19 Blood Pressure 101/68 Pulse Oximetry 98 100 Oxygen Delivery Nasal Cannula Oxygen Flow Rate 2 Fraction of Inspired Oxygen 07/02/25 20:09 07/02/25 20:16 07/02/25 20:30 Temperature 99.7 F H 99.7 F H Pulse Rate 91 96 92 Respiratory Rate 18 38 H 27 H Blood Pressure 103/70 103/75 Pulse Oximetry 94 94 Oxygen Delivery Oxygen Flow Rate Fraction of Inspired Oxygen 07/02/25 20:45 07/02/25 21:00 07/02/25 21:15 Temperature 99.5 F 99.7 F H 99.8 F H Pulse Rate 105 H 102 H 102 H Respiratory Rate 21 H 19 30 H Blood Pressure 107/87 121/79 109/86 Pulse Oximetry 99 98 100 Oxygen Delivery Oxygen Flow Rate Fraction of Inspired Oxygen 07/02/25 21:30 07/02/25 21:45 07/02/25 22:00 Temperature 99.8 F H 99.9 F H Pulse Rate 101 H 106 H 104 H Respiratory Rate 22 H 38 H Blood Pressure 122/79 124/88 Pulse Oximetry 97 97 Oxygen Delivery Oxygen Flow Rate Fraction of Inspired Oxygen 07/02/25 22:00 07/02/25 22:00 07/02/25 22:15 Temperature 99.9 F H 100.0 F H Pulse Rate 104 H 104 H 105 H Respiratory Rate 13 28 H Blood Pressure 114/77 114/77 123/81 Pulse Oximetry 94 96 Oxygen Delivery Oxygen Flow Rate Fraction of Inspired Oxygen 07/02/25 22:30 07/03/25 00:00 07/03/25 00:00 Temperature 100.0 F H 100.1 F H Pulse Rate 108 H 97 Respiratory Rate 17 22 H Blood Pressure 130/85 141/94 H Pulse Oximetry 96 96 96 Oxygen Delivery Nasal Cannula Oxygen Flow Rate 1 Fraction of Inspired Oxygen 07/03/25 00:00 07/03/25 00:00 07/03/25 00:00 Temperature 100.1 F H Pulse Rate 97 97 97 Respiratory Rate 22 H Blood Pressure 141/94 H 141/94 H Pulse Oximetry 96 Oxygen Delivery Oxygen Flow Rate Fraction of Inspired Oxygen 07/03/25 02:00 07/03/25 02:00 07/03/25 02:02 Temperature 99.9 F H Pulse Rate 105 H 105 H 105 H Respiratory Rate 16 Blood Pressure 107/92 H 107/92 H Pulse Oximetry 97 Oxygen Delivery Oxygen Flow Rate Fraction of Inspired Oxygen 07/03/25 02:52 07/03/25 02:56 07/03/25 04:00 Temperature 99.1 F Pulse Rate 101 H 100 99 Respiratory Rate 24 H 15 14 Blood Pressure 119/66 Pulse Oximetry 98 Oxygen Delivery Oxygen Flow Rate Fraction of Inspired Oxygen 07/03/25 04:00 07/03/25 04:00 07/03/25 04:00 Temperature 99.1 F Pulse Rate 99 99 Respiratory Rate 14 Blood Pressure 119/66 Pulse Oximetry 98 98 Oxygen Delivery Room Air Oxygen Flow Rate Fraction of Inspired Oxygen 07/03/25 04:00 07/03/25 06:00 07/03/25 06:00 Temperature 99 F Pulse Rate 99 121 H 121 H Respiratory Rate 27 H Blood Pressure 119/66 137/89 Pulse Oximetry 95 Oxygen Delivery Oxygen Flow Rate Fraction of Inspired Oxygen 07/03/25 06:00 07/03/25 08:00 07/03/25 08:00 Temperature 99.2 F Pulse Rate 121 H 116 H 120 H Respiratory Rate 20 Blood Pressure 137/89 139/88 139/88 Pulse Oximetry 100 Oxygen Delivery Oxygen Flow Rate Fraction of Inspired Oxygen 07/03/25 08:00 07/03/25 08:00 07/03/25 08:58 Temperature Pulse Rate 104 H 118 H Respiratory Rate Blood Pressure Pulse Oximetry Oxygen Delivery Room Air Oxygen Flow Rate Fraction of Inspired Oxygen 07/03/25 09:00 07/03/25 09:04 07/03/25 09:06 Temperature Pulse Rate 118 H 117 H Respiratory Rate 16 16 Blood Pressure Pulse Oximetry 94 Oxygen Delivery Room Air Oxygen Flow Rate Fraction of Inspired Oxygen 21 07/03/25 10:00 07/03/25 10:00 07/03/25 12:00 Temperature 99.6 F Pulse Rate 106 H 99 Respiratory Rate 18 Blood Pressure 147/106 H Pulse Oximetry 97 Oxygen Delivery Room Air Oxygen Flow Rate Fraction of Inspired Oxygen 07/03/25 12:00 07/03/25 12:00 07/03/25 14:00 Temperature 99.6 F Pulse Rate 109 H 103 H 109 H Respiratory Rate 20 Blood Pressure 148/95 H Pulse Oximetry 98 Oxygen Delivery Oxygen Flow Rate Fraction of Inspired Oxygen 07/03/25 14:00 07/03/25 16:00 07/03/25 16:00 Temperature 98.1 F Pulse Rate 105 H 107 H Respiratory Rate 20 30 H Blood Pressure 150/97 H 157/107 H Pulse Oximetry 100 97 Oxygen Delivery Room Air Oxygen Flow Rate Fraction of Inspired Oxygen Exam 2 Psych: Appearance: disheveled Speech and movement: Psychomotor agitation in speech present Affect: Labile affect present Attitude: Other attitude/behavior findings present (Psych) (uncooperative ) Thought process: Confabulating thought process present and Loose association thought process present Thought content: Yes Paranoid delusions present Insight: Poor insight present (Psych) Judgement: Poor judgement present (Psych) Results Labs 07/03/25 04:17 07/03/25 04:17 Labs: Short CBC 07/03/25 Range/Units 04:17 WBC 7.4 (4.5-10.0) K/mm3 Hgb 9.9 L (14.0-18.0) g/dL Hct 31.0 L (42.0-52.0) % Plt Count 97 L (150-375) k/mm3 BMP 07/03/25 04:17 Sodium 137 Potassium 3.8 Chloride 108 H Carbon Dioxide 23 BUN 10 D Creatinine 0.72 Glucose 95 Calcium 9.0 Liver Function 07/03/25 Range/Units 04:17 Total Bilirubin 0.8 (0.2-1.3) mg/dL AST 30 (17-59) U/L ALT 16 (6-50) U/L Alkaline Phosphatase 74 (38-126) U/L Albumin 2.9 L (3.5-5.1) g/dL
[2025-07-03] MEDS: OLANZapine ODT DISPERTAB 5 MG 10 MG PO (20:41)
[2025-07-04] VITALS (21 sets, daily range): BP systolic 150–173; BP diastolic 87–103; PULSE 95–109; RESP 17–22; TEMP 36.4–37.5; O2SAT 95–100
--- NOTE | 2025-07-04 02:55 | WNDPHOTO ---
PHOTO ONLY - See Nursing Notes and/ or assessments for documentation.
[2025-07-04] MEDS: CEFEPIME 2 GM in SODIUM CHLORIDE 0.9% IV 50 ML 100 ML IVPB ×3 (04:15→20:56)
[2025-07-04 04:19] LABS: Hematocrit 37.7 % (42.0-52.0); Hemoglobin 12.4 g/dL (14.0-18.0); Immature Granulocyte Percent A 0.7 % (0-0.5); Lymphocytes Absolute Auto 0.86 K/mm3 (0.9-3.2); Mean Corpuscular HGB Conc 32.9 g/dl (32-36); Mean Corpuscular Hemoglobin 30.9 pg (26-34); Mean Corpuscular Volume 94.0 fl (80-100); Nucleated Red Blood Cells Absolute Auto 0.000 K/mm3 (0.0-0.012); Nucleated Red Blood Cells Perc 0.0 % (0.0-0.2); Platelet Count Result 141 k/mm3 (150-375); Red Blood Count 4.01 M/mm3 (4.6-6.20); White Blood Count 7.5 K/mm3 (4.5-10.0)
[2025-07-04] MEDS: CENTRAL LINE FLUSH 10 ML IV PUSH ×3 (05:08→21:08)
[2025-07-04 05:12] LABS: Anion Gap 8 mmol/L (4-12); Blood Urea Nitrogen 13 mg/dL (9-20); Calcium 9.6 mg/dL (8.4-10.2); Carbon Dioxide 25 mmol/L (22-30); Chloride 102 mmol/L (98-107); Estimated CRCL calculation 66 ml/min; Estimated Glomerular Filt Rate > 60; Glucose 93 mg/dL (65-110); Magnesium 1.8 mg/dL (1.6-2.3); Potassium 3.7 mmol/L (3.4-5.0); Sodium 135 mmol/L (137-145)
[2025-07-04] MEDS: IPRATROPIUM 0.5 MG/ALBUTEROL SULFATE 2.5 MG AMPUL.NEB 3 ML INHALATION (07:50)
[2025-07-04] MEDS: BUDESONIDE RESPULE NEB 0.5 MG/2 ML AMP INHALATION (07:56)
[2025-07-04] MEDS: METOPROLOL TARTRATE 12.5 MG TABLET PO ×2 (08:00→21:06)
[2025-07-04] MEDS: OLANZapine ODT DISPERTAB 5 MG 2.5 MG PO ×2 (08:00→17:00)
[2025-07-04] MEDS: DOXYCYCLINE IV 100 MG in SODIUM CHLORIDE 0.9% IV 100 ML IVPB ×2 (08:01→21:29)
[2025-07-04] MEDS: levETIRAcetam 1000MG/NACL100ML 1,000 MG/100 ML BAG 400 MG IVPB ×2 (08:01→20:59)
--- NOTE | 2025-07-04 10:32 | PCPTNOTE ---
Attempted to see patient. Pt diagnosed as delusional. When asked to sit up at edge of bed pt stated he was unable due to being senile. Also attempted to redirect patient multiple times to encourage standing, pt stated he could not stand at the moment. Unable to redirect patient to participate in bed mobility or ambulation. Will reattempt as able.
--- NOTE | 2025-07-04 14:56 | P.PNIM_ITS ---
Progress Note: A&P Assessment and Plan (1) Delusional disorder: Code(s): F22 - Delusional disorders Status: Acute Assessment and Plan: Post extubation patient has developed paranoia, delusion, he is hallucinating. Hyperactive and pressured speech. Flight of ideas. Easily distracted. -according to the niece patient was having some delusions and paranoia at home also and behaving like a young child 07/03/2025: Psychiatry consulted. Administered Zyprexa 5 mg p.o. x1. EKG on 06/29/2025 demonstrating QTC 447. Will obtain another now to assess the QTC interval. 07/04/2025: Psychiatry recommendations appreciated. Continue Zyprexa 10 mg p.o. HS and Zyprexa 2.5 mg p.o. b.i.d.. QTC on 07/03/2025 is 458. Check again on 07/06/2025. (2) Fever: Code(s): R50.9 - Fever, unspecified Status: Acute Assessment and Plan: 06/30: Patient spiked fevers with a T-max of 102.1? F 06/30: Blood cultures: Preliminary report with no growth x2 06/30: Urine cultures : No growth, final 06/30: Sputum cultures : Strep pneumo 06/29: Blood cultures negative x2 06/30: Chest x-ray shows increased haziness in the medial right lung base, could be related to aspiration pneumonia/pneumonitis secondary to aspiration during seizure activity on 06/29/2025 Unasyn and doxycycline started 06/30/2025. 07/01/2025 patient continued to spike fevers. Antibiotics switched to cefepime and vancomycin. Doxycycline continued. Unasyn discontinued. 07/02/2025: Afebrile 07/03/2025: DC vancomycin. Sputum culture growing strep pneumo. 07/04/2025: Remains afebrile, transition to Augmentin on 07/05/2025 if remains stable. 07/01: CT chest abdomen and pelvis IMPRESSION: 1. No evidence for pulmonary embolism. 2: Bilateral airspace consolidation, right greater than left. Differential diagnosis includes atelectasis and/or pneumonia. 3: Marked gallbladder distention, nonspecific. 4: Hepatomegaly. 5: Nonobstructing bilateral nephrolithiasis. (3) Altered mental status: Code(s): R41.82 - Altered mental status, unspecified Status: Inactive Assessment and Plan: Patient presented to [facility] in [facility] with altered mental status, confusion and not being himself along with hallucinations and paranoia according to ER notes. -patient was incontinent of stool and urine per EMS -he had a seizure activity on the cardiac catheterization table, -altered mental status could be related to seizure activity and postictal state in combination with underlying psychiatric disorder -07/02/2025: Patient extubated. Since then he has been awake and alert and hyperactive. 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 Anterior suprasellar embolization coils. Moderate scattered white matter hypoattenuation consistent with chronic small- vessel ischemic disease. (4) Seizure: Code(s): R56.9 - Unspecified convulsions Status: Acute Assessment and Plan: 06/29: Patient had a seizure activity on the cardiac catheterization stable -according the EMS he was also incontinent of stool and urine when they got to his house -patient does have a history of paranoid schizophrenia, not on any medications per patient's niece, according to the records. -06/29: Loaded with Keppra 1 g IV x1 a Appreciate Neurology evaluation recommendation. Continue Keppra 1 g q.12 hours -no further seizure activities noted (5) ST elevation (STEMI) myocardial infarction: Qualifiers: Involved coronary artery: unspecified coronary artery Qualified Code(s): I21.3 - ST elevation (STEMI) myocardial infarction of unspecified site Code(s): I21.3 - ST elevation (STEMI) myocardial infarction of unspecified site Status: Inactive Assessment and Plan: EKG at the outside hospital ER showed ST elevations in the anteroseptal leads, with significant ST depression in inferior lateral leads concerning was STEMI -patient taken to cardiac chemical lab technician for coronary angiography -non-obstructive coronary artery disease, right femoral artery angiogram shows there is 80-90% right external iliac lesion. The catheter seems to be semi occlusive at that side. The right common femoral artery could not be well visualized but the catheter entrance site is adequate. -LV EF was 65%, LVEDP was 8 mmHg 06/30/2025: Echocardiogram Summary 1. Complete two-dimensional, color flow and Doppler transthoracic echocardiogram is performed. 2. Left ventricular systolic function is normal, estimated at 50-55. 3. The left ventricular diastolic function is indeterminate. 4. No pulmonary hypertension, estimated pulmonary arterial systolic pressure is 32 mmHg. (6) On mechanically assisted ventilation: Code(s): Z99.11 - Dependence on respirator [ventilator] status Status: Acute Assessment and Plan: 06/29: intubated in the cardiac chemical lab technician after patient had a seizure, altered mental status, agonal breathing and not protecting his airway, aspiration pneumonia -07/02: Extubated successfully -currently on room air -patient has history of COPD, continue bronchodilators and budesonide nebs -PT/OT to evaluate and treat (7) Illicit drug use: Code(s): F19.90 - Other psychoactive substance use, unspecified, uncomplicated Status: Acute Assessment and Plan: Patient has a history of illicit drug use according to the niece patient takes methamphetamine and cannabis. Patient also has a history of schizoaffective paranoia on no medications -acetaminophen, alcohol and salicylic acid levels were all within normal limit -urine drug screen performed in the ICU was positive for cannabis and benzodiazepines (8) Gallbladder dilatation: Code(s): K82.8 - Other specified diseases of gallbladder Status: Acute Assessment and Plan: Marked distention of gallbladder as seen on CT scan of the abdomen pelvis as on -appreciate surgery evaluation and recommendations, patient is a poor surgical candidate, will continue to manage conservatively. If any issues arise in patient complains of abdominal pain will consider ultrasound imaging per surgery. -appreciate GI recommendations, continue to manage conservatively for now 07/01: CT chest abdomen and pelvis IMPRESSION: 1. No evidence for pulmonary embolism. 2: Bilateral airspace consolidation, right greater than left. Differential diagnosis includes atelectasis and/or pneumonia. 3: Marked gallbladder distention, nonspecific. 4: Hepatomegaly. 5: Nonobstructing bilateral nephrolithiasis. Plan Patient is full code. He lives at home with his niece and other roommates. Polysubstance abuse, care coordination consulted. Psychiatry eval for hallucinations delusions, they recommend transfer to inpatient psych unit when medically stable. SCDs. Heparin subQ on hold since 07/02/2025 due to decrease in platelets. Pending HIT antibody. Subjective Date/time seen: 07/04/25 14:56 Interval history: No major acute overnight events. Patient has very hyperactive speech today. He has nonsensical speech still. He is talking about a marriage in [facility]. He declines exam. Review of Systems Review of Systems: ROS unobtainable: Yes unobtainable due to mental status Exam Psych: Other: Patient declines exam. Hyperactive, pressured speech, flight of ideas. Objective Data Vital Signs Vital Signs: Vital Signs - 24 hr 07/03/25 16:00 07/03/25 16:00 07/03/25 16:00 Temperature 98.1 F Pulse Rate 107 H 112 H Respiratory Rate 30 H Blood Pressure 157/107 H Pulse Oximetry 97 Oxygen Delivery Room Air 07/03/25 18:00 07/03/25 18:00 07/03/25 20:00 Temperature 98.6 F Pulse Rate 109 H 98 113 H Respiratory Rate 13 20 Blood Pressure 161/104 H 158/80 H Pulse Oximetry 99 96 Oxygen Delivery 07/03/25 20:00 07/03/25 20:00 07/03/25 20:17 Temperature Pulse Rate 106 H Respiratory Rate Blood Pressure Pulse Oximetry 97 Oxygen Delivery Room Air Room Air 07/03/25 20:18 07/03/25 20:20 07/03/25 20:40 Temperature Pulse Rate 112 H 112 H 99 Respiratory Rate 24 H 24 H Blood Pressure Pulse Oximetry Oxygen Delivery 07/03/25 22:00 07/04/25 00:00 07/04/25 00:00 Temperature 98.8 F Pulse Rate 104 H 96 101 H Respiratory Rate 19 Blood Pressure 151/91 H Pulse Oximetry 100 Oxygen Delivery 07/04/25 00:00 07/04/25 02:00 07/04/25 04:00 Temperature Pulse Rate 105 H Respiratory Rate Blood Pressure Pulse Oximetry Oxygen Delivery Room Air Room Air 07/04/25 04:00 07/04/25 04:00 07/04/25 06:00 Temperature 99.5 F Pulse Rate 95 101 H 96 Respiratory Rate 22 H Blood Pressure 170/87 H Pulse Oximetry 97 Oxygen Delivery 07/04/25 07:23 07/04/25 07:50 07/04/25 07:54 Temperature 98.5 F Pulse Rate 99 102 H Respiratory Rate 17 20 Blood Pressure 162/103 H Pulse Oximetry 98 Oxygen Delivery 07/04/25 08:00 07/04/25 08:00 07/04/25 08:00 Temperature Pulse Rate 101 H 101 H Respiratory Rate Blood Pressure Pulse Oximetry Oxygen Delivery Room Air 07/04/25 08:02 07/04/25 10:00 07/04/25 11:52 Temperature 97.6 F Pulse Rate 103 H 104 H 96 Respiratory Rate 22 H 20 Blood Pressure 173/91 H 154/103 H Pulse Oximetry 100 Oxygen Delivery 07/04/25 12:00 07/04/25 12:01 Temperature Pulse Rate 99 Respiratory Rate 17 Blood Pressure 154/99 H Pulse Oximetry 100 Oxygen Delivery Room Air Intake/Output Intake/Output: Intake & Output 07/01/25 07/02/25 07/03/25 07/04/25 23:59 23:59 23:59 23:59 Intake Total 2128.5 2539.5 1470 420 Output Total 1913 355 7656 800 Balance 878.5 1589.5 -3380 -380 Meds/Results Medications: Active Medications Generic Name Dose Route Start Last Admin Trade Name Freq PRN Reason Stop Dose Admin Acetaminophen 650 mg 07/02/25 19:29 07/03/25 11:19 Acetaminophen 325 Mg Tablet PO 650 mg Q6H PRN Administration Mild Pain (1-3) or Fever Albuterol/Ipratropium 3 ml 07/04/25 12:33 Ipratropium 0.5 Mg/Albuterol Sulfate 2.5 Mg Ampul.Neb 3 Ml INHALATION Q6HRT PRN Wheezing Dextrose 12.5 gm 06/30/25 12:37 06/30/25 17:00 Dextrose 50% 25 Gm/50 Ml Syringe IV PUSH 12.5 gm PRN PRN Administration Hypoglycemia Protocol Glucagon 1 mg 06/30/25 12:37 Glucagon For Inj 1 Mg Vial IM PRN PRN Hypoglycemia Protocol Glucose 15 gm 06/30/25 12:37 Glucose Oral Gel 15 Gm Of Glucse In 37.5 Gm Tube PO PRN PRN Hypoglycemia Protocol Hydralazine HCl 10 mg 06/29/25 17:58 07/03/25 18:29 Hydralazine Hcl 20 Mg/Ml Vial IV PUSH 10 mg Q4H PRN Administration Blood Pressure - High Levetiracetam 1,000 mg in 100 mls @ 400 mls/hr 06/29/25 21:00 07/04/25 08:16 Keppra Iv IVPB Infused Q12HR NILESH Infusion Doxycycline Hyclate 100 mg/ 100 mls @ 100 mls/hr 06/30/25 09:00 07/04/25 09:01 Sodium Chloride IVPB 07/05/25 08:59 Infused Q12H NILESH Infusion Dextrose 1,000 mls @ 100 mls/hr 06/30/25 12:37 Dextrose 5% 1,000 Ml IVPB PRN PRN Hypoglycemia Protocol Cefepime HCl 2 gm/ Sodium 50 mls @ 100 mls/hr 07/01/25 12:00 07/04/25 11:55 Chloride IVPB 100 mls/hr Q8H NILESH Administration Insulin Aspart 2 - 5 units 06/30/25 17:00 07/04/25 11:57 Insulin Aspart (*Bkc) 100 Units/Ml SUB-Q Not Given TIDWM NILESH Protocol Metoprolol Tartrate 12.5 mg 07/03/25 09:00 07/04/25 08:00 Metoprolol Tartrate 12.5 Mg Tablet PO 12.5 mg Q12HR NILESH Administration Olanzapine 10 mg 07/03/25 21:00 07/03/25 20:41 Olanzapine Odt Dispertab 5 Mg PO 10 mg HS NILESH Administration Olanzapine 2.5 mg 07/03/25 19:52 07/04/25 08:00 Olanzapine Odt Dispertab 5 Mg PO 2.5 mg BID PRN Administration Anxiety Sodium Chloride 10 ml 06/30/25 14:00 07/04/25 05:08 Central Line Flush IV PUSH 10 ml Q8HR NILESH Administration Sodium Chloride 10 ml 06/30/25 10:17 Central Line Flush IV PUSH PRN PRN with TPN bag changes Sodium Chloride 20 ml 06/30/25 10:17 Central Line Flush IV PUSH PRN PRN after blood draws Radiology Results: ITS Impressions Head CT 07/01/25 12:20 IMPRESSION: 1. No acute intracranial process. 2. 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 3. Unchanged tract of encephalomalacia in the anterior right frontal lobe extending between what appears to be a small old right frontal alexis hole and the anterior horn of the lateral ventricle which could be related to prior ventricular drainage catheter placement or sequela of old infarct. Correlate with surgical history. 4. Anterior suprasellar embolization coils. Correlate with surgical history. 5. Moderate scattered white matter hypoattenuation consistent with chronic small vessel ischemic disease. Chest/Abdomen/Pelvis CTA 07/01/25 12:29 IMPRESSION: 1. No evidence for pulmonary embolism. 2: Bilateral airspace consolidation, right greater than left. Differential diagnosis includes atelectasis and/or pneumonia. 3: Marked gallbladder distention, nonspecific. 4: Hepatomegaly. 5: Nonobstructing bilateral nephrolithiasis. Venous Doppler Study 07/01/25 14:49 IMPRESSION: 1: No lower extremity deep venous thrombosis. Chest X-Ray 07/02/25 05:49 Impression: Significant interval improvement in right basilar airspace disease. Stable support tubes. Labs Labs: Laboratory Results - last 24 hr 07/03/25 07/03/25 07/04/25 16:49 20:39 04:14 WBC 7.5 RBC 4.01 L Hgb 12.4 L Hct 37.7 L MCV 94.0 MCH 30.9 MCHC 32.9 RDW 13.7 Plt Count 141 L MPV 11.3 H Immature Gran % (Auto) 0.7 H Neut % (Auto) 74.1 H Lymph % (Auto) 11.4 L [place] % (Auto) 11.7 H Eos % (Auto) 1.7 Baso % (Auto) 0.4 Lymph # (Auto) 0.86 L [place] # (Auto) 0.9 H Eos # (Auto) 0.1 Baso # (Auto) 0.0 Abs Immat Gran (auto) 0.05 H Absolute Neuts (auto) 5.6 Absolute Nucleated RBC 0.000 Nucleated RBC % 0.0 Sodium 135 L Potassium 3.7 Chloride 102 Carbon Dioxide 25 Anion Gap 8 BUN 13 Creatinine 0.66 L Estim Creat Clear Calc 66 Estimated GFR > 60 Glucose 93 POC Capillary Glucose 81 98 Calcium 9.6 Magnesium 1.8 07/04/25 07/04/25 07:22 11:16 WBC RBC Hgb Hct MCV MCH MCHC RDW Plt Count MPV Immature Gran % (Auto) Neut % (Auto) Lymph % (Auto) [place] % (Auto) Eos % (Auto) Baso % (Auto) Lymph # (Auto) [place] # (Auto) Eos # (Auto) Baso # (Auto) Abs Immat Gran (auto) Absolute Neuts (auto) Absolute Nucleated RBC Nucleated RBC % Sodium Potassium Chloride Carbon Dioxide Anion Gap BUN Creatinine Estim Creat Clear Calc Estimated GFR Glucose POC Capillary Glucose 77 82 Calcium Magnesium
[2025-07-04] MEDS: OLANZapine ODT DISPERTAB 5 MG 10 MG PO (21:06)
--- NOTE | 2025-07-04 23:26 | PC.NURSE ---
Patient screaming, hitting, and grabbing at RN. Patient accusing RN of being a telescope repairer and cussing at RN. Patient refuses vitals.
[2025-07-05] VITALS (30 sets, daily range): BP systolic 133–169; BP diastolic 81–143; PULSE 81–140; RESP 15–32; TEMP 36.4–36.7; O2SAT 92–100
[2025-07-05] MEDS: HALOPERIDOL LACTATE 5 MG/ML VIAL 1 MG IM (00:09)
--- NOTE | 2025-07-05 00:24 | PC.NURSE ---
Patient extremely agitated and verbally aggressive with staff. Consuelo ROSADO attempted to administer 1mg IM Haldol per order from Dr CURTIS and patient started spitting, biting, and kicking at nurses. Jam mason called at 0013 and patient placed in restraints. Dr CURTIS called at 0018 for medication request. 5mg Haldol IM ordered.
[2025-07-05] MEDS: HALOPERIDOL LACTATE 5 MG/ML VIAL IM ×2 (00:29→18:00)
--- NOTE | 2025-07-05 00:50 | PC.NURSE ---
Patient agitated and aggressive while RN attempted to get midnight vitals. See previous note. While attempting to administer IM Haldol, patient got more aggressive- kicking, hitting, grabbing, and biting at 3 RN's at bedside. Code purple called. Provider ordered additional IM Haldol and restraints. Dr. CURTIS to bedside to see patient.
[2025-07-05] MEDS: CEFEPIME 2 GM in SODIUM CHLORIDE 0.9% IV 50 ML 100 ML IVPB ×2 (03:30→11:57)
[2025-07-05 03:50] LABS: Hematocrit 38.7 % (42.0-52.0); Hemoglobin 12.8 g/dL (14.0-18.0); Immature Granulocyte Percent A 0.9 % (0-0.5); Lymphocytes Absolute Auto 1.14 K/mm3 (0.9-3.2); Mean Corpuscular HGB Conc 33.1 g/dl (32-36); Mean Corpuscular Hemoglobin 31.1 pg (26-34); Mean Corpuscular Volume 93.9 fl (80-100); Nucleated Red Blood Cells Absolute Auto 0.000 K/mm3 (0.0-0.012); Nucleated Red Blood Cells Perc 0.0 % (0.0-0.2); Platelet Count Result 153 k/mm3 (150-375); Red Blood Count 4.12 M/mm3 (4.6-6.20); White Blood Count 6.8 K/mm3 (4.5-10.0)
[2025-07-05 04:00] LABS: Anion Gap 8 mmol/L (4-12); Blood Urea Nitrogen 27 mg/dL (9-20); Calcium 10.1 mg/dL (8.4-10.2); Carbon Dioxide 24 mmol/L (22-30); Chloride 106 mmol/L (98-107); Estimated CRCL calculation 66 ml/min; Estimated Glomerular Filt Rate > 60; Glucose 102 mg/dL (65-110); Magnesium 2.0 mg/dL (1.6-2.3); Potassium 3.4 mmol/L (3.4-5.0); Sodium 138 mmol/L (137-145)
[2025-07-05 04:31] LABS: Hepatitis B Surface Antigen Negative (Negative)
[2025-07-05 04:36] LABS: HAV RESULT Negative (Negative); Hepatitis B Core IgM Result Negative (Negative)
[2025-07-05 04:39] LABS: HIV 1/2 Ab P24 Ag Result Negative (Negative)
[2025-07-05] MEDS: CENTRAL LINE FLUSH 10 ML IV PUSH ×3 (06:25→21:13)
[2025-07-05] MEDS: levETIRAcetam 1000MG/NACL100ML 1,000 MG/100 ML BAG 400 MG IVPB (08:24)
[2025-07-05] MEDS: METOPROLOL TARTRATE 12.5 MG TABLET PO ×2 (08:25→20:02)
[2025-07-05] MEDS: OLANZapine ODT DISPERTAB 5 MG 2.5 MG PO (08:25)
--- NOTE | 2025-07-05 09:29 | P.PSYCH_ITS ---
Progress Note: A&P Assessment and Plan (1) Schizophrenia, acute: Code(s): F23 - Brief psychotic disorder Status: Acute (2) Illicit drug use: Code(s): F19.90 - Other psychoactive substance use, unspecified, uncomplicated Status: Acute Plan Continues to present with psychosis, paranoia, delusional thought process with manic symptoms. Minimal improvement with olanzapine increase, PRN olanzapine not effective at managing agitation requiring code purple yesterday evening. Recommendations: -Increase olanzapine to 15mg qHS -D/C olanzapine 2.5mg PRN; Start haldol 5mg, diphenhydramine 25mg IM combination q6 PRN for agitation. ---Cont to monitor QTC -Start lithium 150mg BID for mood stabilization -Transfer to inpatient psychiatric facility once medically stable. Will be difficult to resolve psychosis in hospital setting due to environmental factors. Review of Systems Psychiatric: Psychiatric: Reports behavioral changes and Reports paranoia Exam Psych: Appearance: other (Gaunt) Speech and movement: Pressured speech present Affect: Labile affect present and Irritable affect present Thought process: Loose association thought process present and Tangential thought process present Thought content: Yes delusions Insight: Poor insight present (Psych) Judgement: Poor judgement present (Psych) Objective Data Vital Signs Vital Signs: Vital Signs - 24 hr 07/04/25 10:00 07/04/25 11:52 07/04/25 12:00 Temperature 97.6 F Pulse Rate 104 H 96 Respiratory Rate 20 Blood Pressure 154/103 H Pulse Oximetry 100 Oxygen Delivery Room Air Fraction of Inspired Oxygen 07/04/25 12:00 07/04/25 12:01 07/04/25 14:00 Temperature Pulse Rate 101 H 99 105 H Respiratory Rate 17 Blood Pressure 154/99 H Pulse Oximetry 100 Oxygen Delivery Fraction of Inspired Oxygen 07/04/25 16:00 07/04/25 16:00 07/04/25 16:00 Temperature 98 F Pulse Rate 99 102 H Respiratory Rate 20 Blood Pressure 157/101 H Pulse Oximetry 98 Oxygen Delivery Room Air Fraction of Inspired Oxygen 07/04/25 18:00 07/04/25 19:53 07/04/25 20:00 Temperature 97.9 F Pulse Rate 100 109 H Respiratory Rate 21 H Blood Pressure 150/97 H Pulse Oximetry 97 Oxygen Delivery Room Air Fraction of Inspired Oxygen 07/04/25 20:00 07/04/25 20:08 07/04/25 21:06 Temperature Pulse Rate 102 H 102 H Respiratory Rate Blood Pressure Pulse Oximetry 95 Oxygen Delivery Room Air Fraction of Inspired Oxygen 21 07/04/25 22:00 07/05/25 00:00 07/05/25 00:00 Temperature Pulse Rate 97 86 Respiratory Rate Blood Pressure Pulse Oximetry Oxygen Delivery Room Air Fraction of Inspired Oxygen 07/05/25 00:22 07/05/25 00:30 07/05/25 00:45 Temperature Pulse Rate 140 H 103 H 99 Respiratory Rate 32 H 24 H 27 H Blood Pressure 160/112 H 148/101 H 159/103 H Pulse Oximetry 98 94 Oxygen Delivery Fraction of Inspired Oxygen 07/05/25 01:00 07/05/25 01:15 07/05/25 01:30 Temperature Pulse Rate 92 88 92 Respiratory Rate 24 H 17 25 H Blood Pressure 151/104 H 146/93 H 154/103 H Pulse Oximetry 97 96 98 Oxygen Delivery Fraction of Inspired Oxygen 07/05/25 01:45 07/05/25 02:00 07/05/25 02:00 Temperature Pulse Rate 90 90 91 Respiratory Rate 15 25 H Blood Pressure 150/99 H 154/130 H Pulse Oximetry 100 92 Oxygen Delivery Fraction of Inspired Oxygen 07/05/25 02:15 07/05/25 02:30 07/05/25 03:00 Temperature Pulse Rate 90 90 89 Respiratory Rate 24 H 23 H 29 H Blood Pressure 169/143 H 167/99 H 152/102 H Pulse Oximetry Oxygen Delivery Fraction of Inspired Oxygen 07/05/25 03:30 07/05/25 03:48 07/05/25 04:00 Temperature 97.8 F Pulse Rate 84 92 Respiratory Rate 19 Blood Pressure 157/109 H Pulse Oximetry 99 Oxygen Delivery Room Air Fraction of Inspired Oxygen 07/05/25 04:00 07/05/25 06:00 07/05/25 07:32 Temperature 97.6 F 97.7 F Pulse Rate 92 86 Respiratory Rate 16 Blood Pressure 148/100 H Pulse Oximetry 97 Oxygen Delivery Fraction of Inspired Oxygen 07/05/25 08:00 07/05/25 08:15 07/05/25 08:25 Temperature Pulse Rate 88 92 Respiratory Rate 31 H Blood Pressure 161/101 H Pulse Oximetry 100 Oxygen Delivery Fraction of Inspired Oxygen 07/05/25 08:40 Temperature Pulse Rate Respiratory Rate Blood Pressure Pulse Oximetry Oxygen Delivery Room Air Fraction of Inspired Oxygen Intake/Output Intake/Output: Intake & Output 07/02/25 07/03/25 07/04/25 07/05/25 23:59 23:59 23:59 23:59 Intake Total 2539.5 1470 890 250 Output Total 950 4850 1250 Balance 1589.5 3380 -360 250 Meds/Results Medications: Active Medications Generic Name Dose Route Start Last Admin Trade Name Freq PRN Reason Stop Dose Admin Acetaminophen 650 mg 07/02/25 19:29 07/03/25 11:19 Acetaminophen 325 Mg Tablet PO 650 mg Q6H PRN Administration Mild Pain (1-3) or Fever Albuterol/Ipratropium 3 ml 07/04/25 12:33 Ipratropium 0.5 Mg/Albuterol Sulfate 2.5 Mg Ampul.Neb 3 Ml INHALATION Q6HRT PRN Wheezing Dextrose 12.5 gm 06/30/25 12:37 06/30/25 17:00 Dextrose 50% 25 Gm/50 Ml Syringe IV PUSH 12.5 gm PRN PRN Administration Hypoglycemia Protocol Glucagon 1 mg 06/30/25 12:37 Glucagon For Inj 1 Mg Vial IM PRN PRN Hypoglycemia Protocol Glucose 15 gm 06/30/25 12:37 Glucose Oral Gel 15 Gm Of Glucse In 37.5 Gm Tube PO PRN PRN Hypoglycemia Protocol Hydralazine HCl 10 mg 06/29/25 17:58 07/03/25 18:29 Hydralazine Hcl 20 Mg/Ml Vial IV PUSH 10 mg Q4H PRN Administration Blood Pressure - High Levetiracetam 1,000 mg in 100 mls @ 400 mls/hr 06/29/25 21:00 07/05/25 08:24 Keppra Iv IVPB 400 mls/hr Q12HR NILESH Administration Dextrose 1,000 mls @ 100 mls/hr 06/30/25 12:37 Dextrose 5% 1,000 Ml IVPB PRN PRN Hypoglycemia Protocol Cefepime HCl 2 gm/ Sodium 50 mls @ 100 mls/hr 07/01/25 12:00 07/05/25 04:00 Chloride IVPB Infused Q8H NILESH Infusion Insulin Aspart 2 - 5 units 06/30/25 17:00 07/05/25 08:24 Insulin Aspart (*Bkc) 100 Units/Ml SUB-Q Not Given TIDWM [facility] Protocol Metoprolol Tartrate 12.5 mg 07/03/25 09:00 07/05/25 08:25 Metoprolol Tartrate 12.5 Mg Tablet PO 12.5 mg Q12HR NILESH Administration Olanzapine 10 mg 07/03/25 21:00 07/04/25 21:06 Olanzapine Odt Dispertab 5 Mg PO 10 mg HS NILESH Administration Olanzapine 2.5 mg 07/03/25 19:52 07/05/25 08:25 Olanzapine Odt Dispertab 5 Mg PO 2.5 mg BID PRN Administration Anxiety Sodium Chloride 10 ml 06/30/25 14:00 07/05/25 06:25 Central Line Flush IV PUSH 10 ml Q8HR NILESH Administration Sodium Chloride 10 ml 06/30/25 10:17 Central Line Flush IV PUSH PRN PRN with TPN bag changes Sodium Chloride 20 ml 06/30/25 10:17 Central Line Flush IV PUSH PRN PRN after blood draws Radiology Results: ITS Impressions Head CT 07/01/25 12:20 IMPRESSION: 1. No acute intracranial process. 2. 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 3. Unchanged tract of encephalomalacia in the anterior right frontal lobe extending between what appears to be a small old right frontal alexis hole and the anterior horn of the lateral ventricle which could be related to prior ventricular drainage catheter placement or sequela of old infarct. Correlate with surgical history. 4. Anterior suprasellar embolization coils. Correlate with surgical history. 5. Moderate scattered white matter hypoattenuation consistent with chronic small vessel ischemic disease. Chest/Abdomen/Pelvis CTA 07/01/25 12:29 IMPRESSION: 1. No evidence for pulmonary embolism. 2: Bilateral airspace consolidation, right greater than left. Differential diagnosis includes atelectasis and/or pneumonia. 3: Marked gallbladder distention, nonspecific. 4: Hepatomegaly. 5: Nonobstructing bilateral nephrolithiasis. Venous Doppler Study 07/01/25 14:49 IMPRESSION: 1: No lower extremity deep venous thrombosis. Chest X-Ray 07/02/25 05:49 Impression: Significant interval improvement in right basilar airspace disease. Stable support tubes. Labs Labs: Laboratory Results - last 24 hr 07/04/25 07/04/25 07/04/25 11:16 16:46 19:58 WBC RBC Hgb Hct MCV MCH MCHC RDW Plt Count MPV Immature Gran % (Auto) Neut % (Auto) Lymph % (Auto) Kendall % (Auto) Eos % (Auto) Baso % (Auto) Lymph # (Auto) Kendall # (Auto) Eos # (Auto) Baso # (Auto) Abs Immat Gran (auto) Absolute Neuts (auto) Absolute Nucleated RBC Nucleated RBC % Sodium Potassium Chloride Carbon Dioxide Anion Gap BUN Creatinine Estim Creat Clear Calc Estimated GFR Glucose POC Capillary Glucose 82 93 113 H Calcium Magnesium Hepatitis A IgM Ab Hep Bs Antigen Hep B Core IgM Ab Hepatitis C Ab Screen HIV 1&2 Ab/P24 Ag 4thGn 07/05/25 07/05/25 03:29 07:18 WBC 6.8 RBC 4.12 L Hgb 12.8 L Hct 38.7 L MCV 93.9 MCH 31.1 MCHC 33.1 RDW 13.5 Plt Count 153 MPV 11.7 H Immature Gran % (Auto) 0.9 H Neut % (Auto) 62.2 Lymph % (Auto) 16.8 L Kendall % (Auto) 17.9 H Eos % (Auto) 1.8 Baso % (Auto) 0.4 Lymph # (Auto) 1.14 Kendall # (Auto) 1.2 H Eos # (Auto) 0.1 Baso # (Auto) 0.0 Abs Immat Gran (auto) 0.06 H Absolute Neuts (auto) 4.2 Absolute Nucleated RBC 0.000 Nucleated RBC % 0.0 Sodium 138 Potassium 3.4 Chloride 106 Carbon Dioxide 24 Anion Gap 8 BUN 27 H D Creatinine 0.66 L Estim Creat Clear Calc 66 Estimated GFR > 60 Glucose 102 POC Capillary Glucose 92 Calcium 10.1 Magnesium 2.0 Hepatitis A IgM Ab Negative Hep Bs Antigen Negative Hep B Core IgM Ab Negative Hepatitis C Ab Screen Negative HIV 1&2 Ab/P24 Ag 4thGn Negative Subjective Date/time seen: 07/05/25 09:29 Interval history: Seen today for follow up for altered mental status psychosis. Scheduled olanzapine was increased to 10mg nightly on Sunday with minimal benefit. He continues to present with delusional thought process, loose associations. Presenting with some manic symptoms including hyper-talkativeness, increased activity/restlessness, agitation/irritability intermittently, lack of need for sleep. Per nursing reports, he has not slept the past three nights. He became agitated yesterday evening and viri mason was called, 6mg of Haldol was given and patient was placed in restraints for safety.
--- NOTE | 2025-07-05 10:46 | ECG_ITS ---
Test Date: 2025-07-05 11:33:38 Measurements Intervals Warren Rate: 80 P: 70 OR: 129 QRS: 73 QRSD: 108 T: 119 QT: 416 QTc: 480 Interpretive Statements SINUS RHYTHM LEFT ATRIAL ENLARGEMENT CANNOT R/O SEPTAL INFARCT, AGE INDETERMINATE ST-T WAVE ABNORMALITY IN ANTEROLAT/HIGH LAT LEADS- CONSIDER ISCHEMIA BASELINE WANDER- II, III, AVF, V1 ABNORMAL ECG Compared to ECG 07/03/2025 14:04:42 POSSIBLE ISCHEMIA NOW PRESENT Electronically Signed On 07-05-2025 12:36:14 CDT by José Kerr D.O.
[2025-07-05] MEDS: SODIUM CHLORIDE 0.9% IV 500 ML 999 ML IV CONT (11:58)
--- NOTE | 2025-07-05 13:25 | P.PNIM_ITS ---
Progress Note: A&P Assessment and Plan (1) Delusional disorder: Code(s): F22 - Delusional disorders Status: Acute Assessment and Plan: Post extubation patient has developed paranoia, delusion, he is hallucinating. Hyperactive and pressured speech. Flight of ideas. Easily distracted. -according to the niece patient was having some delusions and paranoia at home also and behaving like a young child 07/03/2025: Psychiatry consulted. Administered Zyprexa 5 mg p.o. x1. EKG on 06/29/2025 demonstrating QTC 447. 07/04/2025: Psychiatry recommendations appreciated. Continue Zyprexa 10 mg p.o. HS and Zyprexa 2.5 mg p.o. b.i.d. 07/05/2025: Patient continues to be extremely hyper active in his thoughts. Psychotropics changed to olanzapine 15 mg p.o. q.h.s., lithium 150 mg p.o. b.i.d.. Continue to appreciate Psychiatry recommendations. Medically stable for transfer to inpatient Psychiatry, social media content specialist arranging. Monitor QTC. EKG tomorrow a.m.. (2) Fever: Code(s): R50.9 - Fever, unspecified Status: Acute Assessment and Plan: 06/30: Patient spiked fevers with a T-max of 102.1? F 06/30: Blood cultures: Preliminary report with no growth x2 06/30: Urine cultures : No growth, final 06/30: Sputum cultures : Strep pneumo 06/29: Blood cultures negative x2 06/30: Chest x-ray shows increased haziness in the medial right lung base, could be related to aspiration pneumonia/pneumonitis secondary to aspiration during seizure activity on 06/29/2025 Unasyn and doxycycline started 06/30/2025. 07/01/2025 patient continued to spike fevers. Antibiotics switched to cefepime and vancomycin. Doxycycline continued. Unasyn discontinued. 07/02/2025: Afebrile 07/03/2025: DC vancomycin. Sputum culture growing strep pneumo. 07/04/2025: Remains afebrile, transition to Augmentin on 07/05/2025 if remains stable. 07/05/2025: Discontinue cefepime, start Augmentin. 07/01: CT chest abdomen and pelvis IMPRESSION: 1. No evidence for pulmonary embolism. 2: Bilateral airspace consolidation, right greater than left. Differential diagnosis includes atelectasis and/or pneumonia. 3: Marked gallbladder distention, nonspecific. 4: Hepatomegaly. 5: Nonobstructing bilateral nephrolithiasis. (3) Altered mental status: Code(s): R41.82 - Altered mental status, unspecified Status: Inactive Assessment and Plan: Patient presented to [facility] with altered mental status, confusion and not being himself along with hallucinations and paranoia according to ER notes. -patient was incontinent of stool and urine per EMS -he had a seizure activity on the cardiac catheterization table, -altered mental status could be related to seizure activity and postictal state in combination with underlying psychiatric disorder -07/02/2025: Patient extubated. Since then he has been awake and alert and hyperactive. 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 Anterior suprasellar embolization coils. Moderate scattered white matter hypoattenuation consistent with chronic small- vessel ischemic disease. (4) Seizure: Code(s): R56.9 - Unspecified convulsions Status: Acute Assessment and Plan: 06/29: Patient had a seizure activity on the cardiac catheterization stable -according the EMS he was also incontinent of stool and urine when they got to his house -patient does have a history of paranoid schizophrenia, not on any medications per patient's niece, according to the records. -06/29: Loaded with Keppra 1 g IV x1 a started on Keppra 1 g IV q.i.d. 07/05/2025: No seizure activity noted. Change Keppra to p.o. (5) ST elevation (STEMI) myocardial infarction: Qualifiers: Involved coronary artery: unspecified coronary artery Qualified Code(s): I21.3 - ST elevation (STEMI) myocardial infarction of unspecified site Code(s): I21.3 - ST elevation (STEMI) myocardial infarction of unspecified site Status: Inactive Assessment and Plan: EKG at the outside hospital ER showed ST elevations in the anteroseptal leads, with significant ST depression in inferior lateral leads concerning was STEMI -patient taken to cardiac cathodic protection technician for coronary angiography -non-obstructive coronary artery disease, right femoral artery angiogram shows there is 80-90% right external iliac lesion. The catheter seems to be semi occlusive at that side. The right common femoral artery could not be well visualized but the catheter entrance site is adequate. -LV EF was 65%, LVEDP was 8 mmHg 06/30/2025: Echocardiogram Summary 1. Complete two-dimensional, color flow and Doppler transthoracic echocardiogram is performed. 2. Left ventricular systolic function is normal, estimated at 50-55. 3. The left ventricular diastolic function is indeterminate. 4. No pulmonary hypertension, estimated pulmonary arterial systolic pressure is 32 mmHg. (6) On mechanically assisted ventilation: Code(s): Z99.11 - Dependence on respirator [ventilator] status Status: Acute Assessment and Plan: 06/29: intubated in the cardiac cathodic protection technician after patient had a seizure, altered mental status, agonal breathing and not protecting his airway, aspiration pneumonia -07/02: Extubated successfully -currently on room air -patient has history of COPD, continue bronchodilators and budesonide nebs -PT/OT to evaluate and treat (7) Illicit drug use: Code(s): F19.90 - Other psychoactive substance use, unspecified, uncomplicated Status: Acute Assessment and Plan: Patient has a history of illicit drug use according to the niece patient takes methamphetamine and cannabis. Patient also has a history of schizoaffective paranoia on no medications -acetaminophen, alcohol and salicylic acid levels were all within normal limit -urine drug screen performed in the ICU was positive for cannabis and benzodiazepines (8) Gallbladder dilatation: Code(s): K82.8 - Other specified diseases of gallbladder Status: Acute Assessment and Plan: Marked distention of gallbladder as seen on CT scan of the abdomen pelvis as on -appreciate surgery evaluation and recommendations, patient is a poor surgical candidate, will continue to manage conservatively. If any issues arise in patient complains of abdominal pain will consider ultrasound imaging per surgery. -appreciate GI recommendations, continue to manage conservatively for now 07/01: CT chest abdomen and pelvis IMPRESSION: 1. No evidence for pulmonary embolism. 2: Bilateral airspace consolidation, right greater than left. Differential diagnosis includes atelectasis and/or pneumonia. 3: Marked gallbladder distention, nonspecific. 4: Hepatomegaly. 5: Nonobstructing bilateral nephrolithiasis. Plan Patient is full code. He lives at home with his niece and other roommates. Polysubstance abuse, psychiatry consulted. Care coordination arrange for [facility] to inpatient psychiatry. SCDs. Heparin subQ on hold since 07/02/2025 due to decrease in platelets. Pending HIT antibody. Subjective Date/time seen: 07/05/25 13:25 Interval history: No major acute overnight events. He continues to carry incomprehensible conversation. He is trying to do math on paper. Review of Systems Review of Systems: ROS unobtainable: Yes unobtainable due to mental status Exam Const: General: comfortable and no acute distress Eyes: Pupils: Equal, round and reactive pupils present Neck: Neck: supple Resp: Effort & Inspection: normal respiratory effort Auscultation: clear to auscultation bilaterally Cardio: Rate: regular rate Rhythm: regular rhythm GI: GI Palp: No Tenderness to palpation present (GI) Extrem: General: no edema Psych: Other: Patient declines exam. Hyperactive, pressured speech, flight of ideas. Objective Data Vital Signs Vital Signs: Vital Signs - 24 hr 07/04/25 14:00 07/04/25 16:00 07/04/25 16:00 Temperature 98 F Pulse Rate 105 H 99 Respiratory Rate 20 Blood Pressure 157/101 H Pulse Oximetry 98 Oxygen Delivery Room Air Fraction of Inspired Oxygen 07/04/25 16:00 07/04/25 18:00 07/04/25 19:53 Temperature 97.9 F Pulse Rate 102 H 100 109 H Respiratory Rate 21 H Blood Pressure 150/97 H Pulse Oximetry 97 Oxygen Delivery Fraction of Inspired Oxygen 07/04/25 20:00 07/04/25 20:00 07/04/25 20:08 Temperature Pulse Rate 102 H Respiratory Rate Blood Pressure Pulse Oximetry 95 Oxygen Delivery Room Air Room Air Fraction of Inspired Oxygen 21 07/04/25 21:06 07/04/25 22:00 07/05/25 00:00 Temperature Pulse Rate 102 H 97 Respiratory Rate Blood Pressure Pulse Oximetry Oxygen Delivery Room Air Fraction of Inspired Oxygen 07/05/25 00:00 07/05/25 00:22 07/05/25 00:30 Temperature Pulse Rate 86 140 H 103 H Respiratory Rate 32 H 24 H Blood Pressure 160/112 H 148/101 H Pulse Oximetry 98 Oxygen Delivery Fraction of Inspired Oxygen 07/05/25 00:45 07/05/25 01:00 07/05/25 01:15 Temperature Pulse Rate 99 92 88 Respiratory Rate 27 H 24 H 17 Blood Pressure 159/103 H 151/104 H 146/93 H Pulse Oximetry 94 97 96 Oxygen Delivery Fraction of Inspired Oxygen 07/05/25 01:30 07/05/25 01:45 07/05/25 02:00 Temperature Pulse Rate 92 90 90 Respiratory Rate 25 H 15 25 H Blood Pressure 154/103 H 150/99 H 154/130 H Pulse Oximetry 98 100 92 Oxygen Delivery Fraction of Inspired Oxygen 07/05/25 02:00 07/05/25 02:15 07/05/25 02:30 Temperature Pulse Rate 91 90 90 Respiratory Rate 24 H 23 H Blood Pressure 169/143 H 167/99 H Pulse Oximetry Oxygen Delivery Fraction of Inspired Oxygen 07/05/25 03:00 07/05/25 03:30 07/05/25 03:48 Temperature 97.8 F Pulse Rate 89 84 Respiratory Rate 29 H 19 Blood Pressure 152/102 H 157/109 H Pulse Oximetry 99 Oxygen Delivery Room Air Fraction of Inspired Oxygen 07/05/25 04:00 07/05/25 04:00 07/05/25 06:00 Temperature 97.6 F Pulse Rate 92 92 86 Respiratory Rate 16 Blood Pressure 148/100 H Pulse Oximetry 97 Oxygen Delivery Fraction of Inspired Oxygen 07/05/25 07:32 07/05/25 08:00 07/05/25 08:00 Temperature 97.7 F Pulse Rate 88 Respiratory Rate 31 H Blood Pressure Pulse Oximetry Oxygen Delivery Room Air Fraction of Inspired Oxygen 07/05/25 08:00 07/05/25 08:15 07/05/25 08:25 Temperature Pulse Rate 82 92 Respiratory Rate Blood Pressure 161/101 H Pulse Oximetry 100 Oxygen Delivery Fraction of Inspired Oxygen 07/05/25 08:40 07/05/25 10:00 07/05/25 11:46 Temperature 97.7 F Pulse Rate 88 82 Respiratory Rate 17 Blood Pressure 133/97 H Pulse Oximetry 100 Oxygen Delivery Room Air Fraction of Inspired Oxygen 07/05/25 12:00 07/05/25 12:00 Temperature Pulse Rate 86 Respiratory Rate Blood Pressure Pulse Oximetry Oxygen Delivery Room Air Fraction of Inspired Oxygen Intake/Output Intake/Output: Intake & Output 07/02/25 07/03/25 07/04/25 07/05/25 23:59 23:59 23:59 23:59 Intake Total 2539.5 1470 890 640 Output Total 950 4850 1250 Balance 1589.5 -3554 -360 640 Meds/Results Medications: Active Medications Generic Name Dose Route Start Last Admin Trade Name Freq PRN Reason Stop Dose Admin Acetaminophen 650 mg 07/02/25 19:29 07/03/25 11:19 Acetaminophen 325 Mg Tablet PO 650 mg Q6H PRN Administration Mild Pain (1-3) or Fever Albuterol/Ipratropium 3 ml 07/04/25 12:33 Ipratropium 0.5 Mg/Albuterol Sulfate 2.5 Mg Ampul.Neb 3 Ml INHALATION Q6HRT PRN Wheezing Dextrose 12.5 gm 06/30/25 12:37 06/30/25 17:00 Dextrose 50% 25 Gm/50 Ml Syringe IV PUSH 12.5 gm PRN PRN Administration Hypoglycemia Protocol Diphenhydramine HCl 25 mg 07/05/25 12:59 Diphenhydramine Hcl Inj 50 Mg/Ml Vial IM Q6HR PRN Agitation Glucagon 1 mg 06/30/25 12:37 Glucagon For Inj 1 Mg Vial IM PRN PRN Hypoglycemia Protocol Glucose 15 gm 06/30/25 12:37 Glucose Oral Gel 15 Gm Of Glucse In 37.5 Gm Tube PO PRN PRN Hypoglycemia Protocol Haloperidol Lactate 5 mg 07/05/25 12:59 Haloperidol Lactate 5 Mg/Ml Vial IM Q6HR PRN Agitation Hydralazine HCl 10 mg 06/29/25 17:58 07/03/25 18:29 Hydralazine Hcl 20 Mg/Ml Vial IV PUSH 10 mg Q4H PRN Administration Blood Pressure - High Levetiracetam 1,000 mg in 100 mls @ 400 mls/hr 06/29/25 21:00 07/05/25 08:39 Keppra Iv IVPB Infused Q12HR NILESH Infusion Dextrose 1,000 mls @ 100 mls/hr 06/30/25 12:37 Dextrose 5% 1,000 Ml IVPB PRN PRN Hypoglycemia Protocol Cefepime HCl 2 gm/ Sodium 50 mls @ 100 mls/hr 07/01/25 12:00 07/05/25 12:27 Chloride IVPB Infused Q8H NILESH Infusion Insulin Aspart 2 - 5 units 06/30/25 17:00 07/05/25 11:58 Insulin Aspart (*Bkc) 100 Units/Ml SUB-Q Not Given [facility] Protocol [place] Carbonate 150 mg 07/05/25 17:00 [place] Carbonate 150 Mg Capsule PO BID NILESH Metoprolol Tartrate 12.5 mg 07/03/25 09:00 07/05/25 08:25 Metoprolol Tartrate 12.5 Mg Tablet PO 12.5 mg Q12HR NILESH Administration Olanzapine 15 mg 07/05/25 21:00 Olanzapine Odt Dispertab 5 Mg PO HS NILESH Sodium Chloride 10 ml 06/30/25 14:00 07/05/25 06:25 Central Line Flush IV PUSH 10 ml Q8HR NILESH Administration Sodium Chloride 10 ml 06/30/25 10:17 Central Line Flush IV PUSH PRN PRN with TPN bag changes Sodium Chloride 20 ml 06/30/25 10:17 Central Line Flush IV PUSH PRN PRN after blood draws Radiology Results: ITS Impressions Head CT 07/01/25 12:20 IMPRESSION: 1. No acute intracranial process. 2. 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 3. Unchanged tract of encephalomalacia in the anterior right frontal lobe extending between what appears to be a small old right frontal alexis hole and the anterior horn of the lateral ventricle which could be related to prior ventricular drainage catheter placement or sequela of old infarct. Correlate with surgical history. 4. Anterior suprasellar embolization coils. Correlate with surgical history. 5. Moderate scattered white matter hypoattenuation consistent with chronic small vessel ischemic disease. Chest/Abdomen/Pelvis CTA 07/01/25 12:29 IMPRESSION: 1. No evidence for pulmonary embolism. 2: Bilateral airspace consolidation, right greater than left. Differential diagnosis includes atelectasis and/or pneumonia. 3: Marked gallbladder distention, nonspecific. 4: Hepatomegaly. 5: Nonobstructing bilateral nephrolithiasis. Venous Doppler Study 07/01/25 14:49 IMPRESSION: 1: No lower extremity deep venous thrombosis. Chest X-Ray 07/02/25 05:49 Impression: Significant interval improvement in right basilar airspace disease. Stable support tubes. Labs Labs: Laboratory Results - last 24 hr 07/04/25 07/04/25 07/05/25 16:46 19:58 03:29 WBC 6.8 RBC 4.12 L Hgb 12.8 L Hct 38.7 L MCV 93.9 MCH 31.1 MCHC 33.1 RDW 13.5 Plt Count 153 MPV 11.7 H Immature Gran % (Auto) 0.9 H Neut % (Auto) 62.2 Lymph % (Auto) 16.8 L [place] % (Auto) 17.9 H Eos % (Auto) 1.8 Baso % (Auto) 0.4 Lymph # (Auto) 1.14 [place] # (Auto) 1.2 H Eos # (Auto) 0.1 Baso # (Auto) 0.0 Abs Immat Gran (auto) 0.06 H Absolute Neuts (auto) 4.2 Absolute Nucleated RBC 0.000 Nucleated RBC % 0.0 Sodium 138 Potassium 3.4 Chloride 106 Carbon Dioxide 24 Anion Gap 8 BUN 27 H D Creatinine 0.66 L Estim Creat Clear Calc 66 Estimated GFR > 60 Glucose 102 POC Capillary Glucose 93 113 H Calcium 10.1 Magnesium 2.0 Hepatitis A IgM Ab Negative Hep Bs Antigen Negative Hep B Core IgM Ab Negative Hepatitis C Ab Screen Negative HIV 1&2 Ab/P24 Ag 4thGn Negative 07/05/25 07/05/25 07:18 11:25 WBC RBC Hgb Hct MCV MCH MCHC RDW Plt Count MPV Immature Gran % (Auto) Neut % (Auto) Lymph % (Auto) [place] % (Auto) Eos % (Auto) Baso % (Auto) Lymph # (Auto) [place] # (Auto) Eos # (Auto) Baso # (Auto) Abs Immat Gran (auto) Absolute Neuts (auto) Absolute Nucleated RBC Nucleated RBC % Sodium Potassium Chloride Carbon Dioxide Anion Gap BUN Creatinine Estim Creat Clear Calc Estimated GFR Glucose POC Capillary Glucose 92 136 H Calcium Magnesium Hepatitis A IgM Ab Hep Bs Antigen Hep B Core IgM Ab Hepatitis C Ab Screen HIV 1&2 Ab/P24 Ag 4thGn
[2025-07-05] MEDS: LITHIUM CARBONATE 150 MG CAPSULE PO (17:04)
[2025-07-05] MEDS: OLANZapine ODT DISPERTAB 5 MG 15 MG PO (20:01)
[2025-07-05] MEDS: LORazepam INJ (*CRX) 2 MG/ML VIAL 1 MG IV PUSH (22:05)
[2025-07-06] VITALS (9 sets, daily range): BP systolic 102–156; BP diastolic 72–127; PULSE 73–90; RESP 19–24; TEMP 36.6–36.8; O2SAT 96–99
[2025-07-06] MEDS: CENTRAL LINE FLUSH 10 ML IV PUSH ×2 (06:35→15:06)
--- NOTE | 2025-07-06 07:00 | ECG_ITS ---
Test Date: 2025-07-06 10:00:48 Measurements Intervals [place] Rate: 75 P: 53 [place]: 123 QRS: 71 QRSD: 103 T: 83 QT: 394 QTc: 443 Interpretive Statements SINUS RHYTHM POSSIBLE LEFT ATRIAL ENLARGEMENT CANNOT R/O SEPTAL INFARCT, AGE INDETERMINATE ST-T WAVE ABNORMALITY IN ANTEROLATERAL LEADS- CONSIDER ISCHEMIA BASELINE ARTIFACT- I, II, III, AVR, AVL, AVF, V1-V6 ABNORMAL ECG Compared to ECG 07/05/2025 11:33:38 No significant changes Electronically Signed On 07-06-2025 10:40:19 CDT by José Kerr D.O.
[2025-07-06] MEDS: METOPROLOL TARTRATE 12.5 MG TABLET PO (09:57)
[2025-07-06] MEDS: LITHIUM CARBONATE 150 MG CAPSULE PO (09:57)
--- NOTE | 2025-07-06 11:42 | PCFNICU ---
ICU Rounding Note: Pt current nutrition is Regular with Carlos BID and Ensure Plus High Protein BID. Last recorded weight is 47.7 kg, getting weight check 2/2 to weight at 80 kg on 07/03/25. Bowel Motility: Last reported BM 07/05 Labs Reviewed: Cr 0.66, BUN 27, Alb 2.9 Meds Noted:Jalen Hendricks. Skin:Deep Tissue-pressure ulcer. Additional Notes: Patient is tolerating a regular diet. Diet supplements of Ensure Plus High protein and Carlos BID have been ordered for wound healing and additional kcal needs. Agree with diet orders. Following daily in ICU rounds. Will monitor weight, labs, skin, diet orders, meds every 5 days.
--- NOTE | 2025-07-06 11:56 | PCOTNOTE ---
Patient eating at this time. Will check back later .
--- NOTE | 2025-07-06 13:15 | PM.IMPN ---
Progress Note: A&P Assessment and Plan (1) Delusional disorder: Code(s): F22 - Delusional disorders Status: Acute Assessment and Plan: Post extubation patient has developed paranoia, delusion, he is hallucinating. Hyperactive and pressured speech. Flight of ideas. Easily distracted. -according to the niece patient was having some delusions and paranoia at home also and behaving like a young child 07/03/2025: Psychiatry consulted. Administered Zyprexa 5 mg p.o. x1. EKG on 06/29/2025 demonstrating QTC 447. 07/04/2025: Psychiatry recommendations appreciated. Continue Zyprexa 10 mg p.o. HS and Zyprexa 2.5 mg p.o. b.i.d. 07/05/2025: Patient continues to be extremely hyper active in his thoughts. Psychotropics changed to olanzapine 15 mg p.o. q.h.s., lithium 150 mg p.o. b.i.d.. Continue to appreciate Psychiatry recommendations. Medically stable for transfer to inpatient Psychiatry, social service worker/crisis management to evaluate arranging. Monitor QTC. EKG this morning shows possible left atrial enlargement, QTC is 443 (2) Fever: Code(s): R50.9 - Fever, unspecified Status: Acute Assessment and Plan: 06/30: Patient spiked fevers with a T-max of 102.1? F 06/30: Blood cultures: Preliminary report with no growth x2 06/30: Urine cultures : No growth, final 06/30: Sputum cultures : Strep pneumo 06/29: Blood cultures negative x2 06/30: Chest x-ray shows increased haziness in the medial right lung base, could be related to aspiration pneumonia/pneumonitis secondary to aspiration during seizure activity on 06/29/2025 Unasyn and doxycycline started 06/30/2025. 07/01/2025 patient continued to spike fevers. Antibiotics switched to cefepime and vancomycin. Doxycycline continued. Unasyn discontinued. 07/02/2025: Afebrile 07/03/2025: DC vancomycin. Sputum culture growing strep pneumo. 07/04/2025: Remains afebrile, transition to Augmentin on 07/05/2025 if remains stable. 07/05/2025: Discontinue cefepime, start Augmentin. 07/01: CT chest abdomen and pelvis IMPRESSION: 1. No evidence for pulmonary embolism. 2: Bilateral airspace consolidation, right greater than left. Differential diagnosis includes atelectasis and/or pneumonia. 3: Marked gallbladder distention, nonspecific. 4: Hepatomegaly. 5: Nonobstructing bilateral nephrolithiasis. (3) Altered mental status: Code(s): R41.82 - Altered mental status, unspecified Status: Inactive Assessment and Plan: Patient presented to [facility] in [facility] with altered mental status, confusion and not being himself along with hallucinations and paranoia according to ER notes. -patient was incontinent of stool and urine per EMS -he had a seizure activity on the cardiac catheterization table, -altered mental status could be related to seizure activity and postictal state in combination with underlying psychiatric disorder -07/02/2025: Patient extubated. Since then he has been awake and alert and hyperactive. 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 Anterior suprasellar embolization coils. Moderate scattered white matter hypoattenuation consistent with chronic small-vessel ischemic disease. (4) Seizure: Code(s): R56.9 - Unspecified convulsions Status: Acute Assessment and Plan: 06/29: Patient had a seizure activity on the cardiac catheterization stable -according the EMS he was also incontinent of stool and urine when they got to his house -patient does have a history of paranoid schizophrenia, not on any medications per patient's niece, according to the records. -06/29: Loaded with Keppra 1 g IV x1 a started on Keppra 1 g IV q.i.d. 07/06/2025: No seizure activity noted. Change Keppra to p.o. (5) ST elevation (STEMI) myocardial infarction: Qualifiers: Involved coronary artery: unspecified coronary artery Qualified Code(s): I21.3 - ST elevation (STEMI) myocardial infarction of unspecified site Code(s): I21.3 - ST elevation (STEMI) myocardial infarction of unspecified site Status: Inactive Assessment and Plan: EKG at the outside hospital ER showed ST elevations in the anteroseptal leads, with significant ST depression in inferior lateral leads concerning was STEMI -patient taken to cardiac manufacturing lab technician for coronary angiography -non-obstructive coronary artery disease, right femoral artery angiogram shows there is 80-90% right external iliac lesion. The catheter seems to be semi occlusive at that side. The right common femoral artery could not be well visualized but the catheter entrance site is adequate. -LV EF was 65%, LVEDP was 8 mmHg 06/30/2025: Echocardiogram Summary 1. Complete two-dimensional, color flow and Doppler transthoracic echocardiogram is performed. 2. Left ventricular systolic function is normal, estimated at 50-55. 3. The left ventricular diastolic function is indeterminate. 4. No pulmonary hypertension, estimated pulmonary arterial systolic pressure is 32 mmHg. (6) On mechanically assisted ventilation: Code(s): Z99.11 - Dependence on respirator [ventilator] status Status: Acute Assessment and Plan: 06/29: intubated in the cardiac manufacturing lab technician after patient had a seizure, altered mental status, agonal breathing and not protecting his airway, aspiration pneumonia -07/02: Extubated successfully -currently on room air -patient has history of COPD, continue bronchodilators -PT/OT following the patient (7) Illicit drug use: Code(s): F19.90 - Other psychoactive substance use, unspecified, uncomplicated Status: Acute Assessment and Plan: Patient has a history of illicit drug use according to the niece patient takes methamphetamine and cannabis. Patient also has a history of schizoaffective paranoia on no medications -acetaminophen, alcohol and salicylic acid levels were all within normal limit -urine drug screen performed in the ICU was positive for cannabis and benzodiazepines (8) Gallbladder dilatation: Code(s): K82.8 - Other specified diseases of gallbladder Status: Acute Assessment and Plan: Marked distention of gallbladder as seen on CT scan of the abdomen pelvis as on -appreciate surgery evaluation and recommendations, patient is a poor surgical candidate, will continue to manage conservatively. If any issues arise in patient complains of abdominal pain will consider ultrasound imaging per surgery. -appreciate GI recommendations, continue to manage conservatively for now 07/01: CT chest abdomen and pelvis IMPRESSION: 1. No evidence for pulmonary embolism. 2: Bilateral airspace consolidation, right greater than left. Differential diagnosis includes atelectasis and/or pneumonia. 3: Marked gallbladder distention, nonspecific. 4: Hepatomegaly. 5: Nonobstructing bilateral nephrolithiasis. Plan Patient is full code. He lives at home with his niece and other roommates. Polysubstance abuse, psychiatry consulted. Care coordination arrange for transfer to inpatient psychiatry. SCDs. Heparin subQ on hold since 07/02/2025 due to decrease in platelets. HIT antibodies negative, platelets much improved Subjective Date/time seen: 07/06/25 13:15 Interval history: 07/06/2025: Patient being seen for hospitalist group Patient has been awake many days, finally slept early this morning for about for 5 hours. Upon my evaluation patient was awake, calm, able to answer questions appropriately but then as a tangential conversation. Blood pressures and heart rate have been stable. Urine output has been adequate, afebrile Review of Systems Review of Systems: All systems reviewed & are unremarkable except as noted in HPI and below (Subjective) Exam Narrative: General: Pleasant gentleman currently calm and in no distress HEENT:? Pupils equal and reactive, sclera is clear, Neck:? Supple Respiratory:? Clear to auscultation bilaterally, no wheezing, adequate air entry Cardiac:? S1-S2 is normal, sinus rhythm, no murmurs Abdomen:? Soft, nontender, nondistended, normoactive bowel sounds Extremities:? No edema, both feet are warm, palpable pedal pulses Neuro:? Patient is awake, alert, oriented x2. Is delusional, hallucinating, paranoid but is easily redirectable, answers to questions appropriately when asked and follows simple commands Skin:? Warm and dry Psych:? Delusional, paranoid, having hallucinations Objective Data Vital Signs Vital Signs: Vital Signs - 24 hr 07/05/25 14:00 07/05/25 16:00 07/05/25 16:00 Temperature 97.9 F Pulse Rate 82 94 88 Respiratory Rate 21 H Blood Pressure 161/109 H Pulse Oximetry 100 Oxygen Delivery 07/05/25 16:00 07/05/25 17:59 07/05/25 18:00 Temperature Pulse Rate 92 90 Respiratory Rate 21 H Blood Pressure 134/81 Pulse Oximetry 98 Oxygen Delivery Room Air 07/05/25 20:00 07/05/25 20:00 07/05/25 20:00 Temperature 98.0 F Pulse Rate 92 91 Respiratory Rate 23 H Blood Pressure 146/104 H Pulse Oximetry 97 Oxygen Delivery Room Air 07/05/25 20:02 07/05/25 22:00 07/05/25 22:05 Temperature Pulse Rate 93 81 81 Respiratory Rate 21 H Blood Pressure 143/84 H Pulse Oximetry 97 Oxygen Delivery 07/06/25 00:00 07/06/25 00:00 07/06/25 00:00 Temperature 97.9 F Pulse Rate 90 90 Respiratory Rate 24 H Blood Pressure 156/127 H Pulse Oximetry 96 Oxygen Delivery Room Air 07/06/25 02:00 07/06/25 04:00 07/06/25 04:00 Temperature 98.0 F Pulse Rate 73 82 73 Respiratory Rate 22 H Blood Pressure 134/99 H Pulse Oximetry 96 Oxygen Delivery 07/06/25 04:00 07/06/25 06:00 07/06/25 08:00 Temperature Pulse Rate 76 83 Respiratory Rate 19 Blood Pressure Pulse Oximetry Oxygen Delivery Room Air 07/06/25 08:00 07/06/25 09:57 07/06/25 10:00 Temperature Pulse Rate 78 81 75 Respiratory Rate Blood Pressure Pulse Oximetry Oxygen Delivery 07/06/25 10:03 Temperature 98.2 F Pulse Rate 82 Respiratory Rate 24 H Blood Pressure 113/87 Pulse Oximetry 98 Oxygen Delivery Intake/Output Intake/Output: Intake & Output 07/03/25 07/04/25 07/05/25 07/06/25 23:59 23:59 23:59 23:59 Intake Total 4194 793 4252 250 Output Total 4850 1250 600 250 Balance -3380 -360 720 0 Meds/Results Medications: Active Medications Generic Name Dose Route Start Last Admin Trade Name Freq PRN Reason Stop Dose Admin Acetaminophen 650 mg 07/02/25 19:29 07/03/25 11:19 Acetaminophen 325 Mg Tablet PO 650 mg Q6H PRN Administration Mild Pain (1-3) or Fever Albuterol/Ipratropium 3 ml 07/04/25 12:33 Ipratropium 0.5 Mg/Albuterol Sulfate 2.5 Mg Ampul.Neb 3 Ml INHALATION Q6HRT PRN Wheezing Amoxicillin/Clavulanate Potassium 1 tablet 07/05/25 21:00 07/06/25 09:57 Amoxicillin/Clavulanate K 875-125 Mg Tab PO 1 tablet Q12HR NILESH Administration Dextrose 12.5 gm 06/30/25 12:37 06/30/25 17:00 Dextrose 50% 25 Gm/50 Ml Syringe IV PUSH 12.5 gm PRN PRN Administration Hypoglycemia Protocol Glucagon 1 mg 06/30/25 12:37 Glucagon For Inj 1 Mg Vial IM PRN PRN Hypoglycemia Protocol Glucose 15 gm 06/30/25 12:37 Glucose Oral Gel 15 Gm Of Glucse In 37.5 Gm Tube PO PRN PRN Hypoglycemia Protocol Haloperidol Lactate 5 mg 07/05/25 12:59 07/05/25 18:00 Haloperidol Lactate 5 Mg/Ml Vial IM 5 mg Q6HR PRN Administration Agitation Hydralazine HCl 10 mg 06/29/25 17:58 07/03/25 18:29 Hydralazine Hcl 20 Mg/Ml Vial IV PUSH 10 mg Q4H PRN Administration Blood Pressure - High Dextrose 1,000 mls @ 100 mls/hr 06/30/25 12:37 Dextrose 5% 1,000 Ml IVPB PRN PRN Hypoglycemia Protocol Insulin Aspart 2 - 5 units 06/30/25 17:00 07/06/25 12:12 Insulin Aspart (*Bkc) 100 Units/Ml SUB-Q Not Given TIDWM NILESH Protocol Levetiracetam 1,000 mg 07/05/25 21:00 07/06/25 09:57 Levetiracetam 500 Mg Tablet PO 1,000 mg Q12HR NILESH Administration [place] Carbonate 150 mg 07/05/25 17:00 07/06/25 09:57 [place] Carbonate 150 Mg Capsule PO 150 mg BID NILESH Administration Metoprolol Tartrate 12.5 mg 07/03/25 09:00 07/06/25 09:57 Metoprolol Tartrate 12.5 Mg Tablet PO 12.5 mg Q12HR NILESH Administration Olanzapine 15 mg 07/05/25 21:00 07/05/25 20:01 Olanzapine Odt Dispertab 5 Mg PO 15 mg HS NILESH Administration Sodium Chloride 10 ml 06/30/25 14:00 07/06/25 06:35 [place] Flush IV PUSH 10 ml Q8HR NILESH Administration Sodium Chloride 10 ml 06/30/25 10:17 [place] Flush IV PUSH PRN PRN with TPN bag changes Sodium Chloride 20 ml 06/30/25 10:17 [place] Flush IV PUSH PRN PRN after blood draws Radiology Results: ITS Impressions Head CT 07/01/25 12:20 IMPRESSION: 1. No acute intracranial process. 2. 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 3. Unchanged tract of encephalomalacia in the anterior right frontal lobe extending between what appears to be a small old right frontal alexis hole and the anterior horn of the lateral ventricle which could be related to prior ventricular drainage catheter placement or sequela of old infarct. Correlate with surgical history. 4. Anterior suprasellar embolization coils. Correlate with surgical history. 5. Moderate scattered white matter hypoattenuation consistent with chronic small vessel ischemic disease. Chest/Abdomen/Pelvis CTA 07/01/25 12:29 IMPRESSION: 1. No evidence for pulmonary embolism. 2: Bilateral airspace consolidation, right greater than left. Differential diagnosis includes atelectasis and/or pneumonia. 3: Marked gallbladder distention, nonspecific. 4: Hepatomegaly. 5: Nonobstructing bilateral nephrolithiasis. Venous Doppler Study 07/01/25 14:49 IMPRESSION: 1: No lower extremity deep venous thrombosis. Chest X-Ray 07/02/25 05:49 Impression: Significant interval improvement in right basilar airspace disease. Stable support tubes. Labs Labs: Laboratory Results - last 24 hr 07/03/25 07/05/25 07/05/25 11:39 03:29 16:29 POC Capillary Glucose 83 Heparin-induced Plt Ab 0.066 Hepatitis C RNA Quant HCV RNA (PCR) log10 Not Reportable HIV-1 RNA Qualitative HIV-2 RNA Qualitative 07/05/25 07/06/25 07/06/25 21:04 09:55 11:09 POC Capillary Glucose 108 H 82 88 Heparin-induced Plt Ab Hepatitis C RNA Quant HCV RNA (PCR) log10 HIV-1 RNA Qualitative HIV-2 RNA Qualitative Quality VTE Prophylaxis VTE prophylaxis: mechanical ordered
[2025-07-06 16:52] LABS: Influenza A QL RT-PCR Negative (Negative); Influenza B QL RT-PCR Negative (Negative); RSV RNA, RT-PCR Negative (Negative); SARS-CoV-2 RNA PCR Negative (Negative)
[2025-07-06 16:59] LABS: Add Urine Microscopic? YES; Appearance Urine Cloudy (Clear); Glucose Urine UA Negative (Negative); Leukocyte Esterase Ur Trace LEU/UL (Negative); Nitrate Urine Negative (Negative); Specific Grav Ur 1.024 (1.001-1.035)
--- NOTE | 2025-07-08 13:12 | P.TS_ITS ---
Transfer Discharge Sum: Prov Provider Date of admission: 06/29/25 12:21 Primary care physician: Nolan Woodard MD Admitting clinician: Debi Andrade MD Consults: 06/29/25 Consult to Physician Routine Comment: Consulting Provider: Yao Betancourt Reason for consultation: STEMI Has provider been notified: Yes 06/29/25 13:46 Consult to Physician Routine Comment: Consulting Provider: George Cisneros supervisor framing [employer]/MD group to consult: Neurology gave consult information to Dr. Cisneros for consult. Reason for consultation: Seizures Has provider been notified: Yes 07/01/25 12:51 Consult to Physician Routine Comment: Spoke with provider office 8/6 @ 1517 Consulting Provider: Eva Flores supervisor framing [employer]/MD group to consult: Surgery Reason for consultation: Marked gallbladder distention Has provider been notified: Yes 07/01/25 12:52 Consult to Physician Routine Comment: Spoke with provider 8/6 @ 1518 Consulting Provider: Esvin Melissa supervisor framing [employer]/MD group to consult: Gastroenterology - GI Reason for consultation: Marked gallbladder distended Has provider been notified: Yes 07/03/25 07:27 Consult to Physician Routine Comment: Left voicemail with provider 8/8 @ 1016 Consulting Provider: Fernando Hitchcock supervisor framing [employer]/MD group to consult: Psychiatry Reason for consultation: Paranoia, ? schizophrenia Has provider been notified: Yes Attending physician on discharge: Yao Betancourt Discharging clinician: Yao Betancourt Anticipated date of transfer: 07/06/25 Receiving physician/facility: [facility] [place] DS: Admitting Diagnosis Discharge Date 07/06/25 Admitting Diagnosis Reason for admission: Altered mental status, seizures, intubated for airway protection, STEMI DS: Discharge Diagnosis Discharge Diagnosis (1) Delusional disorder: Code(s): F22 - Delusional disorders Status: Acute Assessment and Plan: Post extubation patient has developed paranoia, delusion, he is hallucinating. Hyperactive and pressured speech. Flight of ideas. Easily distracted. -according to the niece patient was having some delusions and paranoia at home also and behaving like a young child 07/03/2025: Psychiatry consulted. Administered Zyprexa 5 mg p.o. x1. EKG on 06/29/2025 demonstrating QTC 447. 07/04/2025: Psychiatry recommendations appreciated. Continue Zyprexa 10 mg p.o. HS and Zyprexa 2.5 mg p.o. b.i.d. 07/05/2025: Patient continues to be extremely hyper active in his thoughts. Psychotropics changed to olanzapine 15 mg p.o. q.h.s., lithium 150 mg p.o. b.i.d.. Continue to appreciate Psychiatry recommendations. Medically stable for transfer to inpatient Psychiatry, delinquency prevention social worker/crisis management to evaluate arranging. Monitor QTC. EKG this morning shows possible left atrial enlargement, QTC is 443 (2) Fever: Code(s): R50.9 - Fever, unspecified Status: Acute Assessment and Plan: 06/30: Patient spiked fevers with a T-max of 102.1? F 06/30: Blood cultures: Preliminary report with no growth x2 06/30: Urine cultures : No growth, final 06/30: Sputum cultures : Strep pneumo 06/29: Blood cultures negative x2 06/30: Chest x-ray shows increased haziness in the medial right lung base, could be related to aspiration pneumonia/pneumonitis secondary to aspiration during seizure activity on 06/29/2025 Unasyn and doxycycline started 06/30/2025. 07/01/2025 patient continued to spike fevers. Antibiotics switched to cefepime and vancomycin. Doxycycline continued. Unasyn discontinued. 07/02/2025: Afebrile 07/03/2025: DC vancomycin. Sputum culture growing strep pneumo. 07/04/2025: Remains afebrile, transition to Augmentin on 07/05/2025 if remains stable. 07/05/2025: Discontinue cefepime, start Augmentin. 07/01: CT chest abdomen and pelvis IMPRESSION: 1. No evidence for pulmonary embolism. 2: Bilateral airspace consolidation, right greater than left. Differential diagnosis includes atelectasis and/or pneumonia. 3: Marked gallbladder distention, nonspecific. 4: Hepatomegaly. 5: Nonobstructing bilateral nephrolithiasis. (3) Altered mental status: Code(s): R41.82 - Altered mental status, unspecified Status: Inactive Assessment and Plan: [place] [facility] [place] [facility] with altered mental status, confusion and not being himself along with hallucinations and paranoia according to ER notes. -patient was incontinent of stool and urine per EMS -he had a seizure activity on the cardiac catheterization table, -altered mental status could be related to seizure activity and postictal state in combination with underlying psychiatric disorder -07/02/2025: Patient extubated. Since then he has been awake and alert and hyperactive. 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 Anterior suprasellar embolization coils. Moderate scattered white matter hypoattenuation consistent with chronic small- vessel ischemic disease. (4) Seizure: Code(s): R56.9 - Unspecified convulsions Status: Acute Assessment and Plan: 06/29: Patient had a seizure activity on the cardiac catheterization stable -according the EMS he was also incontinent of stool and urine when they got to his house -patient does have a history of paranoid schizophrenia, not on any medications per patient's niece, according to the records. -06/29: Loaded with Keppra 1 g IV x1 a started on Keppra 1 g IV q.i.d. 07/06/2025: No seizure activity noted. Change Keppra to p.o. (5) ST elevation (STEMI) myocardial infarction: Qualifiers: Involved coronary artery: unspecified coronary artery Qualified Code(s): I21.3 - ST elevation (STEMI) myocardial infarction of unspecified site Code(s): I21.3 - ST elevation (STEMI) myocardial infarction of unspecified site Status: Inactive Assessment and Plan: EKG at the outside hospital ER showed ST elevations in the anteroseptal leads, with significant ST depression in inferior lateral leads concerning was STEMI -patient taken to cardiac confection[facility] for coronary angiography -non-obstructive coronary artery disease, right femoral artery angiogram shows there is 80-90% right external iliac lesion. The catheter seems to be semi occlusive at that side. The right common femoral artery could not be well visualized but the catheter entrance site is adequate. -LV EF was 65%, LVEDP was 8 mmHg 06/30/2025: Echocardiogram Summary 1. Complete two-dimensional, color flow and Doppler transthoracic echocardiogram is performed. 2. Left ventricular systolic function is normal, estimated at 50-55. 3. The left ventricular diastolic function is indeterminate. 4. No pulmonary hypertension, estimated pulmonary arterial systolic pressure is 32 mmHg. (6) On mechanically assisted ventilation: Code(s): Z99.11 - Dependence on respirator [ventilator] status Status: Acute Assessment and Plan: 06/29: intubated in the cardiac confectionery laboratory manager after patient had a seizure, altered mental status, agonal breathing and not protecting his airway, aspiration pneumonia -07/02: Extubated successfully -currently on room air -patient has history of COPD, continue bronchodilators -PT/OT following the patient (7) Illicit drug use: Code(s): F19.90 - Other psychoactive substance use, unspecified, uncomplicated Status: Acute Assessment and Plan: Patient has a history of illicit drug use according to the niece patient takes methamphetamine and cannabis. Patient also has a history of schizoaffective paranoia on no medications -acetaminophen, alcohol and salicylic acid levels were all within normal limit -urine drug screen performed in the ICU was positive for cannabis and benzodiazepines (8) Gallbladder dilatation: Code(s): K82.8 - Other specified diseases of gallbladder Status: Acute Assessment and Plan: Marked distention of gallbladder as seen on CT scan of the abdomen pelvis as on -appreciate surgery evaluation and recommendations, patient is a poor surgical candidate, will continue to manage conservatively. If any issues arise in patient complains of abdominal pain will consider ultrasound imaging per surgery. -appreciate GI recommendations, continue to manage conservatively for now 07/01: CT chest abdomen and pelvis IMPRESSION: 1. No evidence for pulmonary embolism. 2: Bilateral airspace consolidation, right greater than left. Differential diagnosis includes atelectasis and/or pneumonia. 3: Marked gallbladder distention, nonspecific. 4: Hepatomegaly. 5: Nonobstructing bilateral nephrolithiasis. Plan Patient is full code. He lives at home with his niece and other roommates. Polysubstance abuse, psychiatry consulted. Care coordination arrange for transfer to inpatient psychiatry. SCDs. Heparin subQ on hold since 07/02/2025 due to decrease in platelets. 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 after his niece called 911 with complains of altered mental status, confusion that started last week along with hallucinations and pacing about and being very paranoid and thinking somebody is out to hit him, not acting right.. According the records EMS noted that patient was incontinent of stool and urine. EKG appeared to show anteroseptal ST- elevation myocardial injury. Patient denies any chest pain want with altered mental status/confusion PE patient was transferred to [facility] for STEMI. Cardiology I accepted the patient is the EKG showed ST-elevation in V1 V2 and AVR. And ST depression in the inferior lateral leads. Labs at the outside hospital: WBC 6.3, hemoglobin 15.2, platelets 165, INR 1.1. Sodium 140, potassium 3.5, CO2 25, BUN 15, creatinine 1.10, glucose 157, lactic acid 4.2, ammonia <9, LFTs within normal limits, troponin 0.016, TSH 0.774. Salicylate, alcohol, acetaminophen levels within normal limits. 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 Anterior suprasellar embolization coils. Moderate scattered white matter hypoattenuation consistent with chronic small- vessel ischemic disease. 06/29: Chest x-ray showed no acute cardiopulmonary disease : Patient was taken the confectionery laboratory manager by cardiology, on the table patient he had a seizure, was given Versed 2 mg IV x1, patient with altered mental status, not protecting his airway, I was called to evaluate the patient. Given his seizure activity, inability to protect airway I decided to intubate the patient in the confectionery laboratory manager. Intubation was uneventful, patient placed on mechanical ventilation cough, placed on propofol infusion for sedation since systolic blood pressures were in the 190s. Cardiac catheterization showed nonobstructive coronary artery disease, LVEF was 65% Patient spiked fevers of 102.1 on 06/30/2025, was pancultured, started patient on Unasyn and doxycycline, patient continue spike fevers, chest x-ray showed bilateral airspace consolidation, antibiotics switched to cefepime and vancomycin along with doxycycline. Patient was successfully extubated on 07/02/2025. Patient was calm after extubation but the next day on 07/03/[address] hallucinations, delusion, paranoia. Patient was seen and evaluated by Psychiatry and started on Zyprexa with no improvement. Psychiatry evaluated the patient again increase olanzapine, started lithium with some improved pain for. Patient has insomnia for almost 3 days and had not slept. Was given some Ativan and did sleep for almost 5 hours. Psychiatry recommended inpatient psych, He was evaluated by crisis management also felt he required inpatient psych facility. During the course of stay was being treated for seizure activity and with Keppra per Neurology. Patient also here and gallbladder dilatation, GI and surgery evaluated the patient, he was asymptomatic with normal liver enzymes and bilirubin. Recommended conservative management. Patient was transferred to [facility] [place] for inpatient psychiatry on 07/06/2025 Patient Condition: Stable Time Spent with Patient Time attestation: Total time spent providing and/or coordinating transfer services: Total time spent: Less than 30 minutes Exam Narrative: General: Pleasant gentleman currently calm and in no distress HEENT:? Pupils equal and reactive, sclera is clear, Neck:? Supple Respiratory:? Clear to auscultation bilaterally, no wheezing, adequate air entry Cardiac:? S1-S2 is normal, sinus rhythm, no murmurs Abdomen:? Soft, nontender, nondistended, normoactive bowel sounds Extremities:? No edema, both feet are warm, palpable pedal pulses Neuro:? Patient is awake, alert, oriented x2. Is delusional, hallucinating, paranoid but is easily redirectable, answers to questions appropriately when asked and follows simple commands Skin:? Warm and dry Psych:? Delusional, paranoid, having hallucinations
== END 2025-07-06 18:35 | DRG 190 ==
LOC: ANHED 12:19 → ANHCPC 12:22 → ANHICU 13:39
PROVIDERS: General Practice; Admitting Provider Internal Medicine Cardiovascular Disease; Emergency Provider Internal Medicine; PCP Internal Medicine; Visit Provider Internal Medicine
PROC: 4A023N7 Measurement of Cardiac Sampling and Pressure, Left Heart, Percutaneous Approach (ICD-10-PCS; CPT 93452; principal; 2025-06-29 12:30)
DX: I21.19 ST elevation (STEMI) myocardial infarction involving other coronary artery of inferior wall (principal); J13 Pneumonia due to Streptococcus pneumoniae; J69.0 Pneumonitis due to inhalation of food and vomit; I25.10 Atherosclerotic heart disease of native coronary artery without angina pectoris; E46 Unspecified protein-calorie malnutrition; F19.90 Other psychoactive substance use, unspecified, uncomplicated; F20.0 Paranoid schizophrenia; I25.84 Coronary atherosclerosis due to calcified coronary lesion; R56.9 Unspecified convulsions; G93.89 Other specified disorders of brain; J44.9 Chronic obstructive pulmonary disease, unspecified; D69.6 Thrombocytopenia, unspecified; F12.10 Cannabis abuse, uncomplicated; F15.10 Other stimulant abuse, uncomplicated; K82.8 Other specified diseases of gallbladder; I69.398 Other sequelae of cerebral infarction; F17.210 Nicotine dependence, cigarettes, uncomplicated; Z68.23 Body mass index [BMI] 23.0-23.9, adult
CPT/HCPCS: 31500; 36415; 36569; 36600; 70450; 71045; 71275; 74177; 80048; 80053; 80074; 80202; 80307; 81001; 82375; 82805; 82948; 83050; 83605; 83735; 84100; 84478; 85018; 85025; 85055; 85610; 85730; 86022; 86140; 86703; 87040; 87070; 87086; 87205; 87522; 87535; 87637; 87641; 93005; 93306; 93458; 93970; 94002; 94003; 94640; 97110; 97162; 97166; 97530; 97535; 99291; A9270; C1751; C1769; C1887; C1894; G0432; J0295; J0360; J0692; J1200; J1630; J1644; J1953; J2003; J2060; J2250; J2470; J2704; J2765; J3010; J3373; J3475; J7030; J7040; J7050; J7120; Q9967